=== PATIENT | female | born 1970 | race Caucasian/White ===

== ENCOUNTER 2016-05-04 13:14 | Emergency (ER) | payer MEDICARE, MEDICAID ==
[~2016-05-04 13:14] MED LIST: ACET50TAOT PO; ALBU17IN INH; ALBU17IN2 INH; BACI500O8 TOP; BUPR100T3 PO; BUPR10TASR PO; BUPR1TAB52 PO; CLON0.5T PO; CLON1TAB PO; CLON2TAB PO; COLA100C PO; CYMB60CA3 PO; DULO-34 PO; DULO1CAP3 PO; DULOXETINE HCL PO; FAMO20TA PO; FLON1SPR; GABA-279 PO; GABA300C3 PO; GABA600T PO; HYDR-2809 PO; HYDR-3713 PO; HYDR-3716 PO; HYDR-3719 PO; IRON65TA PO; KLON1TAB PO; KLON2TAB PO; LOPR1TAB6 PO; LORT1TAB PO; METH75TA PO; METO50TA2 PO; MINI1CAP PO; NEUR100C PO; NORT25CA2 PO; NYST100024 TOP; OMEP40CA2 PO; OXYC1TAB23 PO; PEPT262S PO; PHEN10TA PO; PRIL40CA PO; PROA1AER INH; QUET1TAB8 PO; QUET1TAB9 PO; RANI150I2 PO; RANI150T PO; RANI15TA PO; RANI1TAB6 PO; SALI0.653; SAPHRIS PO; SENO8.6T10 PO; SPIR1CAP INH; SUCR1SS PO; TIOT18INH INH; TIZA2CAP3 PO; TIZA2TA PO; TRAZ150T14 PO; TRAZ300T2 PO; TYLE325T5 PO; VALI10TA PO; VALI5TAB PO; VITA-130 PO; VITA100066 PO; WELL100T PO; ZOFR20TA PO; [UNRECOGNIZED DRUG - OTHER]
--- NOTE | 2016-05-04 14:29 | REP ---
Head CT without contrast: History: Trauma. Comparison study: November 02, 2015. CT findings: Bone window settings demonstrate an intact bony calvarium. There is no evidence of skull fracture or incidental bony calvarial lesion. There is a small calcification in the scalp in the right side of the vertex unchanged from the comparison study. The visualized paranasal sinuses appear clear. No intraorbital abnormality is seen. On soft tissue window setting images; the lateral, third, and fourth ventricles are normal in size and position. Lomeli-white differentiation pattern is normal above and below the tentorium. There are is no evidence of intracranial hemorrhage. No mass, edema, infarction, or midline shift is seen. No extra-axial fluid collection is appreciated. Impression: Negative noncontrast head CT. Signed by Saad Cintron MD 05/04/2016 02:21 P
[2016-05-04] MEDS ORDERED: HYDROmorphone HCL 1 MG/ML SYRINGE (J1170) As Ordered ONE (14:30)
[2016-05-04] MEDS ORDERED: LIDOCAINE 2% W/EPIN INJ 20ML **PRES FREE As Ordered ONE (14:30)
[2016-05-04] MEDS ORDERED: ADACEL/BOOSTRIX VACCINE (DIPHTH/PERTUSS/ACELL/TETANUS)0.5ML SYR (90715) As Ordered ONE (14:31)
--- NOTE | 2016-05-04 15:13 | EDDOCDS ---
[facility] Name: Elisa Trejo Age: 46 yrs Sex: Female : 1970 Arrival Date: 05/04/2016 Time: 13:14 Bed I2 / M2 Private MD: SANTA GIRARD Disposition: 05/04/16 15:00 Discharged to Home/Self Care. Impression: Slipping, tripping and stumbling without falling due to stepping from one level to another, Laceration without foreign body of scalp. - Condition is Stable. - Discharge Instructions: Head Injury, Adult, Sutured Wound Care. - Medication Reconciliation form. - Follow up: SANTA GIRARD; When: 1 week; Reason: Wound/Symptom Recheck, Staple/Suture removal, Recheck today's complaints, Worsening of conditions, Continuance of care. - Problem is new. - Symptoms have improved. - Notes: 4 sutures were placed in your head today. Please keep area clean and dry. Return in 1 week for suture removal. Return sooner for any signs of infection. thanks. Historical: - Home Meds: 1. amlodipine 10 mg Oral tab 1 tab once daily 2. duloxetine 60 mg Oral cpDR 2 caps once daily for Major Depressive Disorder 3. hydroxyzine HCl 50 mg Oral tab 2 tabs 4 times per day 4. Lopressor 50 mg Oral tab 1 tab 2 times per day 5. omeprazole 40 mg Oral cpDR 1 cap 2 times per day 6. ranitidine HCl 150 mg Oral tab 1 cap 2 times per day 7. Spiriva with HandiHaler 18 mcg Inhl CpDv 1 cap once daily 8. trazodone 150 mg Oral tab 2 tabs nightly 9. Wellbutrin 100 mg Oral tab 1 tab 2 times per day - PMHx: Anxiety; Asthma; Chronic Low Back Pain; COPD; Depression; DVT; GERD; Hypertension; OCD; PTSD; Pulmonary Embolism; - PSHx: left leg surgery times 4; Hernia repair; Uterine Ablation; - Social history: Smoking status: Patient uses tobacco products, light tobacco smoker. No barriers to communication noted, The patient speaks fluent Kyrgyz, Speaks appropriately for age. - Family history: Not pertinent. - : The pt / caregiver states he / she is not on anticoagulants. Home medication list is obtained from the patient. - Exposure Risk Screening:: None identified. - Tetanus status: up to date. SLUBBER HAND: 05/04 13:26 LMP N/A - Uterine ablation jo3 Vital Signs: 13:17 BP 133 / 78; Pulse 100; Resp 18 S; Temp 97.3; Pulse Ox 95% on R/A; Weight 90.72 kg / dd6 200 lbs (R); Height 5 ft. 6 in. (167.64 cm) (R); 15:09 BP 130 / 70; Pulse 88; Resp 18; Temp 97.0(O); Pulse Ox 96% on R/A; Pain 0/10; jmb 13:17 Body Mass Index 32.28 (90.72 kg, 167.64 cm) dd6 [place] Coma Score: 13:18 Eye Response: spontaneous(4). Verbal Response: oriented(5). Motor Response: obeys jo3 commands(6). Total: 15. Procedures: 15:04 Laceration repair:. cc10 Laceration: 15:04 Wound Repair of 3cm ( 1.2in ) full thickness laceration to right side of forehead. cc10 Linear shaped.. Distal neuro/vascular/tendon intact. Anesthesia: Local anesthetic administered with 4 mls of 2% lidocaine. Wound prep: Simple cleansing with betadine by provider, Wound irrigation with saline by provider. Skin closed with 4 x 4-0 Nylon using Simple interrupted sutures. Dressed with Bacitracin. Patient tolerated well. MDM: 13:38 CT Head Without Contrast Ordered. EDMS 14:26 Dilaudid - HYDROmorphone 1 mg IM once ordered. cc10 14:27 Lidocaine-Epinephrine 2 %-1:100,000 10 ml Infiltration once; to bedside ordered. cc10 Administered Medications: 14:34 Drug: Dilaudid - HYDROmorphone 1 mg [hydromorphone 1 mg/mL injection syringe (1 mL)] pml Route: IM; Site: left deltoid; 14:34 CANCELLED (Other Intervention Used): Tetanus- Diptheria-Acellular Pertussis 0.5 ml IM cc10 once; Routine booster 10-64yrs, >64 with child contact [facility] 14:35 Drug: Lidocaine-Epinephrine 10 ml [lidocaine 20 mg/mL (2 %)-epinephrine 1:100,000 pml injection solution (10 mL)] {Note: by VANESSA Carroll.} Route: Infiltration; Signatures: Dispatcher [employer] Yoselyn ElamRN Ignacia GatesRN Vj Lopez RN RN jmb Coniski, Colin, BHAVIN DELCID cc10 The chart was reviewed and I authenticate all verbal orders and agree with the evaluation and treatment provided.Corrections: (The following items were deleted from the chart) 14:34 14:27 Tetanus- Diptheria-Acellular Pertussis 0.5 ml IM once; Routine booster cc10 10-64yrs, >64 with child contact [employer] ordered. cc10 14:34 14:34 Tetanus- Diptheria-Acellular Pertussis 0.5 ml IM once; Routine booster cc10 10-64yrs, >64 with child contact [employer] ordered. cc10 MTDD
--- NOTE | 2016-05-04 15:13 | EDDOCDS ---
Nurse's Notes [facility] Name: Elisa Trejo Age: 46 yrs Sex: Female : 1970 Arrival Date: 05/04/2016 Time: 13:14 Bed I2 / M2 Private MD: SANTA GIRARD Diagnosis: Slipping, tripping and stumbling without falling due to stepping from one level to another;Laceration without foreign body of scalp Presentation: 05/04 13:18 Presenting complaint: Patient states: Had cast placed to LLE today at ortho. At home, jo3 slipped on linoleum and fell, striking front right side of head. unknown. Mechanism of Injury: resulted from a fall. Adult Sepsis Screening: Patient has new or worsening altered mentation (1 point). Patient's respiratory rate is less than 22. Systolic blood pressure is greater than 100. Patient has a qSOFA score of 0- Negative Sepsis Screen. Suicide/Homicide risk assessment- the patient denies having any suicidal and/or homicidal ideations and does not present with any other emotional, behavioral or mental health complaints. 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 Transition of care: patient was not received from another setting of care. 13:18 Acuity: SHONDA Level 3 jo3 13:18 Method Of Arrival: Ambulance jo3 Triage Assessment: 13:24 General: Appears in no apparent distress. General: Had some nausea prior to arrival. jo3 C/O feeling tired and severe DENIS . HIV screening NA for this visit Offered previously. Neurological: Level of Consciousness is awake, alert. Respiratory: Airway is patent Respiratory effort is even, unlabored. Derm: Skin is pink, warm & dry. 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 amlodipine 10 mg Oral tab 1 tab once daily 2. duloxetine 60 mg Oral cpDR 2 caps once daily for Major Depressive Disorder 3. hydroxyzine HCl 50 mg Oral tab 2 tabs 4 times per day 4. Lopressor 50 mg Oral tab 1 tab 2 times per day 5. omeprazole 40 mg Oral cpDR 1 cap 2 times per day 6. ranitidine HCl 150 mg Oral tab 1 cap 2 times per day 7. Spiriva with HandiHaler 18 mcg Inhl CpDv 1 cap once daily 8. trazodone 150 mg Oral tab 2 tabs nightly 9. Wellbutrin 100 mg Oral tab 1 tab 2 times per day - PMHx: Anxiety; Asthma; Chronic Low Back Pain; COPD; Depression; DVT; GERD; Hypertension; OCD; PTSD; Pulmonary Embolism; - PSHx: left leg surgery times 4; Hernia repair; Uterine Ablation; - Social history: Smoking status: Patient uses tobacco products, light tobacco smoker. No barriers to communication noted, The patient speaks fluent Serbian, Speaks appropriately for age. - Family history: Not pertinent. - : The pt / caregiver states he / she is not on anticoagulants. Home medication list is obtained from the patient. - Exposure Risk Screening:: None identified. - Tetanus status: up to date. Screenin:35 Screening information is obtained from the patient. Fall risk: No risks identified. pml Assistance ADL's: requires no assistance with activities of daily living. Abuse/DV Screen: The patient / caregiver reports he/she is: not in a situation that causes fear, pain or injury. Nutritional screening: No deficits noted. Advance Directives: Currently, there is no health care proxy. home support is adequate. Assessment: 14:35 General: Appears in no apparent distress, comfortable, Behavior is appropriate for age, pml cooperative. Pain: Location: face Pain currently is 10 out of 10 on a pain scale. Neurological: Level of Consciousness is awake, alert, Oriented to person, place, time, Reports no additional symptoms. Cardiovascular: Capillary refill < 3 seconds. Respiratory: Airway is patent Respiratory effort is even, unlabored. GI: Abdomen is non- distended obese. Derm: Skin is pink, warm & dry. Injury Description: Laceration sustained to forehead is superficial, 2.6 to 7.5 cm long, was sustained 1-2 hours ago. is bleeding a small amount. 15:09 General: Patient instructed on discharge instructions. Patient asked if there were any b questions regarding discharge, patient stated no. Patient signed discharge instructions. Patient discharged in stable condition. . Vital Signs: 13:17 BP 133 / 78; Pulse 100; Resp 18 S; Temp 97.3; Pulse Ox 95% on R/A; Weight 90.72 kg (R); dd6 Height 5 ft. 6 in. (167.64 cm) (R); 15:09 BP 130 / 70; Pulse 88; Resp 18; Temp 97.0(O); Pulse Ox 96% on R/A; Pain 0/10; jmb 13:17 Body Mass Index 32.28 (90.72 kg, 167.64 cm) dd6 Vitals: 13:17 Log In Time: May 04, 2016 at 13:15. dd6 [place] Coma Score: 13:18 Eye Response: spontaneous(4). Verbal Response: oriented(5). Motor Response: obeys jo3 commands(6). Total: 15. ED Course: 13:15 Patient visited by Zion Ornelas PCA. dd6 13:15 Patient moved to Waiting dd6 13:16 SANTA GIRARD is Private Physician. dd6 13:17 Patient visited by Zion Ornelas PCA. dd6 13:17 Patient moved to Pre RCE dd6 13:23 Triage Initiated jo3 13:26 Patient visited by Yoselyn Arguello RN. jo3 13:37 Patient moved to I2 / M2 jo3 14:23 Jeffrey Gutiérrez PA-C is PHCP. cc10 14:23 Ema Lemos MD is Attending Physician. cc10 14:23 Patient visited by Jeffrey Gutiérrez PA-C. cc10 14:23 Patient visited by Jeffrey Gutiérrez PA-C. cc10 14:35 The patient / caregiver is instructed regarding the plan of care and ED course. Patient pml has correct armband on for positive identification. Placed in gown. Bed in low position. Call light in reach. Side rails up X2. 14:35 No IV's were initiated during this patient's visit. pml 14:36 Patient visited by Ignacia Estrada RN. pml 14:36 CT Head Without Contrast Returned. EDMS 15:00 SANTA GIRARD is Referral Physician. cc10 15:09 No procedures done that require assistance. rocael Administered Medications: 14:34 Drug: Dilaudid - HYDROmorphone 1 mg [hydromorphone 1 mg/mL injection syringe (1 mL)] pml Route: IM; Site: left deltoid; 14:34 CANCELLED (Other Intervention Used): Tetanus- Diptheria-Acellular Pertussis 0.5 ml IM cc10 once; Routine booster 10-64yrs, >64 with child contact [facility] 14:35 Drug: Lidocaine-Epinephrine 10 ml [lidocaine 20 mg/mL (2 %)-epinephrine 1:100,000 pml injection solution (10 mL)] {Note: by VANESSA Carroll.} Route: Infiltration; Order Results: Radiology Order: CT Head Without Contrast Test: CT Head Without Contrast REASON FOR EXAMINATION: Trauma; Head CT without contrast:; ; History: Trauma.; ; Comparison study: November 02, 2015.; ; CT findings: Bone window settings demonstrate an intact bony calvarium. There; is no evidence of skull fracture or incidental bony calvarial lesion. There is a; small calcification in the scalp in the right side of the vertex unchanged from; the comparison study. The visualized paranasal sinuses appear clear. No; intraorbital abnormality is seen. On soft tissue window setting images; the; lateral, third, and fourth ventricles are normal in size and position.; Lomeli-white differentiation pattern is normal above and below the tentorium.; There are is no evidence of intracranial hemorrhage. No mass, edema, infarction,; or midline shift is seen. No extra-axial fluid collection is appreciated.; ; Impression:; ; Negative noncontrast head CT.; ; ; Signed by; Saad Cintron MD 05/04/2016 02:21 P; Outcome: 15:00 Discharge ordered by Provider. cc10 15:09 Discharge Assessment: Patient awake, alert and oriented x 3. No cognitive and/or jmb functional deficits noted. Patient verbalized understanding of disposition instructions. Patient awake and alert. obeys commands, Oriented to person, place and time. Patient verbalized understanding of disposition instructions. Patient has no functional deficits. patient administered narcotics - no. The following High Risk Discharge criteria are identified: None. Discharged to home ambulatory, with social media job titles. Condition: stable Condition: improved. Discharge instructions given to patient, Instructed on discharge instructions, follow up and referral plans. Demonstrated understanding of instructions, Pt was receptive of discharge instructions/ teaching. No special radiology studies were completed. Property sent home with patient. 15:12 Patient left the ED. rocael Signatures: Dispatcher [employer] EDMS Yoselyn Arguello RN RN jo3 Zion Ornelas, YRIS EXHIBITIONS CURATOR dd6 Sean,Ignacia,RN RN pml Natarajan,Vj,RN RN jmb Coniski, Jeffrey, PA-C PA-C cc10 MTDD
--- NOTE | 2016-05-06 16:13 | EDDOCDS ---
Nurse's Notes [facility] Name: Elisa Trejo Age: 46 yrs Sex: Female : 1970 Arrival Date: 05/04/2016 Time: 13:14 Bed I2 / M2 Private MD: SANTA GIRARD Diagnosis: Slipping, tripping and stumbling without falling due to stepping from one level to another;Laceration without foreign body of scalp Presentation: 05/04 13:18 Presenting complaint: Patient states: Had cast placed to LLE today at ortho. At home, jo3 slipped on linoleum and fell, striking front right side of head. unknown. Mechanism of Injury: resulted from a fall. Adult Sepsis Screening: Patient has new or worsening altered mentation (1 point). Patient's respiratory rate is less than 22. Systolic blood pressure is greater than 100. Patient has a qSOFA score of 0- Negative Sepsis Screen. Suicide/Homicide risk assessment- the patient denies having any suicidal and/or homicidal ideations and does not present with any other emotional, behavioral or mental health complaints. 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 Transition of care: patient was not received from another setting of care. 13:18 Acuity: SHONDA Level 3 jo3 13:18 Method Of Arrival: Ambulance jo3 Triage Assessment: 13:24 General: Appears in no apparent distress. General: Had some nausea prior to arrival. jo3 C/O feeling tired and severe DENIS . HIV screening NA for this visit Offered previously. Neurological: Level of Consciousness is awake, alert. Respiratory: Airway is patent Respiratory effort is even, unlabored. Derm: Skin is pink, warm & dry. 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 amlodipine 10 mg Oral tab 1 tab once daily 2. duloxetine 60 mg Oral cpDR 2 caps once daily for Major Depressive Disorder 3. hydroxyzine HCl 50 mg Oral tab 2 tabs 4 times per day 4. Lopressor 50 mg Oral tab 1 tab 2 times per day 5. omeprazole 40 mg Oral cpDR 1 cap 2 times per day 6. ranitidine HCl 150 mg Oral tab 1 cap 2 times per day 7. Spiriva with HandiHaler 18 mcg Inhl CpDv 1 cap once daily 8. trazodone 150 mg Oral tab 2 tabs nightly 9. Wellbutrin 100 mg Oral tab 1 tab 2 times per day - PMHx: Anxiety; Asthma; Chronic Low Back Pain; COPD; Depression; DVT; GERD; Hypertension; OCD; PTSD; Pulmonary Embolism; - PSHx: left leg surgery times 4; Hernia repair; Uterine Ablation; - Social history: Smoking status: Patient uses tobacco products, light tobacco smoker. No barriers to communication noted, The patient speaks fluent Setswana, Speaks appropriately for age. - Family history: Not pertinent. - : The pt / caregiver states he / she is not on anticoagulants. Home medication list is obtained from the patient. - Exposure Risk Screening:: None identified. - Tetanus status: up to date. Screenin:35 Screening information is obtained from the patient. Fall risk: No risks identified. pml Assistance ADL's: requires no assistance with activities of daily living. Abuse/DV Screen: The patient / caregiver reports he/she is: not in a situation that causes fear, pain or injury. Nutritional screening: No deficits noted. Advance Directives: Currently, there is no health care proxy. home support is adequate. Assessment: 14:35 General: Appears in no apparent distress, comfortable, Behavior is appropriate for age, pml cooperative. Pain: Location: face Pain currently is 10 out of 10 on a pain scale. Neurological: Level of Consciousness is awake, alert, Oriented to person, place, time, Reports no additional symptoms. Cardiovascular: Capillary refill < 3 seconds. Respiratory: Airway is patent Respiratory effort is even, unlabored. GI: Abdomen is non- distended obese. Derm: Skin is pink, warm & dry. Injury Description: Laceration sustained to forehead is superficial, 2.6 to 7.5 cm long, was sustained 1-2 hours ago. is bleeding a small amount. 15:09 General: Patient instructed on discharge instructions. Patient asked if there were any b questions regarding discharge, patient stated no. Patient signed discharge instructions. Patient discharged in stable condition. . Vital Signs: 13:17 BP 133 / 78; Pulse 100; Resp 18 S; Temp 97.3; Pulse Ox 95% on R/A; Weight 90.72 kg (R); dd6 Height 5 ft. 6 in. (167.64 cm) (R); 15:09 BP 130 / 70; Pulse 88; Resp 18; Temp 97.0(O); Pulse Ox 96% on R/A; Pain 0/10; jmb 13:17 Body Mass Index 32.28 (90.72 kg, 167.64 cm) dd6 Vitals: 13:17 Log In Time: May 04, 2016 at 13:15. dd6 [place] Coma Score: 13:18 Eye Response: spontaneous(4). Verbal Response: oriented(5). Motor Response: obeys jo3 commands(6). Total: 15. ED Course: 13:15 Patient visited by Zion Ornelas PCA. dd6 13:15 Patient moved to Waiting dd6 13:16 SANTA GIRARD is Private Physician. dd6 13:17 Patient visited by Zion Ornelas PCA. dd6 13:17 Patient moved to Pre RCE dd6 13:23 Triage Initiated jo3 13:26 Patient visited by Yoselyn Arguello RN. jo3 13:37 Patient moved to I2 / M2 jo3 14:23 Jeffrey Gutiérrez PA-C is PHCP. cc10 14:23 Ema Lemos MD is Attending Physician. cc10 14:23 Patient visited by Jeffrey Gutiérrez PA-C. cc10 14:23 Patient visited by Jeffrey Gutiérrez PA-C. cc10 14:35 The patient / caregiver is instructed regarding the plan of care and ED course. Patient pml has correct armband on for positive identification. Placed in gown. Bed in low position. Call light in reach. Side rails up X2. 14:35 No IV's were initiated during this patient's visit. pml 14:36 Patient visited by Ignacia Estrada RN. pml 14:36 CT Head Without Contrast Returned. EDMS 15:00 SANTA GIRARD is Referral Physician. cc10 15:09 No procedures done that require assistance. rocael 05/05 08:06 T-Sheet-- Draft Copy was scanned into [employer] and attached to record. [facility] Administered Medications: 05/04 14:34 Drug: Dilaudid - HYDROmorphone 1 mg [hydromorphone 1 mg/mL injection syringe (1 mL)] pml Route: IM; Site: left deltoid; 14:34 CANCELLED (Other Intervention Used): Tetanus- Diptheria-Acellular Pertussis 0.5 ml IM cc10 once; Routine booster 10-64yrs, >64 with child contact [facility] 14:35 Drug: Lidocaine-Epinephrine 10 ml [lidocaine 20 mg/mL (2 %)-epinephrine 1:100,000 pml injection solution (10 mL)] {Note: by VANESSA Carroll.} Route: Infiltration; Order Results: Radiology Order: CT Head Without Contrast Test: CT Head Without Contrast REASON FOR EXAMINATION: Trauma; Head CT without contrast:; ; History: Trauma.; ; Comparison study: November 02, 2015.; ; CT findings: Bone window settings demonstrate an intact bony calvarium. There; is no evidence of skull fracture or incidental bony calvarial lesion. There is a; small calcification in the scalp in the right side of the vertex unchanged from; the comparison study. The visualized paranasal sinuses appear clear. No; intraorbital abnormality is seen. On soft tissue window setting images; the; lateral, third, and fourth ventricles are normal in size and position.; Lomeli-white differentiation pattern is normal above and below the tentorium.; There are is no evidence of intracranial hemorrhage. No mass, edema, infarction,; or midline shift is seen. No extra-axial fluid collection is appreciated.; ; Impression:; ; Negative noncontrast head CT.; ; ; Signed by; Saad Cintron MD 05/04/2016 02:21 P; Outcome: 15:00 Discharge ordered by Provider. cc10 15:09 Discharge Assessment: Patient awake, alert and oriented x 3. No cognitive and/or jmb functional deficits noted. Patient verbalized understanding of disposition instructions. Patient awake and alert. obeys commands, Oriented to person, place and time. Patient verbalized understanding of disposition instructions. Patient has no functional deficits. patient administered narcotics - no. The following High Risk Discharge criteria are identified: None. Discharged to home ambulatory, with transition social worker. Condition: stable Condition: improved. Discharge instructions given to patient, Instructed on discharge instructions, follow up and referral plans. Demonstrated understanding of instructions, Pt was receptive of discharge instructions/ teaching. No special radiology studies were completed. Property sent home with patient. 15:12 Patient left the ED. b Signatures: Dispatcher [facility] Yoselyn Elam RN RN jo3 Zion Ornelas SOLAR DESIGNER/INSTALLER SOLAR DESIGNER/INSTALLER dd6 Ignacia Estrada,RN RN pml Vj NatarajanRN RN galb Jeffrey Gutiérrez, BHAVIN DELCID cc10 Ema Calloway Chart Complete MTDD
--- NOTE | 2016-05-06 16:13 | EDDOCDS ---
Physician Documentation [facility] Name: Elisa Trejo Age: 46 yrs Sex: Female : 1970 Arrival Date: 05/04/2016 Time: 13:14 Bed I2 / M2 Private MD: SANTA GIRARD Disposition: 05/04/16 15:00 Discharged to Home/Self Care. Impression: Slipping, tripping and stumbling without falling due to stepping from one level to another, Laceration without foreign body of scalp. - Condition is Stable. - Discharge Instructions: Head Injury, Adult, Sutured Wound Care. - Medication Reconciliation form. - Follow up: SANTA GIRARD; When: 1 week; Reason: Wound/Symptom Recheck, Staple/Suture removal, Recheck today's complaints, Worsening of conditions, Continuance of care. - Problem is new. - Symptoms have improved. - Notes: 4 sutures were placed in your head today. Please keep area clean and dry. Return in 1 week for suture removal. Return sooner for any signs of infection. thanks. Historical: - Home Meds: 1. amlodipine 10 mg Oral tab 1 tab once daily 2. duloxetine 60 mg Oral cpDR 2 caps once daily for Major Depressive Disorder 3. hydroxyzine HCl 50 mg Oral tab 2 tabs 4 times per day 4. Lopressor 50 mg Oral tab 1 tab 2 times per day 5. omeprazole 40 mg Oral cpDR 1 cap 2 times per day 6. ranitidine HCl 150 mg Oral tab 1 cap 2 times per day 7. Spiriva with HandiHaler 18 mcg Inhl CpDv 1 cap once daily 8. trazodone 150 mg Oral tab 2 tabs nightly 9. Wellbutrin 100 mg Oral tab 1 tab 2 times per day - PMHx: Anxiety; Asthma; Chronic Low Back Pain; COPD; Depression; DVT; GERD; Hypertension; OCD; PTSD; Pulmonary Embolism; - PSHx: left leg surgery times 4; Hernia repair; Uterine Ablation; - Social history: Smoking status: Patient uses tobacco products, light tobacco smoker. No barriers to communication noted, The patient speaks fluent Grenadian, Speaks appropriately for age. - Family history: Not pertinent. - : The pt / caregiver states he / she is not on anticoagulants. Home medication list is obtained from the patient. - Exposure Risk Screening:: None identified. - Tetanus status: up to date. MANAGER TRAFFIC: 05/04 13:26 LMP N/A - Uterine ablation jo3 Vital Signs: 13:17 BP 133 / 78; Pulse 100; Resp 18 S; Temp 97.3; Pulse Ox 95% on R/A; Weight 90.72 kg / dd6 200 lbs (R); Height 5 ft. 6 in. (167.64 cm) (R); 15:09 BP 130 / 70; Pulse 88; Resp 18; Temp 97.0(O); Pulse Ox 96% on R/A; Pain 0/10; jmb 13:17 Body Mass Index 32.28 (90.72 kg, 167.64 cm) dd6 [place] Coma Score: 13:18 Eye Response: spontaneous(4). Verbal Response: oriented(5). Motor Response: obeys jo3 commands(6). Total: 15. Procedures: 15:04 Laceration repair:. cc10 Laceration: 15:04 Wound Repair of 3cm ( 1.2in ) full thickness laceration to right side of forehead. cc10 Linear shaped.. Distal neuro/vascular/tendon intact. Anesthesia: Local anesthetic administered with 4 mls of 2% lidocaine. Wound prep: Simple cleansing with betadine by provider, Wound irrigation with saline by provider. Skin closed with 4 x 4-0 Nylon using Simple interrupted sutures. Dressed with Bacitracin. Patient tolerated well. MDM: 13:38 CT Head Without Contrast Ordered. EDMS 14:26 Dilaudid - HYDROmorphone 1 mg IM once ordered. cc10 14:27 Lidocaine-Epinephrine 2 %-1:100,000 10 ml Infiltration once; to bedside ordered. cc10 05/05 08:06 T-Sheet-- Draft Copy was scanned into [employer] and attached to record. [facility] Administered Medications: 05/04 14:34 Drug: Dilaudid - HYDROmorphone 1 mg [hydromorphone 1 mg/mL injection syringe (1 mL)] pml Route: IM; Site: left deltoid; 14:34 CANCELLED (Other Intervention Used): Tetanus- Diptheria-Acellular Pertussis 0.5 ml IM cc10 once; Routine booster 10-64yrs, >64 with child contact [facility] 14:35 Drug: Lidocaine-Epinephrine 10 ml [lidocaine 20 mg/mL (2 %)-epinephrine 1:100,000 pml injection solution (10 mL)] {Note: by VANESSA Carroll.} Route: Infiltration; Signatures: Dispatcher [employer] Yoselyn ElamRN RN Ignacia JovelRN RN Vj Mcgowan RN RN jmb Coniski, Colin, PA-C PA-C [facility] Ema Calloway se The chart was reviewed and I authenticate all verbal orders and agree with the evaluation and treatment provided.Corrections: (The following items were deleted from the chart) 14:34 14:27 Tetanus- Diptheria-Acellular Pertussis 0.5 ml IM once; Routine booster cc10 10-64yrs, >64 with child contact [employer] ordered. cc10 14:34 14:34 Tetanus- Diptheria-Acellular Pertussis 0.5 ml IM once; Routine booster cc10 10-64yrs, >64 with child contact [employer] ordered. [facility] Attachments: 05/05 08:06 T-Sheet-- Draft Copy [facility] Chart Complete [facility]
--- NOTE | 2016-05-06 16:13 | EDDOCDS ---
Physician Documentation [facility] Name: Elisa Trejo Age: 46 yrs Sex: Female : 1970 Arrival Date: 05/04/2016 Time: 13:14 Bed I2 / M2 Private MD: SANTA GIRARD Disposition: 05/04/16 15:00 Discharged to Home/Self Care. Impression: Slipping, tripping and stumbling without falling due to stepping from one level to another, Laceration without foreign body of scalp. - Condition is Stable. - Discharge Instructions: Head Injury, Adult, Sutured Wound Care. - Medication Reconciliation form. - Follow up: SANTA GIRARD; When: 1 week; Reason: Wound/Symptom Recheck, Staple/Suture removal, Recheck today's complaints, Worsening of conditions, Continuance of care. - Problem is new. - Symptoms have improved. - Notes: 4 sutures were placed in your head today. Please keep area clean and dry. Return in 1 week for suture removal. Return sooner for any signs of infection. thanks. Historical: - Home Meds: 1. amlodipine 10 mg Oral tab 1 tab once daily 2. duloxetine 60 mg Oral cpDR 2 caps once daily for Major Depressive Disorder 3. hydroxyzine HCl 50 mg Oral tab 2 tabs 4 times per day 4. Lopressor 50 mg Oral tab 1 tab 2 times per day 5. omeprazole 40 mg Oral cpDR 1 cap 2 times per day 6. ranitidine HCl 150 mg Oral tab 1 cap 2 times per day 7. Spiriva with HandiHaler 18 mcg Inhl CpDv 1 cap once daily 8. trazodone 150 mg Oral tab 2 tabs nightly 9. Wellbutrin 100 mg Oral tab 1 tab 2 times per day - PMHx: Anxiety; Asthma; Chronic Low Back Pain; COPD; Depression; DVT; GERD; Hypertension; OCD; PTSD; Pulmonary Embolism; - PSHx: left leg surgery times 4; Hernia repair; Uterine Ablation; - Social history: Smoking status: Patient uses tobacco products, light tobacco smoker. No barriers to communication noted, The patient speaks fluent Turkish, Speaks appropriately for age. - Family history: Not pertinent. - : The pt / caregiver states he / she is not on anticoagulants. Home medication list is obtained from the patient. - Exposure Risk Screening:: None identified. - Tetanus status: up to date. INVOICING SPECIALIST: 05/04 13:26 LMP N/A - Uterine ablation jo3 Vital Signs: 13:17 BP 133 / 78; Pulse 100; Resp 18 S; Temp 97.3; Pulse Ox 95% on R/A; Weight 90.72 kg / dd6 200 lbs (R); Height 5 ft. 6 in. (167.64 cm) (R); 15:09 BP 130 / 70; Pulse 88; Resp 18; Temp 97.0(O); Pulse Ox 96% on R/A; Pain 0/10; jmb 13:17 Body Mass Index 32.28 (90.72 kg, 167.64 cm) dd6 [place] Coma Score: 13:18 Eye Response: spontaneous(4). Verbal Response: oriented(5). Motor Response: obeys jo3 commands(6). Total: 15. Procedures: 15:04 Laceration repair:. cc10 Laceration: 15:04 Wound Repair of 3cm ( 1.2in ) full thickness laceration to right side of forehead. cc10 Linear shaped.. Distal neuro/vascular/tendon intact. Anesthesia: Local anesthetic administered with 4 mls of 2% lidocaine. Wound prep: Simple cleansing with betadine by provider, Wound irrigation with saline by provider. Skin closed with 4 x 4-0 Nylon using Simple interrupted sutures. Dressed with Bacitracin. Patient tolerated well. MDM: 13:38 CT Head Without Contrast Ordered. EDMS 14:26 Dilaudid - HYDROmorphone 1 mg IM once ordered. cc10 14:27 Lidocaine-Epinephrine 2 %-1:100,000 10 ml Infiltration once; to bedside ordered. cc10 05/05 08:06 T-Sheet-- Draft Copy was scanned into [employer] and attached to record. [facility] Administered Medications: 05/04 14:34 Drug: Dilaudid - HYDROmorphone 1 mg [hydromorphone 1 mg/mL injection syringe (1 mL)] pml Route: IM; Site: left deltoid; 14:34 CANCELLED (Other Intervention Used): Tetanus- Diptheria-Acellular Pertussis 0.5 ml IM cc10 once; Routine booster 10-64yrs, >64 with child contact [facility] 14:35 Drug: Lidocaine-Epinephrine 10 ml [lidocaine 20 mg/mL (2 %)-epinephrine 1:100,000 pml injection solution (10 mL)] {Note: by VANESSA Carroll.} Route: Infiltration; Signatures: Dispatcher [employer] Yoselyn ElamRN RN Ignacia JovelRN RN Vj Mcgowan RN RN jmb Coniski, Colin, PA-C PA-C [facility] Ema Calloway se The chart was reviewed and I authenticate all verbal orders and agree with the evaluation and treatment provided.Corrections: (The following items were deleted from the chart) 14:34 14:27 Tetanus- Diptheria-Acellular Pertussis 0.5 ml IM once; Routine booster cc10 10-64yrs, >64 with child contact [employer] ordered. cc10 14:34 14:34 Tetanus- Diptheria-Acellular Pertussis 0.5 ml IM once; Routine booster cc10 10-64yrs, >64 with child contact [employer] ordered. [facility] Attachments: 05/05 08:06 T-Sheet-- Draft Copy [facility] Chart Complete [facility]
== END 2016-05-04 15:12 | disposition home or self-care (01) ==
LOC: M ED 13:14
DX: S01.01XA Laceration without foreign body of scalp, initial encounter (principal); W01.10XA Fall on same level from slipping, tripping and stumbling with subsequent striking against unspecified object, initial encounter; Y92.019 Unspecified place in single-family (private) house as the place of occurrence of the external cause; Y93.9 Activity, unspecified; Y99.9 Unspecified external cause status; F41.9 Anxiety disorder, unspecified; J45.909 Unspecified asthma, uncomplicated; G89.29 Other chronic pain; M54.5 Low back pain; J44.9 Chronic obstructive pulmonary disease, unspecified; F32.9 Major depressive disorder, single episode, unspecified; I82.409 Acute embolism and thrombosis of unspecified deep veins of unspecified lower extremity; K21.9 Gastro-esophageal reflux disease without esophagitis; I10 Essential (primary) hypertension; F42.9 Obsessive-compulsive disorder, unspecified; F43.10 Post-traumatic stress disorder, unspecified; I26.99 Other pulmonary embolism without acute cor pulmonale; Z72.0 Tobacco use; Z79.899 Other long term (current) drug therapy
CPT/HCPCS: 12013; 70450; 90715; 96372; 99283; J1170

== ENCOUNTER 2016-05-08 09:36 | Inpatient (IN) | payer MEDICARE, MEDICAID ==
[~2016-05-08] VITALS: Ht 167.6 cm; Wt 117.2 kg
[2016-05-08] MEDS ORDERED: ACETAMINOPHEN 325 MG TAB As Ordered ONE (10:43)
[2016-05-08 11:38] LABS: CALCIUM OXALATE CRYSTALS SMALL
[2016-05-08 11:46] LABS: BASO % 0.4 % (0.0-1.0); EOS # 0.2 K/mm3 (0.0-0.50); EOS % 1.7 % (0.0-3.0); LARGE UNSTAINED CELL # 0.1 K/mm3 (0.0-0.4); LARGE UNSTAINED CELL % 1.3 % (0.0-4.0); LYMPH # 1.5 K/mm3 (1.5-4.5); LYMPH % 15.6 % (24.0-44.0); MEAN CORPUSCULAR HEMOGLOBIN 27.5 pg (27.0-33.0); MEAN CORPUSCULAR HGB CONC 32.8 g/dl (32.0-36.5); MEAN CORPUSCULAR VOLUME 83.8 fl (80.0-96.0); MONO # 0.4 K/mm3 (0.0-0.8); MONO % 4.1 % (0.0-5.0); NEUTROPHILS # 7.3 K/mm3 (1.8-7.7); NEUTROPHILS % 76.9 % (36.0-66.0); PLATELET COUNT, AUTOMATED 238 k/mm3 (150-450); RED CELL DISTRIBUTION WIDTH 14.9 % (11.5-14.5); WHITE BLOOD COUNT 9.5 K/mm3 (4.0-10.0)
[2016-05-08 11:51] LABS: ANION GAP 9 MEQ/L (8-16); BLOOD UREA NITROGEN 11 MG/DL (7-18); CALCIUM LEVEL 8.6 MG/DL (8.5-10.1); CARBON DIOXIDE LEVEL 26 MEQ/L (21-32); CHLORIDE LEVEL 105 MEQ/L (98-107); CREATININE FOR GFR 0.61 MG/DL (0.55-1.02); GLOMERULAR FILTRATION RATE > 60.0 (>58); GLUCOSE, FASTING 132 MG/DL (70-105); POTASSIUM SERUM 3.5 MEQ/L (3.5-5.1); SODIUM LEVEL 140 MEQ/L (136-145)
[2016-05-08] MEDS ORDERED: ISOVUE-370 76% 100ML VIAL (Q9967) As Ordered ONE (12:03)
[2016-05-08] MEDS ORDERED: cefTRIAXone SOD 1 GM VIAL (J0696) As Ordered ONE (12:09)
[2016-05-08 12:22] LABS: ALBUMIN 3.7 GM/DL (3.2-5.2); ALBUMIN/GLOBULIN RATIO 1.09 (1.00-1.93); ALKALINE PHOSPHATASE 96 U/L (45-117); ALT/SGPT 23 U/L (12-78); AST/SGOT 22 U/L (15-37); BILIRUBIN,DIRECT 0.1 MG/DL (0.0-0.2); BILIRUBIN,TOTAL 0.4 MG/DL (0.2-1.0); T UPTAKE 30 % (30-39); THYROXINE (T4) 8.8 UG/DL (4.5-12.0); TOTAL PROTEIN 7.1 GM/DL (6.4-8.2)
[2016-05-08] MEDS ORDERED: AMLO10TA2 PO (12:54)
[2016-05-08] MEDS ORDERED: KLON0.5T PO (12:54)
[2016-05-08] MEDS ORDERED: RANI150T PO (12:54)
[2016-05-08] MEDS ORDERED: ACET50TAOT PO (12:54)
[2016-05-08] MEDS ORDERED: DULO1CAP3 PO (12:54)
[2016-05-08] MEDS ORDERED: OMEP40CA2 PO (12:54)
--- NOTE | 2016-05-08 13:07 | REP ---
CT BRAIN WITHOUT CONTRAST: 05/08/2016. Comparison: 05/04/2016. There are [address] brain's between 06/20/2013 and 11/02/2015. Clinical history: Dizziness, recent head injury. Findings: Pedicles are midline, symmetric and without dilatation or displacement. Basal ganglia were symmetric and unremarkable. The whaley-white junction differentiation is maintained. Cortical stripe is preserved. No intracranial hemorrhage, atrophy, mass or edema. No midline shift. Brainstem and cerebellum are grossly unremarkable. Bone windows show the mastoids and visualized sinuses intact. The calvarium and skull base are without a visible fracture or focal lesion. Orbits, facial bones and nasal bones all intact. Impression: 1. Negative noncontrast CT brain. No intracranial hemorrhage, fracture of the skull base, calvarium or visualized facial bone abnormalities on this study. Stable examination. Signed by Nain Garrido MD 05/08/2016 05:58 P
--- NOTE | 2016-05-08 13:19 | REP ---
CT MAXILLOFACIAL WITHOUT CONTRAST: 05/08/2016. Clinical history: Trauma. Left side. Findings: There are no comparison studies of the facial bones. Axial soft tissue and bone window settings and coronal and sagittal reconstructions provided in bone window settings. The patient is edentulous. Nasal spine of the maxilla intact. Nasal bones were intact. The septum is without any significant deviation. Sphenoid sinuses were clear. Maxillary sinuses show no air-fluid levels or significant mucosal thickening. 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 The ostia were patent. The hiatus semilunaris intact. There is no contra bullosa of the turbinates. Orbital floor, medial leigh and lateral struts of the orbit intact. The frontal sinuses are well aerated and clear. Ethmoids are intact. Mastoids intact as well. I see no evidence of fracture of the skull base. Visualized parotid glands unremarkable and that portion of submandibular gland seen on each side also symmetric. Impression: 1. No orbital or facial bone fractures. The sinuses were clear and the globes, extraocular muscles and optic nerves also unremarkable. Mandible intact although edentulous. Signed by Nain Garrido MD 05/08/2016 05:58 P
--- NOTE | 2016-05-08 13:21 | REP ---
CT study of the abdomen and pelvis with IV but without oral contrast: History: Trauma, left upper quadrant pain and ecchymosis. Comparison CT study November 03, 2015. CT contrast: 100 ml of Isovue [address] findings: Digital biztalk software developer radiograph demonstrates an unremarkable bowel gas pattern. There are old ununited posttraumatic changes in the right rib cage. These are unchanged. The lung bases are otherwise clear. There are old healed rib fractures in the anterior inferior chest on the left as well. No acute rib fracture is appreciated. The liver shows diffuse moderate fatty infiltration. No focal mass lesion is seen. Gallbladder and pancreas are unremarkable. The spleen is homogeneous in texture, normal in size and intact. No adrenal lesion is seen. Kidneys enhance symmetrically and are morphologically intact. There is a inferior vena cava filter in good position. A normal appendix is seen retrocecal. Small and large intestinal bowel loops are normal in the abdomen and pelvis. There is left colonic diverticulosis without CT evidence of diverticulitis. The uterus and ovaries are unremarkable by CT. No free air or free fluid seen. There is an area of fibrosis in the subcutaneous fat of the right lower quadrant anterior abdominal wall. No extraabdominal hematoma or mass lesion is seen. Impression: 1. 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 2. Colonic diverticulosis without diverticulitis. 3. Inferior vena cava filter in place. 4. Fatty infiltration of the liver. 5. No acute traumatic abnormality. Signed by Saad Cintron MD 05/08/2016 04:22 P
[2016-05-08] MEDS ORDERED: METOCLOPRAMIDE INJ 10MG/2ML VIAL (J2765) As Ordered ONE (13:35)
[2016-05-08] MEDS ORDERED: KETOROLAC 30 MG/ML VIAL (J1885) As Ordered ONE (13:35)
[2016-05-08 14:02] LABS: AMPHETAMINES LEVEL URINE POSITIVE (NEGATIVE); BENZODIAZEPINES URINE NEGATIVE (NEGATIVE); COCAINE METABOLITE URINE NEGATIVE (NEGATIVE); CONTROL LINE INT CTR LINE PRESENT; METHADONE URINE NEGATIVE (NEGATIVE); OPIATES URINE POSITIVE (NEGATIVE); TRICYCLIC ANTIDEPRESS URINE NEGATIVE (NEGATIVE)
[2016-05-08] MEDS ORDERED: MORPHINE 4 MG/ML 1ML SYRINGE As Ordered ONE (14:26)
[2016-05-08] MEDS ORDERED: NS 1,000 ML IV ONE (15:29)
[2016-05-08] MEDS ORDERED: METOCLOPRAMIDE INJ 10MG/2ML VIAL (J2765) IV PRN (15:30)
[2016-05-08] MEDS ORDERED: ALBUTEROL 90 MCG/ACT 8GM HFA INHALER INH PRN (15:30)
[2016-05-08] MEDS ORDERED: ACETAMINOPHEN 500 MG TAB PO PRN (15:30)
--- NOTE | 2016-05-08 17:39 | EDDOCDS ---
Nurse's Notes [facility] Name: Elisa Trejo Age: 46 yrs Sex: Female : 1970 Arrival Date: 05/08/2016 Time: 09:36 Bed Admit Hold Private MD: NO PRIMARY PHYSICIAN, . Diagnosis: Chronic migraine without aura, intractable;Dizziness and giddiness-unstable gait;Urinary tract infection, site not specified Presentation: 05/08 09:41 Presenting complaint: Patient states: saw Dr Osullivan psychiatrist - he sent her in for hs1 high blood pressure. He told her and TLS staff member that he couldn't treat her because of her blood pressure, and dizziness from head injury. Patient states head injury occurred last Saturday due to falling while walking on cast because she did not have a boot on while she tried to walk. Stitches done here last Saturday. Adult Sepsis Screening: The patient does not have new or worsening altered mentation. Patient's respiratory rate is less than 22. Systolic blood pressure is greater than 100. Patient has a qSOFA score of 0- Negative Sepsis Screen. Suicide/Homicide risk assessment- the patient denies having any suicidal and/or homicidal ideations and does not present with any other emotional, behavioral or mental health complaints. 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 Transition of care: patient was received from Dr osullivan psychiatry . 09:41 Acuity: SHONDA Level 3 hs1 09:41 Method Of Arrival: Walkin/Carried/Asstd hs1 Triage Assessment: 09:48 General: Appears in no apparent distress, Behavior is cooperative. Pain: Location: hs1 everywhere Pain currently is 8 out of 10 on a pain scale. HIV screening NA for this visit Offered previously. Neurological: Level of Consciousness is awake, alert, obeys commands. Derm: Skin is pink, warm & dry. normal. 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 bupropion HCl 100 mg Oral TbER 2. Spiriva with HandiHaler 18 mcg Inhl CpDv 1 cap once daily 3. amlodipine 10 mg Oral tab 1 tab once daily 4. trazodone 150 mg Oral tab 2 tabs nightly 5. Klonopin 0.5 mg Oral tab 1 tab 3 times per day 6. duloxetine 60 mg Oral cpDR 1 cap once daily 7. omeprazole 40 mg Oral cpDR 1 cap 2 times per day 8. metoprolol tartrate 50 mg Oral tab 1 tab 2 times per day 9. ranitidine HCl 150 mg Oral tbef twice a day 10. Tylenol 500 mg Oral every 4 hours (Last dose: 05/07/2016) - PMHx: Anxiety; Asthma; Chronic Low Back Pain; COPD; Depression; DVT; GERD; Hypertension; OCD; PTSD; Pulmonary Embolism; - PSHx: left leg surgery times 4; Hernia repair; Uterine Ablation; Ana Filter Placement; - Social history: Smoking status: Patient uses tobacco products, light tobacco smoker. No barriers to communication noted, The patient speaks fluent Chilean, Speaks appropriately for age. - Family history: Not pertinent. - : The pt / caregiver states he / she is not on anticoagulants. Home medication list is obtained from the caregiver. - Exposure Risk Screening:: None identified. Screenin:37 Infection Control. [facility] 10:50 Screening information is obtained from the patient. Fall risk: At risk due to injury, kpj dizziness. The following interventions are performed due to a positive Fall Risk Screen: Fall Risk is added to Special Handling on the patient Summary Screen. A Fall Risk Bracelet was applied to the patient. Side Rails are placed in the up position. A Call Lawson is given with instruction to call for help when getting out of bed. Fall Alert bracelet is placed on the patient. Assistance ADL's: requires no assistance with activities of daily living. Abuse/DV Screen: The patient / caregiver reports he/she is: not in a situation that causes fear, pain or injury. Nutritional screening: No deficits noted. Advance Directives: Currently, there is no health care proxy. There is no active DNR order. There is no living will. There is no Power of Contract Assistant. Advance directive information has not previously been placed in an [facility] medical record. Further advance directive information is declined. home support is adequate. 12:04 Fall Risk. kpj Assessment: 10:50 General: Appears uncomfortable, well nourished, well groomed, Behavior is anxious, kpj Reports nausea and feeling dizzy. Pain: Location: right upper quadrant and left upper quadrant and has a headache Pain currently is 6 out of 10 on a pain scale. Neurological: Level of Consciousness is awake, alert, Oriented to person, place, time, Environmental Protection Forester are equal bilaterally Moves all extremities. Gait is steady, Speech is normal, Facial symmetry appears normal, Facial symmetry: tongue is midline, Pupils are PERRLA, linear suture line rt forehead with 4 sutures noted and ecchymosis around suture line and orbit right eye that is old. Reports dizziness, headache nausea. EENT: Eyes ecchymosis rt eye. Respiratory: Airway is patent Respiratory effort is even, unlabored, Respiratory pattern is regular, symmetrical, Breath sounds are clear bilaterally. GI: Abdomen is obese, other grapefruit size red yellow ecchymosis left upper abdomen noted, provider Helene MENDEZ notified. Bowel sounds present X 4 quads. Abd is soft X 4 quads Abd is tender to palpation in right upper quadrant and left upper quadrant. : Reports vaginal bleeding that is. Derm: Skin is pink, warm & dry. Musculoskeletal: fiberglass cast left lower leg. 11:44 General: pt states did not call for help got self up to get an emesis bag and fell in j her room, denies injury ,states nausea and dizziness. Helene MENDEZ notified and will go in to re assess pt. Pt assisted back to stretcher, both siderails up bed in low position reoriented to where the call lawson is located and not to get up without assistance.. 12:31 Reassessment: Patient states symptoms have not improved. c/o headache ice pack applied kpj to top of head. still c/o dizziness and nausea .IV rt wrist patent and intact. callbell in reach siderails up x 2. Neurological: Level of Consciousness is awake, alert, Reports dizziness, headache. Derm: Skin is pink, warm & dry. 13:15 General: Appears uncomfortable, Behavior is anxious, crying. Pain: Location: top of j head and forehead Pain currently is 10 out of 10 on a pain scale. Quality of pain is described as sharp, stabbing. Neurological: Level of Consciousness is awake, alert, Reports dizziness, headache. Respiratory: Airway is patent Respiratory effort is even, unlabored. Derm: Skin is pink, warm & dry. 14:00 Reassessment: TLS staff at bedside conversing with patient.. [facility] 14:10 General: pt crying holding her head states can't stand the headache anymore and when it kpj gets this bad she wants to put her head through the wall .Helene MENDEZ aware , medication ordered.. 15:00 General: Pt states headache is 6/10 now--much improved. Resting on stretcher awaiting [facility] bed assignment. 16:38 General: Appears in no apparent distress, comfortable, Behavior is appropriate for age, kpj pleasant. Pain: Location: forehead and top of head Pain currently is 2 out of 10 on a pain scale. Quality of pain is described as aching. Neurological: Level of Consciousness is awake, alert, Oriented to person, place, time, Pupils are PERRLA, Reports dizziness, headache. Respiratory: Airway is patent Respiratory effort is even, unlabored. GI: Denies nausea, vomiting, pain. Derm: Skin is pink, warm & dry. 17:31 General: Appears comfortable, Behavior is appropriate for age, pleasant. Pain: kpj Location: forehead and top of head and left upper quadrant and right upper quadrant Pain currently is 6 out of 10 on a pain scale. Neurological: Level of Consciousness is awake, alert, Oriented to person, place, time, Speech is normal, Pupils are PERRLA, Reports dizziness, headache. Respiratory: Airway is patent Respiratory effort is even, unlabored, Respiratory pattern is regular, symmetrical, Breath sounds are clear bilaterally. GI: Abdomen is obese, Bowel sounds present X 4 quads. Abd is soft X 4 quads Abd is tender to palpation in right upper quadrant and left upper quadrant grapefruit size ecchymotic area left upper abdomen appears old. Derm: Skin is pink, warm & dry. scabbed abrasion right elbow. Musculoskeletal: Circulation, motion, and sensation intact Capillary refill < 3 seconds in left toes fiberglass cast with cast boot intact left lower leg. Social Work Consult: 14:13 Social Work Note: Met with Pt at [facility] per request VANESSA Meraz. Pt was A&O, teary, rb in pain, denied SI/Hi, and worried about returning home. PT will be admitted for medical and seen by D/c interstate planner on floor. Vital Signs: 09:37 BP 153 / 97; Pulse 92; Resp 16; Temp 96.7(O); Pulse Ox 96% ; Weight 95.25 kg; Height 5 elp ft. 6 in. (167.64 cm); 10:55 BP 144 / 84 RA Supine (auto/lg); Pulse 83; Resp 18; Pulse Ox 98% on R/A; kpj 10:55 BP 131 / 84 RA Sitting (auto/lg); Pulse 86; Resp 18; Pulse Ox 98% on R/A; kpj 10:55 BP 120 / 82 Standing; Pulse 95; Resp 18; Pulse Ox 98% ; kpj 11:41 BP 153 / 91; Pulse 87; Resp 20; Temp 97.9; Pulse Ox 98% ; Pain 10/10; jam1 14:07 BP 152 / 103; Pulse 99; Resp 20; Temp 98.0; Pulse Ox 98% ; Pain 10/10; jam1 14:51 BP 133 / 74; Pulse 81; Resp 20; Temp 98.3; Pulse Ox 98% ; Pain 8/10; jam1 15:00 Pain 6/10; mcp 16:51 BP 112 / 64; Pulse 88; Resp 18; Temp 97.9; Pulse Ox 98% ; Pain 6/10; jam1 17:28 BP 114 / 69; Pulse 86; Resp 18; Temp 96.7; Pulse Ox 94% ; Pain 6/10; jam1 09:37 Body Mass Index 33.89 (95.25 kg, 167.64 cm) elp 10:55 dizzy and nauseted with position change kpj 10:55 dizzy and nauseated [facility] Vitals: 09:37 Log In Time: May 08, 2016 at 09:35. el ED Course: 09:36 Patient visited by Telma Lau PCA. elp 09:36 NO PRIMARY PHYSICIAN, . is Private Physician. elp 09:36 Patient moved to Waiting elp 09:38 Patient visited by Telma Lau PCA. elp 09:38 Patient moved to Pre RCE elp 09:44 Triage Initiated hs1 09:57 Patient moved to Triage 1 srm 10:21 [facility] ar2 10:21 James Hooks MD is Attending Physician. ar2 10:21 Patient visited by Adin Meraz PA-C. ar2 10:28 Patient name changed from Elisa\S\Janette\S\[place]ountain\S\ to Elisa\S\ \S\Lafountain. EDMS 10:31 PA-[facility] Payment Agreement was scanned into [employer] and attached to record. lg 10:36 Patient moved to I1 / M1 srm 10:50 Resting quietly. Awaiting lab results. Waiting to go to radiology. kpj 10:50 The patient / caregiver is instructed regarding the plan of care and ED course. Patient j has correct armband on for positive identification. Placed in gown. Bed in low position. Call light in reach. Side rails up X 1. Diet: Patient is NPO. 11:00 Inserted saline lock: 20 gauge in right wrist. kpj 11:14 UA Sent. kpj 11:14 MED Profile Sent. kpj 11:14 CBC with Diff Sent. kpj 12:04 Urine Toxicology Sent. kpj 12:15 Patient visited by Tanika Foster PCA. jam1 12:31 Resting quietly. Waiting for radiology results. kpj 13:15 Appears tearful. kpj 13:15 The patient / caregiver is instructed regarding the plan of care and ED course. Bed in [facility] low position. Call light in reach. Side rails up X2. 13:15 IV is patent, is intact, is free of redness or swelling. kpj 13:29 CT Head Without Contrast Returned. EDMS 13:29 CT Maxilofacial W/out Contrast Returned. EDMS 13:29 CT ABD & PELVIS: IV Contrast Only Returned. EDMS 14:15 Social work Temitopecarlos a Pablo PSA in to speak with patient. kpj 14:29 Assisted to bedside commode. lr2 14:30 Patient visited by Piper Vo. lr2 14:41 Kali Fishman is Hospitalizing Provider. ar2 14:55 Private physician to see patient. Visited by Dr Fishman in to examine pt. kpj 15:39 Patient visited by Janette Navarro RN. mcp 16:30 T-Sheet-- Draft Copy was scanned into [employer] and attached to record. klr 16:38 Resting quietly. Awaiting bed assignment. kpj 16:38 The patient / caregiver is instructed regarding the plan of care and ED course. Bed in [facility] low position. Call light in reach. Side rails up X2. Door closed. Noise minimized. Visitors limited. Lights dimmed. Warm blanket given. 16:38 IV is patent, is intact, is free of redness or swelling. kpj 16:44 Patient moved to Admit Hold kpj 17:14 CT ABD & PELVIS: IV Contrast Only Returned. EDMS 17:31 Resting quietly. kpj 17:31 The patient / caregiver is instructed regarding the plan of care and ED course. Diet: [facility] gingerale tolerated well. 17:31 IV is patent, is intact, is free of redness or swelling. No procedures done that j require assistance. Administered Medications: 10:47 Drug: Acetaminophen 975 mg [acetaminophen 325 mg tablet (3 tabs)] Route: PO; mcp 11:00 Drug: NS 0.9% 1000 ml [sodium chloride 0.9 % intravenous solution] Route: IV; Rate: kpj bolus; Site: right wrist; 13:00 Follow up: IV Status: Completed infusion; Infusion discontinued [facility] 12:18 Drug: cefTRIAXone 1 grams [ceftriaxone 1 gram solution for injection] Route: IVPB; kpj Infused Over: 30 mins; Site: right wrist; 13:41 Drug: ketorolac 30 mg [ketorolac 30 mg/mL (1 mL) injection solution (1 mL)] Route: IVP; mcp Site: right wrist; 14:09 Follow up: Response: Pain is unchanged, physician notified [facility] 13:41 Drug: Metoclopramide 10 mg [metoclopramide 5 mg/mL injection solution] Route: IV; Rate: mcp 40 mg/hr; Infused Over: 15 mins; Site: right wrist; 14:09 Follow up: Response: Nausea is unchanged [facility] 14:30 Drug: morphine 4 mg [morphine 4 mg/mL intravenous cartridge (1 mL)] Route: IVP; Site: [facility] right wrist; 15:00 Follow up: Pain 6/10 Adult; Response: Pain is decreased [facility] Point of Care Testing: Blood Glucose: 10:50 Blood Glucose: 129 mg/dL; [facility] Ranges: Intake: 13:00 IV: 1000.00ml (NS); Total: 1000.00ml. kpj Output: 14:29 Urine: 350.00ml (Voided); Total: 350.00ml. lr2 Order Results: Lab Order: CBC with Diff; SPEC'M 05/08/16 11:09 Test: WHITE BLOOD COUNT; Value: 9.5; Range: 4.0-10.0; Units: K/mm3; Status: F Test: RED BLOOD COUNT; Value: 5.06; Range: 4.00-5.40; Units: M/mm3; Status: F Test: HEMOGLOBIN; Value: 13.9; Range: 12.0-16.0; Units: g/dl; Status: F Test: HEMATOCRIT; Value: 42.4; Range: 36.0-47.0; Units: %; Status: F Test: MEAN CORPUSCULAR VOLUME; Value: 83.8; Range: 80.0-96.0; Units: fl; Status: F Test: MEAN CORPUSCULAR HEMOGLOBIN; Value: 27.5; Range: 27.0-33.0; Units: pg; Status: F Test: MEAN CORPUSCULAR HGB CONC; Value: 32.8; Range: 32.0-36.5; Units: g/dl; Status: F Test: RED CELL DISTRIBUTION WIDTH; Value: 14.9; Range: 11.5-14.5; Abnormal: Above high normal; Units: %; Status: F Test: PLATELET COUNT, AUTOMATED; Value: 238; Range: 150-450; Units: k/mm3; Status: F Test: NEUTROPHILS %; Value: 76.9; Range: 36.0-66.0; Abnormal: Above high normal; Units: %; Status: F Test: LYMPH %; Value: 15.6; Range: 24.0-44.0; Abnormal: Below low normal; Units: %; Status: F Test: MONO %; Value: 4.1; Range: 0.0-5.0; Units: %; Status: F Test: EOS %; Value: 1.7; Range: 0.0-3.0; Units: %; Status: F Test: BASO %; Value: 0.4; Range: 0.0-1.0; Units: %; Status: F Test: LARGE UNSTAINED CELL %; Value: 1.3; Range: 0.0-4.0; Units: %; Status: F Test: NEUTROPHILS #; Value: 7.3; Range: 1.8-7.7; Units: K/mm3; Status: F Test: LYMPH #; Value: 1.5; Range: 1.5-4.5; Units: K/mm3; Status: F Test: MONO #; Value: 0.4; Range: 0.0-0.8; Units: K/mm3; Status: F Test: EOS #; Value: 0.2; Range: 0.0-0.50; Units: K/mm3; Status: F Test: BASO #; Value: 0.0; Range: 0.0-0.2; Units: K/mm3; Status: F Test: LARGE UNSTAINED CELL #; Value: 0.1; Range: 0.0-0.4; Units: K/mm3; Status: F Lab Order: MED Profile; SPEC'M 05/08/16 11:09 Test: GLUCOSE, FASTING; Value: 132; Range: 70-105; Abnormal: Above high normal; Units: MG/DL; Status: F Test: BLOOD UREA NITROGEN; Value: 11; Range: 7-18; Units: MG/DL; Status: F Test: CREATININE FOR GFR; Value: 0.61; Range: 0.55-1.02; Units: MG/DL; Status: F Test: GLOMERULAR FILTRATION RATE; Value: > 60.0; Range: >58; Status: F Test: SODIUM LEVEL; Value: 140; Range: 136-145; Units: MEQ/L; Status: F Test: POTASSIUM SERUM; Value: 3.5; Range: 3.5-5.1; Units: MEQ/L; Status: F Test: CHLORIDE LEVEL; Value: 105; Range: 98-107; Units: MEQ/L; Status: F Test: CARBON DIOXIDE LEVEL; Value: 26; Range: 21-32; Units: MEQ/L; Status: F Test: ANION GAP; Value: 9; Range: 8-16; Units: MEQ/L; Status: F Test: CALCIUM LEVEL; Value: 8.6; Range: 8.5-10.1; Units: MG/DL; Status: F Test Note: ; Units are mL/min/1.73 m2 Chronic Kidney Disease Staging per NKF: Stage I & II GFR >=60 Normal to Mildly Decreased Stage III GFR 30-59 Moderately Decreased Stage IV GFR 15-29 Severely Decreased Stage V GFR <15 Very Little GFR Left ESRD GFR <[address] Lab Order: UA; SPEC'M 05/08/16 11:09 Test: APPEARANCE, URINE; Value: CLEAR; Range: CLEAR; Status: F Test: COLOR, URINE; Value: YELLOW; Range: YELLOW; Status: F Test: PH,URINE; Value: 5.0; Range: 5.0-9.0; Units: UNITS; Status: F Test: SPECIFIC GRAVITY URINE AUTO; Value: 1.017; Range: 1.002-1.035; Status: F Test: PROTEIN, URINE AUTO; Value: 1+; Range: NEGATIVE; Abnormal: Above high normal; Units: mg/dL; Status: F Test: GLUCOSE, URINE (UA) AUTO; Value: NEGATIVE; Range: NEGATIVE; Units: mg/dL; Status: F Test: KETONE, URINE AUTO; Value: NEGATIVE; Range: NEGATIVE; Units: mg/dL; Status: F Test: UROBILINOGEN, URINE AUTO; Value: 0.2; Range: 0.0-2.0; Units: mg/dL; Status: F Test: BILIRUBIN, URINE AUTO; Value: NEGATIVE; Range: NEGATIVE; Status: F Test: NITRITE, URINE AUTO; Value: POSITIVE; Range: NEGATIVE; Status: F Test: LEUKOCYTE ESTERASE, URINE AUTO; Value: NEGATIVE; Range: NEGATIVE; Status: F Test: BLOOD, URINE BLOOD; Value: 3+; Range: NEGATIVE; Abnormal: Above high normal; Status: F Test: WBC, URINE AUTO; Value: 2; Range: 0-3; Units: /HPF; Status: F Test: RBC, URINE AUTO; Value: TNTC; Range: 0-3; Abnormal: Above high normal; Units: /HPF; Status: F Test: BACTERIA, URINE AUTO; Value: NEGATIVE; Range: NEGATIVE; Status: F Test: SQUAMOUS EPITHELIAL CELL UR AU; Value: 5; Range: 0-6; Units: /HPF; Status: F Test: MUCUS, URINE; Value: MODERATE; Range: NEGATIVE; Status: F Test: HYALINE CAST, URINE AUTO; Value: 2; Range: 0-1; Units: /LPF; Status: F Test: CALCIUM OXALATE CRYSTALS; Value: SMALL; Range: NONE; Status: F Lab Order: Fingerstick Blood Sugar; SPEC'M 05/08/16 10:50 Test: BEDSIDE GLUCOSE; Value: 129; Range: 70-105; Abnormal: Above high normal; Units: MG/DL; Status: F Test Note: ; Serum Blood Draw Doctor Notified Lab Order: Urine Toxicology; SPEC'M 05/08/16 11:09 Test: AMPHETAMINES LEVEL URINE; Value: POSITIVE; Range: NEGATIVE; Abnormal: Above high normal; Status: F Test: BARBITURATES URINE; Value: NEGATIVE; Range: NEGATIVE; Status: F Test: BENZODIAZEPINES URINE; Value: NEGATIVE; Range: NEGATIVE; Status: F Test: CANNABINOIDS URINE; Value: POSITIVE; Range: NEGATIVE; Abnormal: Above high normal; Status: F Test: COCAINE METABOLITE URINE; Value: NEGATIVE; Range: NEGATIVE; Status: F Test: METHADONE URINE; Value: NEGATIVE; Range: NEGATIVE; Status: F Test: OPIATES URINE; Value: POSITIVE; Range: NEGATIVE; Abnormal: Above high normal; Status: F Test: TRICYCLIC ANTIDEPRESS URINE; Value: NEGATIVE; Range: NEGATIVE; Status: F Test Note: ; FALSE POSITIVE RESULTS CAN BE CAUSED BY THE USE OF PANTOPRAZOLE (PROTONIX). Lab Order: LIVER PROFILE; SPEC'M 05/08/16 11:09 Test: AST/SGOT; Value: 22; Range: 15-37; Units: U/L; Status: F Test: ALT/SGPT; Value: 23; Range: 12-78; Units: U/L; Status: F Test: ALKALINE PHOSPHATASE; Value: 96; Range: 45-117; Units: U/L; Status: F Test: BILIRUBIN,TOTAL; Value: 0.4; Range: 0.2-1.0; Units: MG/DL; Status: F Test: BILIRUBIN,DIRECT; Value: 0.1; Range: 0.0-0.2; Units: MG/DL; Status: F Test: TOTAL PROTEIN; Value: 7.1; Range: 6.4-8.2; Units: GM/DL; Status: F Test: ALBUMIN; Value: 3.7; Range: 3.2-5.2; Units: GM/DL; Status: F Test: ALBUMIN/GLOBULIN RATIO; Value: 1.09; Range: 1.00-1.93; Status: F Lab Order: THYROID PROFILE; SPEC'M 05/08/16 11:09 Test: T UPTAKE; Value: 30; Range: 30-39; Units: %; Status: F Test: THYROXINE (T4); Value: 8.8; Range: 4.5-12.0; Units: UG/DL; Status: F Test: FREE THYROXINE INDEX; Value: 2.6; Range: 1.3-4.8; Units: %; Status: F Test: THYROID STIMULATING HORMONE; Value: 0.515; Range: 0.358-3.740; Units: uIU/ML; Status: F Lab Order: TROPONIN; SPEC'M 05/08/16 11:09 Test: TROPONIN I; Value: < 0.02; Range: < 0.10; Units: NG/ML; Status: F Test Note: ; Troponin I Reference Interval for [employer] LOCI: 99th Percentile= 0.00-0.045 ng/ml Risk Stratification: <= 0.10 ng/ml Decreased Risk for Adverse Clinical Events. 0.10-1.50 ng/ml Increased Risk for Adverse Clinical Events. Evaluation of additional criterion and/or repeat testing in 2-6 hours is suggested to rule out myocardial damage. >= 1.50 ng/ml Indicative of Myocardial Injury. Radiology Order: CT Head Without Contrast Test: CT Head Without Contrast REASON FOR EXAMINATION: dizziness, recent head injury; CT BRAIN WITHOUT CONTRAST: 05/08/2016.; ; Comparison: 05/04/2016. There are [address] brain's between 06/20/2013 and; 11/02/2015.; ; Clinical history: Dizziness, recent head injury.; ; Findings: Pedicles are midline, symmetric and without dilatation or; displacement. Basal ganglia were symmetric and unremarkable. The whaley-white; junction differentiation is maintained. Cortical stripe is preserved. No; intracranial hemorrhage, atrophy, mass or edema. No midline shift. Brainstem; and cerebellum are grossly unremarkable. Bone windows show the mastoids and; visualized sinuses intact. The calvarium and skull base are without a visible; fracture or focal lesion. Orbits, facial bones and nasal bones all intact.; ; Impression:; 1. Negative noncontrast CT brain. No intracranial hemorrhage, fracture of the; skull base, calvarium or visualized facial bone abnormalities on this study.; Stable examination.; ; ; ; ; ; ; Unreviewed; Radiology Order: CT ABD & PELVIS: IV Contrast Only Test: CT ABD & PELVIS: IV Contrast Only REASON FOR EXAMINATION: trauma, luq pain, ecchymosis; CT study of the abdomen and pelvis with IV but without oral contrast:; ; History: Trauma, left upper quadrant pain and ecchymosis.; ; Comparison CT study November 03, 2015.; ; CT contrast: 100 ml of Isovue 370 is administered intravenously.; ; CT findings: Digital barrel cap setter radiograph demonstrates an unremarkable bowel gas; pattern. There are old ununited posttraumatic changes in the right rib cage.; These are unchanged. The lung bases are otherwise clear. There are old healed; rib fractures in the anterior inferior chest on the left as well. No acute rib; fracture is appreciated. The liver shows diffuse moderate fatty infiltration.; No focal mass lesion is seen. Gallbladder and pancreas are unremarkable. The; spleen is homogeneous in texture, normal in size and intact. No adrenal lesion; is seen. Kidneys enhance symmetrically and are morphologically intact. There is; a inferior vena cava filter in good position. A normal appendix is seen; retrocecal. Small and large intestinal bowel loops are normal in the abdomen and; pelvis. There is left colonic diverticulosis without CT evidence of; diverticulitis. The uterus and ovaries are unremarkable by CT. No free air or; free fluid seen. There is an area of fibrosis in the subcutaneous fat of the; right lower quadrant anterior abdominal wall. No extraabdominal hematoma or mass; lesion is seen.; ; Impression:; ; 1. 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 Colonic diverticulosis without diverticulitis.; ; 3. Inferior vena cava filter in place.; ; 4. Fatty infiltration of the liver.; ; 5. No acute traumatic abnormality.; ; ; Signed by; Saad Cintron MD 05/08/2016 04:22 P; Radiology Order: CT Maxilofacial W/out Contrast Test: CT Maxilofacial W/out Contrast REASON FOR EXAMINATION: trauma, left side; CT MAXILLOFACIAL WITHOUT CONTRAST: 05/08/2016.; ; Clinical history: Trauma. Left side.; ; Findings: There are no comparison studies of the facial bones. Axial soft; tissue and bone window settings and coronal and sagittal reconstructions provided; in bone window settings. The patient is edentulous. Nasal spine of the maxilla; intact. Nasal bones were intact. The septum is without any significant; deviation. Sphenoid sinuses were clear. Maxillary sinuses show no air-fluid; levels or significant mucosal thickening. 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 The ostia were patent. The hiatus; semilunaris intact. There is no contra bullosa of the turbinates. Orbital; floor, medial leigh and lateral struts of the orbit intact. The frontal sinuses; are well aerated and clear. Ethmoids are intact. Mastoids intact as well. I; see no evidence of fracture of the skull base. Visualized parotid glands; unremarkable and that portion of submandibular gland seen on each side also; symmetric.; ; Impression:; ; 1. No orbital or facial bone fractures. The sinuses were clear and the globes,; extraocular muscles and optic nerves also unremarkable. Mandible intact although; edentulous.; ; ; ; ; Unreviewed; Outcome: 14:42 Decision to Hospitalize by Provider. ar2 17:03 Admission hand-off: Report Faxed Fax receipt verified by Audrey Iyer. [facility] 17:04 CT Study completed. [facility] 17:31 Discharge Assessment: Patient awake, alert and oriented x 3. No cognitive and/or [facility] functional deficits noted. Patient verbalized understanding of disposition instructions. patient administered narcotics - yes. Patient was admitted to the hospital or transferred to another facility. The following High Risk Discharge criteria are identified: None. Admitted to PCU accompanied by nurse, accompanied by tech, via stretcher, on monitor, with chart. Condition: stable. Property :Personal belongings accompany Pt. 17:38 Patient left the ED. [facility] Signatures: Dispatcher [employer] EDMS Kenya Love RN RN Saskia Galdamez RN RN srm Peters, Mary, RN RN mcp Murphy, Jane, SCRAP DROP OPERATOR SCRAP DROP OPERATOR jam1 Temitope Pablo, PSA PSA rb Barry Pearl, Reg Reg lg Adin Meraz, VANESSA-Anaya PA-C ar2 Courtney Marie RN RN hs1 Telma Lau, SCRAP DROP OPERATOR SCRAP DROP OPERATOR adelinap Almaz Sharp Laura lr2 Corrections: (The following items were deleted from the chart) 09:38 09:37 BP 153 / 97; Pulse 92bpm; Resp 16bpm; Pulse Ox 96%; 95.25 kg; Height 5 ft. 6 in.; elp BMI: 33.8; elp 14:35 14:20 Reassessment: TLS staff at bedside conversing with patient.. [facility]
--- NOTE | 2016-05-08 17:39 | EDDOCDS ---
Physician Documentation [facility] Name: Elisa Trejo Age: 46 yrs Sex: Female : 1970 Arrival Date: 05/08/2016 Time: 09:36 Bed Admit Hold Private MD: NO PRIMARY PHYSICIAN, . Disposition: 05/08/16 14:42 Hospitalization ordered by Kali Fishman for Inpatient Admission. Preliminary diagnosis are Chronic migraine without aura, intractable, Dizziness and giddiness - unstable gait, Urinary tract infection, site not specified. - Bed requested for PCU. - Status is Inpatient Admission. [facility] - Condition is Stable. - Problem is new. - Symptoms are unchanged. Historical: - Allergies: No known drug Allergies; - Home Meds: 1. bupropion HCl 100 mg Oral TbER 2. Spiriva with HandiHaler 18 mcg Inhl CpDv 1 cap once daily 3. amlodipine 10 mg Oral tab 1 tab once daily 4. trazodone 150 mg Oral tab 2 tabs nightly 5. Klonopin 0.5 mg Oral tab 1 tab 3 times per day 6. duloxetine 60 mg Oral cpDR 1 cap once daily 7. omeprazole 40 mg Oral cpDR 1 cap 2 times per day 8. metoprolol tartrate 50 mg Oral tab 1 tab 2 times per day 9. ranitidine HCl 150 mg Oral tbef twice a day 10. Tylenol 500 mg Oral every 4 hours (Last dose: 05/07/2016) - PMHx: Anxiety; Asthma; Chronic Low Back Pain; COPD; Depression; DVT; GERD; Hypertension; OCD; PTSD; Pulmonary Embolism; - PSHx: left leg surgery times 4; Hernia repair; Uterine Ablation; Crawford Filter Placement; - Social history: Smoking status: Patient uses tobacco products, light tobacco smoker. No barriers to communication noted, The patient speaks fluent Serbian, Speaks appropriately for age. - Family history: Not pertinent. - : The pt / caregiver states he / she is not on anticoagulants. Home medication list is obtained from the caregiver. - Exposure Risk Screening:: None identified. CURB BUILDER: 05/08 17:36 LMP N/A - Uterine ablation [facility] Vital Signs: 09:37 BP 153 / 97; Pulse 92; Resp 16; Temp 96.7(O); Pulse Ox 96% ; Weight 95.25 kg / 209.99 elp lbs; Height 5 ft. 6 in. (167.64 cm); 10:55 BP 144 / 84 RA Supine (auto/lg); Pulse 83; Resp 18; Pulse Ox 98% on R/A; kpj 10:55 BP 131 / 84 RA Sitting (auto/lg); Pulse 86; Resp 18; Pulse Ox 98% on R/A; kpj 10:55 BP 120 / 82 Standing; Pulse 95; Resp 18; Pulse Ox 98% ; kpj 11:41 BP 153 / 91; Pulse 87; Resp 20; Temp 97.9; Pulse Ox 98% ; Pain 10/10; jam1 14:07 BP 152 / 103; Pulse 99; Resp 20; Temp 98.0; Pulse Ox 98% ; Pain 10/10; jam1 14:51 BP 133 / 74; Pulse 81; Resp 20; Temp 98.3; Pulse Ox 98% ; Pain 8/10; jam1 15:00 Pain 6/10; mcp 16:51 BP 112 / 64; Pulse 88; Resp 18; Temp 97.9; Pulse Ox 98% ; Pain 6/10; jam1 17:28 BP 114 / 69; Pulse 86; Resp 18; Temp 96.7; Pulse Ox 94% ; Pain 6/10; jam1 09:37 Body Mass Index 33.89 (95.25 kg, 167.64 cm) elp 10:55 dizzy and nauseted with position change kpj 10:55 dizzy and nauseated kpj MDM: 10:23 Financial registration complete. lg 10:31 [facility] Payment Agreement was scanned into Exacter and attached to record. lg 10:34 IV Saline Lock ordered. ar2 10:34 Acetaminophen Tablet 975 mg PO once ordered. ar2 10:34 NS 0.9% 1000 ml IV at bolus once ordered. ar2 10:34 Accucheck ordered. ar2 10:34 Orthostatic VS ordered. ar2 10:34 Undress patient appropriately for examination ordered. ar2 10:35 CBC with Diff Ordered. EDMS 10:35 MED Profile Ordered. EDMS 10:35 UA Ordered. EDMS 10:35 CT Head Without Contrast Ordered. EDMS 10:35 ECG WITH READING ER PHYS+CARDIAG ordered. EDMS 10:59 Fingerstick Blood Sugar Ordered. EDMS 11:04 CT ABD & PELVIS: IV Contrast Only Ordered. EDMS 11:49 Misc. Nursing Order ordered. ar2 11:49 CBC with Diff Reviewed. ar2 11:49 UA Reviewed. ar2 11:49 Fingerstick Blood Sugar Reviewed. ar2 11:56 cefTRIAXone 1 grams IVPB once over 30 mins; dilute in 50mL of NS or D5W ordered. ar2 11:57 Urine Toxicology Ordered. EDMS 11:57 CT Maxilofacial W/out Contrast Ordered. EDMS 11:57 BED REQUEST+ADM ordered. EDMS 12:02 LIVER PROFILE Ordered. EDMS 12:02 THYROID PROFILE Ordered. EDMS 12:02 TROPONIN Ordered. EDMS 13:28 MED Profile Reviewed. ar2 13:28 LIVER PROFILE Reviewed. ar2 13:28 THYROID PROFILE Reviewed. ar2 13:28 TROPONIN Reviewed. ar2 13:31 ketorolac 30 mg IVP once ordered. ar2 13:31 Metoclopramide 10 mg IV at 40 mg/hr once over 15 mins ordered. ar2 13:53 Consult: Operating System Programmer ordered. ar2 13:53 Consult PFS/PSA/Emblem Fuser Tender: Psychiatric Concerns ordered. ar2 14:04 morphine 4 mg IVP once ordered. ar2 14:10 Urine Toxicology Reviewed. ar2 14:10 CT Head Without Contrast Reviewed. ar2 14:10 CT ABD & PELVIS: IV Contrast Only Reviewed. ar2 14:10 CT Maxilofacial W/out Contrast Reviewed. ar2 14:16 Consult PFS/PSA/Emblem Fuser Tender: Psychiatric Concerns complete. rb 14:16 Consult: Operating System Programmer complete. rb 15:34 Admission / Observation Status ordered. EDMS 15:34 CLEAR LIQUIDS DIET ordered. EDMS 15:35 URINE CULTURE Ordered. EDMS 16:30 T-Sheet-- Draft Copy was scanned into Exacter and attached to record[facility] Testing: Blood Glucose: 10:50 Blood Glucose: 129 mg/dL; kpj Ranges: Administered Medications: 10:47 Drug: Acetaminophen 975 mg [acetaminophen 325 mg tablet (3 tabs)] Route: PO; mcp 11:00 Drug: NS 0.9% 1000 ml [sodium chloride 0.9 % intravenous solution] Route: IV; Rate: kpj bolus; Site: right wrist; 13:00 Follow up: IV Status: Completed infusion; Infusion discontinued kpj 12:18 Drug: cefTRIAXone 1 grams [ceftriaxone 1 gram solution for injection] Route: IVPB; kpj Infused Over: 30 mins; Site: right wrist; 13:41 Drug: ketorolac 30 mg [ketorolac 30 mg/mL (1 mL) injection solution (1 mL)] Route: IVP; [facility] Site: right wrist; 14:09 Follow up: Response: Pain is unchanged, physician notified [facility] 13:41 Drug: Metoclopramide 10 mg [metoclopramide 5 mg/mL injection solution] Route: IV; Rate: mcp 40 mg/hr; Infused Over: 15 mins; Site: right wrist; 14:09 Follow up: Response: Nausea is unchanged [facility] 14:30 Drug: morphine 4 mg [morphine 4 mg/mL intravenous cartridge (1 mL)] Route: IVP; Site: [facility] right wrist; 15:00 Follow up: Pain 6/10 Adult; Response: Pain is decreased [facility] Signatures: Dispatcher MedHost EDMS Sonia Farrell RN RN [facility] Kenya Love RN RN kp Temitope Pablo, PSA PSA rb Barry Pearl, Dominik Reg lg Adin Meraz PA-C PA-Anaya ar2 Courtney Marie RN RN hs1 Almaz Sharp Mary RN [facility] The chart was reviewed and I authenticate all verbal orders and agree with the evaluation and treatment provided.Corrections: (The following items were deleted from the chart) 12:01 11:57 TROPONIN+LAB ordered. EDMS EDMS 12:01 11:57 LIVER PROFILE+LAB ordered. EDMS EDMS 12:01 11:57 THYROID PROFILE+LAB ordered. EDMS EDMS Attachments: 10:31 [facility] Payment Agreement lg 16:30 T-Sheet-- Draft Copy klr [email or web address]
[2016-05-08 18:00] VITALS: BP 122/73
[2016-05-08] MEDS ORDERED: FIORICET TAB PO PRN (18:15)
[2016-05-08 19:45] VITALS: BP 116/62
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
[2016-05-08] MEDS: ZONISAMIDE 50 MG CAP (ZONEGRAN) PO SCH (20:07)
[2016-05-08] MEDS: DULoxetine 30 MG CAP (CYMBALTA) PO SCH (20:08)
[2016-05-08] MEDS: METOPROLOL TART 50 MG TAB PO SCH (20:08)
[2016-05-08] MEDS: OMEPRAZOLE 20 MG CAP PO SCH (20:08)
[2016-05-08] MEDS: clonazePAM 0.5 MG TAB PO SCH (20:08)
[2016-05-08] MEDS: buPROPion (WELLBUTRIN SR) 100 MG SR TAB PO SCH (20:09)
[2016-05-08] MEDS: HEPARIN SOD (PORCINE) 5000 UNITS/ML VIAL SC SCH (20:09)
[2016-05-08] MEDS ORDERED: traZODone 100 MG TAB PO SCH (21:00)
[2016-05-09 00:33] VITALS: BP 112/60
[2016-05-09 00:34] VITALS: BP_SYST 109; BP_SYST 121; BP_DIAS 68; BP_DIAS 72
[2016-05-09 05:21] VITALS: BP 123/70
[2016-05-09 05:53] LABS: BASO % 0.3 % (0.0-1.0); EOS # 0.1 K/mm3 (0.0-0.50); EOS % 2.2 % (0.0-3.0); LARGE UNSTAINED CELL # 0.1 K/mm3 (0.0-0.4); LYMPH # 1.4 K/mm3 (1.5-4.5); LYMPH % 25.4 % (24.0-44.0); MEAN CORPUSCULAR HEMOGLOBIN 27.5 pg (27.0-33.0); MEAN CORPUSCULAR HGB CONC 32.6 g/dl (32.0-36.5); MEAN CORPUSCULAR VOLUME 84.3 fl (80.0-96.0); MONO # 0.4 K/mm3 (0.0-0.8); MONO % 6.7 % (0.0-5.0); NEUTROPHILS # 3.6 K/mm3 (1.8-7.7); NEUTROPHILS % 63.4 % (36.0-66.0); PLATELET COUNT, AUTOMATED 224 k/mm3 (150-450); RED CELL DISTRIBUTION WIDTH 14.8 % (11.5-14.5); WHITE BLOOD COUNT 5.7 K/mm3 (4.0-10.0)
[2016-05-09 06:08] LABS: ALBUMIN 3.1 GM/DL (3.2-5.2); ALBUMIN/GLOBULIN RATIO 0.84 (1.00-1.93); ALKALINE PHOSPHATASE 81 U/L (45-117); ALT/SGPT 27 U/L (12-78); ANION GAP 6 MEQ/L (8-16); AST/SGOT 20 U/L (15-37); BILIRUBIN,TOTAL 0.4 MG/DL (0.2-1.0); CARBON DIOXIDE LEVEL 27 MEQ/L (21-32); CHLORIDE LEVEL 109 MEQ/L (98-107); CREATININE FOR GFR 0.53 MG/DL (0.55-1.02); GLOMERULAR FILTRATION RATE > 60.0 (>58); GLUCOSE, FASTING 122 MG/DL (70-105); MAGNESIUM LEVEL 1.9 MG/DL (1.8-2.4); POTASSIUM SERUM 3.3 MEQ/L (3.5-5.1); SODIUM LEVEL 142 MEQ/L (136-145); TOTAL PROTEIN 6.8 GM/DL (6.4-8.2)
[2016-05-09] MEDS: HEPARIN SOD (PORCINE) 5000 UNITS/ML VIAL SC SCH ×2 (06:13→14:19)
[2016-05-09 06:19] LABS: BLOOD UREA NITROGEN 5 MG/DL (7-18)
[2016-05-09 08:00] VITALS: BP 124/84
--- NOTE | 2016-05-09 08:02 | ECGEPIP ---
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 Order Number: [id number] Reading MD: Ema Lemos Measurements Intervals [place] Rate: 80 P: 31 VT: 180 QRS: 42 QRSD: 106 T: 31 QT: 399 QTc: 461 Interpretive Statements SINUS RHYTHM NSTTW ABNORMALITY SIMILAR 03/29/16 Electronically Signed On 05-09-2016 8:01:47 EST by Ema Lemos
[2016-05-09] MEDS: DULoxetine 30 MG CAP (CYMBALTA) PO SCH (08:51)
[2016-05-09] MEDS: OMEPRAZOLE 20 MG CAP PO SCH (08:51)
[2016-05-09] MEDS: ZONISAMIDE 50 MG CAP (ZONEGRAN) PO SCH (08:51)
[2016-05-09] MEDS: buPROPion (WELLBUTRIN SR) 100 MG SR TAB PO SCH (08:51)
[2016-05-09] MEDS: clonazePAM 0.5 MG TAB PO SCH (08:51)
[2016-05-09 08:52] VITALS: BP 124/84
[2016-05-09] MEDS: METOPROLOL TART 50 MG TAB PO SCH (08:52)
[2016-05-09] MEDS ORDERED: TIOTROPIUM INHALER/CAPSULE (SPIRIVA) INH SCH (09:00)
[2016-05-09] MEDS ORDERED: amLODIPine 10 MG TAB PO SCH (09:00)
[2016-05-09 12:00] VITALS: BP 145/89
[2016-05-09] MEDS ORDERED: KEFL500C7 PO (12:30)
[2016-05-09] MEDS ORDERED: ZONI50CA PO (12:37)
[2016-05-09] MEDS ORDERED: POTASSIUM CHLORIDE 10 MEQ SR TABLET PO ONE (13:00)
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
[2016-05-10] MEDS ORDERED: INFLUENZA QUADRIVALENT PF VACCINE 0.5ML SYRINGE/VIAL (90686) IM ONE (09:00)
--- NOTE | 2016-05-10 18:39 | EDDOCDS ---
Nurse's Notes [facility] Name: Elisa Trejo Age: 46 yrs Sex: Female : 1970 Arrival Date: 05/08/2016 Time: 09:36 Bed Admit Hold Private MD: NO PRIMARY PHYSICIAN, . Diagnosis: Chronic migraine without aura, intractable;Dizziness and giddiness-unstable gait;Urinary tract infection, site not specified Presentation: 05/08 09:41 Presenting complaint: Patient states: saw Dr Osullivan psychiatrist - he sent her in for hs1 high blood pressure. He told her and TLS staff member that he couldn't treat her because of her blood pressure, and dizziness from head injury. Patient states head injury occurred last Saturday due to falling while walking on cast because she did not have a boot on while she tried to walk. Stitches done here last Saturday. Adult Sepsis Screening: The patient does not have new or worsening altered mentation. Patient's respiratory rate is less than 22. Systolic blood pressure is greater than 100. Patient has a qSOFA score of 0- Negative Sepsis Screen. Suicide/Homicide risk assessment- the patient denies having any suicidal and/or homicidal ideations and does not present with any other emotional, behavioral or mental health complaints. Status: Patient is not a donor services manager or dependent. Transition of care: patient was received from Dr osullivan psychiatry . 09:41 Acuity: SHONDA Level 3 hs1 09:41 Method Of Arrival: Walkin/Carried/Asstd hs1 Triage Assessment: 09:48 General: Appears in no apparent distress, Behavior is cooperative. Pain: Location: hs1 everywhere Pain currently is 8 out of 10 on a pain scale. HIV screening NA for this visit Offered previously. Neurological: Level of Consciousness is awake, alert, obeys commands. Derm: Skin is pink, warm & dry. normal. CLASSICS TEACHER: 17:36 LMP N/A - Uterine ablation [facility] Historical: - Allergies: No known drug Allergies; - Home Meds: 1. bupropion HCl 100 mg Oral TbER 2. Spiriva with HandiHaler 18 mcg Inhl CpDv 1 cap once daily 3. amlodipine 10 mg Oral tab 1 tab once daily 4. trazodone 150 mg Oral tab 2 tabs nightly 5. Klonopin 0.5 mg Oral tab 1 tab 3 times per day 6. duloxetine 60 mg Oral cpDR 1 cap once daily 7. omeprazole 40 mg Oral cpDR 1 cap 2 times per day 8. metoprolol tartrate 50 mg Oral tab 1 tab 2 times per day 9. ranitidine HCl 150 mg Oral tbef twice a day 10. Tylenol 500 mg Oral every 4 hours (Last dose: 05/07/2016) - PMHx: Anxiety; Asthma; Chronic Low Back Pain; COPD; Depression; DVT; GERD; Hypertension; OCD; PTSD; Pulmonary Embolism; - PSHx: left leg surgery times 4; Hernia repair; Uterine Ablation; Ana Filter Placement; - Social history: Smoking status: Patient uses tobacco products, light tobacco smoker. No barriers to communication noted, The patient speaks fluent Mexican, Speaks appropriately for age. - Family history: Not pertinent. - : The pt / caregiver states he / she is not on anticoagulants. Home medication list is obtained from the caregiver. - Exposure Risk Screening:: None identified. Screenin:37 Infection Control. [facility] 10:50 Screening information is obtained from the patient. Fall risk: At risk due to injury, kpj dizziness. The following interventions are performed due to a positive Fall Risk Screen: Fall Risk is added to Special Handling on the patient Summary Screen. A Fall Risk Bracelet was applied to the patient. Side Rails are placed in the up position. A Call Lawson is given with instruction to call for help when getting out of bed. Fall Alert bracelet is placed on the patient. Assistance ADL's: requires no assistance with activities of daily living. Abuse/DV Screen: The patient / caregiver reports he/she is: not in a situation that causes fear, pain or injury. Nutritional screening: No deficits noted. Advance Directives: Currently, there is no health care proxy. There is no active DNR order. There is no living will. There is no Power of Payroll Accounting Manager. Advance directive information has not previously been placed in an [facility] medical record. Further advance directive information is declined. home support is adequate. 12:04 Fall Risk. kpj Assessment: 10:50 General: Appears uncomfortable, well nourished, well groomed, Behavior is anxious, kpj Reports nausea and feeling dizzy. Pain: Location: right upper quadrant and left upper quadrant and has a headache Pain currently is 6 out of 10 on a pain scale. Neurological: Level of Consciousness is awake, alert, Oriented to person, place, time, Computer Networker are equal bilaterally Moves all extremities. Gait is steady, Speech is normal, Facial symmetry appears normal, Facial symmetry: tongue is midline, Pupils are PERRLA, linear suture line rt forehead with 4 sutures noted and ecchymosis around suture line and orbit right eye that is old. Reports dizziness, headache nausea. EENT: Eyes ecchymosis rt eye. Respiratory: Airway is patent Respiratory effort is even, unlabored, Respiratory pattern is regular, symmetrical, Breath sounds are clear bilaterally. GI: Abdomen is obese, other grapefruit size red yellow ecchymosis left upper abdomen noted, provider Helene MENDEZ notified. Bowel sounds present X 4 quads. Abd is soft X 4 quads Abd is tender to palpation in right upper quadrant and left upper quadrant. : Reports vaginal bleeding that is. Derm: Skin is pink, warm & dry. Musculoskeletal: fiberglass cast left lower leg. 11:44 General: pt states did not call for help got self up to get an emesis bag and fell in j her room, denies injury ,states nausea and dizziness. Helene MENDEZ notified and will go in to re assess pt. Pt assisted back to stretcher, both siderails up bed in low position reoriented to where the call lawson is located and not to get up without assistance.. 12:31 Reassessment: Patient states symptoms have not improved. c/o headache ice pack applied kpj to top of head. still c/o dizziness and nausea .IV rt wrist patent and intact. callbell in reach siderails up x 2. Neurological: Level of Consciousness is awake, alert, Reports dizziness, headache. Derm: Skin is pink, warm & dry. 13:15 General: Appears uncomfortable, Behavior is anxious, crying. Pain: Location: top of j head and forehead Pain currently is 10 out of 10 on a pain scale. Quality of pain is described as sharp, stabbing. Neurological: Level of Consciousness is awake, alert, Reports dizziness, headache. Respiratory: Airway is patent Respiratory effort is even, unlabored. Derm: Skin is pink, warm & dry. 14:00 Reassessment: TLS staff at bedside conversing with patient.. [facility] 14:10 General: pt crying holding her head states can't stand the headache anymore and when it kpj gets this bad she wants to put her head through the wall .Helene MENDEZ aware , medication ordered.. 15:00 General: Pt states headache is 6/10 now--much improved. Resting on stretcher awaiting [facility] bed assignment. 16:38 General: Appears in no apparent distress, comfortable, Behavior is appropriate for age, kpj pleasant. Pain: Location: forehead and top of head Pain currently is 2 out of 10 on a pain scale. Quality of pain is described as aching. Neurological: Level of Consciousness is awake, alert, Oriented to person, place, time, Pupils are PERRLA, Reports dizziness, headache. Respiratory: Airway is patent Respiratory effort is even, unlabored. GI: Denies nausea, vomiting, pain. Derm: Skin is pink, warm & dry. 17:31 General: Appears comfortable, Behavior is appropriate for age, pleasant. Pain: kpj Location: forehead and top of head and left upper quadrant and right upper quadrant Pain currently is 6 out of 10 on a pain scale. Neurological: Level of Consciousness is awake, alert, Oriented to person, place, time, Speech is normal, Pupils are PERRLA, Reports dizziness, headache. Respiratory: Airway is patent Respiratory effort is even, unlabored, Respiratory pattern is regular, symmetrical, Breath sounds are clear bilaterally. GI: Abdomen is obese, Bowel sounds present X 4 quads. Abd is soft X 4 quads Abd is tender to palpation in right upper quadrant and left upper quadrant grapefruit size ecchymotic area left upper abdomen appears old. Derm: Skin is pink, warm & dry. scabbed abrasion right elbow. Musculoskeletal: Circulation, motion, and sensation intact Capillary refill < 3 seconds in left toes fiberglass cast with cast boot intact left lower leg. Social Work Consult: 14:13 Social Work Note: Met with Pt at [facility] per request VANESSA Meraz. Pt was A&O, teary, rb in pain, denied SI/Hi, and worried about returning home. PT will be admitted for medical and seen by D/c conference planner on floor. Vital Signs: 09:37 BP 153 / 97; Pulse 92; Resp 16; Temp 96.7(O); Pulse Ox 96% ; Weight 95.25 kg; Height 5 elp ft. 6 in. (167.64 cm); 10:55 BP 144 / 84 RA Supine (auto/lg); Pulse 83; Resp 18; Pulse Ox 98% on R/A; kpj 10:55 BP 131 / 84 RA Sitting (auto/lg); Pulse 86; Resp 18; Pulse Ox 98% on R/A; kpj 10:55 BP 120 / 82 Standing; Pulse 95; Resp 18; Pulse Ox 98% ; kpj 11:41 BP 153 / 91; Pulse 87; Resp 20; Temp 97.9; Pulse Ox 98% ; Pain 10/10; jam1 14:07 BP 152 / 103; Pulse 99; Resp 20; Temp 98.0; Pulse Ox 98% ; Pain 10/10; jam1 14:51 BP 133 / 74; Pulse 81; Resp 20; Temp 98.3; Pulse Ox 98% ; Pain 8/10; jam1 15:00 Pain 6/10; mcp 16:51 BP 112 / 64; Pulse 88; Resp 18; Temp 97.9; Pulse Ox 98% ; Pain 6/10; jam1 17:28 BP 114 / 69; Pulse 86; Resp 18; Temp 96.7; Pulse Ox 94% ; Pain 6/10; jam1 09:37 Body Mass Index 33.89 (95.25 kg, 167.64 cm) elp 10:55 dizzy and nauseted with position change kpj 10:55 dizzy and nauseated [facility] Vitals: 09:37 Log In Time: May 08, 2016 at 09:35. el ED Course: 09:36 Patient visited by Telma Lau PCA. elp 09:36 NO PRIMARY PHYSICIAN, . is Private Physician. elp 09:36 Patient moved to Waiting elp 09:38 Patient visited by Telma Lau PCA. elp 09:38 Patient moved to Pre RCE elp 09:44 Triage Initiated hs1 09:57 Patient moved to Triage 1 srm 10:21 [facility] ar2 10:21 James Hooks MD is Attending Physician. ar2 10:21 Patient visited by Adin Meraz PA-C. ar2 10:28 Patient name changed from Elisa\S\Janette\S\[place]\S\ to Elisa\S\ \S\[place]. EDMS 10:31 [facility] [place] Agreement was scanned into Trov and attached to record. lg 10:36 Patient moved to I1 / M1 srm 10:50 Resting quietly. Awaiting lab results. Waiting to go to radiology. kpj 10:50 The patient / caregiver is instructed regarding the plan of care and ED course. Patient j has correct armband on for positive identification. Placed in gown. Bed in low position. Call light in reach. Side rails up X 1. Diet: Patient is NPO. 11:00 Inserted saline lock: 20 gauge in right wrist. kpj 11:14 UA Sent. kpj 11:14 MED Profile Sent. kpj 11:14 CBC with Diff Sent. kpj 12:04 Urine Toxicology Sent. kpj 12:15 Patient visited by Tanika Foster PCA. jam1 12:31 Resting quietly. Waiting for radiology results. kpj 13:15 Appears tearful. kpj 13:15 The patient / caregiver is instructed regarding the plan of care and ED course. Bed in [facility] low position. Call light in reach. Side rails up X2. 13:15 IV is patent, is intact, is free of redness or swelling. kpj 13:29 CT Head Without Contrast Returned. EDMS 13:29 CT Maxilofacial W/out Contrast Returned. EDMS 13:29 CT ABD & PELVIS: IV Contrast Only Returned. EDMS 14:15 Social work Temitopecarlos a Pablo PSA in to speak with patient. kpj 14:29 Assisted to bedside commode. lr2 14:30 Patient visited by Piper Vo. lr2 14:41 Kali Fishman is Hospitalizing Provider. ar2 14:55 Private physician to see patient. Visited by Dr Fishman in to examine pt. kpj 15:39 Patient visited by Janette Navarro RN. mcp 16:30 T-Sheet-- Draft Copy was scanned into Trov and attached to record. klr 16:38 Resting quietly. Awaiting bed assignment. kpj 16:38 The patient / caregiver is instructed regarding the plan of care and ED course. Bed in [facility] low position. Call light in reach. Side rails up X2. Door closed. Noise minimized. Visitors limited. Lights dimmed. Warm blanket given. 16:38 IV is patent, is intact, is free of redness or swelling. kpj 16:44 Patient moved to Admit Hold kpj 17:14 CT ABD & PELVIS: IV Contrast Only Returned. EDMS 17:31 Resting quietly. kpj 17:31 The patient / caregiver is instructed regarding the plan of care and ED course. Diet: [facility] gingerale tolerated well. 17:31 IV is patent, is intact, is free of redness or swelling. No procedures done that [facility] require assistance. 05/09 11:43 ECG/EKG was scanned into Trov and attached to record. gb Administered Medications: 05/08 10:47 Drug: Acetaminophen 975 mg [acetaminophen 325 mg tablet (3 tabs)] Route: PO; mcp 11:00 Drug: NS 0.9% 1000 ml [sodium chloride 0.9 % intravenous solution] Route: IV; Rate: kpj bolus; Site: right wrist; 13:00 Follow up: IV Status: Completed infusion; Infusion discontinued [facility] 12:18 Drug: cefTRIAXone 1 grams [ceftriaxone 1 gram solution for injection] Route: IVPB; kpj Infused Over: 30 mins; Site: right wrist; 13:41 Drug: ketorolac 30 mg [ketorolac 30 mg/mL (1 mL) injection solution (1 mL)] Route: IVP; mcp Site: right wrist; 14:09 Follow up: Response: Pain is unchanged, physician notified [facility] 13:41 Drug: Metoclopramide 10 mg [metoclopramide 5 mg/mL injection solution] Route: IV; Rate: mcp 40 mg/hr; Infused Over: 15 mins; Site: right wrist; 14:09 Follow up: Response: Nausea is unchanged [facility] 14:30 Drug: morphine 4 mg [morphine 4 mg/mL intravenous cartridge (1 mL)] Route: IVP; Site: [facility] right wrist; 15:00 Follow up: Pain 6/10 Adult; Response: Pain is decreased mcp Point of Care Testing: Blood Glucose: 10:50 Blood Glucose: 129 mg/dL; [facility] Ranges: Intake: 13:00 IV: 1000.00ml (NS); Total: 1000.00ml. j Output: 14:29 Urine: 350.00ml (Voided); Total: 350.00ml. lr2 Order Results: Lab Order: CBC with Diff; SPEC'M 05/08/16 11:09 Test: WHITE BLOOD COUNT; Value: 9.5; Range: 4.0-10.0; Units: K/mm3; Status: F Test: RED BLOOD COUNT; Value: 5.06; Range: 4.00-5.40; Units: M/mm3; Status: F Test: HEMOGLOBIN; Value: 13.9; Range: 12.0-16.0; Units: g/dl; Status: F Test: HEMATOCRIT; Value: 42.4; Range: 36.0-47.0; Units: %; Status: F Test: MEAN CORPUSCULAR VOLUME; Value: 83.8; Range: 80.0-96.0; Units: fl; Status: F Test: MEAN CORPUSCULAR HEMOGLOBIN; Value: 27.5; Range: 27.0-33.0; Units: pg; Status: F Test: MEAN CORPUSCULAR HGB CONC; Value: 32.8; Range: 32.0-36.5; Units: g/dl; Status: F Test: RED CELL DISTRIBUTION WIDTH; Value: 14.9; Range: 11.5-14.5; Abnormal: Above high normal; Units: %; Status: F Test: PLATELET COUNT, AUTOMATED; Value: 238; Range: 150-450; Units: k/mm3; Status: F Test: NEUTROPHILS %; Value: 76.9; Range: 36.0-66.0; Abnormal: Above high normal; Units: %; Status: F Test: LYMPH %; Value: 15.6; Range: 24.0-44.0; Abnormal: Below low normal; Units: %; Status: F Test: MONO %; Value: 4.1; Range: 0.0-5.0; Units: %; Status: F Test: EOS %; Value: 1.7; Range: 0.0-3.0; Units: %; Status: F Test: BASO %; Value: 0.4; Range: 0.0-1.0; Units: %; Status: F Test: LARGE UNSTAINED CELL %; Value: 1.3; Range: 0.0-4.0; Units: %; Status: F Test: NEUTROPHILS #; Value: 7.3; Range: 1.8-7.7; Units: K/mm3; Status: F Test: LYMPH #; Value: 1.5; Range: 1.5-4.5; Units: K/mm3; Status: F Test: MONO #; Value: 0.4; Range: 0.0-0.8; Units: K/mm3; Status: F Test: EOS #; Value: 0.2; Range: 0.0-0.50; Units: K/mm3; Status: F Test: BASO #; Value: 0.0; Range: 0.0-0.2; Units: K/mm3; Status: F Test: LARGE UNSTAINED CELL #; Value: 0.1; Range: 0.0-0.4; Units: K/mm3; Status: F Lab Order: MED Profile; SPEC'M 05/08/16 11:09 Test: GLUCOSE, FASTING; Value: 132; Range: 70-105; Abnormal: Above high normal; Units: MG/DL; Status: F Test: BLOOD UREA NITROGEN; Value: 11; Range: 7-18; Units: MG/DL; Status: F Test: CREATININE FOR GFR; Value: 0.61; Range: 0.55-1.02; Units: MG/DL; Status: F Test: GLOMERULAR FILTRATION RATE; Value: > 60.0; Range: >58; Status: F Test: SODIUM LEVEL; Value: 140; Range: 136-145; Units: MEQ/L; Status: F Test: POTASSIUM SERUM; Value: 3.5; Range: 3.5-5.1; Units: MEQ/L; Status: F Test: CHLORIDE LEVEL; Value: 105; Range: 98-107; Units: MEQ/L; Status: F Test: CARBON DIOXIDE LEVEL; Value: 26; Range: 21-32; Units: MEQ/L; Status: F Test: ANION GAP; Value: 9; Range: 8-16; Units: MEQ/L; Status: F Test: CALCIUM LEVEL; Value: 8.6; Range: 8.5-10.1; Units: MG/DL; Status: F Test Note: ; Units are mL/min/1.73 m2 Chronic Kidney Disease Staging per NKF: Stage I & II GFR >=60 Normal to Mildly Decreased Stage III GFR 30-59 Moderately Decreased Stage IV GFR 15-29 Severely Decreased Stage V GFR <15 Very Little GFR Left ESRD GFR <15 on PROJECT ASST Lab Order: UA; SPEC'M 05/08/16 11:09 Test: APPEARANCE, URINE; Value: CLEAR; Range: CLEAR; Status: F Test: COLOR, URINE; Value: YELLOW; Range: YELLOW; Status: F Test: PH,URINE; Value: 5.0; Range: 5.0-9.0; Units: UNITS; Status: F Test: SPECIFIC GRAVITY URINE AUTO; Value: 1.017; Range: 1.002-1.035; Status: F Test: PROTEIN, URINE AUTO; Value: 1+; Range: NEGATIVE; Abnormal: Above high normal; Units: mg/dL; Status: F Test: GLUCOSE, URINE (UA) AUTO; Value: NEGATIVE; Range: NEGATIVE; Units: mg/dL; Status: F Test: KETONE, URINE AUTO; Value: NEGATIVE; Range: NEGATIVE; Units: mg/dL; Status: F Test: UROBILINOGEN, URINE AUTO; Value: 0.2; Range: 0.0-2.0; Units: mg/dL; Status: F Test: BILIRUBIN, URINE AUTO; Value: NEGATIVE; Range: NEGATIVE; Status: F Test: NITRITE, URINE AUTO; Value: POSITIVE; Range: NEGATIVE; Status: F Test: LEUKOCYTE ESTERASE, URINE AUTO; Value: NEGATIVE; Range: NEGATIVE; Status: F Test: BLOOD, URINE BLOOD; Value: 3+; Range: NEGATIVE; Abnormal: Above high normal; Status: F Test: WBC, URINE AUTO; Value: 2; Range: 0-3; Units: /HPF; Status: F Test: RBC, URINE AUTO; Value: TNTC; Range: 0-3; Abnormal: Above high normal; Units: /HPF; Status: F Test: BACTERIA, URINE AUTO; Value: NEGATIVE; Range: NEGATIVE; Status: F Test: SQUAMOUS EPITHELIAL CELL UR AU; Value: 5; Range: 0-6; Units: /HPF; Status: F Test: MUCUS, URINE; Value: MODERATE; Range: NEGATIVE; Status: F Test: HYALINE CAST, URINE AUTO; Value: 2; Range: 0-1; Units: /LPF; Status: F Test: CALCIUM OXALATE CRYSTALS; Value: SMALL; Range: NONE; Status: F Lab Order: Fingerstick Blood Sugar; SPEC'M 05/08/16 10:50 Test: BEDSIDE GLUCOSE; Value: 129; Range: 70-105; Abnormal: Above high normal; Units: MG/DL; Status: F Test Note: ; Serum Blood Draw Doctor Notified Lab Order: Urine Toxicology; SPEC'M 05/08/16 11:09 Test: AMPHETAMINES LEVEL URINE; Value: POSITIVE; Range: NEGATIVE; Abnormal: Above high normal; Status: F Test: BARBITURATES URINE; Value: NEGATIVE; Range: NEGATIVE; Status: F Test: BENZODIAZEPINES URINE; Value: NEGATIVE; Range: NEGATIVE; Status: F Test: CANNABINOIDS URINE; Value: POSITIVE; Range: NEGATIVE; Abnormal: Above high normal; Status: F Test: COCAINE METABOLITE URINE; Value: NEGATIVE; Range: NEGATIVE; Status: F Test: METHADONE URINE; Value: NEGATIVE; Range: NEGATIVE; Status: F Test: OPIATES URINE; Value: POSITIVE; Range: NEGATIVE; Abnormal: Above high normal; Status: F Test: TRICYCLIC ANTIDEPRESS URINE; Value: NEGATIVE; Range: NEGATIVE; Status: F Test Note: ; FALSE POSITIVE RESULTS CAN BE CAUSED BY THE USE OF PANTOPRAZOLE (PROTONIX). Lab Order: LIVER PROFILE; SPEC'M 05/08/16 11:09 Test: AST/SGOT; Value: 22; Range: 15-37; Units: U/L; Status: F Test: ALT/SGPT; Value: 23; Range: 12-78; Units: U/L; Status: F Test: ALKALINE PHOSPHATASE; Value: 96; Range: 45-117; Units: U/L; Status: F Test: BILIRUBIN,TOTAL; Value: 0.4; Range: 0.2-1.0; Units: MG/DL; Status: F Test: BILIRUBIN,DIRECT; Value: 0.1; Range: 0.0-0.2; Units: MG/DL; Status: F Test: TOTAL PROTEIN; Value: 7.1; Range: 6.4-8.2; Units: GM/DL; Status: F Test: ALBUMIN; Value: 3.7; Range: 3.2-5.2; Units: GM/DL; Status: F Test: ALBUMIN/GLOBULIN RATIO; Value: 1.09; Range: 1.00-1.93; Status: F Lab Order: THYROID PROFILE; SPEC'M 05/08/16 11:09 Test: T UPTAKE; Value: 30; Range: 30-39; Units: %; Status: F Test: THYROXINE (T4); Value: 8.8; Range: 4.5-12.0; Units: UG/DL; Status: F Test: FREE THYROXINE INDEX; Value: 2.6; Range: 1.3-4.8; Units: %; Status: F Test: THYROID STIMULATING HORMONE; Value: 0.515; Range: 0.358-3.740; Units: uIU/ML; Status: F Lab Order: TROPONIN; SPEC'M 05/08/16 11:09 Test: TROPONIN I; Value: < 0.02; Range: < 0.10; Units: NG/ML; Status: F Test Note: ; Troponin I Reference Interval for [employer] LOCI: 99th Percentile= 0.00-0.045 ng/ml Risk Stratification: <= 0.10 ng/ml Decreased Risk for Adverse Clinical Events. 0.10-1.50 ng/ml Increased Risk for Adverse Clinical Events. Evaluation of additional criterion and/or repeat testing in 2-6 hours is suggested to rule out myocardial damage. >= 1.50 ng/ml Indicative of Myocardial Injury. Radiology Order: CT Head Without Contrast Test: CT Head Without Contrast REASON FOR EXAMINATION: dizziness, recent head injury; CT BRAIN WITHOUT CONTRAST: 05/08/2016.; ; Comparison: 05/04/2016. There are [address] brain's between 06/20/2013 and; 11/02/2015.; ; Clinical history: Dizziness, recent head injury.; ; Findings: Pedicles are midline, symmetric and without dilatation or; displacement. Basal ganglia were symmetric and unremarkable. The whaley-white; junction differentiation is maintained. Cortical stripe is preserved. No; intracranial hemorrhage, atrophy, mass or edema. No midline shift. Brainstem; and cerebellum are grossly unremarkable. Bone windows show the mastoids and; visualized sinuses intact. The calvarium and skull base are without a visible; fracture or focal lesion. Orbits, facial bones and nasal bones all intact.; ; Impression:; 1. Negative noncontrast CT brain. No intracranial hemorrhage, fracture of the; skull base, calvarium or visualized facial bone abnormalities on this study.; Stable examination.; ; ; ; ; ; ; Unreviewed; Radiology Order: CT ABD & PELVIS: IV Contrast Only Test: CT ABD & PELVIS: IV Contrast Only REASON FOR EXAMINATION: trauma, luq pain, ecchymosis; CT study of the abdomen and pelvis with IV but without oral contrast:; ; History: Trauma, left upper quadrant pain and ecchymosis.; ; Comparison CT study November 03, 2015.; ; CT contrast: 100 ml of Isovue 370 is administered intravenously.; ; CT findings: Digital end touching machine operator radiograph demonstrates an unremarkable bowel gas; pattern. There are old ununited posttraumatic changes in the right rib cage.; These are unchanged. The lung bases are otherwise clear. There are old healed; rib fractures in the anterior inferior chest on the left as well. No acute rib; fracture is appreciated. The liver shows diffuse moderate fatty infiltration.; No focal mass lesion is seen. Gallbladder and pancreas are unremarkable. The; spleen is homogeneous in texture, normal in size and intact. No adrenal lesion; is seen. Kidneys enhance symmetrically and are morphologically intact. There is; a inferior vena cava filter in good position. A normal appendix is seen; retrocecal. Small and large intestinal bowel loops are normal in the abdomen and; pelvis. There is left colonic diverticulosis without CT evidence of; diverticulitis. The uterus and ovaries are unremarkable by CT. No free air or; free fluid seen. There is an area of fibrosis in the subcutaneous fat of the; right lower quadrant anterior abdominal wall. No extraabdominal hematoma or mass; lesion is seen.; ; Impression:; ; 1. 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 Colonic diverticulosis without diverticulitis.; ; 3. Inferior vena cava filter in place.; ; 4. Fatty infiltration of the liver.; ; 5. No acute traumatic abnormality.; ; ; Signed by; Saad Cintron MD 05/08/2016 04:22 P; Radiology Order: CT Maxilofacial W/out Contrast Test: CT Maxilofacial W/out Contrast REASON FOR EXAMINATION: trauma, left side; CT MAXILLOFACIAL WITHOUT CONTRAST: 05/08/2016.; ; Clinical history: Trauma. Left side.; ; Findings: There are no comparison studies of the facial bones. Axial soft; tissue and bone window settings and coronal and sagittal reconstructions provided; in bone window settings. The patient is edentulous. Nasal spine of the maxilla; intact. Nasal bones were intact. The septum is without any significant; deviation. Sphenoid sinuses were clear. Maxillary sinuses show no air-fluid; levels or significant mucosal thickening. 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 The ostia were patent. The hiatus; semilunaris intact. There is no contra bullosa of the turbinates. Orbital; floor, medial leigh and lateral struts of the orbit intact. The frontal sinuses; are well aerated and clear. Ethmoids are intact. Mastoids intact as well. I; see no evidence of fracture of the skull base. Visualized parotid glands; unremarkable and that portion of submandibular gland seen on each side also; symmetric.; ; Impression:; ; 1. No orbital or facial bone fractures. The sinuses were clear and the globes,; extraocular muscles and optic nerves also unremarkable. Mandible intact although; edentulous.; ; ; ; ; Unreviewed; Outcome: 14:42 Decision to Hospitalize by Provider. ar2 17:03 Admission hand-off: Report Faxed Fax receipt verified by Audrey Iyer. [facility] 17:04 CT Study completed. [facility] 17:31 Discharge Assessment: Patient awake, alert and oriented x 3. No cognitive and/or [facility] functional deficits noted. Patient verbalized understanding of disposition instructions. patient administered narcotics - yes. Patient was admitted to the hospital or transferred to another facility. The following High Risk Discharge criteria are identified: None. Admitted to PCU accompanied by nurse, accompanied by tech, via stretcher, on monitor, with chart. Condition: stable. Property :Personal belongings accompany Pt. 17:38 Patient left the ED. [facility] Signatures: Dispatcher [employer] EDMS Kenya Love RN RN Saskia Galdamez RN RN srm Peters, Mary, RN RN mcp Murphy, Jane, TITLE CHECKER TITLE CHECKER jam1 Pablo Temitope, PSA PSA rb Romy Paulino, Reg Reg gb Barry Pearl, Reg Reg lg Adin Meraz PA-C PA-C ar2 Courtney Marie RN RN hs1 Telma Lau, TITLE CHECKER TITLE CHECKER elp Almaz Sharp Laura lr2 Corrections: (The following items were deleted from the chart) 09:38 09:37 BP 153 / 97; Pulse 92bpm; Resp 16bpm; Pulse Ox 96%; 95.25 kg; Height 5 ft. 6 in.; elp BMI: 33.8; elp 14:35 14:20 Reassessment: TLS staff at bedside conversing with patient.. chasity loomisj Chart Complete MTDD
--- NOTE | 2016-05-10 18:39 | EDDOCDS ---
Physician Documentation [facility] Name: Elisa Terjo Age: 46 yrs Sex: Female : 1970 Arrival Date: 05/08/2016 Time: 09:36 Bed Admit Hold Private MD: NO PRIMARY PHYSICIAN, . Disposition: 05/08/16 14:42 Hospitalization ordered by Kali Fishman for Inpatient Admission. Preliminary diagnosis are Chronic migraine without aura, intractable, Dizziness and giddiness - unstable gait, Urinary tract infection, site not specified. - Bed requested for PCU. - Status is Inpatient Admission. [facility] - Condition is Stable. - Problem is new. - Symptoms are unchanged. Historical: - Allergies: No known drug Allergies; - Home Meds: 1. bupropion HCl 100 mg Oral TbER 2. Spiriva with HandiHaler 18 mcg Inhl CpDv 1 cap once daily 3. amlodipine 10 mg Oral tab 1 tab once daily 4. trazodone 150 mg Oral tab 2 tabs nightly 5. Klonopin 0.5 mg Oral tab 1 tab 3 times per day 6. duloxetine 60 mg Oral cpDR 1 cap once daily 7. omeprazole 40 mg Oral cpDR 1 cap 2 times per day 8. metoprolol tartrate 50 mg Oral tab 1 tab 2 times per day 9. ranitidine HCl 150 mg Oral tbef twice a day 10. Tylenol 500 mg Oral every 4 hours (Last dose: 05/07/2016) - PMHx: Anxiety; Asthma; Chronic Low Back Pain; COPD; Depression; DVT; GERD; Hypertension; OCD; PTSD; Pulmonary Embolism; - PSHx: left leg surgery times 4; Hernia repair; Uterine Ablation; [place] Filter Placement; - Social history: Smoking status: Patient uses tobacco products, light tobacco smoker. No barriers to communication noted, The patient speaks fluent Syriac, Speaks appropriately for age. - Family history: Not pertinent. - : The pt / caregiver states he / she is not on anticoagulants. Home medication list is obtained from the caregiver. - Exposure Risk Screening:: None identified. 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 6 in. (167.64 cm); 10:55 BP 144 / 84 RA Supine (auto/lg); Pulse 83; Resp 18; Pulse Ox 98% on R/A; kpj 10:55 BP 131 / 84 RA Sitting (auto/lg); Pulse 86; Resp 18; Pulse Ox 98% on R/A; kpj 10:55 BP 120 / 82 Standing; Pulse 95; Resp 18; Pulse Ox 98% ; kpj 11:41 BP 153 / 91; Pulse 87; Resp 20; Temp 97.9; Pulse Ox 98% ; Pain 10/10; jam1 14:07 BP 152 / 103; Pulse 99; Resp 20; Temp 98.0; Pulse Ox 98% ; Pain 10/10; jam1 14:51 BP 133 / 74; Pulse 81; Resp 20; Temp 98.3; Pulse Ox 98% ; Pain 8/10; jam1 15:00 Pain 6/10; mcp 16:51 BP 112 / 64; Pulse 88; Resp 18; Temp 97.9; Pulse Ox 98% ; Pain 6/10; jam1 17:28 BP 114 / 69; Pulse 86; Resp 18; Temp 96.7; Pulse Ox 94% ; Pain 6/10; jam1 09:37 Body Mass Index 33.89 (95.25 kg, 167.64 cm) elp 10:55 dizzy and nauseted with position change kpj 10:55 dizzy and nauseated kpj MDM: 10:23 Financial registration complete. lg 10:31 [facility] Payment Agreement was scanned into [employer] and attached to record. lg 10:34 IV Saline Lock ordered. ar2 10:34 Acetaminophen Tablet 975 mg PO once ordered. ar2 10:34 NS 0.9% 1000 ml IV at bolus once ordered. ar2 10:34 Accucheck ordered. ar2 10:34 Orthostatic VS ordered. ar2 10:34 Undress patient appropriately for examination ordered. ar2 10:35 CBC with Diff Ordered. EDMS 10:35 MED Profile Ordered. EDMS 10:35 UA Ordered. EDMS 10:35 CT Head Without Contrast Ordered. EDMS 10:35 ECG WITH READING ER PHYS+CARDIAG ordered. EDMS 10:59 Fingerstick Blood Sugar Ordered. EDMS 11:04 CT ABD & PELVIS: IV Contrast Only Ordered. EDMS 11:49 Misc. Nursing Order ordered. ar2 11:49 CBC with Diff Reviewed. ar2 11:49 UA Reviewed. ar2 11:49 Fingerstick Blood Sugar Reviewed. ar2 11:56 cefTRIAXone 1 grams IVPB once over 30 mins; dilute in 50mL of NS or D5W ordered. ar2 11:57 Urine Toxicology Ordered. EDMS 11:57 CT Maxilofacial W/out Contrast Ordered. EDMS 11:57 BED REQUEST+ADM ordered. EDMS 12:02 LIVER PROFILE Ordered. EDMS 12:02 THYROID PROFILE Ordered. EDMS 12:02 TROPONIN Ordered. EDMS 13:28 MED Profile Reviewed. ar2 13:28 LIVER PROFILE Reviewed. ar2 13:28 THYROID PROFILE Reviewed. ar2 13:28 TROPONIN Reviewed. ar2 13:31 ketorolac 30 mg IVP once ordered. ar2 13:31 Metoclopramide 10 mg IV at 40 mg/hr once over 15 mins ordered. ar2 13:53 Consult: Wood Boatbuilder Apprentice ordered. ar2 13:53 Consult PFS/PSA/Medical Center Representative: Psychiatric Concerns ordered. ar2 14:04 morphine 4 mg IVP once ordered. ar2 14:10 Urine Toxicology Reviewed. ar2 14:10 CT Head Without Contrast Reviewed. ar2 14:10 CT ABD & PELVIS: IV Contrast Only Reviewed. ar2 14:10 CT Maxilofacial W/out Contrast Reviewed. ar2 14:16 Consult PFS/PSA/Medical Center Representative: Psychiatric Concerns complete. rb 14:16 Consult: Wood Boatbuilder Apprentice complete. rb 15:34 Admission / Observation Status ordered. EDMS 15:34 CLEAR LIQUIDS DIET ordered. EDMS 15:35 URINE CULTURE Ordered. EDMS 16:30 T-Sheet-- Draft Copy was scanned into [employer] and attached to record. klr 05/09 11:43 ECG/EKG was scanned into [employer] and attached to record. Point of Care Testing: Blood Glucose: 05/08 10:50 Blood Glucose: 129 mg/dL; kpj Ranges: Administered Medications: 10:47 Drug: Acetaminophen 975 mg [acetaminophen 325 mg tablet (3 tabs)] Route: PO; [facility] 11:00 Drug: NS 0.9% 1000 ml [sodium chloride 0.9 % intravenous solution] Route: IV; Rate: kpj bolus; Site: right wrist; 13:00 Follow up: IV Status: Completed infusion; Infusion discontinued [facility] 12:18 Drug: cefTRIAXone 1 grams [ceftriaxone 1 gram solution for injection] Route: IVPB; [facility] Infused Over: 30 mins; Site: right wrist; 13:41 Drug: ketorolac 30 mg [ketorolac 30 mg/mL (1 mL) injection solution (1 mL)] Route: IVP; [facility] Site: right wrist; 14:09 Follow up: Response: Pain is unchanged, physician notified [facility] 13:41 Drug: Metoclopramide 10 mg [metoclopramide 5 mg/mL injection solution] Route: IV; Rate: mcp 40 mg/hr; Infused Over: 15 mins; Site: right wrist; 14:09 Follow up: Response: Nausea is unchanged [facility] 14:30 Drug: morphine 4 mg [morphine 4 mg/mL intravenous cartridge (1 mL)] Route: IVP; Site: [facility] right wrist; 15:00 Follow up: Pain 6/10 Adult; Response: Pain is decreased [facility] Signatures: Dispatcher [employer] EDSonia Mcclain RN RN [facility] Kenya Love RN RN [facility] Temitope Pablo, PSA PSA rb Romy Paulino, Reg Reg gb Barry Pearl, Reg Reg lg Adin Meraz PA-C PA-C arCourtney Mauro RN RN hs1 Almaz Sharp Mary RN [facility] The chart was reviewed and I authenticate all verbal orders and agree with the evaluation and treatment provided.Corrections: (The following items were deleted from the chart) 12: 11:57 TROPONIN+LAB ordered. EDMS EDMS 12: 11:57 LIVER PROFILE+LAB ordered. EDMS EDMS 12:01 11:57 THYROID PROFILE+LAB ordered. EDMS EDMS Attachments: 10:31 [facility] Payment Agreement lg 16:30 T-Sheet-- Draft Copy [facility] 05/09 11:43 ECG/EKG gb Chart Complete MTDD
--- NOTE | 2016-05-10 18:39 | EDDOCDS ---
Physician Documentation [facility] Name: Elisa Trejo Age: 46 yrs Sex: Female : 1970 Arrival Date: 05/08/2016 Time: 09:36 Bed Admit Hold Private MD: NO PRIMARY PHYSICIAN, . Disposition: 05/08/16 14:42 Hospitalization ordered by Kali Fishman for Inpatient Admission. Preliminary diagnosis are Chronic migraine without aura, intractable, Dizziness and giddiness - unstable gait, Urinary tract infection, site not specified. - Bed requested for PCU. - Status is Inpatient Admission. [facility] - Condition is Stable. - Problem is new. - Symptoms are unchanged. Historical: - Allergies: No known drug Allergies; - Home Meds: 1. bupropion HCl 100 mg Oral TbER 2. Spiriva with HandiHaler 18 mcg Inhl CpDv 1 cap once daily 3. amlodipine 10 mg Oral tab 1 tab once daily 4. trazodone 150 mg Oral tab 2 tabs nightly 5. Klonopin 0.5 mg Oral tab 1 tab 3 times per day 6. duloxetine 60 mg Oral cpDR 1 cap once daily 7. omeprazole 40 mg Oral cpDR 1 cap 2 times per day 8. metoprolol tartrate 50 mg Oral tab 1 tab 2 times per day 9. ranitidine HCl 150 mg Oral tbef twice a day 10. Tylenol 500 mg Oral every 4 hours (Last dose: 05/07/2016) - PMHx: Anxiety; Asthma; Chronic Low Back Pain; COPD; Depression; DVT; GERD; Hypertension; OCD; PTSD; Pulmonary Embolism; - PSHx: left leg surgery times 4; Hernia repair; Uterine Ablation; [place] Filter Placement; - Social history: Smoking status: Patient uses tobacco products, light tobacco smoker. No barriers to communication noted, The patient speaks fluent Georgian, Speaks appropriately for age. - Family history: Not pertinent. - : The pt / caregiver states he / she is not on anticoagulants. Home medication list is obtained from the caregiver. - Exposure Risk Screening:: None identified. 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 6 in. (167.64 cm); 10:55 BP 144 / 84 RA Supine (auto/lg); Pulse 83; Resp 18; Pulse Ox 98% on R/A; kpj 10:55 BP 131 / 84 RA Sitting (auto/lg); Pulse 86; Resp 18; Pulse Ox 98% on R/A; kpj 10:55 BP 120 / 82 Standing; Pulse 95; Resp 18; Pulse Ox 98% ; kpj 11:41 BP 153 / 91; Pulse 87; Resp 20; Temp 97.9; Pulse Ox 98% ; Pain 10/10; jam1 14:07 BP 152 / 103; Pulse 99; Resp 20; Temp 98.0; Pulse Ox 98% ; Pain 10/10; jam1 14:51 BP 133 / 74; Pulse 81; Resp 20; Temp 98.3; Pulse Ox 98% ; Pain 8/10; jam1 15:00 Pain 6/10; mcp 16:51 BP 112 / 64; Pulse 88; Resp 18; Temp 97.9; Pulse Ox 98% ; Pain 6/10; jam1 17:28 BP 114 / 69; Pulse 86; Resp 18; Temp 96.7; Pulse Ox 94% ; Pain 6/10; jam1 09:37 Body Mass Index 33.89 (95.25 kg, 167.64 cm) elp 10:55 dizzy and nauseted with position change kpj 10:55 dizzy and nauseated kpj MDM: 10:23 Financial registration complete. lg 10:31 [facility] Payment Agreement was scanned into [employer] and attached to record. lg 10:34 IV Saline Lock ordered. ar2 10:34 Acetaminophen Tablet 975 mg PO once ordered. ar2 10:34 NS 0.9% 1000 ml IV at bolus once ordered. ar2 10:34 Accucheck ordered. ar2 10:34 Orthostatic VS ordered. ar2 10:34 Undress patient appropriately for examination ordered. ar2 10:35 CBC with Diff Ordered. EDMS 10:35 MED Profile Ordered. EDMS 10:35 UA Ordered. EDMS 10:35 CT Head Without Contrast Ordered. EDMS 10:35 ECG WITH READING ER PHYS+CARDIAG ordered. EDMS 10:59 Fingerstick Blood Sugar Ordered. EDMS 11:04 CT ABD & PELVIS: IV Contrast Only Ordered. EDMS 11:49 Misc. Nursing Order ordered. ar2 11:49 CBC with Diff Reviewed. ar2 11:49 UA Reviewed. ar2 11:49 Fingerstick Blood Sugar Reviewed. ar2 11:56 cefTRIAXone 1 grams IVPB once over 30 mins; dilute in 50mL of NS or D5W ordered. ar2 11:57 Urine Toxicology Ordered. EDMS 11:57 CT Maxilofacial W/out Contrast Ordered. EDMS 11:57 BED REQUEST+ADM ordered. EDMS 12:02 LIVER PROFILE Ordered. EDMS 12:02 THYROID PROFILE Ordered. EDMS 12:02 TROPONIN Ordered. EDMS 13:28 MED Profile Reviewed. ar2 13:28 LIVER PROFILE Reviewed. ar2 13:28 THYROID PROFILE Reviewed. ar2 13:28 TROPONIN Reviewed. ar2 13:31 ketorolac 30 mg IVP once ordered. ar2 13:31 Metoclopramide 10 mg IV at 40 mg/hr once over 15 mins ordered. ar2 13:53 Consult: Salvage Engineer ordered. ar2 13:53 Consult PFS/PSA/Contract Negotiation Manager: Psychiatric Concerns ordered. ar2 14:04 morphine 4 mg IVP once ordered. ar2 14:10 Urine Toxicology Reviewed. ar2 14:10 CT Head Without Contrast Reviewed. ar2 14:10 CT ABD & PELVIS: IV Contrast Only Reviewed. ar2 14:10 CT Maxilofacial W/out Contrast Reviewed. ar2 14:16 Consult PFS/PSA/Contract Negotiation Manager: Psychiatric Concerns complete. rb 14:16 Consult: Salvage Engineer complete. rb 15:34 Admission / Observation Status ordered. EDMS 15:34 CLEAR LIQUIDS DIET ordered. EDMS 15:35 URINE CULTURE Ordered. EDMS 16:30 T-Sheet-- Draft Copy was scanned into [employer] and attached to record. klr 05/09 11:43 ECG/EKG was scanned into [employer] and attached to record. Point of Care Testing: Blood Glucose: 05/08 10:50 Blood Glucose: 129 mg/dL; kpj Ranges: Administered Medications: 10:47 Drug: Acetaminophen 975 mg [acetaminophen 325 mg tablet (3 tabs)] Route: PO; [facility] 11:00 Drug: NS 0.9% 1000 ml [sodium chloride 0.9 % intravenous solution] Route: IV; Rate: kpj bolus; Site: right wrist; 13:00 Follow up: IV Status: Completed infusion; Infusion discontinued [facility] 12:18 Drug: cefTRIAXone 1 grams [ceftriaxone 1 gram solution for injection] Route: IVPB; [facility] Infused Over: 30 mins; Site: right wrist; 13:41 Drug: ketorolac 30 mg [ketorolac 30 mg/mL (1 mL) injection solution (1 mL)] Route: IVP; [facility] Site: right wrist; 14:09 Follow up: Response: Pain is unchanged, physician notified [facility] 13:41 Drug: Metoclopramide 10 mg [metoclopramide 5 mg/mL injection solution] Route: IV; Rate: mcp 40 mg/hr; Infused Over: 15 mins; Site: right wrist; 14:09 Follow up: Response: Nausea is unchanged [facility] 14:30 Drug: morphine 4 mg [morphine 4 mg/mL intravenous cartridge (1 mL)] Route: IVP; Site: [facility] right wrist; 15:00 Follow up: Pain 6/10 Adult; Response: Pain is decreased [facility] Signatures: Dispatcher [employer] EDSonia Mcclain RN RN [facility] Kenya Love RN RN [facility] Temitope Pablo, PSA PSA rb Romy Paulino, Reg Reg gb Barry Pearl, Reg Reg lg Adin Meraz PA-C PA-C arCourtney Mauro RN RN hs1 Almaz Sharp Mary RN [facility] The chart was reviewed and I authenticate all verbal orders and agree with the evaluation and treatment provided.Corrections: (The following items were deleted from the chart) 12: 11:57 TROPONIN+LAB ordered. EDMS EDMS 12: 11:57 LIVER PROFILE+LAB ordered. EDMS EDMS 12:01 11:57 THYROID PROFILE+LAB ordered. EDMS EDMS Attachments: 10:31 [facility] Payment Agreement lg 16:30 T-Sheet-- Draft Copy [facility] 05/09 11:43 ECG/EKG gb Chart Complete MTDD
== END 2016-05-09 14:30 | disposition home or self-care (01) | DRG 312 ==
LOC: M ED 09:36 → M ED INP 15:29 → M PCU 17:42
PROVIDERS: ADMIT Internal Medicine; ATTEND Family Medicine
DX: I95.1 Orthostatic hypotension (principal); N39.0 Urinary tract infection, site not specified; F41.9 Anxiety disorder, unspecified; F32.9 Major depressive disorder, single episode, unspecified; G43.719 Chronic migraine without aura, intractable, without status migrainosus; F43.10 Post-traumatic stress disorder, unspecified; F17.210 Nicotine dependence, cigarettes, uncomplicated; I10 Essential (primary) hypertension; E87.6 Hypokalemia; G44.221 Chronic tension-type headache, intractable; J45.909 Unspecified asthma, uncomplicated; Z79.899 Other long term (current) drug therapy; Z91.410 Personal history of adult physical and sexual abuse

== ENCOUNTER 2016-05-31 13:20 | Emergency (ER) | payer MEDICARE, MEDICAID ==
[~2016-05-31 13:20] MED LIST changes: +AMLO10TA2 PO; +KEFL500C7 PO; +KLON0.5T PO; +ZONI50CA PO
[2016-05-31] MEDS ORDERED: PERCOCET 5MG/325MG TAB As Ordered ONE (14:08)
--- NOTE | 2016-05-31 14:48 | REP ---
LEFT FOOT SERIES COMPLETE: 05/31/2016 CLINICAL HISTORY: Trauma, lateral pain. Evaluate for new injury. COMPARISON: Left foot 01/19/2016, left ankle and foot 12/18/2015, left ankle 11/23/2015. FINDINGS: The four views of the foot demonstrate plate and screw fixation of the distal tibia and a large caliber screw from the fibula through the tibia into the talus for ankle arthrodesis, old. There is an ununited fracture of the distal fibular shaft at the level of the head of the fusion lag screw. Tarsal bones and their articulations and the metatarsals grossly intact. Phalanges intact. The IP joints are narrowed. I see no definite acute fracture or avulsion. There is diffuse soft tissue swelling over the foot and ankle. IMPRESSION: 1. Prominent soft tissue swelling of the foot and ankle with old ankle arthrodesis and hardware intact, old fracture of the distal fibula just above the lag screw. No acute fracture visible. Bones demineralized. Signed by Nain Garrido MD 05/31/2016 05:29 P
--- NOTE | 2016-05-31 15:29 | EDDOCDS ---
Physician Documentation [facility] Name: Elisa Trejo Age: 46 yrs Sex: Female : 1970 Arrival Date: 05/31/2016 Time: 13:20 Bed TR8 Private MD: Margie Ivey PA-C Disposition: 05/31/16 14:55 Discharged to Home/Self Care. Impression: Other sprain of left foot. - Condition is Stable. - Discharge Instructions: Foot Sprain. - Medication Reconciliation, Local Pharmacy Hours form. - Follow up: Rodrigo Bishop; When: As previously arranged; Reason: Recheck today's complaints, Continuance of care. - Problem is new. - Symptoms are unchanged. - Notes: continue wearing boot as instructed by orthopedics. ice foot for 10-15 min every 1-2 hrs for swelling. Historical: - Allergies: No known drug Allergies; - Home Meds: 1. amlodipine 10 mg Oral tab 1 tab once daily (Last dose: 05/31/2016 08:00) 2. bupropion HCl 100 mg Oral TbER 1 tab once daily (Last dose: 05/31/2016 08:00) 3. duloxetine 60 mg Oral cpDR 1 cap once daily (Last dose: 05/31/2016 08:00) 4. Klonopin 0.5 mg Oral tab 1 tab 3 times per day (Last dose: 05/31/2016 08:00) 5. metoprolol tartrate 50 mg Oral tab 1 tab 2 times per day (Last dose: 05/31/2016 08:00) 6. omeprazole 40 mg Oral cpDR 1 cap 2 times per day (Last dose: 05/31/2016 08:00) 7. ranitidine HCl 150 mg Oral tbef 150 mg twice a day (Last dose: 05/31/2016 08:00) 8. Spiriva with HandiHaler 18 mcg Inhl CpDv 1 cap once daily (Last dose: 05/31/2016 08:00) 9. zonisamide 50 mg oral cap 1 cap 2 times per day (Last dose: 05/31/2016 08:00) 10. trazodone 150 mg Oral tab 2 tabs nightly (Last dose: 05/30/2016) 11. Tylenol 500 mg Oral every 4 hours as needed - PMHx: Anxiety; Asthma; Chronic Low Back Pain; COPD; Depression; DVT; GERD; Hypertension; OCD; PTSD; Pulmonary Embolism; Head injury; broken left foot; - PSHx: left leg surgery times 4; Hernia repair; Uterine Ablation; [place] Filter Placement; - Social history: Smoking status: Patient uses tobacco products, light tobacco smoker. No barriers to communication noted, The patient speaks fluent Khmer. - Family history: Not pertinent. - : The pt / caregiver states he / she is not on anticoagulants. Home medication list is obtained from the patient. - Exposure Risk Screening:: None identified. 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 6 in. (167.64 cm) (R); Pain 10/10; 15:05 BP 116 / 66 RA Sitting (auto/lg); Pulse 92; Resp 16; Temp 97.9(O); Pulse Ox 96% on R/A; rs6 Pain 8/10; 13:22 Body Mass Index 40.35 (113.40 kg, 167.64 cm) lr2 MDM: 14:04 Foot, Complete Ordered. EDMS 14:06 oxyCODONE-acetaminophen 5 mg-325 mg 1 tabs PO once ordered. ar2 14:42 Financial registration complete. mm15 14:57 [facility] Payment Agreement was scanned into [employer] and attached to record. mm15 Administered Medications: 14:09 Drug: oxyCODONE-acetaminophen 1 tabs [oxycodone-acetaminophen 5 mg-325 mg tablet (1 srm tabs)] Route: PO; Signatures: Dispatcher [employer] EDMS Kenya Love RN RN kpj Robertshaw, Aaron, PA-C PA-C ar2 Tanika Huddleston RN RN [facility] mm15 Saskia Epperson RN [facility] The chart was reviewed and I authenticate all verbal orders and agree with the evaluation and treatment provided.Attachments: 14:57 [facility] Payment Agreement mm15 MTDD
--- NOTE | 2016-05-31 15:29 | EDDOCDS ---
Nurse's Notes [facility] Name: Elisa Trejo Age: 46 yrs Sex: Female : 1970 Arrival Date: 05/31/2016 Time: 13:20 Bed TR8 Private MD: Margie Ivey PA-C Diagnosis: Other sprain of left foot Presentation: 05/31 13:25 Presenting complaint: Patient states: cast removal 2 weeks ago left foot, placed in a [facility] walking boot, today left foot twisted while walking increased pain and swelling left foot. Adult Sepsis Screening: The patient does not have new or worsening altered mentation. Patient's respiratory rate is less than 22. Systolic blood pressure is greater than 100. Patient has a qSOFA score of 0- Negative Sepsis Screen. Suicide/Homicide risk assessment- the patient denies having any suicidal and/or homicidal ideations and does not present with any other emotional, behavioral or mental health complaints. Status: Patient is not a business services tech or dependent. Transition of care: patient was not received from another setting of care. 13:25 Acuity: SHONDA Level 4 [facility] 13:25 Method Of Arrival: Walkin/Carried/Asstd [facility] Triage Assessment: 13:33 General: Appears uncomfortable, well nourished, well groomed, Behavior is appropriate [facility] for age, pleasant. Pain: Location: left foot Pain currently is 9 out of 10 on a pain scale. Pt Declines HIV testing. Neurological: Level of Consciousness is awake, alert. Respiratory: Airway is patent Respiratory effort is even, unlabored. Derm: Skin is pink, warm & dry. Musculoskeletal: Swelling present in dorsum of left foot. 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 amlodipine 10 mg Oral tab 1 tab once daily (Last dose: 05/31/2016 08:00) 2. bupropion HCl 100 mg Oral TbER 1 tab once daily (Last dose: 05/31/2016 08:00) 3. duloxetine 60 mg Oral cpDR 1 cap once daily (Last dose: 05/31/2016 08:00) 4. Klonopin 0.5 mg Oral tab 1 tab 3 times per day (Last dose: 05/31/2016 08:00) 5. metoprolol tartrate 50 mg Oral tab 1 tab 2 times per day (Last dose: 05/31/2016 08:00) 6. omeprazole 40 mg Oral cpDR 1 cap 2 times per day (Last dose: 05/31/2016 08:00) 7. ranitidine HCl 150 mg Oral tbef 150 mg twice a day (Last dose: 05/31/2016 08:00) 8. Spiriva with HandiHaler 18 mcg Inhl CpDv 1 cap once daily (Last dose: 05/31/2016 08:00) 9. zonisamide 50 mg oral cap 1 cap 2 times per day (Last dose: 05/31/2016 08:00) 10. trazodone 150 mg Oral tab 2 tabs nightly (Last dose: 05/30/2016) 11. Tylenol 500 mg Oral every 4 hours as needed - PMHx: Anxiety; Asthma; Chronic Low Back Pain; COPD; Depression; DVT; GERD; Hypertension; OCD; PTSD; Pulmonary Embolism; Head injury; broken left foot; - PSHx: left leg surgery times 4; Hernia repair; Uterine Ablation; [place] Filter Placement; - Social history: Smoking status: Patient uses tobacco products, light tobacco smoker. No barriers to communication noted, The patient speaks fluent Bulgarian. - Family history: Not pertinent. - : The pt / caregiver states he / she is not on anticoagulants. Home medication list is obtained from the patient. - Exposure Risk Screening:: None identified. Screenin:15 Screening information is obtained from the patient. Fall risk: No risks identified. [facility] Assistance ADL's: requires no assistance with activities of daily living. Abuse/DV Screen: The patient / caregiver reports he/she is: not in a situation that causes fear, pain or injury. Nutritional screening: No deficits noted. Advance Directives: There is no active DNR order. home support is adequate. Assessment: 15:15 General: Appears in no apparent distress, comfortable, Behavior is appropriate for age, [facility] cooperative, pleasant, reviewed discharge instructions, relayed concerns to provider, patient denies further needs. Medicaid cab transportation contacted per request, assisted to waiting area via wheelchair where patient states "I'll just be going outside to have a cigarette, no assist required. Musculoskeletal: Circulation, motion, and sensation intact. Vital Signs: 13:22 BP 155 / 81; Pulse 106; Resp 18; Temp 98.5(O); Pulse Ox 97% on R/A; Weight 113.4 kg lr2 (R); Height 5 ft. 6 in. (167.64 cm) (R); Pain 10/10; 15:05 BP 116 / 66 RA Sitting (auto/lg); Pulse 92; Resp 16; Temp 97.9(O); Pulse Ox 96% on R/A; rs6 Pain 8/10; 13:22 Body Mass Index 40.35 (113.40 kg, 167.64 cm) lr2 Vitals: 13:22 Log In Time: May 31, 2016 at 13:20. lr2 ED Course: 13:22 Patient visited by Piper Vo. lr2 13:22 Patient moved to Waiting lr2 13:23 Margie Ivey is Private Physician. lr2 13:23 Patient moved to Pre RCE lr2 13:28 Triage Initiated kpj 13:47 Patient moved to Triage 1 rs6 13:53 Adin Meraz PA-C is PHCP. ar2 13:53 Robert Bentley MD is Attending Physician. ar2 13:53 Patient visited by Adin Meraz PA-C. ar2 14:10 Patient moved to TR2 srm 14:10 Patient moved to Radiology srm 14:17 Patient moved to TR2 cll1 14:50 Patient moved to PR1 / 25 srm 14:55 Rodrigo Bishop is Referral Physician. ar2 14:57 [facility] Payment Agreement was scanned into [employer] and attached to record. mm15 14:57 Foot, Complete Returned. EDMS 15:02 Patient name changed from Elisa\\S\\\\S\\Lafountain\\S\\ to Elisa\\S\\ \\S\\Lafountain. EDMS 15:05 Patient visited by Inna Walker PCA. rs6 15:15 The patient / caregiver is instructed regarding the plan of care and ED course. cjh 15:15 No IV's were initiated during this patient's visit. No procedures done that require [facility] assistance. 15:18 Patient moved to TR8 cj Administered Medications: 14:09 Drug: oxyCODONE-acetaminophen 1 tabs [oxycodone-acetaminophen 5 mg-325 mg tablet (1 srm tabs)] Route: PO; Order Results: Radiology Order: Foot, Complete Test: Foot, Complete REASON FOR EXAMINATION: trauma, lateral pain, new injury; LEFT FOOT SERIES COMPLETE: 05/31/2016; ; CLINICAL HISTORY: Trauma, lateral pain. Evaluate for new injury.; ; COMPARISON: Left foot 01/19/2016, left ankle and foot 12/18/2015, left ankle; 11/23/2015.; ; FINDINGS: The four views of the foot demonstrate plate and screw fixation of the; distal tibia and a large caliber screw from the fibula through the tibia into the; talus for ankle arthrodesis, old. There is an ununited fracture of the distal; fibular shaft at the level of the head of the fusion lag screw. Tarsal bones and; their articulations and the metatarsals grossly intact. Phalanges intact. The; IP joints are narrowed. I see no definite acute fracture or avulsion. There is; diffuse soft tissue swelling over the foot and ankle.; ; IMPRESSION:; Prominent soft tissue swelling of the foot and ankle with old ankle arthrodesis; and hardware intact, old fracture of the distal fibula just above the lag screw.; No acute fracture visible. Bones demineralized.; ; ; ; ; ; ; Unreviewed; Outcome: 14:55 Discharge ordered by Provider. ar2 15:15 Discharge Assessment: Patient awake, alert and oriented x 3. No cognitive and/or [facility] functional deficits noted. Patient verbalized understanding of disposition instructions. patient administered narcotics - yes. Pt provided with safe discharge. The following High Risk Discharge criteria are identified: None. Discharged to home via wheelchair. Condition: good Condition: stable. Discharge instructions given to patient, Instructed on discharge instructions, follow up and referral plans. medication usage, Demonstrated understanding of instructions, Pt was receptive of discharge instructions/ teaching. No special radiology studies were completed. Property :Personal belongings accompany Pt. 15:29 Patient left the ED. [facility] Signatures: Dispatcher [employer] EDMS Kenya Love RN RN kpj Michelson, Staci, RN RN srm Robertshaw, Aaron, PA-C PA-C ar2 Tanika Huddleston RN RN [facility] Reed Hotron mm15 Delmis Farias cll1 Inna Walker, COUNSELOR CAMP COUNSELOR CAMP rs6 Ross, Piper lr2 MTDD
--- NOTE | 2016-06-02 16:30 | EDDOCDS ---
Physician Documentation [facility] Name: Elisa Trejo Age: 46 yrs Sex: Female : 1970 Arrival Date: 05/31/2016 Time: 13:20 Bed TR8 Private MD: Margie Ivey PA-C Disposition: 05/31/16 14:55 Discharged to Home/Self Care. Impression: Other sprain of left foot. - Condition is Stable. - Discharge Instructions: Foot Sprain. - Medication Reconciliation, Local Pharmacy Hours form. - Follow up: Rodrigo Bishop; When: As previously arranged; Reason: Recheck today's complaints, Continuance of care. - Problem is new. - Symptoms are unchanged. - Notes: continue wearing boot as instructed by orthopedics. ice foot for 10-15 min every 1-2 hrs for swelling. Historical: - Allergies: No known drug Allergies; - Home Meds: 1. amlodipine 10 mg Oral tab 1 tab once daily (Last dose: 05/31/2016 08:00) 2. bupropion HCl 100 mg Oral TbER 1 tab once daily (Last dose: 05/31/2016 08:00) 3. duloxetine 60 mg Oral cpDR 1 cap once daily (Last dose: 05/31/2016 08:00) 4. Klonopin 0.5 mg Oral tab 1 tab 3 times per day (Last dose: 05/31/2016 08:00) 5. metoprolol tartrate 50 mg Oral tab 1 tab 2 times per day (Last dose: 05/31/2016 08:00) 6. omeprazole 40 mg Oral cpDR 1 cap 2 times per day (Last dose: 05/31/2016 08:00) 7. ranitidine HCl 150 mg Oral tbef 150 mg twice a day (Last dose: 05/31/2016 08:00) 8. Spiriva with HandiHaler 18 mcg Inhl CpDv 1 cap once daily (Last dose: 05/31/2016 08:00) 9. zonisamide 50 mg oral cap 1 cap 2 times per day (Last dose: 05/31/2016 08:00) 10. trazodone 150 mg Oral tab 2 tabs nightly (Last dose: 05/30/2016) 11. Tylenol 500 mg Oral every 4 hours as needed - PMHx: Anxiety; Asthma; Chronic Low Back Pain; COPD; Depression; DVT; GERD; Hypertension; OCD; PTSD; Pulmonary Embolism; Head injury; broken left foot; - PSHx: left leg surgery times 4; Hernia repair; Uterine Ablation; North Filter Placement; - Social history: Smoking status: Patient uses tobacco products, light tobacco smoker. No barriers to communication noted, The patient speaks fluent Frisian. - Family history: Not pertinent. - : The pt / caregiver states he / she is not on anticoagulants. Home medication list is obtained from the patient. - Exposure Risk Screening:: None identified. 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 6 in. (167.64 cm) (R); Pain 10/10; 15:05 BP 116 / 66 RA Sitting (auto/lg); Pulse 92; Resp 16; Temp 97.9(O); Pulse Ox 96% on R/A; rs6 Pain 8/10; 13:22 Body Mass Index 40.35 (113.40 kg, 167.64 cm) lr2 MDM: 14:04 Foot, Complete Ordered. EDMS 14:06 oxyCODONE-acetaminophen 5 mg-325 mg 1 tabs PO once ordered. ar2 14:42 Financial registration complete. mm15 14:57 [facility] Payment Agreement was scanned into [employer] and attached to record. mm15 21:36 T-Sheet-- Draft Copy was scanned into [employer] and attached to record. klr Administered Medications: 14:09 Drug: oxyCODONE-acetaminophen 1 tabs [oxycodone-acetaminophen 5 mg-325 mg tablet (1 srm tabs)] Route: PO; Signatures: Dispatcher [employer] EDMS Kenya Love RN RN Adin Carrera PA-C PAAmyC ar2 Tanika Huddleston RN RN [facility] Reed Horton mm15 Almaz Sharp klr Saskia Epperson RN [facility] The chart was reviewed and I authenticate all verbal orders and agree with the evaluation and treatment provided.Attachments: 14:57 [facility] [place] Agreement mm15 21:36 T-Sheet-- Draft Copy klr Chart Complete MTDD
--- NOTE | 2016-06-02 16:30 | EDDOCDS ---
Nurse's Notes [facility] Name: Elisa Trejo Age: 46 yrs Sex: Female : 1970 Arrival Date: 05/31/2016 Time: 13:20 Bed TR8 Private MD: Margie Ivey PA-C Diagnosis: Other sprain of left foot Presentation: 05/31 13:25 Presenting complaint: Patient states: cast removal 2 weeks ago left foot, placed in a [facility] walking boot, today left foot twisted while walking increased pain and swelling left foot. Adult Sepsis Screening: The patient does not have new or worsening altered mentation. Patient's respiratory rate is less than 22. Systolic blood pressure is greater than 100. Patient has a qSOFA score of 0- Negative Sepsis Screen. Suicide/Homicide risk assessment- the patient denies having any suicidal and/or homicidal ideations and does not present with any other emotional, behavioral or mental health complaints. Status: Patient is not a service dispatcher or dependent. Transition of care: patient was not received from another setting of care. 13:25 Acuity: SHONDA Level 4 [facility] 13:25 Method Of Arrival: Walkin/Carried/Asstd [facility] Triage Assessment: 13:33 General: Appears uncomfortable, well nourished, well groomed, Behavior is appropriate [facility] for age, pleasant. Pain: Location: left foot Pain currently is 9 out of 10 on a pain scale. Pt Declines HIV testing. Neurological: Level of Consciousness is awake, alert. Respiratory: Airway is patent Respiratory effort is even, unlabored. Derm: Skin is pink, warm & dry. Musculoskeletal: Swelling present in dorsum of left foot. DRILLER PORTABLE: 13:33 LMP N/A - Uterine ablation [facility] Historical: - Allergies: No known drug Allergies; - Home Meds: 1. amlodipine 10 mg Oral tab 1 tab once daily (Last dose: 05/31/2016 08:00) 2. bupropion HCl 100 mg Oral TbER 1 tab once daily (Last dose: 05/31/2016 08:00) 3. duloxetine 60 mg Oral cpDR 1 cap once daily (Last dose: 05/31/2016 08:00) 4. Klonopin 0.5 mg Oral tab 1 tab 3 times per day (Last dose: 05/31/2016 08:00) 5. metoprolol tartrate 50 mg Oral tab 1 tab 2 times per day (Last dose: 05/31/2016 08:00) 6. omeprazole 40 mg Oral cpDR 1 cap 2 times per day (Last dose: 05/31/2016 08:00) 7. ranitidine HCl 150 mg Oral tbef 150 mg twice a day (Last dose: 05/31/2016 08:00) 8. Spiriva with HandiHaler 18 mcg Inhl CpDv 1 cap once daily (Last dose: 05/31/2016 08:00) 9. zonisamide 50 mg oral cap 1 cap 2 times per day (Last dose: 05/31/2016 08:00) 10. trazodone 150 mg Oral tab 2 tabs nightly (Last dose: 05/30/2016) 11. Tylenol 500 mg Oral every 4 hours as needed - PMHx: Anxiety; Asthma; Chronic Low Back Pain; COPD; Depression; DVT; GERD; Hypertension; OCD; PTSD; Pulmonary Embolism; Head injury; broken left foot; - PSHx: left leg surgery times 4; Hernia repair; Uterine Ablation; Harvey Filter Placement; - Social history: Smoking status: Patient uses tobacco products, light tobacco smoker. No barriers to communication noted, The patient speaks fluent Hebrew. - Family history: Not pertinent. - : The pt / caregiver states he / she is not on anticoagulants. Home medication list is obtained from the patient. - Exposure Risk Screening:: None identified. Screenin:15 Screening information is obtained from the patient. Fall risk: No risks identified. [facility] Assistance ADL's: requires no assistance with activities of daily living. Abuse/DV Screen: The patient / caregiver reports he/she is: not in a situation that causes fear, pain or injury. Nutritional screening: No deficits noted. Advance Directives: There is no active DNR order. home support is adequate. Assessment: 15:15 General: Appears in no apparent distress, comfortable, Behavior is appropriate for age, [facility] cooperative, pleasant, reviewed discharge instructions, relayed concerns to provider, patient denies further needs. Medicaid cab transportation contacted per request, assisted to waiting area via wheelchair where patient states "I'll just be going outside to have a cigarette, no assist required. Musculoskeletal: Circulation, motion, and sensation intact. Vital Signs: 13:22 BP 155 / 81; Pulse 106; Resp 18; Temp 98.5(O); Pulse Ox 97% on R/A; Weight 113.4 kg lr2 (R); Height 5 ft. 6 in. (167.64 cm) (R); Pain 10/10; 15:05 BP 116 / 66 RA Sitting (auto/lg); Pulse 92; Resp 16; Temp 97.9(O); Pulse Ox 96% on R/A; rs6 Pain 8/10; 13:22 Body Mass Index 40.35 (113.40 kg, 167.64 cm) lr2 Vitals: 13:22 Log In Time: May 31, 2016 at 13:20. lr2 ED Course: 13:22 Patient visited by Piper Vo. lr2 13:22 Patient moved to Waiting lr2 13:23 Margie Ivey is Private Physician. lr2 13:23 Patient moved to Pre RCE lr2 13:28 Triage Initiated kpj 13:47 Patient moved to Triage 1 rs6 13:53 Adin Meraz PA-C is PHCP. ar2 13:53 Robert Bentley MD is Attending Physician. ar2 13:53 Patient visited by Adin Meraz PA-C. ar2 14:10 Patient moved to TR2 srm 14:10 Patient moved to Radiology srm 14:17 Patient moved to TR2 cll1 14:50 Patient moved to PR1 / 25 srm 14:55 Rodrigo Bishop is Referral Physician. ar2 14:57 [facility] Payment Agreement was scanned into [email or web address] and attached to record. mm15 14:57 Foot, Complete Returned. EDMS 15:02 Patient name changed from Elisa\\S\\\\S\\Lafountain\\S\\ to Elisa\\S\\ \\S\\Lafountain. EDMS 15:05 Patient visited by Inna Walker PCA. rs6 15:15 The patient / caregiver is instructed regarding the plan of care and ED course. cjh 15:15 No IV's were initiated during this patient's visit. No procedures done that require [facility] assistance. 15:18 Patient moved to TR8 cj 21:36 T-Sheet-- Draft Copy was scanned into [email or web address] and attached to record. klr Administered Medications: 14:09 Drug: oxyCODONE-acetaminophen 1 tabs [oxycodone-acetaminophen 5 mg-325 mg tablet (1 srm tabs)] Route: PO; Order Results: Radiology Order: Foot, Complete Test: Foot, Complete REASON FOR EXAMINATION: trauma, lateral pain, new injury; LEFT FOOT SERIES COMPLETE: 05/31/2016; ; CLINICAL HISTORY: Trauma, lateral pain. Evaluate for new injury.; ; COMPARISON: Left foot 01/19/2016, left ankle and foot 12/18/2015, left ankle; 11/23/2015.; ; FINDINGS: The four views of the foot demonstrate plate and screw fixation of the; distal tibia and a large caliber screw from the fibula through the tibia into the; talus for ankle arthrodesis, old. There is an ununited fracture of the distal; fibular shaft at the level of the head of the fusion lag screw. Tarsal bones and; their articulations and the metatarsals grossly intact. Phalanges intact. The; IP joints are narrowed. I see no definite acute fracture or avulsion. There is; diffuse soft tissue swelling over the foot and ankle.; ; IMPRESSION:; ; 1. Prominent soft tissue swelling of the foot and ankle with old ankle; arthrodesis and hardware intact, old fracture of the distal fibula just above the; lag screw. No acute fracture visible. Bones demineralized.; ; ; ; ; Signed by; Nain Garrido MD 05/31/2016 05:29 P; Outcome: 14:55 Discharge ordered by Provider. ar2 15:15 Discharge Assessment: Patient awake, alert and oriented x 3. No cognitive and/or [facility] functional deficits noted. Patient verbalized understanding of disposition instructions. patient administered narcotics - yes. Pt provided with safe discharge. The following High Risk Discharge criteria are identified: None. Discharged to home via wheelchair. Condition: good Condition: stable. Discharge instructions given to patient, Instructed on discharge instructions, follow up and referral plans. medication usage, Demonstrated understanding of instructions, Pt was receptive of discharge instructions/ teaching. No special radiology studies were completed. Property :Personal belongings accompany Pt. 15:29 Patient left the ED. [facility] Signatures: Dispatcher [employer] EDKenya Lopez RN RN kpj Michelson, Staci, RN RN srm Robertshaw, Aaron, PA-C PA-C ar2 Tanika Huddleston RN RN [facility] Reed Horton mm15 Delmis Farias cll1 Walker, Inna, ENCYCLOPEDIA RESEARCH WORKER ENCYCLOPEDIA RESEARCH WORKER rs6 Aron, Almaz Vo, Piper lr2 Chart Complete MTDD
--- NOTE | 2016-06-02 16:30 | EDDOCDS ---
Physician Documentation [facility] Name: Elisa Trejo Age: 46 yrs Sex: Female : 1970 Arrival Date: 05/31/2016 Time: 13:20 Bed TR8 Private MD: Margie Ivey PA-C Disposition: 05/31/16 14:55 Discharged to Home/Self Care. Impression: Other sprain of left foot. - Condition is Stable. - Discharge Instructions: Foot Sprain. - Medication Reconciliation, Local Pharmacy Hours form. - Follow up: Rodrigo Bishop; When: As previously arranged; Reason: Recheck today's complaints, Continuance of care. - Problem is new. - Symptoms are unchanged. - Notes: continue wearing boot as instructed by orthopedics. ice foot for 10-15 min every 1-2 hrs for swelling. Historical: - Allergies: No known drug Allergies; - Home Meds: 1. amlodipine 10 mg Oral tab 1 tab once daily (Last dose: 05/31/2016 08:00) 2. bupropion HCl 100 mg Oral TbER 1 tab once daily (Last dose: 05/31/2016 08:00) 3. duloxetine 60 mg Oral cpDR 1 cap once daily (Last dose: 05/31/2016 08:00) 4. Klonopin 0.5 mg Oral tab 1 tab 3 times per day (Last dose: 05/31/2016 08:00) 5. metoprolol tartrate 50 mg Oral tab 1 tab 2 times per day (Last dose: 05/31/2016 08:00) 6. omeprazole 40 mg Oral cpDR 1 cap 2 times per day (Last dose: 05/31/2016 08:00) 7. ranitidine HCl 150 mg Oral tbef 150 mg twice a day (Last dose: 05/31/2016 08:00) 8. Spiriva with HandiHaler 18 mcg Inhl CpDv 1 cap once daily (Last dose: 05/31/2016 08:00) 9. zonisamide 50 mg oral cap 1 cap 2 times per day (Last dose: 05/31/2016 08:00) 10. trazodone 150 mg Oral tab 2 tabs nightly (Last dose: 05/30/2016) 11. Tylenol 500 mg Oral every 4 hours as needed - PMHx: Anxiety; Asthma; Chronic Low Back Pain; COPD; Depression; DVT; GERD; Hypertension; OCD; PTSD; Pulmonary Embolism; Head injury; broken left foot; - PSHx: left leg surgery times 4; Hernia repair; Uterine Ablation; Mica Filter Placement; - Social history: Smoking status: Patient uses tobacco products, light tobacco smoker. No barriers to communication noted, The patient speaks fluent Mongolian. - Family history: Not pertinent. - : The pt / caregiver states he / she is not on anticoagulants. Home medication list is obtained from the patient. - Exposure Risk Screening:: None identified. INFORMATION TECHNOLOGY ANALYST: 05/31 13:33 LMP N/A - Uterine ablation [facility] Vital Signs: 13:22 BP 155 / 81; Pulse 106; Resp 18; Temp 98.5(O); Pulse Ox 97% on R/A; Weight 113.4 kg / lr2 250 lbs (R); Height 5 ft. 6 in. (167.64 cm) (R); Pain 10/10; 15:05 BP 116 / 66 RA Sitting (auto/lg); Pulse 92; Resp 16; Temp 97.9(O); Pulse Ox 96% on R/A; rs6 Pain 8/10; 13:22 Body Mass Index 40.35 (113.40 kg, 167.64 cm) lr2 MDM: 14:04 Foot, Complete Ordered. EDMS 14:06 oxyCODONE-acetaminophen 5 mg-325 mg 1 tabs PO once ordered. ar2 14:42 Financial registration complete. mm15 14:57 [facility] Payment Agreement was scanned into [employer] and attached to record. mm15 21:36 T-Sheet-- Draft Copy was scanned into [employer] and attached to record. klr Administered Medications: 14:09 Drug: oxyCODONE-acetaminophen 1 tabs [oxycodone-acetaminophen 5 mg-325 mg tablet (1 srm tabs)] Route: PO; Signatures: Dispatcher [employer] EDMS Kenya Love RN RN Adin Carrera PA-C PAAmyC ar2 Tanika Huddleston RN RN [facility] Reed Horton mm15 Almaz Sharp klr Saskia Epperson RN [facility] The chart was reviewed and I authenticate all verbal orders and agree with the evaluation and treatment provided.Attachments: 14:57 [facility] Payment Agreement mm15 21:36 T-Sheet-- Draft Copy klr Chart Complete MTDD
== END 2016-05-31 15:29 | disposition home or self-care (01) ==
LOC: M ED 13:20
DX: S93.602A Unspecified sprain of left foot, initial encounter (principal); X58.XXXA Exposure to other specified factors, initial encounter; Y92.89 Other specified places as the place of occurrence of the external cause; Y93.01 Activity, walking, marching and hiking; Y99.8 Other external cause status; F41.9 Anxiety disorder, unspecified; J45.909 Unspecified asthma, uncomplicated; M54.5 Low back pain; J44.9 Chronic obstructive pulmonary disease, unspecified; F32.9 Major depressive disorder, single episode, unspecified; K21.9 Gastro-esophageal reflux disease without esophagitis; I10 Essential (primary) hypertension; F42.9 Obsessive-compulsive disorder, unspecified; F43.10 Post-traumatic stress disorder, unspecified; F17.200 Nicotine dependence, unspecified, uncomplicated; Z86.718 Personal history of other venous thrombosis and embolism; Z79.899 Other long term (current) drug therapy

== ENCOUNTER → 2016-06-07 | Outpatient (REF) | payer MEDICARE, MEDICAID ==
[~2016-06-07] MED LIST changes: +DEXI60CA PO; +MOTR200T44 PO
== END ==
LOC: M LAB REF 10:12
PROVIDERS: ATTEND Physician Assistant Medical
DX: R19.7 Diarrhea, unspecified (principal)

== ENCOUNTER → 2016-06-07 | Outpatient (CLI) | payer MEDICARE, MEDICAID ==
[~2016-06-07] MED LIST changes: +E-Z PAQUE 60% w/v SUSP 355ML BOTTLE As Ordered ONE; +E-Z-GAS II EFFERVESCENT PACKET (SODIUM BICARB./CITRIC ACID/SIMETHICONE) As Ordered ONE; +E-Z-HD 98% w/w 340GM SUSP BTL As Ordered ONE
--- NOTE | 2016-06-07 15:52 | REP ---
UPPER GI, AIR CONTRAST: The procedure was performed under the direct supervision of Dr. Cintron. The images were reviewed with Dr. Cintron. The invoicing specialist film shows no organomegaly or pathological masses. The intestinal gas pattern is nonspecific. There is an IVC filter in place. Liquid barium and gas-producing granules were given in the erect position as well as liquid barium in the prone oblique position in order to perform a double contrast upper GI examination. The oral and pharyngeal stages of deglutition are unremarkable. Esophageal transport is prompt and efficient and there is no esophagitis, stricture, mucosal ring or hiatal hernia. Gastroesophageal reflux is not demonstrated on this examination. The stomach leigh are normally outlined. The rugal folds are smooth and regular. There is no gastritis, neoplasm or ulcer disease. The duodenal leigh are normally outlined. The mucosal folds are smooth and regular. There is no duodenitis, pancreatitis, peptic ulcer disease or neoplasm. The visualized portion of the proximal small bowel appears normal in course and caliber. IMPRESSION: Essentially unremarkable double contrast upper GI examination. 1 minute and 23 seconds of fluoroscopy time was utilized for this procedure. Reviewed by CASSIA Lynn 06/07/2016 04:12 PEdited and Signed by Saad Cintron MD 06/07/2016 05:02 P
== END ==
LOC: M RAD 09:26
PROVIDERS: ATTEND Physician Assistant Medical
DX: R10.84 Generalized abdominal pain (principal); R12 Heartburn; R13.10 Dysphagia, unspecified; R19.7 Diarrhea, unspecified

== ENCOUNTER 2016-06-08 10:22 | Emergency (ER) | payer MEDICARE, MEDICAID ==
[~2016-06-08] VITALS: Ht 167.6 cm; Wt 93.0 kg
[~2016-06-08 10:22] MED LIST changes: -DEXI60CA PO; -MOTR200T44 PO
[2016-06-08 10:24] VITALS: BP 136/82
[2016-06-08] MEDS ORDERED: MOTR200T44 PO (10:49)
[2016-06-08] MEDS ORDERED: DEXI60CA PO (10:50)
== END 2016-06-08 10:56 | disposition left against medical advice (07) ==
LOC: M ED 10:55
DX: R68.89 Other general symptoms and signs (principal); Z53.21 Procedure and treatment not carried out due to patient leaving prior to being seen by health care provider; M79.662 Pain in left lower leg

== ENCOUNTER → 2016-06-08 | Outpatient (CLI) | payer MEDICARE, MEDICAID ==
[~2016-06-08] MED LIST changes: -E-Z PAQUE 60% w/v SUSP 355ML BOTTLE As Ordered ONE; -E-Z-GAS II EFFERVESCENT PACKET (SODIUM BICARB./CITRIC ACID/SIMETHICONE) As Ordered ONE; -E-Z-HD 98% w/w 340GM SUSP BTL As Ordered ONE
--- NOTE | 2016-06-08 14:10 | REP ---
Left lower extremity Duplex Doppler venous ultrasound: Real time compression and duplex Doppler interrogation of the left lower extremity deep venous system is performed. The left common femoral, superficial femoral and popliteal veins are fully compressible with transducer pressure and demonstrate normal spontaneous and phasic flow, without evidence of deep venous thrombosis. Impression: No evidence of deep venous thrombosis of the left lower extremity femoral popliteal venous system. Signed by Brayan Lomeli MD 06/08/2016 02:02 P
== END ==
LOC: M RAD 13:25
PROVIDERS: ATTEND Physician Assistant Surgical
DX: M79.662 Pain in left lower leg (principal)

== ENCOUNTER → 2016-06-13 | Outpatient (CLI) | payer MEDICARE, MEDICAID ==
[~2016-06-13] MED LIST changes: +DEXI60CA PO; +MOTR200T44 PO
== END ==
LOC: M RAD 08:07
PROVIDERS: ATTEND Obstetrics & Gynecology
DX: Z12.31 Encounter for screening mammogram for malignant neoplasm of breast (principal); Z53.9 Procedure and treatment not carried out, unspecified reason

== ENCOUNTER → 2016-06-21 | Outpatient (CLI) | payer MEDICARE, MEDICAID ==
[~2016-06-21] VITALS: Ht 167.6 cm; Wt 93.0 kg
[~2016-06-21] MED LIST changes: +PROPOFOL 500 MG/50 ML VIAL As Ordered ONE
[2016-06-21] MEDS: NS 1,000 ML IV SCH ×2 (10:23→10:59)
--- NOTE | 2016-06-21 11:21 | ROOR ---
Patient Name: Elisa Trejo Procedure Date: 06/21/2016 11:07 AM Date of : 1970 Age: 46 Room: [facility] Gender: Female Note Status: Finalized Procedure: Upper GI endoscopy Indications: Gastroparesis (2015 GES), Globus sensation Providers: Manolo LEVINE MD Referring MD: Adarsh Ivey MD Requesting Provider: Medicines: Monitored Anesthesia Care Complications: No immediate complications. Procedure: Pre-Anesthesia Assessment: - The heart rate, respiratory rate, oxygen saturations, blood pressure, adequacy of pulmonary ventilation, and response to care were monitored throughout the procedure. The Endoscope was introduced through the mouth, and advanced to the second part of duodenum. The upper GI endoscopy was accomplished without difficulty. The patient tolerated the procedure well. Findings: The esophagus was normal. The stomach was normal. The examined duodenum was normal. No endoscopic abnormality was evident in the esophagus to explain the patient's complaint of dysphagia. It was decided, however, to proceed with dilation of the entire esophagus. The scope was withdrawn. Dilation was attempted, but the lesion was not amenable to treatment with a Beach dilator because no resistance at 54 Fr. The dilation site was examined and showed no change. Impression: - Normal esophagus. - Normal stomach. - Normal examined duodenum. - No endoscopic esophageal abnormality to explain patient's dysphagia. Empiric dilation with 54 F beach dialtor. - No specimens collected. Recommendation: - Continue present medications. - Gastroparesis diet: - Eat smaller, more frequent meals throughout the day. - Low fat diet. - Liquid/soft foods are tolerated better than solid foods. - Low fiber/well cooked vegetables are tolerated better than high fiber/fibrous foods/raw vegetables. - Avoid medications that inhibit gastric/intestinal motility such as narcotic medications. Manolo Levine MD Manolo LEVINE MD 06/21/2016 11:20:55 AM This report has been signed electronically. Number of Addenda: 0 Note Initiated On: 06/21/2016 11:07 AM Estimated Blood Loss: Estimated blood loss: none.
--- NOTE | 2016-06-21 11:31 | ROOR ---
Patient Name: Elisa Trejo Procedure Date: 06/21/2016 11:08 AM Date of : 1970 Age: 46 Room: [facility] Gender: Female Note Status: Finalized Procedure: Colonoscopy Indications: High risk colon cancer surveillance: Personal history of colonic polyps, Last colonoscopy: July 2014 Providers: Manolo LEVINE MD Referring MD: Adarsh Ivey MD Requesting Provider: Medicines: Monitored Anesthesia Care Complications: No immediate complications. Procedure: Pre-Anesthesia Assessment: - The heart rate, respiratory rate, oxygen saturations, blood pressure, adequacy of pulmonary ventilation, and response to care were monitored throughout the procedure. The Colonoscope was introduced through the anus and advanced to the cecum, identified by appendiceal orifice and ileocecal valve. The colonoscopy was performed without difficulty. The patient tolerated the procedure well. The quality of the bowel preparation was poor. Findings: The perianal and digital rectal examinations were normal. (Colon Prep was POOR, Inadequate Visualisation) The exam was otherwise without abnormality. Impression: - Preparation of the colon was poor. - (Colon Prep was POOR, Inadequate Visualisation) - The examination was without obstructing lesions to cecum. - No specimens collected. Recommendation: - Repeat colonoscopy at the next available appointment because the bowel preparation was poor. - My office will call you within the next few days to reschedule a colonoscopy with alternate colon preparation. Manolo Levine MD Manolo LEVINE MD 06/21/2016 11:31:09 AM This report has been signed electronically. Number of Addenda: 0 Note Initiated On: 06/21/2016 11:08 AM Estimated Blood Loss: Estimated blood loss: none.
[2016-06-21 11:55] VITALS: BP 122/62
== END | disposition home or self-care (01) ==
LOC: M OPP 09:04
PROVIDERS: ATTEND Internal Medicine Gastroenterology
DX: Z09 Encounter for follow-up examination after completed treatment for conditions other than malignant neoplasm (principal); Z86.010 Personal history of colon polyps; K31.84 Gastroparesis; R13.10 Dysphagia, unspecified; F45.8 Other somatoform disorders; K21.9 Gastro-esophageal reflux disease without esophagitis; F33.9 Major depressive disorder, recurrent, unspecified; F41.9 Anxiety disorder, unspecified; F43.10 Post-traumatic stress disorder, unspecified; F42.9 Obsessive-compulsive disorder, unspecified; J44.9 Chronic obstructive pulmonary disease, unspecified; I10 Essential (primary) hypertension; I99.9 Unspecified disorder of circulatory system; D64.9 Anemia, unspecified; G62.9 Polyneuropathy, unspecified; F17.200 Nicotine dependence, unspecified, uncomplicated; F12.90 Cannabis use, unspecified, uncomplicated; Z79.899 Other long term (current) drug therapy; Z88.8 Allergy status to other drugs, medicaments and biological substances; Z87.820 Personal history of traumatic brain injury; Z86.711 Personal history of pulmonary embolism

== ENCOUNTER 2016-07-05 09:00 | Emergency (ER) | payer MEDICARE, MEDICAID ==
[~2016-07-05] VITALS: Ht 167.6 cm; Wt 93.0 kg
[~2016-07-05 09:00] MED LIST changes: -PROPOFOL 500 MG/50 ML VIAL As Ordered ONE
[2016-07-05] MEDS ORDERED: diphenhydrAMINE INJ 50MG/ML VIAL (J1200) IV STA (09:41)
[2016-07-05] MEDS ORDERED: METOCLOPRAMIDE INJ 10MG/2ML VIAL (J2765) IV ONE (09:45)
[2016-07-05 10:07] LABS: MEAN CORPUSCULAR HEMOGLOBIN 30.7 pg (27.0-33.0); MEAN CORPUSCULAR HGB CONC 35.3 g/dl (32.0-36.5); MEAN CORPUSCULAR VOLUME 86.8 fl (80.0-96.0); RED CELL DISTRIBUTION WIDTH 15.6 % (11.5-14.5); WHITE BLOOD COUNT 9.3 K/mm3 (4.0-10.0)
--- NOTE | 2016-07-05 10:18 | REP ---
CT Head without contrast HISTORY: Headache COMPARISON: 05/08/2016 There is no intraparenchymal hemorrhage, acute infarct, mass or midline shift. The ventricular system is normal in appearance. There is no extra cerebral collection. There is no fracture. 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 The visualized sinuses are clear. IMPRESSION: There is no intracranial lesion. Signed by Son Lundy MD 07/05/2016 10:10 A
[2016-07-05 10:29] LABS: METHADONE URINE NEGATIVE (NEGATIVE)
[2016-07-05 10:33] LABS: ALBUMIN 3.5 GM/DL (3.2-5.2); ALBUMIN/GLOBULIN RATIO 0.81 (1.00-1.93); ALKALINE PHOSPHATASE 96 U/L (45-117); ALT/SGPT 26 U/L (12-78); ANION GAP 14 MEQ/L (8-16); AST/SGOT 28 U/L (15-37); BILIRUBIN,DIRECT < 0.1 MG/DL (0.0-0.2); BILIRUBIN,TOTAL 0.3 MG/DL (0.2-1.0); BLOOD UREA NITROGEN 12 MG/DL (7-18); CALCIUM LEVEL 8.1 MG/DL (8.5-10.1); CARBON DIOXIDE LEVEL 20 MEQ/L (21-32); CHLORIDE LEVEL 107 MEQ/L (98-107); GLOMERULAR FILTRATION RATE > 60.0 (>58); GLUCOSE, FASTING 150 MG/DL (70-105); POTASSIUM SERUM 4.2 MEQ/L (3.5-5.1); SODIUM LEVEL 141 MEQ/L (136-145); TOTAL PROTEIN 7.8 GM/DL (6.4-8.2)
[2016-07-05] MEDS ORDERED: PERCOCET 5MG/325MG TAB PO ONE (13:45)
[2016-07-05 14:36] VITALS: BP 126/80
== END 2016-07-05 14:50 | disposition home or self-care (01) ==
LOC: EDBD 09:00 → M ED 11:04
DX: R51 Headache (principal)
CPT/HCPCS: 36415; 70450; 80048; 80076; 80306; 82140; 84443; 85027; 96374; 96375; 99283; G0480; J1200; J2765

== ENCOUNTER 2016-07-19 11:55 | Outpatient (CLI) | payer MEDICARE, MEDICAID ==
[~2016-07-19] VITALS: Ht 167.6 cm; Wt 114.3 kg
[~2016-07-19 11:55] MED LIST changes: -COLA100C PO; +COLA100C3 PO; +GABA-282 PO; -GABA300C3 PO; +ZONI25CA2 PO
[2016-07-19] MEDS ORDERED: PROPOFOL 200 MG/20 ML VIAL As Ordered ONE (14:39)
[2016-07-19] MEDS ORDERED: NS 1,000 ML IV SCH (14:45)
--- NOTE | 2016-07-19 15:33 | ROOR ---
Patient Name: Elisa Trejo Procedure Date: 07/19/2016 3:09 PM Date of : 1970 Age: 46 Room: [facility] Gender: Female Note Status: Finalized Procedure: Colonoscopy Indications: Generalized abdominal pain, Suspected irritable bowel syndrome, Constipation, Clinically significant diarrhea of unexplained origin Providers: Manolo DEVINE MD Referring MD: VANESSA Fritz Requesting Provider: Medicines: Monitored Anesthesia Care Complications: No immediate complications. Procedure: Pre-Anesthesia Assessment: - The heart rate, respiratory rate, oxygen saturations, blood pressure, adequacy of pulmonary ventilation, and response to care were monitored throughout the procedure. The Colonoscope was introduced through the anus and advanced to 7 cm into the ileum. The colonoscopy was performed without difficulty. The patient tolerated the procedure well. The quality of the bowel preparation was fair. Findings: The perianal and digital rectal examinations were normal. (Exam: Complete, Prep: Fair/adequate) A few small-mouthed diverticula were found in the entire colon. The entire examined colon appeared normal on direct and retroflexion views. The terminal ileum appeared normal. Biopsies for histology were taken with a cold forceps for evaluation of microscopic colitis. Impression: - Preparation of the colon was fair. - Diverticulosis in the entire examined colon. - The entire examined colon is normal on direct and retroflexion views. - The examined portion of the ileum was normal. - Biopsies were taken with a cold forceps for evaluation of microscopic colitis. Recommendation: - Telephone endoscopist for pathology results in 2 weeks. - Use fiber, for example Citrucel, Fibercon, Konsyl or Metamucil. Manolo Devine MD Manolo DEVINE MD 07/19/2016 3:33:30 PM This report has been signed electronically. Number of Addenda: 0 Note Initiated On: 07/19/2016 3:09 PM Estimated Blood Loss: Estimated blood loss: none.
[2016-07-19 15:50] VITALS: BP 136/99
== END 2016-07-19 15:55 | disposition home or self-care (01) ==
LOC: M OPP 11:55
PROVIDERS: ATTEND Internal Medicine Gastroenterology
DX: K57.30 Diverticulosis of large intestine without perforation or abscess without bleeding (principal); I10 Essential (primary) hypertension; K21.9 Gastro-esophageal reflux disease without esophagitis; F41.9 Anxiety disorder, unspecified; J44.9 Chronic obstructive pulmonary disease, unspecified; E66.9 Obesity, unspecified; G62.9 Polyneuropathy, unspecified; M06.9 Rheumatoid arthritis, unspecified; F43.10 Post-traumatic stress disorder, unspecified; F33.9 Major depressive disorder, recurrent, unspecified; F17.210 Nicotine dependence, cigarettes, uncomplicated; Z96.9 Presence of functional implant, unspecified; Z79.899 Other long term (current) drug therapy; Z88.8 Allergy status to other drugs, medicaments and biological substances

== ENCOUNTER 2016-07-19 16:09 | Emergency (ER) | payer MEDICARE, MEDICAID ==
[~2016-07-19] VITALS: Ht 167.6 cm; Wt 108.9 kg
[2016-07-19 16:11] VITALS: BP 138/92
--- NOTE | 2016-07-19 17:52 | ED PDOC ---
Post-Departure Follow-Up WALKED IN TO SEE PT AT THIS TIME. PT LAYING ON HER RIGHT SIDE, FACING THE DOOR IN ROOM 28. WHEN WALKING INTO THE ROOM, PT STATES SHE CAN HEAR EVERYTHING THAT IS BEING WHISPERED OUTSIDE THE DOOR BETWEEN THIS GREASE BUFFER, "SILVERIO PA AND THE NURSE. STATES THAT IS VERY RUDE AND DOES NOT WANT TO BE SEEN BY THIS GREASE BUFFER OR "SILVERIO GLASGOW BECAUSE HE MISDIAGNOSED ME AND I HAD TO GO TO [place] TO GET BLOOD DRAINED OUT OF MY HEAD WHEN HE TOLD ME THERE WAS NOTHING WRONG." PT VERY IRATE IN EXAM ROOM. HAS BEEN SEEN MULTIPLE TIMES IN THE ED AND ADMITTED FOR MENTAL HEALTH IN THE PAST AND STATES, "AND I DON'T HAVE ANY OF THOSE PROBLEMS YOU GUYS ARE TALKING ABOUT OUT THERE. I NEED TO SEE A DOCTOR BECAUSE YOU ARE ALL RUDE AND I'M GOING TO CALL THE AUTHORITIES." THIS GREASE BUFFER WALKED OUT OF THE ROOM AT THAT TIME. EXPLAINED SITUATION TO DR. SHEEHAN, WHO HAS ADMITTED THIS PT IN THE PAST. PT STILL IRATE AND ASKING FOR PAIN MEDICATIONS BUT NOT ALLOWING AN EXAM BY [facility]. SHAQ CALL PA-C Jul 19, 2016 17:52
== END 2016-07-19 19:12 | disposition left against medical advice (07) ==
LOC: M ED 19:01
DX: M54.5 Low back pain (principal); Z53.29 Procedure and treatment not carried out because of patient's decision for other reasons

== ENCOUNTER → 2016-08-09 | Outpatient (REF) | payer MEDICARE, MEDICAID | LOC: M SFHCADAM 14:48 | PROVIDERS: ATTEND Physician Assistant | DX: R60.9 Edema, unspecified (principal); M51.36 Other intervertebral disc degeneration, lumbar region; E55.9 Vitamin D deficiency, unspecified; I10 Essential (primary) hypertension | CPT/HCPCS: 82306; 82607; 82746; G0463 ==

== ENCOUNTER → 2016-09-05 | Outpatient (REF) | payer MEDICARE, MEDICAID | LOC: M SFHCADAM 15:08 | PROVIDERS: ATTEND Physician Assistant | DX: N39.498 Other specified urinary incontinence (principal) | CPT/HCPCS: 81001; 87088; 87186; G0463 ==

== ENCOUNTER → 2016-10-24 | Outpatient (CLI) | payer MEDICARE, MEDICAID ==
[~2016-10-24] MED LIST changes: +ADVI200T PO; -COLA100C3 PO; +COLA100C5 PO; -DEXI60CA PO; +DEXI60CA2 PO; +HYDR-3713; +HYDR50TA70 PO; +IBUP-1022; +KEFL500C17 PO; -KEFL500C7 PO; -METO50TA2 PO; +METO50TA7 PO; +NORC1TAB4 PO; -NYST100024 TOP; +NYST1POW9 TOP; +PRIL20TA2 PO; -PROA1AER INH; +PROAAER10 INH; +SALI0.6523; -SALI0.653; +SUCR1TAB56 PO; -TRAZ150T14 PO; +TRAZ1TAB14 PO; -VITA-130 PO; +VITA500T PO
[2016-10-24 18:52] LABS: BASO % 0.5 % (0.0-1.0); EOS # 0.2 K/mm3 (0.0-0.50); EOS % 1.7 % (0.0-3.0); LARGE UNSTAINED CELL # 0.1 K/mm3 (0.0-0.4); LARGE UNSTAINED CELL % 1.3 % (0.0-4.0); LYMPH % 21.3 % (24.0-44.0); MEAN CORPUSCULAR HEMOGLOBIN 28.6 pg (27.0-33.0); MEAN CORPUSCULAR HGB CONC 33.1 g/dl (32.0-36.5); MEAN CORPUSCULAR VOLUME 86.5 fl (80.0-96.0); MONO # 0.5 K/mm3 (0.0-0.8); MONO % 5.8 % (0.0-5.0); NEUTROPHILS # 6.2 K/mm3 (1.8-7.7); NEUTROPHILS % 69.3 % (36.0-66.0); PLATELET COUNT, AUTOMATED 245 k/mm3 (150-450); RED CELL DISTRIBUTION WIDTH 12.4 % (11.5-14.5)
[2016-10-24 18:58] LABS: ALBUMIN 3.6 GM/DL (3.2-5.2); ALKALINE PHOSPHATASE 80 U/L (45-117); ALT/SGPT 22 U/L (12-78); AMYLASE 51 U/L (25-115); ANION GAP 7 MEQ/L (8-16); AST/SGOT 20 U/L (15-37); BILIRUBIN,TOTAL 0.5 MG/DL (0.2-1.0); BLOOD UREA NITROGEN 12 MG/DL (7-18); CALCIUM LEVEL 8.7 MG/DL (8.5-10.1); CARBON DIOXIDE LEVEL 28 MEQ/L (21-32); CHLORIDE LEVEL 105 MEQ/L (98-107); CREATININE FOR GFR 0.74 MG/DL (0.55-1.02); GLOMERULAR FILTRATION RATE > 60.0 (>58); GLUCOSE, FASTING 95 MG/DL (70-105); POTASSIUM SERUM 4.2 MEQ/L (3.5-5.1); SODIUM LEVEL 140 MEQ/L (136-145); TOTAL PROTEIN 7.6 GM/DL (6.4-8.2)
== END ==
LOC: M LAB 15:47
PROVIDERS: ATTEND Physician Assistant Medical
DX: R10.84 Generalized abdominal pain (principal)

== ENCOUNTER → 2016-10-29 | Outpatient (CLI) | payer MEDICARE, MEDICAID ==
[~2016-10-29] MED LIST changes: +E-Z-GAS II EFFERVESCENT PACKET (SODIUM BICARB./CITRIC ACID/SIMETHICONE) As Ordered ONE; +E-Z-HD 98% w/w 340GM SUSP BTL As Ordered ONE; +E-Z-PAQUE 96% w/w SUSP 176GM BTL As Ordered ONE
--- NOTE | 2016-10-29 16:59 | REP ---
UPPER GI AIR CONTRAST AND SMALL BOWEL FOLLOW-THROUGH: The procedure was performed under the direct supervision of Dr. Lomeli. The images were reviewed with Dr. Lomeli. The barrel charrer film shows no organomegaly or pathological masses. The intestinal gas pattern is nonspecific. There is an IVC filter in place. Liquid barium and gas producing granules were given in the erect position as well as liquid barium in the prone oblique position in order to perform a double contrast upper GI examination. The oral and pharyngeal stages of deglutition are unremarkable. Esophageal transport is prompt and efficient and there is no esophagitis, stricture, mucosal ring, or hiatal hernia. There is gastroesophageal reflux demonstrated to above the level of the laura. The stomach leigh are normally outlined. The rugal folds are smooth and regular. There is no gastritis, neoplasm or ulcer disease. The duodenal leigh are normally outlined. The mucosal folds are smooth and regular. There is no duodenitis, pancreatitis, peptic ulcer disease, or neoplasm. The visualized portion of the proximal small bowel appears normal in course and caliber. The barium column was followed through the small bowel to the level of the terminal ileum. Small bowel transit time was approximately 30 minutes. During fluoroscopy gentle palpation shows all loops are freely movable and pliable. There are no fixed or angulated loops. The small bowel mucosal pattern is normal in course and caliber. The small bowel mucosal pattern is normal in course and caliber. There is no transition to suggest a partial small bowel obstruction. Spot filming of terminal ileum shows it to be unremarkable. IMPRESSION: There is gastroesophageal reflux demonstrated to above the level of the laura. Otherwise unremarkable double contrast upper GI and small bowel follow-through examination. 2 minutes and 58 seconds of fluoroscopy time was utilized for this procedure. Reviewed by CASSIA Lynn 10/30/2016 03:53 PEdited and Signed by Brayan Lomeli MD 11/01/2016 05:38 P
== END ==
LOC: M RAD 10:13
PROVIDERS: ATTEND Physician Assistant Medical
DX: R10.84 Generalized abdominal pain (principal); R12 Heartburn; R13.10 Dysphagia, unspecified

== ENCOUNTER → 2016-11-05 | Outpatient (CLI) | payer MEDICARE, MEDICAID ==
[~2016-11-05] MED LIST changes: -E-Z-GAS II EFFERVESCENT PACKET (SODIUM BICARB./CITRIC ACID/SIMETHICONE) As Ordered ONE; -E-Z-HD 98% w/w 340GM SUSP BTL As Ordered ONE; -E-Z-PAQUE 96% w/w SUSP 176GM BTL As Ordered ONE
--- NOTE | 2016-11-05 09:14 | REP ---
Abdominal right upper quadrant ultrasound: Comparison is a CT of the abdomen pelvis dated 05/08/2016. There is a negative Foster's sign to transducer pressure. There is no cholelithiasis, gallbladder wall thickening or pericholecystic fluid. There is no intrahepatic or extrahepatic biliary duct dilatation, the common duct measures at 5.5 mm in diameter. The hepatic parenchyma is echogenic compatible with hepato steatosis. No hepatic masses are identified. The visualized portion of the pancreatic head is unremarkable. The body and tail of pancreas are obscured by bowel gas. There is no right renal hydronephrosis, calculus, mass or cyst. The right kidney is normal size measuring 12.9 cm craniocaudad length. There is no ascites in the right upper quadrant. Impression: Hepato steatosis. Otherwise, negative abdominal right upper quadrant ultrasound. Signed by Brayan Rincon MD 11/05/2016 09:05 A
--- NOTE | 2016-11-05 10:45 | REP ---
Radionuclide biliary scan and gallbladder ejection fraction: Radionuclide biliary scan: Imaging is performed of 5-minute intervals after intravenous infusion of mebrofenin radiolabeled with 6.6 mCi of technetium 99m. There is biliary to bowel transit at 10 minutes. There is gallbladder radial labeling at 15 minutes. There is normal hepatic washout. Impression: There is no evidence of cystic duct or common biliary duct obstruction. Gallbladder ejection fraction: Additional imaging is performed at 2-minute intervals for 60 minutes after having the patient ingest 8 ounces of Ensure Enlive. At 60 minutes the gallbladder ejection fraction is 32%. Normal is 35% or greater. Signed by Brayan Rincon MD 11/05/2016 10:36 A
== END ==
LOC: M RAD 07:09
PROVIDERS: ATTEND Physician Assistant Medical
DX: R10.84 Generalized abdominal pain (principal); R11.0 Nausea
CPT/HCPCS: 76705; 78227; A9537; J2805

== ENCOUNTER 2016-11-08 09:58 | Day surgery (SDC) | payer MEDICARE, MEDICAID ==
[~2016-11-08] VITALS: Ht 167.6 cm; Wt 112.0 kg
[2016-11-08] VITALS (7 sets, daily range): BP systolic 100–125; BP diastolic 58–72
[~2016-11-08 09:58] MED LIST changes: -ADVI200T PO; -HYDR-3713; -HYDR50TA70 PO; -IBUP-1022; -NORC1TAB4 PO; -PRIL20TA2 PO; -SUCR1TAB56 PO
[2016-11-08] MEDS ORDERED: LR 1,000 ML IV SCH ×3 (10:15→17:30)
[2016-11-08 10:41] LABS: MEAN CORPUSCULAR HEMOGLOBIN 28.1 pg (27.0-33.0); MEAN CORPUSCULAR HGB CONC 33.6 g/dl (32.0-36.5); MEAN CORPUSCULAR VOLUME 83.8 fl (80.0-96.0); RED CELL DISTRIBUTION WIDTH 12.1 % (11.5-14.5)
[2016-11-08] MEDS ORDERED: PRIL20TA2 PO (10:50)
[2016-11-08] MEDS ORDERED: HYDR50TA70 PO (10:52)
[2016-11-08] MEDS ORDERED: HYDROmorphone HCL 2 MG/ML 1ML VIAL (J1170) As Ordered ONE (13:02)
[2016-11-08] MEDS ORDERED: VECURONIUM BROMIDE 10 MG VIAL As Ordered ONE (13:09)
[2016-11-08] MEDS ORDERED: LIDOCAINE 2% INJ 100 MG/5 ML SDV (FOR ANES.) As Ordered ONE (13:27)
[2016-11-08] MEDS ORDERED: hydrALAZINE INJ 20 MG/ML VIAL As Ordered ONE (13:27)
[2016-11-08] MEDS ORDERED: PROPOFOL 200 MG/20 ML VIAL As Ordered ONE (13:27)
[2016-11-08] MEDS ORDERED: dexameTHASONE 4 MG/ML 1ML VIAL (J1100) As Ordered ONE (13:28)
[2016-11-08] MEDS ORDERED: fentaNYL 250 MCG/5 ML INJECTION (J3010) As Ordered ONE (13:28)
[2016-11-08] MEDS ORDERED: ONDANSETRON 4MG/2ML VIAL (J2405) As Ordered ONE ×2 (13:28→16:59)
[2016-11-08] MEDS ORDERED: MIDAZOLAM INJ 2 MG/2 ML VIAL (J2250) As Ordered ONE (13:28)
[2016-11-08] MEDS ORDERED: GLYCOPYRROLATE INJ 0.2 MG/ML 2 ML VIAL As Ordered ONE (14:27)
[2016-11-08] MEDS ORDERED: NEOSTIGMINE 1MG/ML 5 ML SYRINGE (J2710) As Ordered ONE (14:27)
[2016-11-08] MEDS ORDERED: fentaNYL 100 MCG/2 ML INJECTION (J3010) As Ordered ONE ×2 (15:08→16:59)
[2016-11-08] MEDS ORDERED: MORPHINE 1MG/ML IN 0.9% NACL 100ML IV BAG As Ordered ONE (16:19)
[2016-11-08] MEDS: fentaNYL 100 MCG/2 ML INJECTION (J3010) IV PRN ×4 (17:00→17:15)
[2016-11-08] MEDS ORDERED: PERCOCET 5MG/325MG TAB As Ordered ONE (17:12)
[2016-11-08] MEDS ORDERED: PERCOCET 5MG/325MG TAB PO PRN (17:30)
[2016-11-08] MEDS ORDERED: ONDANSETRON 4MG/2ML VIAL (J2405) IV PRN (17:30)
[2016-11-08] MEDS ORDERED: IBUPROFEN 600 MG TAB PO PRN (17:30)
[2016-11-08] MEDS: LR 1,000 ML IV SCH ×2 (17:30→22:03)
[2016-11-08] MEDS ORDERED: METOCLOPRAMIDE INJ 10MG/2ML VIAL (J2765) IV PRN (17:30)
[2016-11-08] MEDS ORDERED: diphenhydrAMINE INJ 50MG/ML VIAL (J1200) IV PRN (17:45)
[2016-11-08] MEDS ORDERED: MORPHINE 1MG/ML IN 0.9% NACL 100ML IV BAG IV PRN (17:45)
[2016-11-08] MEDS ORDERED: ALBUTEROL 90 MCG/ACT 8GM HFA INHALER INH PRN (17:45)
[2016-11-08] MEDS ORDERED: NALBUPHINE HCL 10 MG/ML AMP (J2300) IV PRN (17:45)
[2016-11-08] MEDS ORDERED: NALOXONE INJ 0.4 MG/1 ML VIAL (J2310) IV PRN (17:45)
[2016-11-08] MEDS ORDERED: EPIDURAL/PCA KEYS XX PRN (17:45)
--- NOTE | 2016-11-08 18:27 | ECGEPIP ---
Stationary ECG Study [facility] Test Date: 2016-11-08 Pat Name: PRUDENCIO NOVOA Department: Room: - Gender: F Director Of Neurology: [facility] : 1970 Requested By: Lennie Allen Order Number: [id number] Reading MD: Gregg Mahoney Measurements Intervals [place] Rate: 76 P: 12 SC: 175 QRS: 8 QRSD: 94 T: 22 QT: 410 QTc: 462 Interpretive Statements SINUS RHYTHM Normal Electronically Signed On 11-08-2016 18:26:48 EDT by Gregg Mahoney
[2016-11-08] MEDS ORDERED: traZODone 100 MG TAB PO SCH (21:00)
[2016-11-08] MEDS: metroNIDAZOLE (FLAGYL) 500 MG TAB PO SCH (22:01)
[2016-11-08] MEDS: DULoxetine 30 MG CAP (CYMBALTA) PO SCH (22:01)
[2016-11-08] MEDS: FAMOTIDINE 20 MG TAB PO SCH (22:01)
[2016-11-08] MEDS: buPROPion 100 MG TAB PO SCH (22:01)
[2016-11-08] MEDS: METOPROLOL TART 50 MG TAB PO SCH (22:02)
[2016-11-08] MEDS: hydrOXYzine 50 MG TAB PO PRN (22:02)
[2016-11-08] MEDS: OMEPRAZOLE 20 MG CAP PO SCH (22:02)
[2016-11-09] VITALS: BP 94/64
[2016-11-09] MEDS: NORCO, ANEXSIA 5/325MG TABLET (HYDROcodone/ACETAMINOPHEN) PO PRN ×2 (02:14→06:23)
[2016-11-09 04:00] VITALS: BP 98/53
[2016-11-09] MEDS ORDERED: NORCO, ANEXSIA 5/325MG TABLET (HYDROcodone/ACETAMINOPHEN) PO PRN (06:00)
[2016-11-09] MEDS ORDERED: SUCRALFATE 1 GM TAB PO SCH (07:30)
[2016-11-09 08:00] VITALS: BP 117/71
[2016-11-09] MEDS ORDERED: TIOTROPIUM INHALER/CAPSULE (SPIRIVA) INH SCH (08:00)
[2016-11-09 08:02] VITALS: BP 117/71
[2016-11-09] MEDS: FAMOTIDINE 20 MG TAB PO SCH (08:02)
[2016-11-09] MEDS: metroNIDAZOLE (FLAGYL) 500 MG TAB PO SCH (08:02)
[2016-11-09] MEDS: OMEPRAZOLE 20 MG CAP PO SCH (08:02)
[2016-11-09] MEDS: DULoxetine 30 MG CAP (CYMBALTA) PO SCH (08:02)
[2016-11-09] MEDS: METOPROLOL TART 50 MG TAB PO SCH (08:02)
[2016-11-09] MEDS: buPROPion 100 MG TAB PO SCH (08:02)
[2016-11-09] MEDS: hydrOXYzine 50 MG TAB PO PRN (08:06)
[2016-11-09 08:30] LABS: MEAN CORPUSCULAR HEMOGLOBIN 28.3 pg (27.0-33.0); MEAN CORPUSCULAR HGB CONC 33.3 g/dl (32.0-36.5); MEAN CORPUSCULAR VOLUME 84.7 fl (80.0-96.0); RED CELL DISTRIBUTION WIDTH 12.3 % (11.5-14.5); WHITE BLOOD COUNT 9.1 K/mm3 (4.0-10.0)
[2016-11-09] MEDS ORDERED: NORC1TAB4 PO (10:08)
[2016-11-09] MEDS ORDERED: ADVI200T PO (10:08)
--- NOTE | 2016-11-10 09:37 | RO ---
DATE OF PROCEDURE: 11/08/2016 PREOPERATIVE DIAGNOSIS AND INDICATION FOR SURGERY: Bleeding, pain. She also had some prolapse. POSTOPERATIVE DIAGNOSES: Bleeding, pain. She also had some prolapse. PROCEDURES: Laparoscopic assisted vaginal hysterectomy with bilateral salpingo-oophorectomy, uterosacral suspension and posterior repair. The anterior repair was corrected with the uterosacral suspension. She also had cystourethroscopy. SURGEON: Dr. Lennie Guevara AVIATION ORDNANCE OFFICER: Dr. Beach ANESTHESIA: General endotracheal anesthesia. BRIEF DESCRIPTION OF PROCEDURE AND FINDINGS: Elisa was brought to the operating room, where sufficient general endotracheal anesthesia was induced, and she was prepped and draped and positioned in the usual sterile fashion, and a uterine manipulator was placed. There was some diff with that placement because she had a previous ablation which has failed. We then moved on to the abdomen where a transverse semilunar incision was below the umbilicus, sharp and blunt dissection was continued through the subcutaneous tissues to the level of the rectus fascia. Patients body mass index (BMI) did affect this work. The fascia was elevated with Apolonia clamps transversely and site was secured with #0 Vicryl retention sutures and then a Misty cannula was placed into the peritoneal cavity under direct visualization and in an open laparoscopic technique. It was then secured and placed with a #0 Vicryl retention sutures. CO2 insufflation was then begun. After adequate CO2 insufflation the peritoneal cavity was visualized. There were normal shiny peritoneal surfaces throughout. There is no ascites and no exudate and no excrescences. The uterus was visualized and there was partial perforation initially to the right side of the fundus. This later fully perforated but again on the uterus that we were taking out would have no import on the case. We were able to manipulate the uterus and with Trendelenburg used the 45 end seal though the operating port of the scope to cauterize and transect the infundibulopelvic ligaments and then work medially to transect the round ligament and the superior aspect of the broad ligaments and this was done first on the left and then on the right side and after the ovaries and tubes had been free and the round ligaments freed, attention was turned to the vagina. The instruments were removed and she was removed from about half of the Trendelenburg and the anterior and posterior aspect of the cervix was grasped with a single tooth tenacula. She has a Hanley in with the ability to backfill already and this was still in and then of course the uterine manipulator was removed. A circumferential incision was made around the base of the cervix. The cardinal ligaments were isolated, clamped with the Keane clamps which were used throughout this portion of the case and transected. We then ligated them with #0 Vicryl suture which was also used throughout this portion of the case. We continued the dissection clamp, transecting, and ligating the uterosacrals which were marked for lateral uterosacral suspension. We then incised the posterior reflection of the peritoneum and continued the dissection anteriorly to cross over into the peritoneum and then the uterine vasculature was carefully clamped, transected, and ligated in a sequential fashion along the lateral aspect of the uterus until the uterus, the attach ovary tubes could be delivered. On the left side we did separate this just so that we could have better visualization for the pedicle there and the uterus, tubes, and ovaries were all removed. The pedicles were visualized, sponge on a stick was used to visualize these and then following confirmation of good hemostasis, attention was turned to the uterosacral suspension where the uterosacrals which have already been identified and marked were placed on tension and an Rahel clamp that was super long was placed high on the uterosacrals and then the left side two #2-0 Prolene and #1-0 Prolene were placed on the left side, just one #2-0 Prolene and one 0 Vicryl were placed on the right side with a little more trouble getting access there and the support seemed quite good. We then dissected the rectovaginal septum out posteriorly so that the Prolene could be secured through the rectovaginal septum and the Vicryl was through the rectovaginal septum as well as coming out into the vagina. We used a Graham needle to bring both ends into vagina so we could get really low with that Vicryl. We then brought down the first through in each of these labeling then with curved straight Sheron hemostats in the typical fashion to keep them from getting tangled and with them under tension, performed the cystourethroscopy. The patient had already taken Pyridium. There was no evidence of injury to the bladder. There was ducts of urine bilaterally. There was no evidence of injury during the hysterectomy or during the ureterosacral suspension to either the bladder or the ureters or any kind of kinking obstruction. We then completed the rest of the throws and the uterosacral suspension and with the rectovaginal septum and the pubocervical fascia incorporated, we had good support anteriorly. So the cystocele was corrected with that was the superior aspect of the rectocele but she had at the introital level some laxity as well. We went ahead and took angle stitches of #0 Vicryl on the vaginal cuff after supporting it and closed that and again confirmed that at the apex of the vagina we had good support and we had corrected the anterior repair but we went posteriorly with an inverted triangle of tissue taken from the perineum and then dissected under the posterior vaginal wall to the vaginal septum which was then plicated at the midline and the redundant tissue removed and some of that fell. Went ahead with #2-0 and #0 Vicryl as it is typical on this portion of the repair closing first the deep layer and the deep layer at the peritoneum as well and making sure the rectovaginal septum and the peroneal body are well secured together and then closed the vagina epithelium with #2-0 Vicryl. Good approximation and hemostasis was achieved and a vaginal pack was then placed. The Hanley was replaced too because it had been removed for the cystourethroscopy. We then changed gloves etc and went above and closed the umbilical wound, deep layer with #0 Vicryl and then #3-0 Vicryl at the skin. A dry sterile dressing was then applied. ESTIMATED BLOOD LOSS FOR THE PROCEDURE: About 100 mL. FLUID REPLACEMENT: Crystalloid. COMPLICATIONS: None. CONDITION AND DISPOSITION: Elisa tolerated the procedure well and was recovering in the recovery room in good condition.
[2016-11-11] MEDS ORDERED: VITAMIN D 50,000 UNITS CAPSULE (ERGOCALCIFEROL 1.25MG) PO SCH (09:00)
== END 2016-11-09 10:30 | disposition home or self-care (01) ==
LOC: M SDC 09:58 → M PED 16:43 → M SDC 11-09 10:30
PROVIDERS: ATTEND Obstetrics & Gynecology
DX: N93.9 Abnormal uterine and vaginal bleeding, unspecified (principal); R10.2 Pelvic and perineal pain; N81.4 Uterovaginal prolapse, unspecified; I10 Essential (primary) hypertension; G43.909 Migraine, unspecified, not intractable, without status migrainosus; B19.20 Unspecified viral hepatitis C without hepatic coma; N39.3 Stress incontinence (female) (male); J44.9 Chronic obstructive pulmonary disease, unspecified; F41.9 Anxiety disorder, unspecified; F32.9 Major depressive disorder, single episode, unspecified; K92.89 Other specified diseases of the digestive system; K21.9 Gastro-esophageal reflux disease without esophagitis; R29.898 Other symptoms and signs involving the musculoskeletal system; D64.9 Anemia, unspecified; M06.9 Rheumatoid arthritis, unspecified; G62.9 Polyneuropathy, unspecified; F43.10 Post-traumatic stress disorder, unspecified; Z88.8 Allergy status to other drugs, medicaments and biological substances; Z79.899 Other long term (current) drug therapy; Z72.0 Tobacco use; Z86.718 Personal history of other venous thrombosis and embolism; Z98.51 Tubal ligation status; Z87.820 Personal history of traumatic brain injury; Z95.828 Presence of other vascular implants and grafts; Z86.79 Personal history of other diseases of the circulatory system; Z87.81 Personal history of (healed) traumatic fracture; Z86.14 Personal history of Methicillin resistant Staphylococcus aureus infection
CPT/HCPCS: 36415; 57260; 58552; 85014; 85018; 85027; 86850; 86900; 86901; 88300; 88307; 93005; 94664; J0690; J1100; J1170; J2250; J2405; J2710; J3010

== ENCOUNTER 2016-11-13 16:19 | Emergency (ER) | payer MEDICARE, MEDICAID ==
[~2016-11-13] VITALS: Ht 167.6 cm; Wt 111.5 kg
[~2016-11-13 16:19] MED LIST changes: +ADVI200T PO; +HYDR50TA70 PO; +NORC1TAB4 PO; +PRIL20TA2 PO
[2016-11-13] MEDS ORDERED: SPIR1CAP INH (16:30)
[2016-11-13] MEDS ORDERED: OMEP40CA2 PO (16:30)
[2016-11-13] MEDS ORDERED: IBUP-1022 (16:30)
[2016-11-13] MEDS ORDERED: METO50TA7 PO (16:30)
[2016-11-13] MEDS ORDERED: HYDR-3713 (16:30)
[2016-11-13] MEDS ORDERED: NS 1,000 ML IV ONE (18:15)
[2016-11-13] MEDS ORDERED: MORPHINE 4 MG/ML 1ML SYRINGE IV ONE ×2 (18:15→20:15)
[2016-11-13 19:18] LABS: BASO # 0.1 K/mm3 (0.0-0.2); BASO % 0.6 % (0.0-1.0); EOS # 0.3 K/mm3 (0.0-0.50); EOS % 3.4 % (0.0-3.0); LARGE UNSTAINED CELL # 0.1 K/mm3 (0.0-0.4); LARGE UNSTAINED CELL % 1.1 % (0.0-4.0); LYMPH % 19.6 % (24.0-44.0); MEAN CORPUSCULAR HEMOGLOBIN 27.9 pg (27.0-33.0); MEAN CORPUSCULAR HGB CONC 33.7 g/dl (32.0-36.5); MEAN CORPUSCULAR VOLUME 82.7 fl (80.0-96.0); MONO # 0.6 K/mm3 (0.0-0.8); MONO % 5.6 % (0.0-5.0); NEUTROPHILS # 6.9 K/mm3 (1.8-7.7); NEUTROPHILS % 69.7 % (36.0-66.0); PLATELET COUNT, AUTOMATED 271 k/mm3 (150-450); RED CELL DISTRIBUTION WIDTH 12.9 % (11.5-14.5); WHITE BLOOD COUNT 9.9 K/mm3 (4.0-10.0)
[2016-11-13 19:42] LABS: ALBUMIN 3.7 GM/DL (3.2-5.2); ALBUMIN/GLOBULIN RATIO 0.84 (1.00-1.93); ALKALINE PHOSPHATASE 87 U/L (45-117); ALT/SGPT 20 U/L (12-78); AMYLASE 37 U/L (25-115); ANION GAP 9 MEQ/L (8-16); AST/SGOT 15 U/L (15-37); BILIRUBIN,DIRECT < 0.1 MG/DL (0.0-0.2); BILIRUBIN,TOTAL 0.4 MG/DL (0.2-1.0); BLOOD UREA NITROGEN 9 MG/DL (7-18); CALCIUM LEVEL 8.8 MG/DL (8.5-10.1); CARBON DIOXIDE LEVEL 25 MEQ/L (21-32); CHLORIDE LEVEL 105 MEQ/L (98-107); CREATININE FOR GFR 0.93 MG/DL (0.55-1.02); GLOMERULAR FILTRATION RATE > 60.0 (>58); GLUCOSE, FASTING 104 MG/DL (70-105); POTASSIUM SERUM 3.7 MEQ/L (3.5-5.1); SODIUM LEVEL 139 MEQ/L (136-145); TOTAL PROTEIN 8.1 GM/DL (6.4-8.2)
[2016-11-13] MEDS ORDERED: ISOVUE-370 76% 100ML VIAL (Q9967) As Ordered ONE (20:04)
--- NOTE | 2016-11-13 21:20 | REPUSA ---
HISTORY: POST PAIN S/P HYSTERECTOMY. TECHNIQUE: Multisequence, multiplanar MRI imaging of the abdomen and pelvis with coronal and sagittal reformatted imaging, with intravenous contrast enhancement. CTDIVOL= [ ] mGy DLP= 1398.4 mGy-cm. FINDINGS: Lung bases are clear. Bone windows demonstrate no bony fracture or destructive bony lesio n. The liver, biliary tree, gallbladder, spleen, pancreas, adrenal glands, kidneys, ureters, and urinary bladder are normal. Both kidneys function without evidence of mass lesion or obstruction. Abdomina l aorta and IVC are normal. IVC filter is in place. No retroperitoneal lymphadenopathy is seen. Postsurgical changes are noted over the right lower anterior abdominal wall at the umbilical region. There is no significant abnormal hemorrhage or abscess seen. There is only minimal fluid at the nara gical bed with no pathologic mass, abscess, or significant hematoma seen. Vascular structures are no rmal. There is diverticulosis in the sigmoid and descending colon. There is no evidence of bowel wall mass lesion, obstruction, perforation, inflammatory reaction, or evidence of diverticulitis. IMPRESSION: 1. Minimal residual fluid at the anterior abdominal wall surgical site and surgical bed with no significant hematoma formation or abscess seen in the abdominal wall, or pelvis in patients status post hysterectomy. 2. Diverticulosis in the left colon without evidence of diverticulitis or other bowel abnormality se en. 3. The remainder of the CT examination of the abdomen and pelvis is normal.
[2016-11-13 21:25] VITALS: BP 116/68
[2016-11-13] MEDS ORDERED: NORCO 5/325MG TABLET (BULK FOR ED) PO ONE (21:45)
== END 2016-11-13 22:11 | disposition home or self-care (01) ==
LOC: M ED 16:19
DX: G89.18 Other acute postprocedural pain (principal); Z72.0 Tobacco use
CPT/HCPCS: 36415; 74177; 80048; 80076; 81001; 82150; 83605; 83690; 85025; 87070; 87077; 87086; 87186; 87205; 87210; 96374; 96375; 99283; Q9967

== ENCOUNTER 2017-01-02 11:06 | Inpatient (IN) | payer MEDICARE, MEDICAID ==
[~2017-01-02] VITALS: Ht 167.6 cm; Wt 112.0 kg
[~2017-01-02 11:06] MED LIST changes: +HYDR-3713; +IBUP-1022
[2017-01-02 11:51] LABS: MEAN CORPUSCULAR HEMOGLOBIN 26.8 pg (27.0-33.0); MEAN CORPUSCULAR HGB CONC 32.9 g/dl (32.0-36.5); MEAN CORPUSCULAR VOLUME 81.6 fl (80.0-96.0); RED CELL DISTRIBUTION WIDTH 14.1 % (11.5-14.5); WHITE BLOOD COUNT 9.5 10^3/uL (4.0-10.0)
[2017-01-02 12:19] LABS: ALBUMIN 3.8 GM/DL (3.2-5.2); ALBUMIN/GLOBULIN RATIO 0.88 (1.00-1.93); ALKALINE PHOSPHATASE 110 U/L (45-117); ALT/SGPT 32 U/L (12-78); ANION GAP 7 MEQ/L (8-16); AST/SGOT 28 U/L (15-37); BILIRUBIN,DIRECT < 0.1 MG/DL (0.0-0.2); BILIRUBIN,TOTAL 0.3 MG/DL (0.2-1.0); BLOOD UREA NITROGEN 15 MG/DL (7-18); CALCIUM LEVEL 8.9 MG/DL (8.5-10.1); CARBON DIOXIDE LEVEL 25 MEQ/L (21-32); CHLORIDE LEVEL 104 MEQ/L (98-107); CREATININE FOR GFR 0.81 MG/DL (0.55-1.02); GLOMERULAR FILTRATION RATE > 60.0 (>58); GLUCOSE, FASTING 201 MG/DL (70-105); POTASSIUM SERUM 4.1 MEQ/L (3.5-5.1); SODIUM LEVEL 136 MEQ/L (136-145); TOTAL PROTEIN 8.1 GM/DL (6.4-8.2)
[2017-01-02 12:26] LABS: METHADONE URINE NEGATIVE (NEGATIVE)
[2017-01-02] MEDS ORDERED: SUCR1TAB56 PO (15:24)
[2017-01-02] MEDS ORDERED: TRAZ1TAB14 PO (15:24)
[2017-01-02 17:30] VITALS: BP 135/95
[2017-01-02] MEDS ORDERED: MOM 30ML SUSPENSION UDC PO PRN (19:45)
[2017-01-02] MEDS ORDERED: MAALOX 30 ML SUSP *UDC PO PRN (19:45)
[2017-01-02] MEDS: FAMOTIDINE 20 MG TAB PO SCH (21:27)
[2017-01-02] MEDS: SUCRALFATE 1 GM TAB PO SCH (21:27)
[2017-01-02] MEDS: OMEPRAZOLE 20 MG CAP PO SCH (21:27)
[2017-01-02] MEDS: METOPROLOL TART 50 MG TAB PO SCH (21:27)
[2017-01-02] MEDS: buPROPion (WELLBUTRIN SR) 100 MG SR TAB PO SCH (21:27)
[2017-01-02] MEDS: traZODone 100 MG TAB PO SCH (21:27)
[2017-01-02] MEDS: hydrOXYzine 50 MG TAB PO PRN (21:30)
[2017-01-03 06:22] VITALS: BP 128/83
[2017-01-03] MEDS: SUCRALFATE 1 GM TAB PO SCH ×4 (07:05→21:16)
[2017-01-03] MEDS: FAMOTIDINE 20 MG TAB PO SCH ×2 (09:06→21:14)
[2017-01-03] MEDS: OMEPRAZOLE 20 MG CAP PO SCH ×2 (09:06→21:13)
[2017-01-03] MEDS: buPROPion (WELLBUTRIN SR) 100 MG SR TAB PO SCH ×2 (09:06→21:14)
[2017-01-03] MEDS: DULoxetine 30 MG CAP (CYMBALTA) PO SCH (09:06)
[2017-01-03] MEDS: METOPROLOL TART 50 MG TAB PO SCH ×2 (09:06→21:15)
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
[2017-01-03] MEDS: IBUPROFEN 400 MG TAB PO PRN (16:35)
[2017-01-03 18:00] VITALS: BP 139/91
[2017-01-03] MEDS: TIOTROPIUM INHALER/CAPSULE (SPIRIVA) INH SCH (19:49)
[2017-01-03] MEDS: traZODone 100 MG TAB PO SCH (21:11)
[2017-01-03] MEDS: hydrOXYzine 50 MG TAB PO PRN (21:11)
[2017-01-04 06:00] VITALS: BP 120/83
[2017-01-04] MEDS: SUCRALFATE 1 GM TAB PO SCH ×4 (06:32→20:20)
[2017-01-04] MEDS: NYSTATIN 100,000 UNITS/GM TOPICAL PWD 15 GM TOP SCH ×2 (09:13→20:18)
[2017-01-04] MEDS: MUPIROCIN 2% OINT 22 GM TUBE TOP SCH ×2 (09:13→20:19)
[2017-01-04] MEDS: DULoxetine 30 MG CAP (CYMBALTA) PO SCH (09:13)
[2017-01-04] MEDS: OMEPRAZOLE 20 MG CAP PO SCH ×2 (09:14→20:19)
[2017-01-04] MEDS: FAMOTIDINE 20 MG TAB PO SCH ×2 (09:14→20:22)
[2017-01-04] MEDS: METOPROLOL TART 50 MG TAB PO SCH ×2 (09:14→20:22)
[2017-01-04] MEDS: buPROPion (WELLBUTRIN SR) 100 MG SR TAB PO SCH ×2 (09:14→20:19)
[2017-01-04] MEDS: CEPHALEXIN 500 MG CAP PO SCH ×3 (09:15→20:19)
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
[2017-01-04] MEDS: TIOTROPIUM INHALER/CAPSULE (SPIRIVA) INH SCH (13:54)
[2017-01-04 18:00] VITALS: BP 124/78
[2017-01-04] MEDS: hydrOXYzine 50 MG TAB PO PRN (20:19)
[2017-01-04] MEDS: traZODone 100 MG TAB PO SCH (20:20)
[2017-01-05] MEDS: CEPHALEXIN 500 MG CAP PO SCH ×3 (06:09→22:25)
[2017-01-05 06:39] VITALS: BP 130/88
[2017-01-05] MEDS: SUCRALFATE 1 GM TAB PO SCH ×4 (07:02→21:28)
[2017-01-05] MEDS: TIOTROPIUM INHALER/CAPSULE (SPIRIVA) INH SCH (08:37)
[2017-01-05] MEDS: OMEPRAZOLE 20 MG CAP PO SCH ×2 (08:38→21:31)
[2017-01-05] MEDS: FAMOTIDINE 20 MG TAB PO SCH ×2 (08:38→21:28)
[2017-01-05] MEDS: NYSTATIN 100,000 UNITS/GM TOPICAL PWD 15 GM TOP SCH ×2 (08:38→21:34)
[2017-01-05] MEDS: DULoxetine 30 MG CAP (CYMBALTA) PO SCH (08:38)
[2017-01-05] MEDS: METOPROLOL TART 50 MG TAB PO SCH ×2 (08:38→21:30)
[2017-01-05] MEDS: buPROPion (WELLBUTRIN SR) 100 MG SR TAB PO SCH ×2 (08:38→21:31)
[2017-01-05] MEDS: MUPIROCIN 2% OINT 22 GM TUBE TOP SCH ×2 (08:39→21:33)
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
[2017-01-05 18:00] VITALS: BP 105/73
[2017-01-05] MEDS: traZODone 100 MG TAB PO SCH (21:30)
[2017-01-06] MEDS: CEPHALEXIN 500 MG CAP PO SCH ×3 (06:11→21:37)
[2017-01-06 06:22] VITALS: BP 122/83
[2017-01-06] MEDS: SUCRALFATE 1 GM TAB PO SCH ×4 (06:54→20:55)
[2017-01-06] MEDS: NYSTATIN 100,000 UNITS/GM TOPICAL PWD 15 GM TOP SCH ×2 (08:43→20:53)
[2017-01-06] MEDS: TIOTROPIUM INHALER/CAPSULE (SPIRIVA) INH SCH (08:43)
[2017-01-06] MEDS: buPROPion (WELLBUTRIN SR) 100 MG SR TAB PO SCH ×2 (08:43→20:56)
[2017-01-06] MEDS: OMEPRAZOLE 20 MG CAP PO SCH ×2 (08:43→20:56)
[2017-01-06] MEDS: DULoxetine 30 MG CAP (CYMBALTA) PO SCH (08:43)
[2017-01-06] MEDS: FAMOTIDINE 20 MG TAB PO SCH ×2 (08:43→20:56)
[2017-01-06] MEDS: MUPIROCIN 2% OINT 22 GM TUBE TOP SCH ×2 (08:44→20:54)
[2017-01-06] MEDS: METOPROLOL TART 50 MG TAB PO SCH ×2 (08:44→20:55)
[2017-01-06] MEDS: IBUPROFEN 400 MG TAB PO PRN (10:12)
[2017-01-06 18:00] VITALS: BP 127/73
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
[2017-01-06] MEDS: traZODone 100 MG TAB PO SCH (20:55)
[2017-01-07] MEDS: CEPHALEXIN 500 MG CAP PO SCH ×3 (05:39→20:54)
[2017-01-07 06:22] VITALS: BP 141/77
[2017-01-07] MEDS: SUCRALFATE 1 GM TAB PO SCH ×4 (06:42→20:53)
[2017-01-07] MEDS: OMEPRAZOLE 20 MG CAP PO SCH ×2 (08:56→20:54)
[2017-01-07] MEDS: TIOTROPIUM INHALER/CAPSULE (SPIRIVA) INH SCH (08:56)
[2017-01-07] MEDS: DULoxetine 30 MG CAP (CYMBALTA) PO SCH (08:56)
[2017-01-07] MEDS: METOPROLOL TART 50 MG TAB PO SCH ×2 (08:56→20:54)
[2017-01-07] MEDS: buPROPion (WELLBUTRIN SR) 100 MG SR TAB PO SCH ×2 (08:56→20:54)
[2017-01-07] MEDS: FAMOTIDINE 20 MG TAB PO SCH ×2 (08:56→20:54)
[2017-01-07] MEDS: MUPIROCIN 2% OINT 22 GM TUBE TOP SCH ×2 (08:57→20:56)
[2017-01-07] MEDS: NYSTATIN 100,000 UNITS/GM TOPICAL PWD 15 GM TOP SCH ×2 (08:57→20:56)
[2017-01-07] MEDS: hydrOXYzine 50 MG TAB PO PRN ×2 (09:00→20:54)
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
[2017-01-07 18:15] VITALS: BP 100/59
[2017-01-07] MEDS: traZODone 100 MG TAB PO SCH (20:54)
[2017-01-08] MEDS: CEPHALEXIN 500 MG CAP PO SCH ×3 (06:26→20:31)
[2017-01-08 06:37] VITALS: BP 132/83
[2017-01-08] MEDS: SUCRALFATE 1 GM TAB PO SCH ×4 (06:51→20:32)
[2017-01-08] MEDS: MUPIROCIN 2% OINT 22 GM TUBE TOP SCH ×2 (08:15→20:33)
[2017-01-08] MEDS: TIOTROPIUM INHALER/CAPSULE (SPIRIVA) INH SCH (08:15)
[2017-01-08] MEDS: NYSTATIN 100,000 UNITS/GM TOPICAL PWD 15 GM TOP SCH ×2 (08:15→20:34)
[2017-01-08] MEDS: FAMOTIDINE 20 MG TAB PO SCH ×2 (08:16→20:31)
[2017-01-08] MEDS: OMEPRAZOLE 20 MG CAP PO SCH ×2 (08:16→20:32)
[2017-01-08] MEDS: DULoxetine 30 MG CAP (CYMBALTA) PO SCH (08:17)
[2017-01-08] MEDS: buPROPion (WELLBUTRIN SR) 100 MG SR TAB PO SCH ×2 (08:17→20:32)
[2017-01-08] MEDS: METOPROLOL TART 50 MG TAB PO SCH ×2 (08:19→20:32)
[2017-01-08] MEDS ORDERED: SPIR1CAP INH ×2 (09:13→09:17)
[2017-01-08] MEDS ORDERED: BUPR100T3 PO ×2 (09:13→09:17)
[2017-01-08] MEDS ORDERED: SUCR1TAB56 PO ×2 (09:13→09:17)
[2017-01-08] MEDS ORDERED: DULO1CAP3 PO ×2 (09:13→09:17)
[2017-01-08] MEDS ORDERED: OMEP40CA2 PO ×2 (09:13→09:17)
[2017-01-08] MEDS ORDERED: HYDR50TA70 PO ×2 (09:13→09:17)
[2017-01-08] MEDS ORDERED: TRAZ1TAB14 PO ×2 (09:13→09:17)
[2017-01-08] MEDS ORDERED: METO50TA7 PO ×2 (09:13→09:17)
[2017-01-08] MEDS ORDERED: ADVI200T PO ×2 (09:13→09:17)
[2017-01-08] MEDS ORDERED: PROAAER10 INH ×2 (09:13→09:17)
[2017-01-08] MEDS ORDERED: RANI150T PO ×2 (09:13→09:17)
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
[2017-01-08] MEDS ORDERED: diphenhydrAMINE INJ 50MG/ML VIAL (J1200) IM STA (12:02)
[2017-01-08] MEDS ORDERED: LORazepam 2 MG/ML VIAL (J2060) IM STA (12:02)
[2017-01-08] MEDS ORDERED: HALOPERIDOL 5 MG/ML VIAL (J1630) IM STA ×2 (12:02→12:06)
[2017-01-08 12:15] VITALS: BP 193/104
[2017-01-08 12:30] VITALS: BP 174/105
[2017-01-08 12:45] VITALS: BP 162/88
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
[2017-01-08 18:00] VITALS: BP 105/78
[2017-01-08] MEDS: IBUPROFEN 400 MG TAB PO PRN (19:36)
[2017-01-08] MEDS ORDERED: ANALGESIC BALM CRM 120 GM TOP PRN (20:00)
[2017-01-08] MEDS: hydrOXYzine 50 MG TAB PO PRN (20:32)
[2017-01-08] MEDS: traZODone 100 MG TAB PO SCH (20:32)
--- NOTE | 2017-01-08 20:46 | REP ---
Right hand four views: There is a boxer's fracture of the fifth digit metacarpal. There is no dislocation. Mineralization joint spaces are otherwise unremarkable. The ulnar styloid process is congenitally nonfused. Signed by Brayan Rincon MD 01/08/2017 08:37 P
[2017-01-08] MEDS ORDERED: IBUPROFEN 800 MG TAB PO PRN (23:30)
[2017-01-09] MEDS: CEPHALEXIN 500 MG CAP PO SCH (06:31)
[2017-01-09] MEDS: SUCRALFATE 1 GM TAB PO SCH ×2 (06:31→12:00)
[2017-01-09 06:44] VITALS: BP 122/62
[2017-01-09] MEDS: MUPIROCIN 2% OINT 22 GM TUBE TOP SCH (08:55)
[2017-01-09] MEDS: DULoxetine 30 MG CAP (CYMBALTA) PO SCH (08:55)
[2017-01-09] MEDS: NYSTATIN 100,000 UNITS/GM TOPICAL PWD 15 GM TOP SCH (08:55)
[2017-01-09] MEDS: FAMOTIDINE 20 MG TAB PO SCH (08:55)
[2017-01-09] MEDS: OMEPRAZOLE 20 MG CAP PO SCH (08:55)
[2017-01-09] MEDS: TIOTROPIUM INHALER/CAPSULE (SPIRIVA) INH SCH (08:55)
[2017-01-09] MEDS: buPROPion (WELLBUTRIN SR) 100 MG SR TAB PO SCH (08:55)
[2017-01-09 08:56] VITALS: BP 122/62
[2017-01-09] MEDS: METOPROLOL TART 50 MG TAB PO SCH (08:56)
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
== END 2017-01-09 12:15 | disposition home or self-care (01) | DRG 897 ==
LOC: M ED 11:06 → M ED INP 15:00 → M PSY 17:19
PROVIDERS: ADMIT Psychiatry & Neurology Psychiatry; ATTEND Psychiatry & Neurology Psychiatry
DX: F19.94 Other psychoactive substance use, unspecified with psychoactive substance-induced mood disorder (principal); F10.10 Alcohol abuse, uncomplicated; F12.90 Cannabis use, unspecified, uncomplicated; Z79.899 Other long term (current) drug therapy; Z88.8 Allergy status to other drugs, medicaments and biological substances; K21.9 Gastro-esophageal reflux disease without esophagitis; J44.9 Chronic obstructive pulmonary disease, unspecified; I10 Essential (primary) hypertension; G43.909 Migraine, unspecified, not intractable, without status migrainosus; Z86.711 Personal history of pulmonary embolism; M54.5 Low back pain; M54.2 Cervicalgia; F17.200 Nicotine dependence, unspecified, uncomplicated; B35.6 Tinea cruris; K76.0 Fatty (change of) liver, not elsewhere classified; S62.306A Unspecified fracture of fifth metacarpal bone, right hand, initial encounter for closed fracture; X83.8XXA Intentional self-harm by other specified means, initial encounter; Y92.239 Unspecified place in hospital as the place of occurrence of the external cause

== ENCOUNTER 2017-06-17 02:11 | Emergency (ER) | payer MEDICARE, MEDICAID ==
[2017-06-17 03:11] LABS: BASO # 0.1 10^3/uL (0.0-0.2); BASO % 0.7 % (0.0-1.0); EOS # 0.2 10^3/uL (0.0-0.50); EOS % 2.3 % (0.0-3.0); HEMATOCRIT 42.1 % (36.0-47.0); HEMOGLOBIN 13.3 g/dl (12.0-16.0); IMMATURE GRANULOCYTE % 0.6 % (0-3.0); LYMPH # 2.4 10^3/uL (1.5-4.5); MEAN CORPUSCULAR HEMOGLOBIN 25.2 pg (27.0-33.0); MEAN CORPUSCULAR HGB CONC 31.6 g/dl (32.0-36.5); MEAN CORPUSCULAR VOLUME 79.9 fl (80.0-96.0); MONO # 0.8 10^3/uL (0.0-0.8); MONO % 8.7 % (0.0-5.0); NEUTROPHILS # 5.6 10^3/uL (1.8-7.7); NEUTROPHILS % 61.7 % (36.0-66.0); PLATELET COUNT, AUTOMATED 230 10^3/uL (150-450); RED BLOOD COUNT 5.27 10^6/uL (4.00-5.40); RED CELL DISTRIBUTION WIDTH 14.9 % (11.5-14.5); WHITE BLOOD COUNT 9.1 10^3/uL (4.0-10.0)
[2017-06-17] MEDS: ASPIRIN 81 MG CHEW TABLET PO (03:19)
[2017-06-17 03:20] LABS: ANION GAP 8 MEQ/L (8-16); BLOOD UREA NITROGEN 15 MG/DL (7-18); CALCIUM LEVEL 8.9 MG/DL (8.5-10.1); CARBON DIOXIDE LEVEL 26 MEQ/L (21-32); CHLORIDE LEVEL 102 MEQ/L (98-107); CPK CREATINE PHOSPHOKINASE 58 U/L (26-192); CREATININE FOR GFR 1.01 MG/DL (0.55-1.30); GLOMERULAR FILTRATION RATE > 60.0 (>58); GLUCOSE, FASTING 255 MG/DL (70-100); INR 0.89; MB/CK RELATIVE INDEX 1.72 (< OR =4); POTASSIUM SERUM 4.1 MEQ/L (3.5-5.1); PROTHROMBIN TIME 12.1 SECONDS (12.4-14.5); SODIUM LEVEL 136 MEQ/L (136-145); TROPONIN I < 0.02 NG/ML (< 0.10)
[2017-06-17 03:21] LABS: PARTIAL THROMBOPLASTIN TIME 28.3 SECONDS (26.8-37.9)
[2017-06-17] MEDS: NITROGLYCERIN 0.4 MG SUBL TABLET SL ×2 (03:22→03:34)
[2017-06-17] MEDS ORDERED: ISOVUE-370 76% 100ML VIAL (Q9967) As Ordered (03:35)
[2017-06-17] MEDS: ONDANSETRON 4MG/2ML VIAL (J2405) IV (03:51)
[2017-06-17] MEDS: MORPHINE 4 MG/ML 1ML VIAL (J2270) IV ×2 (03:52→05:02)
[2017-06-17] MEDS ORDERED: KETOROLAC 30 MG/ML VIAL (J1885) As Ordered (04:54)
[2017-06-17] MEDS: KETOROLAC 30 MG/ML VIAL (J1885) IV (05:00)
[2017-06-17] MEDS: LORazepam 2 MG/ML VIAL (J2060) IV (05:40)
[2017-06-17 06:02] LABS: ESTIMATED AVERAGE GLUCOSE 194 MG/DL (60-110); HEMOGLOBIN A1c 8.4 %
[2017-06-17] MEDS: ACETAMINOPHEN 325 MG TAB PO (07:45)
[2017-06-17 09:00] LABS: CPK CREATINE PHOSPHOKINASE 54 U/L (26-192); TROPONIN I < 0.02 NG/ML (< 0.10)
[2017-06-17] MEDS: FIORICET TAB PO (09:00)
[2017-06-17 09:01] LABS: MB/CK RELATIVE INDEX 1.85 (< OR =4)
== END 2017-06-17 09:35 | disposition home or self-care (01) ==
LOC: M ED 02:11
DX: R07.9 Chest pain, unspecified (principal); E11.9 Type 2 diabetes mellitus without complications; I10 Essential (primary) hypertension; F99 Mental disorder, not otherwise specified; F17.210 Nicotine dependence, cigarettes, uncomplicated; Z79.899 Other long term (current) drug therapy; Z82.49 Family history of ischemic heart disease and other diseases of the circulatory system; Z88.8 Allergy status to other drugs, medicaments and biological substances
CPT/HCPCS: J2270

== ENCOUNTER 2017-07-29 19:20 | Emergency (ER) | payer MEDICARE, MEDICAID ==
[2017-07-29] MEDS: PERCOCET 5MG/325MG TAB PO (20:38)
[2017-07-29] MEDS: ONDANSETRON 4 MG ORAL DISINTEGRATING TAB (Q0162 PER 1MG) PO (20:39)
[2017-07-29] MEDS: LIDOCAINE 2% MDV 20 ML VIAL SC (22:58)
[2017-07-29] MEDS: OXYCODONE/APAP 5MG/325MG(BULK FOR ED) 1 TABLET PO (23:20)
== END 2017-07-29 23:26 | disposition home or self-care (01) ==
LOC: M ED 19:20
DX: S01.111A Laceration without foreign body of right eyelid and periocular area, initial encounter (principal); S16.1XXA Strain of muscle, fascia and tendon at neck level, initial encounter; W19.XXXA Unspecified fall, initial encounter; Y92.009 Unspecified place in unspecified non-institutional (private) residence as the place of occurrence of the external cause; J44.9 Chronic obstructive pulmonary disease, unspecified; E11.9 Type 2 diabetes mellitus without complications; F31.9 Bipolar disorder, unspecified; K21.9 Gastro-esophageal reflux disease without esophagitis; F17.210 Nicotine dependence, cigarettes, uncomplicated; Z98.890 Other specified postprocedural states; Z88.8 Allergy status to other drugs, medicaments and biological substances; Z79.899 Other long term (current) drug therapy; Z79.84 Long term (current) use of oral hypoglycemic drugs
CPT/HCPCS: Q0162

== ENCOUNTER → 2017-08-20 | Outpatient (REF) | payer MEDICARE, MEDICAID | LOC: M LAB REF 12:17 | DX: R19.7 Diarrhea, unspecified (principal) ==

== ENCOUNTER → 2017-08-20 | Outpatient (CLI) | payer MEDICARE, MEDICAID ==
[2017-08-20 12:19] LABS: ALBUMIN 3.8 GM/DL (3.2-5.2); ALBUMIN/GLOBULIN RATIO 0.97 (1.00-1.93); ALKALINE PHOSPHATASE 99 U/L (45-117); ALT/SGPT 28 U/L (12-78); ANION GAP 7 MEQ/L (8-16); AST/SGOT 20 U/L (7-37); BILIRUBIN,TOTAL 0.3 MG/DL (0.2-1.0); BLOOD UREA NITROGEN 11 MG/DL (7-18); CALCIUM LEVEL 8.9 MG/DL (8.5-10.1); CARBON DIOXIDE LEVEL 28 MEQ/L (21-32); CHLORIDE LEVEL 104 MEQ/L (98-107); CHOLESTEROL LEVEL 284 MG/DL (<200); CHOLESTEROL RISK RATIO 9.161 (<5); CREATININE FOR GFR 0.71 MG/DL (0.55-1.30); GLOMERULAR FILTRATION RATE > 60.0 (>58); GLUCOSE, FASTING 135 MG/DL (70-100); HDL CHOLESTEROL 31 MG/DL (>40); NON-HDL-C 253 MG/DL; POTASSIUM SERUM 4.5 MEQ/L (3.5-5.1); SODIUM LEVEL 139 MEQ/L (136-145); TOTAL PROTEIN 7.7 GM/DL (6.4-8.2); TRIGLYCERIDES LEVEL 565 MG/DL (<150)
[2017-08-20 12:31] LABS: CREATININE, URINE 46.7 MG/DL; MALB URINE SIEMENS < 5.0 MG/L; MAU/CREAT RATIO 10.7 MCG/MG (0.0-30.0)
[2017-08-20 13:00] LABS: ESTIMATED AVERAGE GLUCOSE 163 MG/DL (60-110); HEMOGLOBIN A1c 7.3 %
== END ==
LOC: M LAB 11:01
DX: E11.65 Type 2 diabetes mellitus with hyperglycemia (principal); R19.7 Diarrhea, unspecified
CPT/HCPCS: 80053

== ENCOUNTER → 2017-08-22 | Outpatient (CLI) | payer MEDICARE, MEDICAID ==
[~2017-08-22] MED LIST changes: -ACET50TAOT PO; -ADVI200T PO; -ALBU17IN INH; -ALBU17IN2 INH; -AMLO10TA2 PO; -BACI500O8 TOP; -BUPR100T3 PO; -BUPR10TASR PO; -BUPR1TAB52 PO; -CLON0.5T PO; -CLON1TAB PO; -CLON2TAB PO; -COLA100C5 PO; -CYMB60CA3 PO; -DEXI60CA2 PO; -DULO-34 PO; -DULO1CAP3 PO; -DULOXETINE HCL PO; -FAMO20TA PO; -FLON1SPR; -GABA-279 PO; -GABA-282 PO; -GABA600T PO; -HYDR-2809 PO; -HYDR-3713; -HYDR-3713 PO; -HYDR-3716 PO; -HYDR-3719 PO; -HYDR50TA70 PO; -IBUP-1022; -IRON65TA PO; +ISOVUE-370 76% 100ML VIAL (Q9967) As Ordered; -KEFL500C17 PO; -KLON0.5T PO; -KLON1TAB PO; -KLON2TAB PO; -LOPR1TAB6 PO; -LORT1TAB PO; -METH75TA PO; -METO50TA7 PO; -MINI1CAP PO; -MOTR200T44 PO; -NEUR100C PO; -NORC1TAB4 PO; -NORT25CA2 PO; -NYST1POW9 TOP; -OMEP40CA2 PO; -OXYC1TAB23 PO; -PEPT262S PO; -PHEN10TA PO; -PRIL20TA2 PO; -PRIL40CA PO; -PROAAER10 INH; -QUET1TAB8 PO; -QUET1TAB9 PO; -RANI150I2 PO; -RANI150T PO; -RANI15TA PO; -RANI1TAB6 PO; -SALI0.6523; -SAPHRIS PO; -SENO8.6T10 PO; -SPIR1CAP INH; -SUCR1SS PO; -TIOT18INH INH; -TIZA2CAP3 PO; -TIZA2TA PO; -TRAZ1TAB14 PO; -TRAZ300T2 PO; -TYLE325T5 PO; -VALI10TA PO; -VALI5TAB PO; -VITA100066 PO; -VITA500T PO; -WELL100T PO; -ZOFR20TA PO; -ZONI25CA2 PO; -ZONI50CA PO; -[UNRECOGNIZED DRUG - OTHER]
== END ==
LOC: M RAD 12:45
DX: I70.0 Atherosclerosis of aorta (principal); K76.0 Fatty (change of) liver, not elsewhere classified; R10.11 Right upper quadrant pain; R19.7 Diarrhea, unspecified; R11.0 Nausea
CPT/HCPCS: Q9967

== ENCOUNTER → 2017-08-27 | Outpatient (REF) | payer MEDICARE, MEDICAID ==
[2017-08-27 12:51] LABS: BASO # 0.1 10^3/uL (0.0-0.2); BASO % 0.5 % (0.0-1.0); EOS # 0.2 10^3/uL (0.0-0.50); EOS % 1.8 % (0.0-3.0); HEMATOCRIT 45.9 % (36.0-47.0); HEMOGLOBIN 14.5 g/dl (12.0-15.5); IMMATURE GRANULOCYTE % 0.5 % (0-3.0); LYMPH # 2.3 10^3/uL (1.5-4.5); LYMPH % 24.5 % (24.0-44.0); MEAN CORPUSCULAR HEMOGLOBIN 25.9 pg (27.0-33.0); MEAN CORPUSCULAR HGB CONC 31.6 g/dl (32.0-36.5); MEAN CORPUSCULAR VOLUME 82.1 fl (80.0-96.0); MONO # 0.8 10^3/uL (0.0-0.8); MONO % 7.9 % (0.0-5.0); NEUTROPHILS # 6.1 10^3/uL (1.8-7.7); NEUTROPHILS % 64.8 % (36.0-66.0); PLATELET COUNT, AUTOMATED 255 10^3/uL (150-450); RED BLOOD COUNT 5.59 10^6/uL (4.00-5.40); RED CELL DISTRIBUTION WIDTH 15.9 % (11.5-14.5); WHITE BLOOD COUNT 9.4 10^3/uL (4.0-10.0)
[2017-08-27 13:31] LABS: ALBUMIN/GLOBULIN RATIO 0.93 (1.00-1.93); ALKALINE PHOSPHATASE 100 U/L (45-117); ALT/SGPT 35 U/L (12-78); AMYLASE 45 U/L (25-115); ANION GAP 7 MEQ/L (8-16); AST/SGOT 31 U/L (7-37); BILIRUBIN,TOTAL 0.4 MG/DL (0.2-1.0); BLOOD UREA NITROGEN 10 MG/DL (7-18); CALCIUM LEVEL 9.3 MG/DL (8.5-10.1); CARBON DIOXIDE LEVEL 27 MEQ/L (21-32); CHLORIDE LEVEL 105 MEQ/L (98-107); CREATININE FOR GFR 0.82 MG/DL (0.55-1.30); GLOMERULAR FILTRATION RATE > 60.0 (>58); GLUCOSE, FASTING 86 MG/DL (70-100); LIPASE 387 U/L (73-393); POTASSIUM SERUM 4.6 MEQ/L (3.5-5.1); SODIUM LEVEL 139 MEQ/L (136-145); TOTAL PROTEIN 8.3 GM/DL (6.4-8.2)
== END ==
LOC: M SFHCADAM 11:28
DX: K92.1 Melena (principal); R10.11 Right upper quadrant pain
CPT/HCPCS: 82150

== ENCOUNTER 2017-09-17 12:13 | Emergency (ER) | payer MEDICARE, MEDICAID ==
[2017-09-17] MEDS: PERCOCET 5MG/325MG TAB PO ×2 (15:56→17:34)
== END 2017-09-17 17:36 | disposition home or self-care (01) ==
LOC: M ED 12:13
DX: S02.2XXA Fracture of nasal bones, initial encounter for closed fracture (principal); S00.12XA Contusion of left eyelid and periocular area, initial encounter; S06.0X9A Concussion with loss of consciousness of unspecified duration, initial encounter; X58.XXXA Exposure to other specified factors, initial encounter; Y92.099 Unspecified place in other non-institutional residence as the place of occurrence of the external cause; Y93.9 Activity, unspecified; Y99.9 Unspecified external cause status; Z87.820 Personal history of traumatic brain injury; E11.9 Type 2 diabetes mellitus without complications; I10 Essential (primary) hypertension; F31.9 Bipolar disorder, unspecified; F41.9 Anxiety disorder, unspecified; F32.9 Major depressive disorder, single episode, unspecified; G43.909 Migraine, unspecified, not intractable, without status migrainosus; J44.9 Chronic obstructive pulmonary disease, unspecified; K21.9 Gastro-esophageal reflux disease without esophagitis; Z86.711 Personal history of pulmonary embolism; Z95.828 Presence of other vascular implants and grafts; Z79.899 Other long term (current) drug therapy; Z88.8 Allergy status to other drugs, medicaments and biological substances
CPT/HCPCS: 72125

== ENCOUNTER 2017-09-27 12:11 | Emergency (ER) | payer MEDICARE, MEDICAID ==
[2017-09-27] MEDS: diphenhydrAMINE INJ 50MG/ML VIAL (J1200) IV (13:21)
[2017-09-27] MEDS: NS 1,000 ML IV (13:21)
[2017-09-27] MEDS: METOCLOPRAMIDE INJ 10MG/2ML VIAL (J2765) IV (13:22)
[2017-09-27] MEDS: KETOROLAC 30 MG/ML VIAL (J1885) IV (13:22)
[2017-09-27] MEDS: LORazepam 2 MG/ML VIAL (J2060) IV (13:53)
[2017-09-27] MEDS: ACETAMINOPHEN 325 MG TAB PO (14:29)
== END 2017-09-27 16:04 | disposition home or self-care (01) ==
LOC: M ED 12:11
DX: G43.909 Migraine, unspecified, not intractable, without status migrainosus (principal); F07.81 Postconcussional syndrome; Z79.899 Other long term (current) drug therapy; Z88.8 Allergy status to other drugs, medicaments and biological substances
CPT/HCPCS: J1200

== ENCOUNTER 2017-11-15 07:15 | Day surgery (SDC) | payer MEDICARE, MEDICAID ==
[~2017-11-15 07:15] MED LIST changes: -ISOVUE-370 76% 100ML VIAL (Q9967) As Ordered; +LIDOCAINE 2% INJ 100 MG/5 ML SDV (FOR ANES.) As Ordered; +PROPOFOL 200 MG/20 ML VIAL As Ordered
[2017-11-15] MEDS: NS 1,000 ML IV (07:45)
[2017-11-15] MEDS ORDERED: fentaNYL 100 MCG/2 ML INJECTION (J3010) As Ordered (08:17)
== END 2017-11-15 09:18 | disposition home or self-care (01) ==
LOC: M OPP 07:15
DX: K64.9 Unspecified hemorrhoids (principal); K57.30 Diverticulosis of large intestine without perforation or abscess without bleeding; K92.1 Melena; R10.84 Generalized abdominal pain; K31.89 Other diseases of stomach and duodenum; K31.84 Gastroparesis; I10 Essential (primary) hypertension; E78.00 Pure hypercholesterolemia, unspecified; E11.9 Type 2 diabetes mellitus without complications; F32.9 Major depressive disorder, single episode, unspecified; F41.9 Anxiety disorder, unspecified; G43.909 Migraine, unspecified, not intractable, without status migrainosus; M06.9 Rheumatoid arthritis, unspecified; F43.10 Post-traumatic stress disorder, unspecified; Z79.84 Long term (current) use of oral hypoglycemic drugs; Z79.899 Other long term (current) drug therapy; Z88.8 Allergy status to other drugs, medicaments and biological substances; Z90.710 Acquired absence of both cervix and uterus; Z95.828 Presence of other vascular implants and grafts; Z96.7 Presence of other bone and tendon implants; Z90.2 Acquired absence of lung [part of]; Z98.890 Other specified postprocedural states; Z80.1 Family history of malignant neoplasm of trachea, bronchus and lung; Z80.41 Family history of malignant neoplasm of ovary; Z80.0 Family history of malignant neoplasm of digestive organs
CPT/HCPCS: 45378

== ENCOUNTER 2017-12-15 13:26 | Emergency (ER) | payer MEDICARE, MEDICAID ==
[2017-12-15] MEDS: ONDANSETRON 4MG/2ML VIAL (J2405) IV (14:28)
[2017-12-15] MEDS: MORPHINE 4 MG/ML 1ML VIAL/SYRINGE (J2270) IV ×3 (14:28→20:45)
[2017-12-15 14:34] LABS: VENOUS BASE EXCESS 4.2 (-2.0-2.0); VENOUS HCO3 24.9 MEQ/L (23.0-27.0); VENOUS O2 SATURATION 71.1 % (60.0-80.0); VENOUS PARTIAL PRESSURE O2 29.5 mmHg (30.0-50.0); VENOUS PH 7.567 UNITS (7.330-7.430); VENOUS STANDARD HCO3 27.4 MEQ/L; VENOUS TOTAL CO2 25.8 MEQ/L (24.0-28.0)
[2017-12-15 14:41] LABS: BASO # 0.1 10^3/uL (0.0-0.2); BASO % 0.7 % (0.0-1.0); EOS # 0.2 10^3/uL (0.0-0.50); EOS % 1.6 % (0.0-3.0); HEMATOCRIT 48.6 % (36.0-47.0); HEMOGLOBIN 16.2 g/dl (12.0-15.5); IMMATURE GRANULOCYTE % 0.2 % (0-3.0); LYMPH # 3.4 10^3/uL (1.5-4.5); LYMPH % 37.1 % (24.0-44.0); MEAN CORPUSCULAR HEMOGLOBIN 28.3 pg (27.0-33.0); MEAN CORPUSCULAR HGB CONC 33.3 g/dl (32.0-36.5); MEAN CORPUSCULAR VOLUME 84.8 fl (80.0-96.0); MONO # 0.8 10^3/uL (0.0-0.8); MONO % 8.2 % (0.0-5.0); NEUTROPHILS # 4.8 10^3/uL (1.8-7.7); NEUTROPHILS % 52.2 % (36.0-66.0); PLATELET COUNT, AUTOMATED 336 10^3/uL (150-450); RED BLOOD COUNT 5.73 10^6/uL (4.00-5.40); RED CELL DISTRIBUTION WIDTH 15.4 % (11.5-14.5); WHITE BLOOD COUNT 9.2 10^3/uL (4.0-10.0)
[2017-12-15 15:07] LABS: ALT/SGPT 28 U/L (12-78); ANION GAP 13 MEQ/L (8-16); AST/SGOT 32 U/L (7-37); BLOOD UREA NITROGEN 14 MG/DL (7-18); CALCIUM LEVEL 9.7 MG/DL (8.5-10.1); CARBON DIOXIDE LEVEL 24 MEQ/L (21-32); CHLORIDE LEVEL 104 MEQ/L (98-107); CPK CREATINE PHOSPHOKINASE 63 U/L (26-192); CREATININE FOR GFR 1.01 MG/DL (0.55-1.30); GLOMERULAR FILTRATION RATE > 60.0 (>58); GLUCOSE, FASTING 103 MG/DL (70-100); INR 0.91; POTASSIUM SERUM 4.5 MEQ/L (3.5-5.1); PROTHROMBIN TIME 12.3 SECONDS (12.1-14.4); SODIUM LEVEL 141 MEQ/L (136-145)
[2017-12-15 15:08] LABS: ALBUMIN 4.3 GM/DL (3.2-5.2); ALKALINE PHOSPHATASE 98 U/L (45-117); BILIRUBIN,DIRECT < 0.1 MG/DL (0.0-0.2); BILIRUBIN,TOTAL 0.5 MG/DL (0.2-1.0); TOTAL PROTEIN 8.2 GM/DL (6.4-8.2); TROPONIN I < 0.02 NG/ML (< 0.10)
[2017-12-15 15:13] LABS: CK-MB VALUE MASS < 1.0 NG/ML (<3.6); MB/CK RELATIVE INDEX 1.58 (< OR =4); NT-PRO BNP 17 PG/ML (<125)
[2017-12-15] MEDS: ALBUTEROL SULFATE 2.5 MG/0.5 ML INH NEB SOLN NEB (15:25)
[2017-12-15] MEDS ORDERED: ISOVUE-370 76% 100ML VIAL (Q9967) As Ordered (16:00)
[2017-12-15 16:46] LABS: LIPASE 264 U/L (73-393)
[2017-12-15] MEDS: LORazepam 2 MG/ML VIAL (J2060) IV (17:18)
[2017-12-15] MEDS: GI COCKTAIL 50ML BTL(HYOSCYAMINE/MAALOX/LIDOCAINE VISCOUS)(1:3:1) PO (17:18)
[2017-12-15] MEDS: PERCOCET 5MG/325MG TAB PO (17:42)
[2017-12-15 18:00] LABS: CK-MB VALUE MASS < 1.0 NG/ML (<3.6); CPK CREATINE PHOSPHOKINASE 50 U/L (26-192); TROPONIN I < 0.02 NG/ML (< 0.10)
[2017-12-15 20:37] LABS: CK-MB VALUE MASS < 1.0 NG/ML (<3.6); CPK CREATINE PHOSPHOKINASE 56 U/L (26-192); MB/CK RELATIVE INDEX 1.78 (< OR =4); TROPONIN I < 0.02 NG/ML (< 0.10)
[2017-12-15] MEDS: IPRATROPIUM 0.5MG/ALBUTEROL 2.5MG INH SOL UD 3ML (DUONEB)(J7620) NEB (20:57)
[2017-12-15] MEDS ORDERED: OXYCODONE/APAP 5MG/325MG(BULK FOR ED) 1 TABLET PO (22:00)
== END 2017-12-15 22:52 | disposition home or self-care (01) ==
LOC: M ED 13:26
DX: R07.9 Chest pain, unspecified (principal); R06.02 Shortness of breath; I10 Essential (primary) hypertension; E78.5 Hyperlipidemia, unspecified; J44.9 Chronic obstructive pulmonary disease, unspecified; Z86.39 Personal history of other endocrine, nutritional and metabolic disease; F32.9 Major depressive disorder, single episode, unspecified; F41.9 Anxiety disorder, unspecified; Z87.820 Personal history of traumatic brain injury; Z98.2 Presence of cerebrospinal fluid drainage device; Z98.84 Bariatric surgery status; F17.200 Nicotine dependence, unspecified, uncomplicated; Z88.8 Allergy status to other drugs, medicaments and biological substances; Z79.899 Other long term (current) drug therapy
CPT/HCPCS: J2270

== ENCOUNTER → 2018-03-21 | Outpatient (CLI) | payer MEDICARE, MEDICAID ==
[~2018-03-21] MED LIST changes: +ACET500T15 PO; +ADVI200T PO; +ALBU17IN INH; +ALBU17IN2 INH; +AMLO10TA4 PO; +BACI500O8 TOP; +BUPR100T3 PO; +BUPR10TASR PO; +BUPR1TAB52 PO; +CLON0.5T8 PO; +CLON1TAB8 PO; +CLON2TAB7 PO; +COLA100C5 PO; +CYMB60CA3 PO; +DEXI60CA2 PO; +DULO-34 PO; +DULO1CAP3 PO; +DULOXETINE HCL PO; +ENOX40IN3 SQ; +FAMO20TA PO; +FLON1SPR; +GABA-1171 PO; +GABA-843 PO; +GABA600T PO; +HYDR-2809 PO; +HYDR-3363; +HYDR-3713; +HYDR-3713 PO; +HYDR-3716 PO; +HYDR-3719 PO; +HYDR50TA70 PO; +IBUP-1022; +IRON65TA PO; +KEFL500C17 PO; +KLON0.5T PO; +KLON1TAB PO; +KLON2TAB PO; -LIDOCAINE 2% INJ 100 MG/5 ML SDV (FOR ANES.) As Ordered; +LOPR1TAB6 PO; +LORT1TAB PO; +METF850T4 PO; +METH75TA PO; +METO50TA7 PO; +MINI1CAP PO; +MOTR200T44 PO; +NEUR100C PO; +NORC1TAB4 PO; +NORCOTAB PO; +NORT25CA2 PO; +NYST1POW9 TOP; +OMEP40CA2 PO; +OXYC1TAB23 PO; +PEPT262S PO; +PERC5TAB12 PO; +PHEN10TA PO; +POLY1POW4 PO; +PRIL20TA2 PO; +PRIL40CA PO; +PROAAER10 INH; -PROPOFOL 200 MG/20 ML VIAL As Ordered; +QUET1TAB8 PO; +QUET1TAB9 PO; +RANI150I2 PO; +RANI150T PO; +RANI15TA PO; +RANI1SYP PO; +RANI1TAB6 PO; +SALI0.6528; +SAPHRIS PO; +SENO8.6T10 PO; +SPIR1CAP INH; +SUCR1SS PO; +SUCR1TAB56 PO; +TIOT18INH INH; +TIZA2CAP PO; +TIZA2TA PO; +TRAZ1TAB14 PO; +TRAZ300T2 PO; +TYLE325T5 PO; +VALI10TA PO; +VALI5TAB PO; +VITA100066 PO; +VITA50005 PO; +VITA500T PO; +WELL100T PO; +ZOFR4TAB14 PO; +ZOFR4TAB16 PO; +ZONI25CA2 PO; +ZONI50CA PO; +[UNRECOGNIZED DRUG - OTHER]
--- NOTE | 2018-03-21 13:28 | REP ---
MR CERVICAL SPINE WITHOUT CONTRAST: HISTORY: Chronic migraine. COMPARISON: 03/08/2014. A disc bulge is present at the C3-4 level. There is minimal effacement of the thecal sac without spinal cord compression. Uncinate process hypertrophy is present in the left. This produces minimal narrowing of the left C3 neural foramen. The right C3 neural foramen is patent. A disc bulge is present at the C4-5 level. There is minimal effacement of the thecal sac without spinal cord compression. The C4 neural foramina are patent. A disc bulge is present at the C5-6 level. There is minimal effacement of the thecal sac without spinal cord compression. The C5 neural foramina are patent. A disc bulge and small right paracentral disc protrusion with associated osteophyte formation are present at the C6-7 level. There is mild effacement of the thecal sac without spinal cord compression. Bilateral uncinate process hypertrophy is present. This produces minimal and mild narrowing of the right and left C6 neural foramina respectively. There is no other disc bulge or herniation. The remaining neural foramina are patent. The spinal cord is normal in signal intensity. The C6-7 intervertebral disc is decreased in height consistent with disc degeneration. Normal signal intensity is present in the cervical vertebral bodies. IMPRESSION: There is cervical spondylosis at the C3-4 through C6-7 levels without spinal cord compression. The foraminal narrowing on the left at the C3-4 level is a new finding. Electronically Signed by Son Lundy MD 03/21/2018 01:37 P
--- NOTE | 2018-03-21 13:32 | REP ---
MR BRAIN WITHOUT AND WITH CONTRAST: HISTORY: Migraine headache. COMPARISON: CT 09/27/2017. There are no areas of abnormal signal intensity in the brain. There is no intraparenchymal hemorrhage, infarct, mass or midline shift. There is no abnormal enhancement. The ventricular system is normal in appearance. There is no extracerebral collection. The sinuses are clear. Several small areas of decreased signal intensity on T1 and T2-weighted images are present in the subgaleal soft tissue overlying the right parietal bone at the vertex. These represent calcifications. IMPRESSION: There is no intracranial lesion. Electronically Signed by Son Lundy MD 03/21/2018 01:36 P
== END ==
LOC: M PLARAD 09:21
PROVIDERS: ATTEND Psychiatry & Neurology Epilepsy
DX: G43.709 Chronic migraine without aura, not intractable, without status migrainosus (principal)

== ENCOUNTER 2018-07-26 10:16 | Emergency (ER) | payer MEDICARE, MEDICAID ==
[~2018-07-26] VITALS: Ht 167.6 cm; Wt 77.3 kg
[~2018-07-26 10:16] MED LIST changes: -AMLO10TA4 PO; +AMLO10TA5 PO; -GABA600T PO; +GABA600T4 PO; +HYDR-3715 PO; +NASA10TA2 PO; -NORC1TAB4 PO; +NORC1TAB7 PO; -NORCOTAB PO; -PHEN10TA PO; -POLY1POW4 PO; +POLY33503 PO; -ZONI50CA PO; +ZONI50CA11 PO
[2018-07-26] MEDS ORDERED: ACETAMINOPHEN TAB 650MG DOSE (2X325MG) PO ONE (11:00)
[2018-07-26] MEDS ORDERED: ONDANSETRON 4 MG ORAL DISINTEGRATING TAB (Q0162 PER 1MG) PO ONE (11:00)
[2018-07-26 12:14] VITALS: BP 126/75
--- NOTE | 2018-07-27 09:12 | REP ---
CT of the brain without IV contrast: Comparison is 09/27/2017. There is no subdural or epidural hematoma or other acute intracranial hemorrhage. There is no edema, mass effect or midline shift. Ventricles are normal size and midline. Cortical stripe is unremarkable. The visualized paranasal sinuses and mastoid air cells are clear. Impression: Negative CT study of the brain. There is no interval change. Electronically Signed by Brayan Rincon MD 07/26/2018 11:16 A
--- NOTE | 2018-07-27 09:13 | REP ---
Left ankle four views: Comparison is 12/18/2015. There is surgical fusion of the tibiotalar joint with surgical plate and surgical screw fixation. This is unchanged. There is a fracture of the distal shaft of the fibula. This is unchanged . The the fibulotalar joint is fused. These is unchanged. There is demineralization. There is no acute fracture. There are no lytic, blastic or destructive skeletal changes. Electronically Signed by Brayan Rincon MD 07/26/2018 11:51 A
--- NOTE | 2018-07-27 09:14 | REP ---
Left foot four views: Comparison is 01/19/2016. There is surgical fusion of the tibiotalar joint. This is unchanged. Mineralization and joint spaces otherwise are unremarkable. There is no fracture or dislocation. There is chronic periosteal reactive active change of the fourth digit metatarsal. This is unchanged and may be sequela of previous stress fracture. Impression: There is no interval change. No acute fracture or dislocation. Electronically Signed by Brayan Rincon MD 07/26/2018 11:54 A
== END 2018-07-26 12:31 | disposition home or self-care (01) ==
LOC: M ED 10:16
DX: S82.832G Other fracture of upper and lower end of left fibula, subsequent encounter for closed fracture with delayed healing (principal); Z98.1 Arthrodesis status; R42 Dizziness and giddiness; J44.9 Chronic obstructive pulmonary disease, unspecified; K21.9 Gastro-esophageal reflux disease without esophagitis; F17.210 Nicotine dependence, cigarettes, uncomplicated; F12.90 Cannabis use, unspecified, uncomplicated; Z79.51 Long term (current) use of inhaled steroids; Z79.899 Other long term (current) drug therapy; Z87.81 Personal history of (healed) traumatic fracture; Z88.9 Allergy status to unspecified drugs, medicaments and biological substances
CPT/HCPCS: 70450; 73610; 73630; 99284; Q0162

== ENCOUNTER 2018-09-23 15:54 | Emergency (ER) | payer MEDICARE, MEDICAID ==
[~2018-09-23] VITALS: Ht 167.6 cm; Wt 75.0 kg
[2018-09-23] MEDS ORDERED: METO1TAB87 PO (18:25)
[2018-09-23] MEDS ORDERED: SUCR1TAB56 (18:25)
[2018-09-23] MEDS ORDERED: QUET1TAB9 PO (18:25)
[2018-09-23] MEDS ORDERED: ACETAMINOPHEN 325 MG TAB PO ONE (18:45)
--- NOTE | 2018-09-23 19:36 | REPVR ---
EXAM: US Duplex Left Lower Extremity Veins, Limited EXAM DATE/TIME: 09/23/2018 6:57 PM CLINICAL HISTORY: 48 years old, female; Pain; Leg, lower; Left; Additional info: Calf pain, HX surgeries TECHNIQUE: Imaging protocol: Real-time Duplex ultrasound of the Left Lower Extremity with 2-D whaley scale, color Doppler flow and spectral waveform analysis. Limited exam focused on the left lower extremity veins. COMPARISON: US Duplex, Ext,LOWER veins,unilat 06/08/2016 1:34 PM FINDINGS: Left deep veins: Unremarkable. The common femoral, femoral, proximal profunda femoral and popliteal veins are patent without thrombus. Normal Doppler waveforms. Normal compressibility and/or augmentation response. Left superficial veins: Unremarkable. Saphenofemoral junction is patent without thrombus. Soft tissues: Unremarkable. IMPRESSION: No acute findings. No evidence of deep vein thrombosis. Electronically signed by: Solomon Baez On 09/23/2018 19:36:02 PM
[2018-09-23 19:56] LABS: BASO % 0.3 % (0.0-1.0); EOS # 0.2 10^3/uL (0.0-0.50); EOS % 2.4 % (0.0-3.0); LYMPH # 3.1 10^3/uL (1.5-4.5); LYMPH % 30.7 % (24.0-44.0); MEAN CORPUSCULAR HEMOGLOBIN 32.2 pg (27.0-33.0); MEAN CORPUSCULAR VOLUME 94.6 fl (80.0-96.0); MONO # 0.8 10^3/uL (0.0-0.8); MONO % 7.7 % (0.0-5.0); NEUTROPHILS # 5.8 10^3/uL (1.8-7.7); NEUTROPHILS % 58.7 % (36.0-66.0); PLATELET COUNT, AUTOMATED 230 10^3/uL (150-450); RED BLOOD COUNT 4.97 10^6/uL (4.00-5.40); WHITE BLOOD COUNT 9.9 10^3/uL (4.0-10.0)
[2018-09-23] MEDS ORDERED: ISOVUE-370 76% 100ML VIAL (Q9967) As Ordered ONE (20:57)
--- NOTE | 2018-09-23 22:11 | REPVR ---
EXAM: CTA Left Lower Extremity With Contrast EXAM DATE/TIME: 09/23/2018 9:03 PM CLINICAL HISTORY: 48 years old, female; Swelling, leg or foot; Prior surgery; Surgery date: Post-operative (0-2 days); Additional info: Cool foot, cyanosis, decr. Pulses, mult. Surgeries, hardwear TECHNIQUE: Imaging protocol: Axial CTA images of the Left lower extremity with intravenous contrast using CT angiography protocol. Coronal and sagittal reformatted images were created and reviewed. 3D rendering: MIP reconstructed images were created and reviewed. Radiation optimization: All CT scans at this facility use at least one of these dose optimization techniques: automated exposure control; mA and/or kV adjustment per patient size (includes targeted exams where dose is matched to clinical indication); or iterative reconstruction. Contrast material: ISOVUE 370; Contrast volume: 100 ml; Contrast route: IV; COMPARISON: No relevant prior studies available. FINDINGS: Left femoral/popliteal arteries: No occlusion or significant stenosis. Left infrapopliteal arteries: Distal peroneal, anterior tibial and posterior tibial arteries not opacified by contrast media was related to nonfilling and technical factors relating to timing of the bolus. Bones/joints: No acute fracture. No dislocation. Soft tissues: Unremarkable. IMPRESSION: No significant atherosclerosis or occlusion. Nonfilling of the distal calf arteries considered to be technical as described above. Electronically signed by: Solomon Baez On 09/23/2018 22:11:16 PM
[2018-09-23 22:49] VITALS: BP 118/79
--- NOTE | 2018-09-24 10:39 | ED PDOC ---
Post-Departure Follow-Up jeremiah white faxed formal report of cta lower extrem for fu Mateo Oneill MD Sep 24, 2018 10:39
== END 2018-09-23 22:54 | disposition home or self-care (01) ==
LOC: M ED 15:54
DX: M79.605 Pain in left leg (principal); E78.5 Hyperlipidemia, unspecified; J44.9 Chronic obstructive pulmonary disease, unspecified; F17.210 Nicotine dependence, cigarettes, uncomplicated; Z79.51 Long term (current) use of inhaled steroids; Z79.899 Other long term (current) drug therapy; Z88.8 Allergy status to other drugs, medicaments and biological substances; Z91.81 History of falling
CPT/HCPCS: 73706; 80047; 85025; 85379; 93971; 99284; Q9967

== ENCOUNTER → 2018-10-17 | Outpatient (CLI) | payer MEDICARE, MEDICAID ==
[~2018-10-17] MED LIST changes: +CLON0.5T2 PO; -CLON0.5T8 PO; -DULO1CAP3 PO; +DULO1CAP6 PO; +METH750T2 PO; -METH75TA PO; +METO1TAB87 PO; -OMEP40CA2 PO; +OMEP40CA97 PO; -QUET1TAB9 PO; +QUET200T2 PO; +RANI-397 PO; -RANI1TAB6 PO; +SUCR1TAB56; +ZONI25CA13 PO; -ZONI25CA2 PO
--- NOTE | 2018-10-17 12:47 | REP ---
MRI LEFT LOWER LEG: TECHNIQUE: Multiple sequences obtained in the axial, coronal and sagittal planes without the use of intravenous contrast material. There is evidence of an old healed fracture of the distal tibia with metallic internal fixation at that location. Old fracture of the distal fibula is again seen. There is no acute marrow edema involving any portion of the tibia or fibula. On STIR images, there is mild diffuse edema in the muscles of the anterolateral muscle compartment including the tibialis anterior, extensor hallucis longus and extensor digitorum longus muscles as well as the peroneus longus muscle. This edema extends throughout the lower leg. Similar subtle mild diffuse edema is seen involving the inferior soleus muscle, in the mid to distal lower leg. No fluid collection or cyst is seen. IMPRESSION: Diffuse muscle edema involving the muscles of the anterolateral compartment as discussed above, as well as the soleus muscle in the mid to inferior aspect of the lower leg. Differential diagnosis would include denervation or myositis. There are old fractures of the distal tibia and fibula with no acute marrow edema. Electronically Signed by Brayan Lomeli MD 10/20/2018 01:02 P
== END ==
LOC: M PLARAD 08:39
PROVIDERS: ATTEND Orthopaedic Surgery
DX: R60.0 Localized edema (principal); M25.572 Pain in left ankle and joints of left foot; M19.072 Primary osteoarthritis, left ankle and foot; G57.32 Lesion of lateral popliteal nerve, left lower limb; Z87.81 Personal history of (healed) traumatic fracture

== ENCOUNTER → 2019-03-10 | Outpatient (REF) | payer MEDICARE, MEDICAID ==
[~2019-03-10] MED LIST changes: -ZONI25CA13 PO; +ZONI25CA2 PO
[2019-03-10 12:42] LABS: HEMATOCRIT 49.1 % (36.0-47.0); HEMOGLOBIN 15.8 g/dl (12.0-15.5); MEAN CORPUSCULAR HEMOGLOBIN 31.5 pg (27.0-33.0); MEAN CORPUSCULAR HGB CONC 32.2 g/dl (32.0-36.5); MEAN CORPUSCULAR VOLUME 97.8 fl (80.0-96.0); PLATELET COUNT, AUTOMATED 206 10^3/uL (150-450); RED BLOOD COUNT 5.02 10^6/uL (4.00-5.40); WHITE BLOOD COUNT 8.9 10^3/uL (4.0-10.0)
[2019-03-10 13:19] LABS: ALBUMIN 3.8 GM/DL (3.2-5.2); ALT/SGPT 24 U/L (12-78); BILIRUBIN,TOTAL 0.3 MG/DL (0.2-1.0); BLOOD UREA NITROGEN 9 MG/DL (7-18); CALCIUM LEVEL 9.5 MG/DL (8.5-10.1); CARBON DIOXIDE LEVEL 30 MEQ/L (21-32); CHLORIDE LEVEL 105 MEQ/L (98-107); CHOLESTEROL LEVEL 215 MG/DL (<200); CHOLESTEROL RISK RATIO 5.512 (<5); CREATININE FOR GFR 0.68 MG/DL (0.55-1.30); FREE T4 0.62 NG/DL (0.76-1.46); GLOMERULAR FILTRATION RATE > 60.0 (>58); GLUCOSE, FASTING 77 MG/DL (70-100); HDL CHOLESTEROL 39 MG/DL (>40); LDL CHOLESTEROL 113 MG/DL (<100); NON-HDL-C 176 MG/DL; POTASSIUM SERUM 4.8 MEQ/L (3.5-5.1); SODIUM LEVEL 141 MEQ/L (136-145); TOTAL PROTEIN 7.5 GM/DL (6.4-8.2); TRIGLYCERIDES LEVEL 315 MG/DL (<150)
[2019-03-10 13:39] LABS: MALB URINE SIEMENS 7.1 MG/L; MAU/CREAT RATIO 8.4 MCG/MG (0.0-30.0)
[2019-03-10 13:40] LABS: HEMOGLOBIN A1c 5.4 %
== END ==
LOC: M SFHCADAM 09:22
PROVIDERS: ATTEND Physician Assistant
DX: F32.1 Major depressive disorder, single episode, moderate (principal); F17.210 Nicotine dependence, cigarettes, uncomplicated; E11.9 Type 2 diabetes mellitus without complications; E78.1 Pure hyperglyceridemia; J44.9 Chronic obstructive pulmonary disease, unspecified; Z23 Encounter for immunization
CPT/HCPCS: 80053; 80061; 82043; 83036; 84439; 84443; 85027; 90682; 99406; G0008; G0463

== ENCOUNTER 2019-05-13 01:05 | Inpatient (IN) | payer MEDICARE, MEDICAID ==
[~2019-05-13] VITALS: Ht 167.6 cm; Wt 72.8 kg
[~2019-05-13 01:05] MED LIST changes: +QUET100T2 PO; -QUET1TAB8 PO; -SUCR1TAB56; +ZONI25CA13 PO; -ZONI25CA2 PO
[2019-05-13 03:25] LABS: BASO # 0.1 10^3/uL (0.0-0.2); BASO % 0.4 % (0.0-1.0); EOS # 0.3 10^3/uL (0.0-0.5); EOS % 2.4 % (0.0-3.0); HEMATOCRIT 43.5 % (36.0-47.0); HEMOGLOBIN 14.4 g/dl (12.0-15.5); LYMPH # 2.7 10^3/uL (1.5-5.0); LYMPH % 21.3 % (24.0-44.0); MEAN CORPUSCULAR HEMOGLOBIN 31.5 pg (27.0-33.0); MEAN CORPUSCULAR HGB CONC 33.1 g/dl (32.0-36.5); MEAN CORPUSCULAR VOLUME 95.2 fl (80.0-96.0); MONO # 0.8 10^3/uL (0.0-0.8); NEUTROPHILS # 8.9 10^3/uL (1.5-8.5); NEUTROPHILS % 69.4 % (36.0-66.0); PLATELET COUNT, AUTOMATED 227 10^3/uL (150-450); RED BLOOD COUNT 4.57 10^6/uL (4.00-5.40); WHITE BLOOD COUNT 12.9 10^3/uL (4.0-10.0)
[2019-05-13] MEDS ORDERED: GASTROGRAFIN SOLUTION 30ML (Q9963) As Ordered ONE (03:55)
[2019-05-13 04:04] LABS: ALBUMIN 3.9 GM/DL (3.2-5.2); ALT/SGPT 21 U/L (12-78); BILIRUBIN,DIRECT < 0.1 MG/DL (0.0-0.2); BILIRUBIN,TOTAL 0.3 MG/DL (0.2-1.0); LIPASE 324 U/L (73-393); TOTAL PROTEIN 7.3 GM/DL (6.4-8.2)
[2019-05-13] MEDS: GASTROGRAFIN SOLUTION 30ML PO SCH ×2 (04:04→04:34)
[2019-05-13] MEDS ORDERED: ISOVUE-370 76% 100ML VIAL (Q9967) As Ordered ONE (05:33)
[2019-05-13] MEDS ORDERED: ONDANSETRON 4MG/2ML VIAL (J2405) IV ONE (06:00)
[2019-05-13] MEDS: MORPHINE 4 MG/ML 1ML VIAL/SYRINGE (J2270) IV PRN ×2 (06:23→10:05)
--- NOTE | 2019-05-13 06:35 | REPVR ---
PROCEDURE INFORMATION: Exam: CT Abdomen And Pelvis With Contrast Exam date and time: 05/13/2019 3:41 AM Age: 49 years old Clinical indication: Abdominal pain; Localized; Right; Additional info: Right sided abd pain, HX of gastric bypass TECHNIQUE: Imaging protocol: Computed tomography of the abdomen and pelvis with intravenous contrast. Radiation optimization: All CT scans at this facility use at least one of these dose optimization techniques: automated exposure control; mA and/or kV adjustment per patient size (includes targeted exams where dose is matched to clinical indication); or iterative reconstruction. Contrast material: ISO; Contrast volume: 100 ml; Contrast route: AC; Other contrast: Route: Oral, Material: GGRAPHIN, Volume: 600; COMPARISON: CT ABD/PEL W/IV ORAL CONTRAS 07/16/2017 8:44 PM FINDINGS: Liver: The liver at mid clavicular line measures 15.4 cm. Gallbladder and bile ducts: Normal. No calcified stones. No ductal dilation. Pancreas: Normal. No ductal dilation. Spleen: Normal. No splenomegaly. Adrenals: Normal. No mass. Kidneys and ureters: Normal. No hydronephrosis. Stomach and bowel: There has been gastric bypass with collapse of the bypassed stomach. There is a left upper quadrant Tavo-en-Y. There is colonic diverticulosis without evidence of diverticulitis. Appendix: A normal appendix is seen. Intraperitoneal space: See Stomach And Bowel Finding. Vasculature: There is an IVC filter in position. Lymph nodes: Unremarkable. No enlarged lymph nodes. Bladder: Unremarkable as visualized. Reproductive: Status post hysterectomy. Bones/joints: Degenerative changes of the lumbar spine. Soft tissues: Unremarkable. IMPRESSION: 1. Interval gastric bypass since 07/16/2017. There has otherwise been little change. 2. IVC filter in position. 3. Colonic diverticulosis without diverticulitis. 4. Status post hysterectomy. Electronically signed by: Tigre Chou On 05/13/2019 06:35:28 AM
[2019-05-13] MEDS ORDERED: VITMTA PO (07:33)
[2019-05-13] MEDS ORDERED: DULO60CA35 PO (07:33)
[2019-05-13] MEDS ORDERED: OMEP-221 PO (07:33)
[2019-05-13] MEDS ORDERED: BUPR50TA PO (07:33)
[2019-05-13] MEDS ORDERED: CYAN100049 PO (07:33)
[2019-05-13] MEDS ORDERED: PROAAER10 INH (07:33)
[2019-05-13] MEDS ORDERED: SPIR1CAP INH (07:33)
[2019-05-13] MEDS ORDERED: VITA100054 PO (07:33)
[2019-05-13] MEDS ORDERED: ALBUTEROL SULFATE 2.5 MG/0.5 ML INH NEB SOLN NEB PRN (08:45)
[2019-05-13] MEDS ORDERED: ACETAMINOPHEN TAB 650MG DOSE (2X325MG) PO PRN (08:45)
[2019-05-13] MEDS: buPROPion 100 MG TAB PO SCH ×2 (09:00→20:26)
[2019-05-13] MEDS: SUCRALFATE 1 GM TAB PO SCH ×2 (10:06→17:13)
[2019-05-13] MEDS: DULoxetine 30 MG CAP (CYMBALTA) PO SCH ×2 (10:06→20:27)
[2019-05-13] MEDS: VITAMIN D 1,000 INTERNATIONAL UNITS TABLET PO SCH (10:06)
[2019-05-13] MEDS: MULTIVITAMINS/MINERALS THERAP 1 TAB PO SCH (10:06)
[2019-05-13] MEDS: CYANOCOBALAMIN 500 MCG TAB PO SCH (10:06)
[2019-05-13] MEDS: OMEPRAZOLE 20 MG CAP PO SCH ×2 (10:07→20:25)
[2019-05-13] MEDS: METOPROLOL TART 25 MG TABLET PO SCH ×2 (10:07→20:27)
[2019-05-13] MEDS: TIOTROPIUM INHALER/CAPSULE (SPIRIVA) INH SCH (12:20)
[2019-05-13 12:30] VITALS: BP 118/77
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
[2019-05-13 14:00] VITALS: BP 120/78
[2019-05-13] MEDS ORDERED: oxyCODONE 5MG TAB PO ONE (14:30)
[2019-05-13] MEDS: QUEtiapine FUMARATE 200 MG TAB PO SCH (20:26)
[2019-05-13] MEDS: oxyCODONE 5MG TAB PO PRN (20:27)
[2019-05-13 22:00] VITALS: BP 129/83
[2019-05-14 05:58] LABS: HEMATOCRIT 43.2 % (36.0-47.0); HEMOGLOBIN 13.8 g/dl (12.0-15.5); MEAN CORPUSCULAR HGB CONC 31.9 g/dl (32.0-36.5); MEAN CORPUSCULAR VOLUME 97.1 fl (80.0-96.0); PLATELET COUNT, AUTOMATED 206 10^3/uL (150-450); RED BLOOD COUNT 4.45 10^6/uL (4.00-5.40); WHITE BLOOD COUNT 7.7 10^3/uL (4.0-10.0)
[2019-05-14 06:00] VITALS: BP 120/81
[2019-05-14 06:31] LABS: ALBUMIN 3.5 GM/DL (3.2-5.2); ALT/SGPT 19 U/L (12-78); BILIRUBIN,TOTAL 0.6 MG/DL (0.2-1.0); BLOOD UREA NITROGEN 7 MG/DL (7-18); CALCIUM LEVEL 9.2 MG/DL (8.5-10.1); CARBON DIOXIDE LEVEL 33 MEQ/L (21-32); CHLORIDE LEVEL 109 MEQ/L (98-107); CREATININE FOR GFR 0.63 MG/DL (0.55-1.30); GLOMERULAR FILTRATION RATE > 60.0 (>51); GLUCOSE, FASTING 87 MG/DL (70-100); POTASSIUM SERUM 4.2 MEQ/L (3.5-5.1); SODIUM LEVEL 143 MEQ/L (136-145); TOTAL PROTEIN 7.1 GM/DL (6.4-8.2)
[2019-05-14] MEDS: TIOTROPIUM INHALER/CAPSULE (SPIRIVA) INH SCH (07:10)
[2019-05-14] MEDS: MULTIVITAMINS/MINERALS THERAP 1 TAB PO SCH (08:37)
[2019-05-14] MEDS: oxyCODONE 5MG TAB PO PRN ×4 (08:38→23:56)
[2019-05-14] MEDS: VITAMIN D 1,000 INTERNATIONAL UNITS TABLET PO SCH (08:38)
[2019-05-14] MEDS: buPROPion 100 MG TAB PO SCH ×2 (08:39→20:07)
[2019-05-14] MEDS: OMEPRAZOLE 20 MG CAP PO SCH ×2 (08:39→20:07)
[2019-05-14] MEDS: DULoxetine 30 MG CAP (CYMBALTA) PO SCH ×2 (08:39→20:06)
[2019-05-14] MEDS: METOPROLOL TART 25 MG TABLET PO SCH ×2 (08:39→20:06)
[2019-05-14] MEDS: CYANOCOBALAMIN 500 MCG TAB PO SCH (08:39)
[2019-05-14] MEDS: SUCRALFATE 1 GM TAB PO SCH ×2 (08:39→17:26)
--- NOTE | 2019-05-14 09:12 | IPNPDOC ---
Subjective Date Seen The patient was seen on 05/14/19. Subjective Chief Complaint/HPI BRBPR Events since last encounter c/o RUQ pain this am. Has hx if hernia repair in the region per patient report. denies any further rectal bleeding Constitutional: Denies: Chills, Fever, Night Sweats Pulmonary: Denies: Dyspnea, Cough Cardiovascular: Denies: Chest Pain, Palpitations, Orthopnea, Paroxysmal Noc. Dyspnea, Lt Headedness Gastrointestinal: Reports: Abdominal Pain; Denies: Nausea, Vomiting, Diarrhea, Constipation Objective Physical Examination General Exam: Positive: Alert, No Acute Distress, Other (obese) Eye Exam: Positive: PERRLA, Conjunctiva & lids normal, EOMI; Negative: Sclera icteric ENT Exam: Positive: Atraumatic, Mucous membr. moist/pink, Pharynx Normal Neck Exam: Positive: Supple; Negative: JVD, thyromegaly Chest Exam: Positive: Clear to auscultation, Normal air movement Heart Exam: Positive: Rate Normal, Regular Rhythm, Normal S1, Normal S2; Negative: Murmurs, Rubs Abdomen Exam: Positive: Normal bowel sounds, Soft; Negative: Tenderness (reports pain while I am speaking with her but her exam was benign with no pain on deep palpation, no rebound or involuntary guarding), Hepatospenomegaly Extremity Exam: Positive: Normal pulses; Negative: Clubbing, Cyanosis, Edema Skin Exam: Positive: Nl turgor and temperature, Other skin issue (has desitin in abdominal skin folds and mild erythema around belly button); Negative: Breakdown, Lesion Neuro Exam: Positive: Normal Gait, Normal Speech, Cranial Nerves 3-12 NL, Reflexes 2+ Psych Exam: Positive: Mental status NL, Mood NL, Anxiety, Oriented x 3 Assessment /Plan Problems (1) Abdominal pain Status: Acute Problem Text: eval US for RUQ pain, if negative, consider DC home with GI and general surgery f/u. (2) HTN (hypertension) Status: Chronic Response to Treatment: Stable Problem Text: continue metoprolol (3) GERD (gastroesophageal reflux disease) Status: Chronic Problem Text: Pantoprazole 40 mg po bid (4) Diabetes Status: Chronic Problem Text: monitor glucose. Las [id number] 5.3. controlled with diet (5) Bipolar disorder Status: Chronic Problem Text: continue seroquel and duloxetine Plan/VTE VTE Prophylaxis Ordered?: Yes VS, I&O, 24H, Fishbone Vital Signs/I&O Vital Signs Date Time Temp Pulse Resp B/P (MAP) Pulse Ox O2 Delivery O2 Flow Rate FiO2 05/14/19 08:39 83 126/74 05/14/19 08:38 18 Room Air 05/14/19 06:00 97.6 97 I&O- Last 24 Hours up to 6 AM 05/14/19 06:00 Intake Total 960 ml Output Total 700 ml Balance 260 ml Laboratory Data 24H LABS Laboratory Tests 2 05/14/19 05:35: Nucleated Red Blood Cells % (auto) 0.0, Anion Gap 1L, Glomerular Filtration Rate > 60.0, Calcium Level 9.2, Total Bilirubin 0.6#, Aspartate Amino Transf (AST/SGOT) 19, Alanine Aminotransferase (ALT/SGPT) 19, Alkaline Phosphatase 99, Total Protein 7.1, Albumin 3.5, Albumin/Globulin Ratio 0.97L CBC/BMP Laboratory Tests 05/14/19 05:35 Microbiology Microbiology 05/14/19 Stool Occult Blood (MARCIO), Received Pending 05/14/19 Gastrointestinal Tract Panel (PCR), Received Pending 05/13/19 Urine Culture - Final, Complete Ashlyn Malhotra COOKER SULFITE May 14, 2019 09:12
[2019-05-14 14:00] VITALS: BP 122/74
[2019-05-14] MEDS: NS 1,000 ML IV SCH (17:26)
--- NOTE | 2019-05-14 20:36 | REP ---
Clinical: Right upper quadrant pain. Technique: Real time whaley scale ultrasound examination using curved array transducer. Findings: Liver and pancreas are normal in contour, size, echogenicity without focal hepatic or pancreatic lesion identified. The gallbladder is normal and without gallstones, wall thickening, or pericholecystic fluid. No sonographic Foster's sign elicited. No biliary ductal dilatation is appreciated and the common bile duct measures 4.3 mm diameter. Right kidney is normal in reniform shape without hydronephrosis and measures 12.3 x 5.0 x 4.4 cm. No ascites. Impression: Normal right upper quadrant/limited abdominal ultrasound. Electronically Signed by Raghavendra Chavarria MD 05/14/2019 08:28 P
[2019-05-14 22:00] VITALS: BP 131/88
[2019-05-14] MEDS: QUEtiapine FUMARATE 200 MG TAB PO SCH ×2 (22:31→22:32)
[2019-05-15] MEDS: NS 1,000 ML IV SCH (03:15)
[2019-05-15 06:00] VITALS: BP 138/90
[2019-05-15 06:15] LABS: HEMATOCRIT 42.9 % (36.0-47.0); HEMOGLOBIN 13.9 g/dl (12.0-15.5); MEAN CORPUSCULAR HEMOGLOBIN 31.3 pg (27.0-33.0); MEAN CORPUSCULAR HGB CONC 32.4 g/dl (32.0-36.5); MEAN CORPUSCULAR VOLUME 96.6 fl (80.0-96.0); PLATELET COUNT, AUTOMATED 188 10^3/uL (150-450); RED BLOOD COUNT 4.44 10^6/uL (4.00-5.40); WHITE BLOOD COUNT 7.2 10^3/uL (4.0-10.0)
[2019-05-15 06:43] LABS: ALBUMIN 3.6 GM/DL (3.2-5.2); ALT/SGPT 22 U/L (12-78); BILIRUBIN,TOTAL 0.6 MG/DL (0.2-1.0); BLOOD UREA NITROGEN 11 MG/DL (7-18); CALCIUM LEVEL 9.2 MG/DL (8.5-10.1); CARBON DIOXIDE LEVEL 33 MEQ/L (21-32); CHLORIDE LEVEL 106 MEQ/L (98-107); CREATININE FOR GFR 0.68 MG/DL (0.55-1.30); GLOMERULAR FILTRATION RATE > 60.0 (>51); GLUCOSE, FASTING 78 MG/DL (70-100); POTASSIUM SERUM 3.7 MEQ/L (3.5-5.1); SODIUM LEVEL 141 MEQ/L (136-145); TOTAL PROTEIN 7.2 GM/DL (6.4-8.2)
[2019-05-15] MEDS: TIOTROPIUM INHALER/CAPSULE (SPIRIVA) INH SCH (07:41)
[2019-05-15] MEDS: SUCRALFATE 1 GM TAB PO SCH (07:56)
[2019-05-15] MEDS: oxyCODONE 5MG TAB PO PRN (07:56)
[2019-05-15] MEDS: VITAMIN D 1,000 INTERNATIONAL UNITS TABLET PO SCH (08:00)
[2019-05-15] MEDS: MULTIVITAMINS/MINERALS THERAP 1 TAB PO SCH (08:01)
[2019-05-15] MEDS: CYANOCOBALAMIN 500 MCG TAB PO SCH (08:01)
[2019-05-15] MEDS: DULoxetine 30 MG CAP (CYMBALTA) PO SCH (08:01)
[2019-05-15] MEDS: buPROPion 100 MG TAB PO SCH (08:01)
[2019-05-15 08:02] VITALS: BP 138/90
[2019-05-15] MEDS: METOPROLOL TART 25 MG TABLET PO SCH (08:02)
[2019-05-15] MEDS: OMEPRAZOLE 20 MG CAP PO SCH (08:02)
--- NOTE | 2019-05-15 11:09 | DSES ---
DATE OF ADMISSION: 05/13/2019 DATE OF DISCHARGE: 05/15/2019 PRIMARY CARE PHYSICIAN: Dr. Adarsh Ivey ATTENDING TODAY: Candy Butler DO HISTORY: This is a 49-year-old female patient who presented to [facility] emergency room complaining of abdominal pain who noted that she had right lower quadrant pain and bright red blood per rectum times one day with longstanding history of hemorrhoids. The patient was admitted to the hospital for lower GI bleeding and monitoring. Her hemoglobin was stable on admission and remained stable throughout. She was continued on her home proton pump inhibitor (PPI). She has had no further bright red blood stools and her abdominal pain is improved. She was getting oxycodone during her hospitalization which will be discontinued as she is not on this as an outpatient. 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 DISCHARGE DIAGNOSES: Abdominal pain with reported lower gastrointestinal (GI) bleeding with stable hemoglobin. Hypertension. Gastroesophageal reflux disease (GERD). Bipolar disorder. DISCHARGE MEDICATIONS: Include: - albuterol sulfate two puffs inhaled four times daily as needed for shortness of breath (SOB) - bupropion 100 mg twice a day - vitamin D 2000 units daily - vitamin B12 2000 mcg daily - duloxetine 60 mg twice a day - metoprolol 25 mg twice a day - multivitamin two tablets daily - omeprazole 40 mg twice a day - Seroquel 400 mg by mouth at bedtime - Carafate 1 gram by mouth twice a day - Spiriva one inhalation daily DISCHARGE PLAN: Followup with Dr. Ivey in 5-7 days. Activity should be as tolerated. Diet should be regular. edited: 05/19/2019 0747 tkf MTDD
== END 2019-05-15 11:00 | disposition home or self-care (01) | DRG 379 ==
LOC: M ED 01:05 → M ED INP 08:33 → ENRESERV 12:21 → M MSPAV 12:41
PROVIDERS: ADMIT Internal Medicine; ATTEND Family Medicine
DX: K92.2 Gastrointestinal hemorrhage, unspecified (principal); K64.9 Unspecified hemorrhoids; F31.9 Bipolar disorder, unspecified; F41.9 Anxiety disorder, unspecified; Z91.5 Personal history of self-harm; D72.829 Elevated white blood cell count, unspecified; Z79.899 Other long term (current) drug therapy; Z88.8 Allergy status to other drugs, medicaments and biological substances; Z87.828 Personal history of other (healed) physical injury and trauma; G43.909 Migraine, unspecified, not intractable, without status migrainosus; Z86.711 Personal history of pulmonary embolism; K76.0 Fatty (change of) liver, not elsewhere classified; Z98.84 Bariatric surgery status; Z90.79 Acquired absence of other genital organ(s); Z87.891 Personal history of nicotine dependence; J44.9 Chronic obstructive pulmonary disease, unspecified; I10 Essential (primary) hypertension; K21.9 Gastro-esophageal reflux disease without esophagitis; E11.9 Type 2 diabetes mellitus without complications

== ENCOUNTER 2019-05-23 23:28 | Inpatient (IN) | payer MEDICARE, MEDICAID ==
[~2019-05-23] VITALS: Ht 167.6 cm; Wt 72.7 kg
[~2019-05-23 23:28] MED LIST changes: +BUPR50TA PO; +CYAN100049 PO; +DULO60CA35 PO; +OMEP-221 PO; +VITA100054 PO; +VITMTA PO
[2019-05-24 00:37] LABS: BASO % 0.3 % (0.0-1.0); EOS # 0.3 10^3/uL (0.0-0.5); EOS % 2.9 % (0.0-3.0); HEMATOCRIT 41.9 % (36.0-47.0); HEMOGLOBIN 13.9 g/dl (12.0-15.5); LYMPH # 2.7 10^3/uL (1.5-5.0); MEAN CORPUSCULAR HEMOGLOBIN 31.7 pg (27.0-33.0); MEAN CORPUSCULAR HGB CONC 33.2 g/dl (32.0-36.5); MEAN CORPUSCULAR VOLUME 95.7 fl (80.0-96.0); MONO # 0.8 10^3/uL (0.0-0.8); MONO % 7.7 % (0.0-5.0); NEUTROPHILS # 6.3 10^3/uL (1.5-8.5); NEUTROPHILS % 61.7 % (36.0-66.0); PLATELET COUNT, AUTOMATED 212 10^3/uL (150-450); RED BLOOD COUNT 4.38 10^6/uL (4.00-5.40); WHITE BLOOD COUNT 10.2 10^3/uL (4.0-10.0)
[2019-05-24] MEDS: GASTROGRAFIN SOLUTION 30ML PO SCH ×2 (01:06→02:07)
[2019-05-24] MEDS: MORPHINE 4 MG/ML 1ML VIAL/SYRINGE (J2270) IV PRN ×2 (01:21→06:10)
[2019-05-24 01:28] LABS: INR 0.95; PROTHROMBIN TIME 12.4 SECONDS (11.8-14.0)
[2019-05-24] MEDS ORDERED: ONDANSETRON 4MG/2ML VIAL (J2405) IV ONE (01:30)
[2019-05-24 01:44] LABS: ALBUMIN 3.5 GM/DL (3.2-5.2); ALT/SGPT 21 U/L (12-78); BILIRUBIN,DIRECT < 0.1 MG/DL (0.0-0.2); BILIRUBIN,TOTAL 0.2 MG/DL (0.2-1.0); BLOOD UREA NITROGEN 9 MG/DL (7-18); CALCIUM LEVEL 8.3 MG/DL (8.5-10.1); CARBON DIOXIDE LEVEL 27 MEQ/L (21-32); CHLORIDE LEVEL 108 MEQ/L (98-107); CREATININE FOR GFR 0.67 MG/DL (0.55-1.30); GLOMERULAR FILTRATION RATE > 60.0 (>51); GLUCOSE, FASTING 83 MG/DL (70-100); LIPASE 218 U/L (73-393); POTASSIUM SERUM 3.7 MEQ/L (3.5-5.1); SODIUM LEVEL 143 MEQ/L (136-145); TOTAL PROTEIN 6.5 GM/DL (6.4-8.2)
[2019-05-24] MEDS ORDERED: ISOVUE-370 76% 100ML VIAL (Q9967) As Ordered ONE (02:49)
--- NOTE | 2019-05-24 03:53 | REPVR ---
PROCEDURE INFORMATION: Exam: CT Abdomen And Pelvis With Contrast Exam date and time: 05/24/2019 3:02 AM Age: 49 years old Clinical indication: Abdominal pain; Epigastric; Additional info: Epigastric pain, HX of gastric bypass, hematachezia TECHNIQUE: Imaging protocol: Computed tomography of the abdomen and pelvis with intravenous contrast. Radiation optimization: All CT scans at this facility use at least one of these dose optimization techniques: automated exposure control; mA and/or kV adjustment per patient size (includes targeted exams where dose is matched to clinical indication); or iterative reconstruction. Contrast material: ISOVUE 370; Contrast volume: 100 ml; Contrast route: IV; COMPARISON: CT ABD/PEL W/IV ORAL CONTRAS 05/13/2019 5:52 AM FINDINGS: Liver: Normal. No mass. Gallbladder and bile ducts: Normal. No calcified stones. No ductal dilation. Pancreas: Normal. No ductal dilation. Spleen: Normal. No splenomegaly. Adrenals: Normal. No mass. Kidneys and ureters: Normal. No hydronephrosis. Stomach and bowel: Changes from prior bariatric surgery are noted. There is mild colonic diverticulosis without evidence of diverticulitis. Moderate amount of fecal material in the sigmoid colon and rectum. No bowel obstruction. The small bowel is unremarkable. Appendix: No evidence of appendicitis. Intraperitoneal space: Unremarkable. No free air. No significant fluid collection. Vasculature: IVC filter in expected location. Lymph nodes: Unremarkable. No enlarged lymph nodes. Bladder: Unremarkable as visualized. Reproductive: Unremarkable as visualized. Bones/joints: There are degenerative changes in the spine and pelvis. Soft tissues: Unremarkable. IMPRESSION: 1. Changes of previous bariatric surgery. No bowel obstruction or inflammatory process. 2. Colonic diverticulosis without evidence of diverticulitis. 3. No acute findings. Electronically signed by: Jason Márquez On 05/24/2019 03:52:37 AM
[2019-05-24] MEDS ORDERED: METHOCARBAMOL 1,000 MG/10 ML VIAL (J2800) IV ONE (04:15)
[2019-05-24] MEDS ORDERED: VITAD1000T PO (06:43)
[2019-05-24] MEDS ORDERED: ACET1TAB55 PO (06:43)
[2019-05-24] MEDS ORDERED: ACETAMINOPHEN TAB 650MG DOSE (2X325MG) PO PRN (08:30)
[2019-05-24] MEDS: CYANOCOBALAMIN 500 MCG TAB PO SCH (09:23)
[2019-05-24] MEDS: VITAMIN D 1,000 INTERNATIONAL UNITS TABLET PO SCH (09:23)
[2019-05-24] MEDS: MULTIVITAMINS/MINERALS THERAP 1 TAB PO SCH (09:23)
[2019-05-24] MEDS: METOPROLOL TART 25 MG TABLET PO SCH ×2 (09:23→21:06)
[2019-05-24] MEDS: SUCRALFATE 1 GM TAB PO SCH ×2 (09:24→21:05)
[2019-05-24] MEDS: oxyCODONE 5MG TAB PO PRN ×4 (09:39→22:36)
[2019-05-24 10:45] VITALS: BP 113/78
[2019-05-24] MEDS: buPROPion 100 MG TAB PO SCH ×2 (11:02→21:05)
[2019-05-24] MEDS: TIOTROPIUM INHALER/CAPSULE (SPIRIVA) INH SCH (12:05)
[2019-05-24 14:00] VITALS: BP 136/81
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
[2019-05-24] MEDS: QUEtiapine FUMARATE 200 MG TAB PO SCH ×2 (21:06→22:35)
[2019-05-24 22:00] VITALS: BP 132/80
[2019-05-24] MEDS: OMEPRAZOLE 20 MG CAP PO SCH (22:02)
[2019-05-24] MEDS: DULoxetine 30 MG CAP (CYMBALTA) PO SCH (22:02)
[2019-05-25] MEDS: oxyCODONE 5MG TAB PO PRN ×5 (05:34→22:11)
[2019-05-25 06:00] VITALS: BP 122/80
[2019-05-25 06:15] LABS: HEMATOCRIT 44.3 % (36.0-47.0); MEAN CORPUSCULAR HEMOGLOBIN 32.7 pg (27.0-33.0); MEAN CORPUSCULAR HGB CONC 33.9 g/dl (32.0-36.5); MEAN CORPUSCULAR VOLUME 96.5 fl (80.0-96.0); PLATELET COUNT, AUTOMATED 258 10^3/uL (150-450); RED BLOOD COUNT 4.59 10^6/uL (4.00-5.40); WHITE BLOOD COUNT 11.1 10^3/uL (4.0-10.0)
[2019-05-25 07:00] LABS: BLOOD UREA NITROGEN 8 MG/DL (7-18); CALCIUM LEVEL 9.6 MG/DL (8.5-10.1); CARBON DIOXIDE LEVEL 32 MEQ/L (21-32); CHLORIDE LEVEL 105 MEQ/L (98-107); CREATININE FOR GFR 0.74 MG/DL (0.55-1.30); GLOMERULAR FILTRATION RATE > 60.0 (>51); GLUCOSE, FASTING 100 MG/DL (70-100); POTASSIUM SERUM 3.8 MEQ/L (3.5-5.1); SODIUM LEVEL 140 MEQ/L (136-145)
[2019-05-25] MEDS: TIOTROPIUM INHALER/CAPSULE (SPIRIVA) INH SCH (08:03)
[2019-05-25] MEDS: MULTIVITAMINS/MINERALS THERAP 1 TAB PO SCH (08:20)
[2019-05-25] MEDS: VITAMIN D 1,000 INTERNATIONAL UNITS TABLET PO SCH (08:20)
[2019-05-25] MEDS: OMEPRAZOLE 20 MG CAP PO SCH ×2 (08:20→20:54)
[2019-05-25] MEDS: METOPROLOL TART 25 MG TABLET PO SCH ×2 (08:21→20:53)
[2019-05-25] MEDS: DULoxetine 30 MG CAP (CYMBALTA) PO SCH ×2 (08:21→20:52)
[2019-05-25] MEDS: buPROPion 100 MG TAB PO SCH ×2 (08:21→20:52)
[2019-05-25] MEDS: CYANOCOBALAMIN 500 MCG TAB PO SCH (08:21)
[2019-05-25] MEDS: SUCRALFATE 1 GM TAB PO SCH ×2 (08:22→20:53)
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
[2019-05-25 14:00] VITALS: BP 99/76
[2019-05-25] MEDS ORDERED: MAGNESIUM CITRATE 300 ML BTL PO ONE (20:30)
[2019-05-25] MEDS ORDERED: POLYETHYLENE GLYCOL (MIRALAX) 238GM BOTTLE PO ONE (21:00)
[2019-05-25] MEDS ORDERED: DICYCLOMINE 10 MG CAP PO ONE (21:45)
[2019-05-25 22:00] VITALS: BP 115/81
[2019-05-25] MEDS: QUEtiapine FUMARATE 200 MG TAB PO SCH (22:33)
--- NOTE | 2019-05-25 22:53 | IPN ---
DATE: 05/25/2019 10:30 p.m. I saw Elisa earlier today in consultation for her chronic abdominal pain and new onset rectal bleeding. She is in the process of a repeat evaluation of her symptoms as an outpatient; however, presented to the hospital with some rectal bleeding and worsening of her symptoms. She was admitted and evaluation is planned as inpatient. Her initial CT scan was relatively unremarkable except for moderate fecal material in her colon. Her blood work was unremarkable as were her vital signs. Our plan was to proceed with endoscopic evaluation via upper endoscopy and colonoscopy for which the patient received the first part of her colon prep around 9:00 p.m. She was doing fairly well until approximately 20 minutes after drinking magnesium citrate 300 mL at which point she started having significant abdominal cramping and abdominal pain. There is no nausea or vomiting. She has not had a bowel movement at this point. The patient was in significant amount of distress and abdominal discomfort, and I was called by nursing to further evaluate. At bedside, the patient tells me that since the initial onset of her abdominal cramping, it has somewhat improved but has definitely not resolved. She continues to have abdominal cramping and discomfort. Her temperature is 98.5, pulse is 91, respiratory rate 18, blood pressure 115/81, pulse ox 95% on room air. General: She is anxious and somewhat agitated. Head, eyes, ears, nose and throat: Without abnormality. Neck is supple without lymphadenopathy, thyromegaly. Chest is clear bilaterally. Heart is regular rate and rhythm, S1, S2. No murmurs or gallops. Abdomen is soft, positive bowel sounds. Tender in the periumbilical area without rebound tenderness. I do not appreciate any masses. There is some fullness to her right abdomen but no firmness. IMPRESSION: 1. History of rectal bleeding. 2. Recurrent abdominal pain. 3. Exacerbation of abdominal pain with first portion of colonoscopy preparation. 4. History of constipation. RECOMMENDATIONS: 1. Continue to observe for hopefully continued improvement in her symptoms. She has been provided with dicyclomine as an antispasmodic, and she received her pain medication as scheduled. We will see over the next one hour or two if her symptoms improve or worsen at which point we would further evaluate via stat CT. In addition, I think she will not be able to tolerate any further prepping today regardless and I will re evaluate when she will be able to complete her prep. MTDD
[2019-05-25 23:16] LABS: HEMATOCRIT 44.2 % (36.0-47.0); HEMOGLOBIN 14.8 g/dl (12.0-15.5); MEAN CORPUSCULAR HEMOGLOBIN 32.2 pg (27.0-33.0); MEAN CORPUSCULAR HGB CONC 33.5 g/dl (32.0-36.5); MEAN CORPUSCULAR VOLUME 96.1 fl (80.0-96.0); PLATELET COUNT, AUTOMATED 271 10^3/uL (150-450); WHITE BLOOD COUNT 14.4 10^3/uL (4.0-10.0)
[2019-05-25 23:48] LABS: ALBUMIN 4.2 GM/DL (3.2-5.2); ALT/SGPT 26 U/L (12-78); BILIRUBIN,TOTAL 0.4 MG/DL (0.2-1.0); BLOOD UREA NITROGEN 11 MG/DL (7-18); CALCIUM LEVEL 9.2 MG/DL (8.5-10.1); CARBON DIOXIDE LEVEL 26 MEQ/L (21-32); CHLORIDE LEVEL 105 MEQ/L (98-107); CREATININE FOR GFR 0.75 MG/DL (0.55-1.30); GLOMERULAR FILTRATION RATE > 60.0 (>51); GLUCOSE, FASTING 122 MG/DL (70-100); LIPASE 485 U/L (73-393); POTASSIUM SERUM 4.2 MEQ/L (3.5-5.1); SODIUM LEVEL 137 MEQ/L (136-145); TOTAL PROTEIN 7.6 GM/DL (6.4-8.2)
[2019-05-26 02:45] VITALS: BP 94/70
[2019-05-26] MEDS: oxyCODONE 5MG TAB PO PRN ×6 (02:57→23:33)
[2019-05-26 05:56] LABS: HEMATOCRIT 40.7 % (36.0-47.0); HEMOGLOBIN 13.8 g/dl (12.0-15.5); MEAN CORPUSCULAR HEMOGLOBIN 32.1 pg (27.0-33.0); MEAN CORPUSCULAR HGB CONC 33.9 g/dl (32.0-36.5); MEAN CORPUSCULAR VOLUME 94.7 fl (80.0-96.0); PLATELET COUNT, AUTOMATED 228 10^3/uL (150-450); WHITE BLOOD COUNT 9.1 10^3/uL (4.0-10.0)
[2019-05-26 06:00] VITALS: BP 104/71
[2019-05-26] MEDS ORDERED: POLYETHYLENE GLYCOL (MIRALAX) 238GM BOTTLE PO ONE ×3 (06:00→14:00)
[2019-05-26 06:19] LABS: BLOOD UREA NITROGEN 12 MG/DL (7-18); CALCIUM LEVEL 9.1 MG/DL (8.5-10.1); CARBON DIOXIDE LEVEL 35 MEQ/L (21-32); CHLORIDE LEVEL 105 MEQ/L (98-107); CREATININE FOR GFR 0.74 MG/DL (0.55-1.30); GLOMERULAR FILTRATION RATE > 60.0 (>51); GLUCOSE, FASTING 92 MG/DL (70-100); POTASSIUM SERUM 4.3 MEQ/L (3.5-5.1); SODIUM LEVEL 139 MEQ/L (136-145)
[2019-05-26] MEDS: TIOTROPIUM INHALER/CAPSULE (SPIRIVA) INH SCH (07:57)
[2019-05-26] MEDS: CYANOCOBALAMIN 500 MCG TAB PO SCH (08:28)
[2019-05-26] MEDS: VITAMIN D 1,000 INTERNATIONAL UNITS TABLET PO SCH (08:28)
[2019-05-26] MEDS: buPROPion 100 MG TAB PO SCH ×2 (08:28→21:19)
[2019-05-26] MEDS: MULTIVITAMINS/MINERALS THERAP 1 TAB PO SCH (08:28)
[2019-05-26] MEDS: OMEPRAZOLE 20 MG CAP PO SCH ×2 (08:29→21:21)
[2019-05-26] MEDS: DULoxetine 30 MG CAP (CYMBALTA) PO SCH ×2 (08:30→21:21)
[2019-05-26] MEDS: METOPROLOL TART 25 MG TABLET PO SCH ×2 (08:33→21:21)
[2019-05-26] MEDS: SUCRALFATE 1 GM TAB PO SCH ×2 (08:36→21:22)
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
[2019-05-26 14:00] VITALS: BP 105/70
[2019-05-26] MEDS ORDERED: MIRALAX *UNIT DOSE* 17GM PACKET PO ONE (14:00)
[2019-05-26 22:00] VITALS: BP 107/70
[2019-05-26] MEDS: QUEtiapine FUMARATE 200 MG TAB PO SCH (23:32)
[2019-05-27] MEDS ORDERED: MIRALAX *UNIT DOSE* 17GM PACKET PO ONE (05:00)
[2019-05-27] MEDS ORDERED: POLYETHYLENE GLYCOL (MIRALAX) 238GM BOTTLE PO ONE (05:00)
[2019-05-27] MEDS: oxyCODONE 5MG TAB PO PRN ×3 (05:13→16:30)
[2019-05-27 06:00] VITALS: BP 106/69
[2019-05-27] MEDS: TIOTROPIUM INHALER/CAPSULE (SPIRIVA) INH SCH (07:09)
[2019-05-27] MEDS: MULTIVITAMINS/MINERALS THERAP 1 TAB PO SCH (09:00)
[2019-05-27] MEDS: buPROPion 100 MG TAB PO SCH (09:00)
[2019-05-27] MEDS: VITAMIN D 1,000 INTERNATIONAL UNITS TABLET PO SCH (09:00)
[2019-05-27] MEDS: DULoxetine 30 MG CAP (CYMBALTA) PO SCH (09:00)
[2019-05-27] MEDS: CYANOCOBALAMIN 500 MCG TAB PO SCH (09:00)
[2019-05-27] MEDS: OMEPRAZOLE 20 MG CAP PO SCH (09:00)
[2019-05-27] MEDS: SUCRALFATE 1 GM TAB PO SCH (09:00)
[2019-05-27 09:09] VITALS: BP 101/60
[2019-05-27] MEDS: METOPROLOL TART 25 MG TABLET PO SCH (09:09)
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
[2019-05-27 14:00] VITALS: BP 119/82
[2019-05-27] MEDS ORDERED: propofoL 500 MG/50 ML VIAL As Ordered ONE (14:15)
[2019-05-27] MEDS ORDERED: LIDOCAINE 2% INJ 100 MG/5 ML SDV (FOR ANES.) As Ordered ONE (14:15)
--- NOTE | 2019-05-27 15:34 | ROOR ---
Patient Name: Elisa Trejo Procedure Date: 05/27/2019 2:39 PM Date of : 1970 Age: 49 Room: [facility] Gender: Female Note Status: Finalized Procedure: Upper GI endoscopy Indications: Epigastric abdominal pain Providers: Manolo LEVINE MD Referring MD: 2. Inpatient 2. Inpatient, VANESSA Fritz, MARVIN ALANIZ ([facility])MD Requesting Provider: Medicines: Monitored Anesthesia Care Complications: No immediate complications. Procedure: Pre-Anesthesia Assessment: - The heart rate, respiratory rate, oxygen saturations, blood pressure, adequacy of pulmonary ventilation, and response to care were monitored throughout the procedure. The Endoscope was introduced through the mouth, and advanced to the jejunum. The upper GI endoscopy was accomplished without difficulty. The patient tolerated the procedure well. Findings: The examined esophagus was normal. 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 The gastrojejunal anastomosis was characterized by healthy appearing mucosa. The jejunojejunal anastomosis was characterized by healthy appearing mucosa. The examined jejunum was normal. Impression: - Normal esophagus. - Tavo-en-Y gastrojejunostomy with normal gastrojejunal anastomosis. - Normal examined jejunum with normal jejunojejunal anastomosis. - No specimens collected. Recommendation: - Observe patient's clinical course. - Resume previous diet. Manolo Levine MD Manolo LEVINE MD 05/27/2019 3:18:44 PM Electronically signed by Manolo LEVINE MD Number of Addenda: 0 Note Initiated On: 05/27/2019 2:39 PM Estimated Blood Loss: Estimated blood loss: none.
--- NOTE | 2019-05-27 15:37 | ROOR ---
Patient Name: Elisa Trejo Procedure Date: 05/27/2019 2:40 PM Date of : 1970 Age: 49 Room: [facility] Gender: Female Note Status: Finalized Procedure: Colonoscopy Indications: Generalized abdominal pain, Hematochezia Providers: Manolo LEVINE MD Referring MD: 2. Inpatient 2. Inpatient, VANESSA Fritz, [facility]IN ALANIZ [facility] Requesting Provider: Medicines: Propofol per Anesthesia Complications: No immediate complications. Procedure: Pre-Anesthesia Assessment: - The heart rate, respiratory rate, oxygen saturations, blood pressure, adequacy of pulmonary ventilation, and response to care were monitored throughout the procedure. The Colonoscope was introduced through the anus and advanced to 10 cm into the ileum. The colonoscopy was performed without difficulty. The patient tolerated the procedure well. The quality of the bowel preparation was adequate. (some formed stool present in right colon, but visualisation was good) Findings: A scattered area of granular mucosa was found in the distal rectum. Biopsies were taken with a cold forceps for histology. Internal hemorrhoids were found during retroflexion. The hemorrhoids were medium-sized. Multiple medium-mouthed diverticula were found in the sigmoid colon. Retroflexion in the right colon was performed. The exam was otherwise normal throughout the examined colon. The terminal ileum appeared normal. Impression: - Scattered granularity/nodularity in the distal rectum/anorectal junction (on the mucosa overlying the internal hemorrhoids). Biopsied. - Moderate Internal hemorrhoids. - Mild diverticulosis in the sigmoid colon. - The colon is otherwise normal. - The examined portion of the ileum was normal. Recommendation: - Await pathology results. - Miralax 1 capful (17 grams) in 8 ounces of water PO BID. - I suspect your abdominal pain is related to recurrent fecal impactions/severe constipation. Use Miralax twice a day. - The rectal bleeding is likely related to internal hemorrhoids and/or small tiny granular structures near the hemorrhoids. - further recommendations pending Biopsies. - Return to my office in 2 weeks. Manolo Levine MD Manolo LEVINE MD 05/27/2019 3:36:21 PM Electronically signed by Manolo LEVINE MD Number of Addenda: 0 Note Initiated On: 05/27/2019 2:40 PM Estimated Blood Loss: Estimated blood loss: none.
[2019-05-27 16:10] VITALS: BP 119/82
--- NOTE | 2019-05-28 13:18 | DSES ---
DATE OF ADMISSION: 05/27/2019 DATE OF DISCHARGE: 05/27/2019 REASON FOR ADMISSION: The patient admitted after coming to the emergency department (ED) with complaint of rectal bleeding. She had been in hospital approximately a week earlier with similar complaint. She presented with complaint of rectal bleeding but no vomiting. No black stool and no hematemesis. She has been having right upper quadrant abdominal discomfort. She had been in contact with the bariatric surgeon, Dr. Long, in [place] who had recommended that she proceed with getting upper and lower endoscopy here. This had been scheduled as an outpatient visit with Dr. Levine. However, the patient presented with these findings and was admitted initially observation but then needed to be converted to acute stay because it had seemed clear that she would have trouble organizing followup appointment in order to get the needed studies accomplished. Her hemoglobin remained stable during her hospital stay. The day before discharge, hemoglobin was 13.8, and electrolytes were within normal limits except for a CO2 of 35 on the last day, 26 on day. Lipase was slightly elevated at 45 on 05/25/2019. It was normal on 05/26/2019. CT, however, did not show any evidence for pancreatitis. She underwent upper and lower endoscopy by Dr. Levine, which showed hemorrhoidal vessels on the colonoscopy but some granular mucosa in the distal rectum. Biopsies were done of these, and those results are pending. Upper endoscopy showed the Tavo-en-Y gastric bypass and was otherwise entirely normal. No marginal ulcers. No perforations. No strictures. ASSESSMENT: 1. Lower gastrointestinal (GI) bleed. Definitive source not visualized by colonoscopy. Thought to be consistent with hemorrhoidal bleeding based on the patient's description and lack of other findings by colonoscopy. 2. Psychiatric disorder, chronic, not otherwise specified. 3. Mild intermittent asthma. 4. Vitamin B12 deficiency. On repletion therapy. 5. Allergy to GABAPENTIN. PLAN: She will resume usual diet. She can engage in activity as tolerated. Recommend followup with Dr. Levine in 2 weeks to review the pending pathology results and with the primary care provider in 2 weeks. DISCHARGE DIAGNOSIS: Lower gastrointestinal bleed, probably hemorrhoidal. OTHER DIAGNOSES: As specified above.
== END 2019-05-27 19:15 | disposition home or self-care (01) | DRG 379 ==
LOC: M ED 23:28 → M ED INP 23:29 → ENRESERV 05-24 08:35 → M MS5PR 05-24 10:11 → OBSVTOIN 05-27 18:53
PROVIDERS: ADMIT Internal Medicine; ATTEND Family Medicine
PROC: 0DBP8ZX Excision of Rectum, Via Natural or Artificial Opening Endoscopic, Diagnostic (ICD-10-PCS; 2019-05-27)
PROC: 0DJ08ZZ Inspection of Upper Intestinal Tract, Via Natural or Artificial Opening Endoscopic (ICD-10-PCS; principal; 2019-05-27 09:00)
DX: K92.2 Gastrointestinal hemorrhage, unspecified (principal); F31.9 Bipolar disorder, unspecified; K64.9 Unspecified hemorrhoids; Z88.8 Allergy status to other drugs, medicaments and biological substances; Z79.899 Other long term (current) drug therapy; Z87.820 Personal history of traumatic brain injury; I10 Essential (primary) hypertension; J44.9 Chronic obstructive pulmonary disease, unspecified; Z91.5 Personal history of self-harm; Z86.711 Personal history of pulmonary embolism; Z98.84 Bariatric surgery status; J45.909 Unspecified asthma, uncomplicated; E53.8 Deficiency of other specified B group vitamins

== ENCOUNTER → 2019-10-01 | Outpatient (REF) | payer MEDICARE, MEDICAID ==
[~2019-10-01] MED LIST changes: +ACET1TAB55 PO; -AMLO10TA5 PO; +AMLO1TAB25 PO; +BUPR-69 PO; -BUPR50TA PO; +D31000TA2 PO; -HYDR-2809 PO; +HYDR-4431 PO; +VITA-243 PO; -VITA500T PO
[2019-10-01 14:18] LABS: ALBUMIN 3.5 GM/DL (3.2-5.2); ALT/SGPT 19 U/L (12-78); BILIRUBIN,TOTAL 0.3 MG/DL (0.2-1.0); BLOOD UREA NITROGEN 10 MG/DL (7-18); CARBON DIOXIDE LEVEL 28 MEQ/L (21-32); CHLORIDE LEVEL 110 MEQ/L (98-107); CREATININE FOR GFR 0.66 MG/DL (0.55-1.30); GLOMERULAR FILTRATION RATE > 60.0 (>51); GLUCOSE, FASTING 74 MG/DL (70-100); POTASSIUM SERUM 5.1 MEQ/L (3.5-5.1); SODIUM LEVEL 143 MEQ/L (136-145); TOTAL PROTEIN 6.9 GM/DL (6.4-8.2)
[2019-10-01 14:23] LABS: HEMATOCRIT 44.4 % (36.0-47.0); HEMOGLOBIN 14.3 g/dl (12.0-15.5); MEAN CORPUSCULAR HEMOGLOBIN 32.1 pg (27.0-33.0); MEAN CORPUSCULAR HGB CONC 32.2 g/dl (32.0-36.5); MEAN CORPUSCULAR VOLUME 99.6 fl (80.0-96.0); PLATELET COUNT, AUTOMATED 270 10^3/uL (150-450); RED BLOOD COUNT 4.46 10^6/uL (4.00-5.40); WHITE BLOOD COUNT 7.9 10^3/uL (4.0-10.0)
[2019-10-01 14:24] LABS: VITAMIN B12 LEVEL > 2000 PG/ML
[2019-10-01 14:25] LABS: FOLATE > 24.0 NG/ML
[2019-10-01 14:40] LABS: TOTAL 25(OH) VITAMIN D 36.1 NG/ML (30.0-100.0)
[2019-10-01 14:45] LABS: HEMOGLOBIN A1c 5.4 %
== END ==
LOC: M SFHCADAM 09:07
PROVIDERS: ATTEND Physician Assistant
DX: E11.9 Type 2 diabetes mellitus without complications (principal); Z98.84 Bariatric surgery status; Z79.899 Other long term (current) drug therapy
CPT/HCPCS: 80053; 82306; 82607; 82746; 83036; 85027; G0463

== ENCOUNTER → 2020-01-06 | Outpatient (REF) | payer MEDICARE, MEDICAID ==
[2020-01-06 13:11] LABS: FREE T4 0.78 NG/DL (0.76-1.46); THYROID STIMULATING HORMONE 1.11 uIU/ML (0.358-3.740)
== END ==
LOC: M SFHCADAM 09:38
PROVIDERS: ATTEND Physician Assistant
DX: R23.2 Flushing (principal); Z79.899 Other long term (current) drug therapy; Z23 Encounter for immunization
CPT/HCPCS: 84439; 84443; 90682; G0008; G0463

== ENCOUNTER → 2020-06-30 | Outpatient (REF) | payer MEDICARE, MEDICAID ==
[~2020-06-30] MED LIST changes: +GABA-282 PO; -GABA-843 PO; +METH-1165 PO; -METH750T2 PO
[2020-06-30 13:06] LABS: BASO % 0.4 % (0.0-1.0); EOS # 0.2 10^3/uL (0.0-0.5); EOS % 2.5 % (0.0-3.0); HEMOGLOBIN 14.4 g/dl (12.0-15.5); LYMPH # 2.2 10^3/uL (1.5-5.0); LYMPH % 22.9 % (24.0-44.0); MEAN CORPUSCULAR HEMOGLOBIN 32.5 pg (27.0-33.0); MEAN CORPUSCULAR HGB CONC 32.7 g/dl (32.0-36.5); MEAN CORPUSCULAR VOLUME 99.3 fl (80.0-96.0); MONO # 0.9 10^3/uL (0.0-0.8); MONO % 9.6 % (2.0-8.0); PLATELET COUNT, AUTOMATED 257 10^3/uL (150-450); RED BLOOD COUNT 4.43 10^6/uL (4.00-5.40); WHITE BLOOD COUNT 9.4 10^3/uL (4.0-10.0)
[2020-06-30 13:20] LABS: HEMOGLOBIN A1c 5.2 %
[2020-06-30 13:39] LABS: ALBUMIN 4.3 GM/DL (3.2-5.2); ALT/SGPT 25 U/L (12-78); BILIRUBIN,TOTAL 0.3 MG/DL (0.2-1.0); BLOOD UREA NITROGEN 13 MG/DL (7-18); CALCIUM LEVEL 9.5 MG/DL (8.5-10.1); CARBON DIOXIDE LEVEL 28 MEQ/L (21-32); CHLORIDE LEVEL 109 MEQ/L (98-107); CREATININE FOR GFR 0.64 MG/DL (0.55-1.30); FOLATE > 24.0 NG/ML; FREE T4 0.76 NG/DL (0.76-1.46); GLOMERULAR FILTRATION RATE > 60.0 (>51); GLUCOSE, FASTING 105 MG/DL (70-100); POTASSIUM SERUM 4.4 MEQ/L (3.5-5.1); SODIUM LEVEL 143 MEQ/L (136-145); THYROID STIMULATING HORMONE 0.868 uIU/ML (0.358-3.740); TOTAL 25(OH) VITAMIN D 30.4 NG/ML (30.0-100.0); TOTAL PROTEIN 7.5 GM/DL (6.4-8.2); VITAMIN B12 LEVEL > 2000 PG/ML
== END ==
LOC: M SFHCADAM 08:07
PROVIDERS: ATTEND Physician Assistant
DX: R61 Generalized hyperhidrosis (principal); R63.5 Abnormal weight gain; K21.9 Gastro-esophageal reflux disease without esophagitis; G43.719 Chronic migraine without aura, intractable, without status migrainosus; Z79.899 Other long term (current) drug therapy

== ENCOUNTER → 2020-08-03 | Outpatient (CLI) | payer MEDICARE, MEDICAID ==
[~2020-08-03] MED LIST changes: +CALC600T18 PO; +CARA1TAB6 PO; +GASTROGRAFIN SOLUTION 30ML (Q9963) ONE; +ISOVUE-370 76% 100ML VIAL ONE; +SERO1TAB PO
--- NOTE | 2020-08-03 09:12 | REP ---
INDICATION: RIGHT UPPER QUAD PAIN- CT AFTER. COMPARISON: 05/14/2019 FINDINGS: Multiple ultrasonographic images of the liver show the hepatic parenchymal echo texture to appear unremarkable. There are no focal masses. There is no intrahepatic ductal dilatation. The common bile duct measures approximately 4.3 mm in its greatest transverse dimension. Multiple ultrasonographic images of the gallbladder show no focal or diffuse gallbladder wall thickening. There are no echogenic foci within the gallbladder lumen, which casts acoustic shadows. There is no pericholecystic edema. Images of the pancreatic region show no gross abnormality. The imaged portion of the right kidney is unremarkable. IMPRESSION: Unremarkable right upper quadrant ultrasound. Accredited by the [employer] in General Ultrasound. <Electronically signed by Ariel Knight > 08/03/20 [id number]
--- NOTE | 2020-08-03 09:40 | REP ---
INDICATION: RIGHT UPPER QUAD PAIN- US FIRST. COMPARISON: Comparison CT study May 24, 2019.. TECHNIQUE: Helical scanning is acquired following the intravenous injection of 100 mL of Isovue 370. Oral contrast was also administered. Coronal and sagittal MPR images are generated. . FINDINGS: Preliminary digital metal alloy scientist radiograph demonstrates a normal bowel gas pattern. There are post thoracotomy versus post traumatic changes in the right lower lateral rib cage as noted previously. The lung bases are clear. There is no evidence of pleural effusion or upper abdominal ascites. There is mild linear fibrosis in the lingula. The liver and the spleen are normal in size homogeneous in texture. No abnormality is noted in the gallbladder or pancreas. The patient is status post gastric bypass surgery. Normal adrenal glands are observed bilaterally. The kidneys enhance symmetrically and are morphologically intact. A inferior vena cava filter is noted in place. Normal caliber aorta with some vascular calcification. No retroperitoneal mass or adenopathy is seen. Normal appendix is noted in the right lower quadrant. There is moderate left colonic diverticulosis affecting the sigmoid and descending segments of the colon without CT evidence of diverticulitis. Small and large bowel loops are normal in caliber and distribution. No pelvic mass or adenopathy is seen. The uterus is surgically absent. Urinary bladder is largely empty but appears intact. No abdominal wall defect is apparent. There is no evidence of ascites or abnormal fluid collection. The patient appears to be status post right upper quadrant abdominal wall hernia repair. There is a loop of colon interposed between the abdominal wall and the lower margin of the liver at the repair site but there does not appear to be evidence of recurrent hernia. No acute bony abnormality is seen. IMPRESSION: No acute abdominal or pelvic abnormality. Moderate left colonic diverticulosis without CT evidence of diverticulitis. Right upper quadrant anterior abdominal wall repair. No recurrent hernia is seen. Post hysterectomy and gastric bypass procedures. IVC filter in place. <Electronically signed by Yoni Cintron > 08/03/20 0937
== END ==
LOC: M RAD 06:57
PROVIDERS: ATTEND Physician Assistant
DX: R10.11 Right upper quadrant pain (principal); Z98.84 Bariatric surgery status; Z95.828 Presence of other vascular implants and grafts; K57.30 Diverticulosis of large intestine without perforation or abscess without bleeding; Z90.710 Acquired absence of both cervix and uterus
CPT/HCPCS: 74178; 76705; Q9963; Q9967

== ENCOUNTER → 2020-09-10 | Outpatient (CLI) | payer MEDICARE, MEDICAID ==
[~2020-09-10] MED LIST changes: -GASTROGRAFIN SOLUTION 30ML (Q9963) ONE; -ISOVUE-370 76% 100ML VIAL ONE
== END ==
LOC: M LABSMTC 09:15
PROVIDERS: ATTEND Anesthesiology
DX: Z01.812 Encounter for preprocedural laboratory examination (principal); Z20.822 Contact with and (suspected) exposure to COVID-19

== ENCOUNTER 2020-09-15 10:14 | Day surgery (SDC) | payer MEDICARE, MEDICAID ==
[~2020-09-15] VITALS: Ht 167.6 cm; Wt 93.8 kg
[~2020-09-15 10:14] MED LIST changes: +NS 1,000 ML IV ONE
[2020-09-15] MEDS ORDERED: LIDOCAINE 2% 100MG/5ML SDV (FOR ANES.) As Ordered ONE (12:25)
[2020-09-15] MEDS ORDERED: fentaNYL 100 MCG/2 ML INJECTION (J3010) As Ordered ONE (12:25)
[2020-09-15] MEDS ORDERED: propofoL 200 MG/20 ML VIAL As Ordered ONE ×2 (12:25→13:03)
--- NOTE | 2020-09-15 13:00 | ROOR ---
Patient Name: Elisa Trejo Procedure Date: 09/15/2020 12:35 PM Date of : 1970 Age: 50 Room: [facility] Gender: Female Note Status: Finalized Procedure: Upper GI endoscopy Indications: Abdominal pain Providers: Manolo Levine MD Referring MD: VANESSA Fritz, Jhoan Long ([facility])MD, Jhoan Long Md Requesting Provider: Medicines: Monitored Anesthesia Care Complications: No immediate complications. Procedure: Pre-Anesthesia Assessment: - The heart rate, respiratory rate, oxygen saturations, blood pressure, adequacy of pulmonary ventilation, and response to care were monitored throughout the procedure. The Endoscope was introduced through the mouth, and advanced to the jejunum. The upper GI endoscopy was accomplished without difficulty. The patient tolerated the procedure well. Findings: Evidence of a Tavo-en-Y gastrojejunostomy was found. The gastrojejunal anastomosis was characterized by healthy appearing mucosa. The examined esophagus was normal. The examined jejunum was normal. Biopsies were taken with a cold forceps in the entire examined stomach and in the entire examined portion of jejunum for histology. Impression: - Tavo-en-Y gastrojejunostomy with gastrojejunal anastomosis characterized by healthy appearing mucosa. - Normal esophagus. - Normal examined jejunum. - Biopsies were taken with a cold forceps for histology in the entire examined stomach and in the entire examined portion of jejunum. Recommendation: - Observe patient's clinical course. Procedure Code(s): --- Professional --- 62722, Esophagogastroduodenoscopy, flexible, transoral; with biopsy, single or multiple Diagnosis Code(s): --- Professional --- R10.9, Unspecified abdominal pain Z98.0, Intestinal bypass and anastomosis status CPT copyright 2019 [employer]. All rights reserved. The codes documented in this report are preliminary and upon i o psychologist review may be revised to meet current compliance requirements. Manolo Levine MD Manolo Levine MD 09/15/2020 12:59:32 PM Electronically signed by Manolo Levine MD Number of Addenda: 0 Note Initiated On: 09/15/2020 12:35 PM Estimated Blood Loss: Estimated blood loss: none.
--- NOTE | 2020-09-15 13:17 | ROOR ---
Patient Name: Elisa Trejo Procedure Date: 09/15/2020 12:36 PM Date of : 1970 Age: 50 Room: [facility] Gender: Female Note Status: Finalized Procedure: Colonoscopy Indications: Generalized abdominal pain Providers: Manolo Levine MD Referring MD: VANESSA Fritz Requesting Provider: Medicines: Monitored Anesthesia Care Complications: No immediate complications. Procedure: Pre-Anesthesia Assessment: - The heart rate, respiratory rate, oxygen saturations, blood pressure, adequacy of pulmonary ventilation, and response to care were monitored throughout the procedure. The Colonoscope was introduced through the anus and advanced to 11 cm into the ileum. The colonoscopy was performed with difficulty due to poor bowel prep with stool present. The patient tolerated the procedure well. The quality of the bowel preparation was poor. Findings: The colon is grossly normal without large tumors or obstructing lesions. Unable to perform adequate detail examination. Small lesions may have been missed. Impression: - Preparation of the colon was poor. - The colon is grossly normal without large tumors or obstructing lesions. Unable to perform adequate detail examination. Small lesions may have been missed. - Previous site of known intra anal condyloma could not be properly visualized. - No specimens collected. Recommendation: - Repeat colonoscopy at the next available appointment for retreatment. - (Rec alternate colon preparation for next colonoscopy) - My office will call you in the next few days to set you up for this study/exam. - Await pathology results. - Use Lactulose at 2 tbsp twice a day (or trial on Linzess), for constipation/IBS-C - (the script was sent to your pharmacy on file) Procedure Code(s): --- Professional --- 72690, Colonoscopy, flexible; diagnostic, including collection of specimen(s) by brushing or washing, when performed (separate procedure) Diagnosis Code(s): --- Professional --- R10.84, Generalized abdominal pain CPT copyright 2019 [employer] [employer]. All rights reserved. The codes documented in this report are preliminary and upon caramel candy maker helper review may be revised to meet current compliance requirements. Manolo Levine MD Manolo Levine MD 09/15/2020 1:17:12 PM Electronically signed by Manolo Levine MD Number of Addenda: 0 Note Initiated On: 09/15/2020 12:36 PM Estimated Blood Loss: Estimated blood loss: none.
[2020-09-15 13:35] VITALS: BP 111/63
== END 2020-09-15 13:41 | disposition home or self-care (01) ==
LOC: M OPP 10:14
PROVIDERS: ATTEND Internal Medicine Gastroenterology
DX: R10.84 Generalized abdominal pain (principal); Z98.0 Intestinal bypass and anastomosis status; K31.89 Other diseases of stomach and duodenum; R12 Heartburn; R19.4 Change in bowel habit; K21.9 Gastro-esophageal reflux disease without esophagitis; Z79.891 Long term (current) use of opiate analgesic; Z79.899 Other long term (current) drug therapy; Z88.8 Allergy status to other drugs, medicaments and biological substances; Z80.1 Family history of malignant neoplasm of trachea, bronchus and lung; Z80.41 Family history of malignant neoplasm of ovary; Z80.51 Family history of malignant neoplasm of kidney
CPT/HCPCS: 43239; 45378; 88305; J3010

== ENCOUNTER → 2020-09-26 | Outpatient (CLI) | payer MEDICARE, MEDICAID ==
[~2020-09-26] MED LIST changes: -NS 1,000 ML IV ONE; +OMEP40CA4 PO; -OMEP40CA97 PO; +PROHANCE 279.3MG/ML 15ML VIAL As Ordered ONE; +PROHANCE 279.3MG/ML 5ML VIAL As Ordered ONE
== END ==
LOC: M LAB 07:09 → M RAD 07:09
PROVIDERS: ATTEND Psychiatry & Neurology Epilepsy
DX: R51.9 Headache, unspecified (principal); H53.8 Other visual disturbances
CPT/HCPCS: 36415; 82140; A9576

== ENCOUNTER 2020-10-03 17:05 | Inpatient (IN) | payer MEDICARE, MEDICAID ==
[~2020-10-03] VITALS: Ht 167.6 cm; Wt 95.1 kg
[~2020-10-03 17:05] MED LIST changes: -PROHANCE 279.3MG/ML 15ML VIAL As Ordered ONE; -PROHANCE 279.3MG/ML 5ML VIAL As Ordered ONE
[2020-10-03] MEDS ORDERED: LACT20EL PO (17:20)
[2020-10-03] MEDS ORDERED: POLY510P14 (17:20)
[2020-10-03 19:18] LABS: BASO # 0.1 10^3/uL (0.0-0.2); BASO % 0.5 % (0.0-1.0); EOS # 0.2 10^3/uL (0.0-0.5); EOS % 1.9 % (0.0-3.0); HEMATOCRIT 45.1 % (36.0-47.0); HEMOGLOBIN 15.2 g/dl (12.0-15.5); LYMPH # 2.6 10^3/uL (1.5-5.0); LYMPH % 22.2 % (24.0-44.0); MEAN CORPUSCULAR HEMOGLOBIN 31.5 pg (27.0-33.0); MEAN CORPUSCULAR HGB CONC 33.7 g/dl (32.0-36.5); MEAN CORPUSCULAR VOLUME 93.4 fl (80.0-96.0); MONO # 0.8 10^3/uL (0.0-0.8); MONO % 6.4 % (2.0-8.0); NEUTROPHILS # 8.1 10^3/uL (1.5-8.5); NEUTROPHILS % 68.5 % (36.0-66.0); PLATELET COUNT, AUTOMATED 299 10^3/uL (150-450); RED BLOOD COUNT 4.83 10^6/uL (4.00-5.40); WHITE BLOOD COUNT 11.8 10^3/uL (4.0-10.0)
[2020-10-03 19:49] LABS: ALBUMIN 4.1 GM/DL (3.2-5.2); ALT/SGPT 26 U/L (12-78); AMYLASE 103 U/L (25-115); BILIRUBIN,DIRECT < 0.1 MG/DL (0.0-0.2); BILIRUBIN,TOTAL 0.3 MG/DL (0.2-1.0); LIPASE 832 U/L (73-393); TOTAL PROTEIN 7.9 GM/DL (6.4-8.2)
[2020-10-03] MEDS ORDERED: QUEtiapine FUMARATE 200 MG TAB PO SCH (21:00)
[2020-10-03] MEDS ORDERED: ONDANSETRON 4MG/2ML VIAL IV ONE (21:40)
[2020-10-03] MEDS ORDERED: MORPHINE 2 MG/ML 1ML VIAL (J2270) IV ONE ×2 (21:40→23:30)
[2020-10-03] MEDS ORDERED: ISOVUE-370 76% 100ML VIAL As Ordered ONE (22:00)
--- NOTE | 2020-10-03 23:23 | REPVR ---
PROCEDURE INFORMATION: Exam: CT Abdomen And Pelvis With Contrast Exam date and time: 10/03/2020 10:19 PM Age: 50 years old Clinical indication: Abdominal tenderness; Additional info: Rule out obstruction TECHNIQUE: Imaging protocol: Computed tomography of the abdomen and pelvis with contrast. Radiation optimization: All CT scans at this facility use at least one of these dose optimization techniques: automated exposure control; mA and/or kV adjustment per patient size (includes targeted exams where dose is matched to clinical indication); or iterative reconstruction. Contrast material: ISOVUE 370; Contrast volume: 100 ml; Contrast route: INTRAVENOUS (IV); COMPARISON: CT ABD PELVIS W/O FOL BY WIT 08/03/2020 7:44 AM FINDINGS: Liver: Unremarkable. No mass. Gallbladder and bile ducts: Normal. No calcified stones. No ductal dilation. Pancreas: Normal. No ductal dilation. Spleen: Normal. No splenomegaly. Adrenal glands: Normal. No mass. Kidneys and ureters: Unremarkable. No calculi or hydronephrosis. Stomach and bowel: Prior gastric bypass surgery. No gastric obstruction. No bowel obstruction or inflammatory changes. There is colonic diverticulosis without evidence of diverticulitis. Appendix: No evidence of appendicitis. Intraperitoneal space: No free air. No significant fluid collection. Vasculature: Unremarkable. No abdominal aortic aneurysm. Lymph nodes: Unremarkable. No enlarged lymph nodes. Urinary bladder: Unremarkable as visualized. Reproductive: There has been prior hysterectomy. Bones/joints: Unremarkable. No acute fracture. Soft tissues: Unremarkable. IMPRESSION: 1. Colonic diverticulosis without evidence of diverticulitis. 2. No acute findings. Electronically signed by: Jason Márquez On 10/03/2020 23:22:43 PM
[2020-10-04] MEDS ORDERED: QUET200T2 PO ×2 (01:23)
[2020-10-04] MEDS ORDERED: MIRA1POW3 PO (01:23)
[2020-10-04] MEDS ORDERED: CARA1TAB6 PO (01:23)
[2020-10-04 02:10] LABS: RSV AMPLIFICATION NEGATIVE (NEGATIVE)
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
[2020-10-04] MEDS ORDERED: MAALOX 30 ML SUSP *UDC PO PRN (02:15)
[2020-10-04] MEDS ORDERED: ACETAMINOPHEN TAB 650MG DOSE (2X325MG) PO PRN (02:15)
[2020-10-04] MEDS ORDERED: MOM 30ML SUSPENSION UDC PO PRN (02:15)
--- NOTE | 2020-10-04 02:18 | REPVR ---
PROCEDURE INFORMATION: Exam: US Abdomen Complete Exam date and time: 10/04/2020 2:03 AM Age: 50 years old Clinical indication: Abdominal pain; Generalized; Additional info: Common bile duct, pancreatitis TECHNIQUE: Imaging protocol: Real-time ultrasound of the abdomen with image documentation. COMPARISON: Abdomen, limited US 05/14/2019 7:11 PM FINDINGS: Liver: Normal. No mass. Gallbladder: Normal. No gallstones. There is no gallbladder wall thickening. Common bile duct: Normal. No stones. No dilation. Pancreas: The pancreas is not well visualized due to bowel gas. Right kidney: Normal. No mass. No hydronephrosis. Left kidney: Normal. No mass. No hydronephrosis. Spleen: Normal. No splenomegaly. Aorta: Normal. No aneurysm. IMPRESSION: No acute findings. Electronically signed by: Jason Márquez On 10/04/2020 02:18:13 AM
[2020-10-04] MEDS: MORPHINE 4 MG/ML 1ML VIAL/SYRINGE (J2270) IV PRN ×2 (03:08→12:29)
[2020-10-04] MEDS ORDERED: ALBUTEROL 90 MCG/ACT 8GM HFA INHALER INH PRN (03:20)
[2020-10-04] MEDS ORDERED: QUEtiapine FUMARATE 200 MG TAB PO PRN (03:20)
[2020-10-04 03:24] VITALS: BP 148/92
[2020-10-04] MEDS: oxyCODONE 5MG TAB PO PRN ×2 (03:36→10:38)
[2020-10-04 03:59] LABS: TROPONIN I < 0.02 NG/ML (< 0.10)
[2020-10-04 06:00] VITALS: BP 112/66
[2020-10-04] MEDS ORDERED: HEPARIN SOD (PORCINE) 5000UNITS/ML 1ML VIAL/SYRINGE SC SCH (06:00)
[2020-10-04 06:53] LABS: BASO % 0.5 % (0.0-1.0); EOS # 0.2 10^3/uL (0.0-0.5); EOS % 2.4 % (0.0-3.0); HEMATOCRIT 42.8 % (36.0-47.0); HEMOGLOBIN 13.8 g/dl (12.0-15.5); LYMPH # 2.2 10^3/uL (1.5-5.0); LYMPH % 25.4 % (24.0-44.0); MEAN CORPUSCULAR HEMOGLOBIN 30.8 pg (27.0-33.0); MEAN CORPUSCULAR HGB CONC 32.2 g/dl (32.0-36.5); MEAN CORPUSCULAR VOLUME 95.5 fl (80.0-96.0); MONO # 0.8 10^3/uL (0.0-0.8); MONO % 9.5 % (2.0-8.0); NEUTROPHILS # 5.3 10^3/uL (1.5-8.5); NEUTROPHILS % 61.7 % (36.0-66.0); PLATELET COUNT, AUTOMATED 228 10^3/uL (150-450); RED BLOOD COUNT 4.48 10^6/uL (4.00-5.40); WHITE BLOOD COUNT 8.6 10^3/uL (4.0-10.0)
[2020-10-04 07:30] LABS: ALBUMIN 3.8 GM/DL (3.2-5.2); ALT/SGPT 23 U/L (12-78); BILIRUBIN,TOTAL 0.3 MG/DL (0.2-1.0); BLOOD UREA NITROGEN 10 MG/DL (7-18); CALCIUM LEVEL 9.3 MG/DL (8.5-10.1); CARBON DIOXIDE LEVEL 30 MEQ/L (21-32); CHLORIDE LEVEL 107 MEQ/L (98-107); CREATININE FOR GFR 0.74 MG/DL (0.55-1.30); GLOMERULAR FILTRATION RATE > 60.0 (>51); GLUCOSE, FASTING 140 MG/DL (70-100); MAGNESIUM LEVEL 2.2 MG/DL (1.8-2.4); POTASSIUM SERUM 4.8 MEQ/L (3.5-5.1); SODIUM LEVEL 141 MEQ/L (136-145); TOTAL PROTEIN 7.3 GM/DL (6.4-8.2); TROPONIN I < 0.02 NG/ML (< 0.10)
[2020-10-04] MEDS ORDERED: TIOTROPIUM INHALER/CAPSULE (SPIRIVA) INH SCH (08:00)
[2020-10-04 09:00] VITALS: BP 112/66
[2020-10-04] MEDS ORDERED: OMEPRAZOLE 20 MG CAP PO SCH (09:00)
[2020-10-04] MEDS ORDERED: SUCRALFATE 1 GM TAB PO SCH (09:00)
[2020-10-04] MEDS ORDERED: DOCUSATE SODIUM 100MG CAPSULE PO SCH (09:00)
[2020-10-04] MEDS ORDERED: METOPROLOL TART 25 MG TABLET PO SCH (09:00)
[2020-10-04] MEDS ORDERED: CYANOCOBALAMIN 500 MCG TAB PO SCH (09:00)
[2020-10-04] MEDS ORDERED: DULoxetine 30 MG CAP (CYMBALTA) PO SCH (09:00)
[2020-10-04] MEDS ORDERED: buPROPion 100 MG TAB PO SCH (09:00)
[2020-10-04] MEDS ORDERED: NS 1,000 ML IV SCH (10:15)
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
[2020-10-04] MEDS ORDERED: KETOROLAC 30 MG/ML 1ML VIAL IV ONE (14:00)
== END 2020-10-04 13:45 | disposition home health service (06) | DRG 439 ==
LOC: M ED 17:05 → M ED INP 17:06 → OBSVTOIN 17:06 → ENRESERV 10-04 02:47 → M MS5PR 10-04 03:25
PROVIDERS: ADMIT Family Medicine; ATTEND Internal Medicine
DX: K85.90 Acute pancreatitis without necrosis or infection, unspecified (principal); K62.5 Hemorrhage of anus and rectum; J44.9 Chronic obstructive pulmonary disease, unspecified; I10 Essential (primary) hypertension; F31.9 Bipolar disorder, unspecified; K64.9 Unspecified hemorrhoids; M54.9 Dorsalgia, unspecified; Z86.711 Personal history of pulmonary embolism; Z86.718 Personal history of other venous thrombosis and embolism; D72.829 Elevated white blood cell count, unspecified; Z91.5 Personal history of self-harm; F17.210 Nicotine dependence, cigarettes, uncomplicated; K21.9 Gastro-esophageal reflux disease without esophagitis; Z20.822 Contact with and (suspected) exposure to COVID-19; Z79.899 Other long term (current) drug therapy; Z88.8 Allergy status to other drugs, medicaments and biological substances; R19.7 Diarrhea, unspecified

== ENCOUNTER 2020-12-13 14:34 | Observation (INO) | payer MEDICARE, MEDICAID ==
[~2020-12-13] VITALS: Ht 167.6 cm; Wt 94.7 kg
[~2020-12-13 14:34] MED LIST changes: +LACT20EL PO; +MIRA1POW3 PO; +POLY510P14
--- NOTE | 2020-12-13 19:25 | REP ---
INDICATION: severe epigastric pain, hx of gastric bypass r/o free air/ob. COMPARISON: None. TECHNIQUE: Three views total FINDINGS: Supine and upright views of the abdomen show the intestinal gas pattern to be nonspecific. Gas and stool is seen throughout the colon within the rectosigmoid region. The organ silhouettes insofar as delineated appear unremarkable. No abdominal calcific densities are seen within the abdomen or pelvis. The accompanying single frontal view of the chest shows no free subdiaphragmatic air, cardiomegaly, infiltrates or effusions. The tip of an inferior vena cava filter is seen on the right at the level of L2 pedicle. IMPRESSION: Nonspecific intestinal gas pattern. No obvious free intraperitoneal air. Consider CT. <Electronically signed by Ariel Knight > 12/13/201921
[2020-12-13] MEDS ORDERED: MORPHINE 2 MG/ML 1ML VIAL (J2270) IV ONE (20:00)
[2020-12-13 20:06] LABS: BASO % 0.3 % (0.0-1.0); EOS # 0.3 10^3/uL (0.0-0.5); EOS % 2.3 % (0.0-3.0); HEMATOCRIT 42.6 % (36.0-47.0); HEMOGLOBIN 14.5 g/dl (12.0-15.5); LYMPH # 2.8 10^3/uL (1.5-5.0); LYMPH % 23.8 % (24.0-44.0); MEAN CORPUSCULAR HEMOGLOBIN 31.1 pg (27.0-33.0); MEAN CORPUSCULAR VOLUME 91.4 fl (80.0-96.0); MONO # 0.9 10^3/uL (0.0-0.8); NEUTROPHILS # 7.7 10^3/uL (1.5-8.5); NEUTROPHILS % 65.2 % (36.0-66.0); PLATELET COUNT, AUTOMATED 274 10^3/uL (150-450); RED BLOOD COUNT 4.66 10^6/uL (4.00-5.40); WHITE BLOOD COUNT 11.8 10^3/uL (4.0-10.0)
[2020-12-13] MEDS ORDERED: ISOVUE-370 76% 100ML VIAL As Ordered ONE (20:15)
[2020-12-13 20:25] LABS: ALBUMIN 3.8 GM/DL (3.2-5.2); ALT/SGPT 26 U/L (12-78); BILIRUBIN,DIRECT < 0.1 MG/DL (0.0-0.2); BILIRUBIN,TOTAL 0.4 MG/DL (0.2-1.0); CK-MB VALUE MASS 1.6 NG/ML (<3.6); CPK CREATINE PHOSPHOKINASE 120 U/L (26-192); LIPASE 249 U/L (73-393); MB/CK RELATIVE INDEX 1.33 (< OR =4); TOTAL PROTEIN 7.8 GM/DL (6.4-8.2); TROPONIN I < 0.02 NG/ML (< 0.10)
[2020-12-13] MEDS: buPROPion (WELLBUTRIN SR) 100 MG SR TAB PO SCH (21:00)
[2020-12-13] MEDS ORDERED: METOPROLOL TART 25 MG TABLET PO SCH (21:00)
--- NOTE | 2020-12-13 21:58 | REPVR ---
PROCEDURE INFORMATION: Exam: CT Head Without Contrast Exam date and time: 12/13/2020 8:34 PM Age: 50 years old Clinical indication: Visual disturbance; Additional info: Blurred vision, headache TECHNIQUE: Imaging protocol: Computed tomography of the head without contrast. Radiation optimization: All CT scans at this facility use at least one of these dose optimization techniques: automated exposure control; mA and/or kV adjustment per patient size (includes targeted exams where dose is matched to clinical indication); or iterative reconstruction. COMPARISON: CT Head without contrast 07/26/2018 10:55 AM FINDINGS: Brain: There is no acute cortical infarction, intracranial hemorrhage or mass. Cerebral ventricles: No ventriculomegaly. Paranasal sinuses: There is no significant mucoperiosteal thickening or air-fluid levels in the visualized portion of the paranasal sinuses. Mastoid air cells: The middle ear cavities and mastoid air cells are clear. Bones/joints: Unremarkable. No acute fracture. Soft tissues: Unremarkable. IMPRESSION: No acute intracranial findings. Stable appearance in comparison to the 07/26/2018 CT. Electronically signed by: Shauna Hsu On 12/13/2020 21:58:02 PM
--- NOTE | 2020-12-13 22:05 | REPVR ---
PROCEDURE INFORMATION: Exam: CTA Abdomen and Pelvis With Contrast Exam date and time: 12/13/2020 8:34 PM Age: 50 years old Clinical indication: Abdominal pain; Epigastric; Additional info: Epigastric abd pain, back pain, TECHNIQUE: Imaging protocol: Computed tomographic angiography of the abdomen and pelvis with contrast material. 3D rendering (Not supervised by radiologist): MIP and/or 3D reconstructed images were created by the technologist. Radiation optimization: All CT scans at this facility use at least one of these dose optimization techniques: automated exposure control; mA and/or kV adjustment per patient size (includes targeted exams where dose is matched to clinical indication); or iterative reconstruction. Contrast material: ISOVUE 370; Contrast volume: 100 ml; Contrast route: INTRAVENOUS (IV); COMPARISON: CT ANGIO ABDOMEN 08/22/2017 1:22 PM FINDINGS: Mediastinal space: Small hiatal hernia. Aorta: Mild aortic atherosclerotic disease. No aortic aneurysm or dissection. Celiac trunk and mesenteric arteries: No occlusion or significant stenosis. Renal arteries: No occlusion or significant stenosis. Right iliac arteries: No occlusion or significant stenosis. Left iliac arteries: No occlusion or significant stenosis. Inferior vena cava: An IVC filter is present. Liver: No mass. Gallbladder and bile ducts: Unremarkable. No calcified stones. No ductal dilation. Pancreas: Unremarkable. No mass. No ductal dilation. Spleen: Unremarkable. No splenomegaly. Adrenal glands: Unremarkable. No mass. Kidneys and ureters: Unremarkable. No solid mass. No hydronephrosis. Stomach and bowel: Changes of prior bariatric surgery. No bowel obstruction or inflammatory changes. There is colonic diverticulosis without evidence of diverticulitis. Appendix: No evidence of appendicitis. Intraperitoneal space: Unremarkable. No free air. No significant fluid collection. Lymph nodes: Unremarkable. No enlarged lymph nodes. Urinary bladder: Unremarkable. No mass. Reproductive: There has been prior hysterectomy. Bones/joints: No acute fracture. No dislocation. Soft tissues: Unremarkable. IMPRESSION: 1. Colonic diverticulosis without evidence of diverticulitis. 2. No aortic aneurysm or dissection. No large vessel occlusion 3. No acute findings. 4. Small hiatal hernia. COMMENTS: For patients with an IVC filter, recommend assessment for a management plan for the patient's IVC filter. If there is no established management plan, recommend referral to an interventional clinician on a nonemergent basis for evaluation. Electronically signed by: Jason Márquez On 12/13/2020 22:05:01 PM
--- NOTE | 2020-12-13 22:09 | REPVR ---
PROCEDURE INFORMATION: Exam: CTA Chest With Contrast Exam date and time: 12/13/2020 8:34 PM Age: 50 years old Clinical indication: Pain; Chest pressure; Additional info: Epigastric abd pain, back pain, TECHNIQUE: Imaging protocol: Computed tomographic angiography of the chest with contrast. 3D rendering (Not supervised by radiologist): MIP and/or 3D reconstructed images were created by the technologist. Radiation optimization: All CT scans at this facility use at least one of these dose optimization techniques: automated exposure control; mA and/or kV adjustment per patient size (includes targeted exams where dose is matched to clinical indication); or iterative reconstruction. Contrast material: ISOVUE 370; Contrast volume: 100 ml; Contrast route: INTRAVENOUS (IV); COMPARISON: CT ANGIO CHEST 12/15/2017 4:10 PM FINDINGS: Pulmonary arteries: Normal. No pulmonary emboli. Aorta: Unremarkable. No aortic aneurysm. No aortic dissection. Lungs: Clear. No consolidation. No masses. Pleural spaces: No pneumothorax. No pleural effusion. Heart: Unremarkable. No cardiomegaly. No pericardial effusion. Lymph nodes: Unremarkable. No enlarged lymph nodes. Bones/joints: Unremarkable. No acute fracture. Soft tissues: Postoperative changes in the right chest wall. IMPRESSION: No acute findings. Electronically signed by: Jason Márquez On 12/13/2020 22:09:11 PM
[2020-12-13] MEDS ORDERED: MORPHINE 4 MG/ML 1ML VIAL/SYRINGE (J2270) IV ONE (23:45)
[2020-12-14] MEDS ORDERED: KETOROLAC 30 MG/ML 1ML VIAL IV PRN (01:10)
[2020-12-14] MEDS ORDERED: traMADol 50 MG TAB PO PRN (01:10)
[2020-12-14] MEDS ORDERED: ACETAMINOPHEN TAB 650MG DOSE (2X325MG) PO PRN (01:10)
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
[2020-12-14] MEDS ORDERED: SPIR1CAP INH (01:39)
[2020-12-14] MEDS ORDERED: BUPR100T3 PO (01:41)
[2020-12-14] MEDS ORDERED: HOME MED LIST COMPLETE! XX SCH (01:45)
[2020-12-14 02:08] LABS: RSV AMPLIFICATION NEGATIVE (NEGATIVE)
[2020-12-14] MEDS ORDERED: ALBUTEROL 90 MCG/ACT 8GM HFA INHALER INH PRN (02:20)
[2020-12-14] MEDS: LIDOCAINE 5% (LIDODERM) PATCH TD SCH (02:20)
[2020-12-14] MEDS: SUCRALFATE 1 GM TAB PO SCH ×3 (02:52→21:43)
[2020-12-14] MEDS: OMEPRAZOLE 20 MG CAP PO SCH ×3 (02:52→21:43)
[2020-12-14] MEDS: DULoxetine 30 MG CAP (CYMBALTA) PO SCH ×3 (02:55→21:42)
[2020-12-14] MEDS: CALCIUM/VITAMIN D 500 MG TAB PO SCH ×3 (02:56→21:43)
[2020-12-14] MEDS ORDERED: MORPHINE 2 MG/ML 1ML VIAL (J2270) IV ONE (03:05)
[2020-12-14 03:11] LABS: C REACTIVE PROTEIN QUANTITATIV 0.83 MG/DL (0.00-0.30); MAGNESIUM LEVEL 1.9 MG/DL (1.8-2.4)
[2020-12-14 03:28] LABS: ERYTHROCYTE SEDIMENTATION RATE 41 mm/hr (0-30)
[2020-12-14 03:58] VITALS: BP 136/85
[2020-12-14] MEDS: QUEtiapine FUMARATE 200 MG TAB PO SCH ×3 (04:08→21:42)
[2020-12-14 06:00] VITALS: BP 126/90
[2020-12-14 06:40] LABS: BASO # 0.1 10^3/uL (0.0-0.2); BASO % 0.5 % (0.0-1.0); EOS # 0.2 10^3/uL (0.0-0.5); EOS % 2.4 % (0.0-3.0); HEMATOCRIT 41.8 % (36.0-47.0); LYMPH # 2.2 10^3/uL (1.5-5.0); LYMPH % 22.3 % (24.0-44.0); MEAN CORPUSCULAR HEMOGLOBIN 31.1 pg (27.0-33.0); MEAN CORPUSCULAR HGB CONC 33.5 g/dl (32.0-36.5); MEAN CORPUSCULAR VOLUME 92.9 fl (80.0-96.0); MONO % 10.3 % (2.0-8.0); NEUTROPHILS # 6.3 10^3/uL (1.5-8.5); NEUTROPHILS % 64.1 % (36.0-66.0); PLATELET COUNT, AUTOMATED 241 10^3/uL (150-450); WHITE BLOOD COUNT 9.9 10^3/uL (4.0-10.0)
[2020-12-14 06:50] LABS: HEMOGLOBIN A1c 5.9 %
[2020-12-14 06:59] LABS: ALBUMIN 3.6 GM/DL (3.2-5.2); ALT/SGPT 22 U/L (12-78); BILIRUBIN,TOTAL 0.4 MG/DL (0.2-1.0); BLOOD UREA NITROGEN 10 MG/DL (7-18); CALCIUM LEVEL 9.5 MG/DL (8.5-10.1); CARBON DIOXIDE LEVEL 27 MEQ/L (21-32); CHLORIDE LEVEL 109 MEQ/L (98-107); CREATININE FOR GFR 0.65 MG/DL (0.55-1.30); GLOMERULAR FILTRATION RATE > 60.0 (>51); GLUCOSE, FASTING 121 MG/DL (70-100); LIPASE 169 U/L (73-393); POTASSIUM SERUM 4.1 MEQ/L (3.5-5.1); SODIUM LEVEL 141 MEQ/L (136-145); TOTAL PROTEIN 7.4 GM/DL (6.4-8.2)
[2020-12-14] MEDS: MORPHINE 2 MG/ML 1ML VIAL (J2270) IV PRN ×2 (09:36→18:53)
[2020-12-14] MEDS: buPROPion (WELLBUTRIN SR) 100 MG SR TAB PO SCH ×2 (09:37→21:43)
[2020-12-14] MEDS: CYANOCOBALAMIN 500 MCG TAB PO SCH (09:37)
[2020-12-14] MEDS: MULTIVITAMINS/MINERALS THERAP 1 TAB PO SCH (09:38)
[2020-12-14 11:56] LABS: AMPHETAMINES URINE REFLEX NEGATIVE (NEGATIVE); BARBITURATES URINE REFLEX NEGATIVE (NEGATIVE); BENZODIAZEPINES URINE REFLEX NEGATIVE (NEGATIVE); COCAINE METABOLITE URINE REFLE NEGATIVE (NEGATIVE); METHADONE URINE REFLEX NEGATIVE (NEGATIVE); PHENCYCLIDINE URINE REFLEX NEGATIVE (NEGATIVE)
[2020-12-14 13:06] LABS: CANNABINOIDS URINE REFLEX PENDING CONFIRMATION (NEGATIVE); OPIATES URINE REFLEX PENDING CONFIRMATION (NEGATIVE)
[2020-12-14 14:00] VITALS: BP 125/89
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
--- NOTE | 2020-12-14 16:51 | REP ---
INDICATION: right leg swelling COMPARISON: None. TECHNIQUE: Real time compression and duplex Doppler interrogation of the right lower extremity deep venous system is performed, including the left common femoral vein.Compression of the right peroneal and posterior tibial veins is performed. FINDINGS: The right common femoral, superficial femoral and popliteal veins are fully compressible with transducer pressure and demonstrate normal spontaneous and phasic flow, without evidence of deep venous thrombosis.The left common femoral vein demonstrates no thrombus.The visualized right peroneal and posterior tibial veins demonstrate no thrombus. IMPRESSION: No evidence of deep venous thrombosis of the right lower extremity femoral popliteal venous system.The visualized right peroneal and posterior tibial veins demonstrate no thrombus. <Electronically signed by Brayan Lomeli > 12/14/20 [id number]
[2020-12-14] MEDS ORDERED: **NOTE PATIENT COMMENT** MISC XX SCH (21:00)
[2020-12-14 22:00] VITALS: BP 122/86
[2020-12-15 00:07] VITALS: BP 119/81
[2020-12-15] MEDS: METOPROLOL TART 25 MG TABLET PO SCH ×2 (00:19→10:43)
[2020-12-15 06:00] VITALS: BP 104/71
[2020-12-15 08:21] LABS: BASO % 0.4 % (0.0-1.0); EOS # 0.1 10^3/uL (0.0-0.5); EOS % 1.8 % (0.0-3.0); HEMATOCRIT 43.8 % (36.0-47.0); HEMOGLOBIN 14.5 g/dl (12.0-15.5); LYMPH # 1.3 10^3/uL (1.5-5.0); LYMPH % 17.8 % (24.0-44.0); MEAN CORPUSCULAR HEMOGLOBIN 30.7 pg (27.0-33.0); MEAN CORPUSCULAR HGB CONC 33.1 g/dl (32.0-36.5); MEAN CORPUSCULAR VOLUME 92.6 fl (80.0-96.0); MONO # 0.6 10^3/uL (0.0-0.8); MONO % 8.3 % (2.0-8.0); NEUTROPHILS # 5.2 10^3/uL (1.5-8.5); NEUTROPHILS % 71.3 % (36.0-66.0); PLATELET COUNT, AUTOMATED 255 10^3/uL (150-450); RED BLOOD COUNT 4.73 10^6/uL (4.00-5.40); WHITE BLOOD COUNT 7.2 10^3/uL (4.0-10.0)
[2020-12-15 08:44] LABS: ALBUMIN 3.7 GM/DL (3.2-5.2); ALT/SGPT 24 U/L (12-78); BILIRUBIN,TOTAL 0.5 MG/DL (0.2-1.0); BLOOD UREA NITROGEN 13 MG/DL (7-18); CALCIUM LEVEL 9.4 MG/DL (8.5-10.1); CARBON DIOXIDE LEVEL 24 MEQ/L (21-32); CHLORIDE LEVEL 108 MEQ/L (98-107); CREATININE FOR GFR 0.72 MG/DL (0.55-1.30); GLOMERULAR FILTRATION RATE > 60.0 (>51); GLUCOSE, FASTING 175 MG/DL (70-100); LIPASE 174 U/L (73-393); POTASSIUM SERUM 4.1 MEQ/L (3.5-5.1); SODIUM LEVEL 140 MEQ/L (136-145); TOTAL PROTEIN 7.5 GM/DL (6.4-8.2)
[2020-12-15 09:10] VITALS: BP 120/80
[2020-12-15] MEDS ORDERED: ACET1TAB55 PO (10:28)
[2020-12-15] MEDS ORDERED: TRAM50TA2 PO ×2 (10:28→10:40)
[2020-12-15] MEDS: MORPHINE 2 MG/ML 1ML VIAL (J2270) IV PRN ×2 (10:30)
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
[2020-12-15] MEDS: LIDOCAINE 5% (LIDODERM) PATCH TD SCH (10:36)
[2020-12-15] MEDS: OMEPRAZOLE 20 MG CAP PO SCH (10:40)
[2020-12-15] MEDS: DULoxetine 30 MG CAP (CYMBALTA) PO SCH (10:41)
[2020-12-15] MEDS: MULTIVITAMINS/MINERALS THERAP 1 TAB PO SCH (10:41)
[2020-12-15] MEDS: buPROPion (WELLBUTRIN SR) 100 MG SR TAB PO SCH (10:42)
[2020-12-15] MEDS: CYANOCOBALAMIN 500 MCG TAB PO SCH (10:42)
[2020-12-15] MEDS: CALCIUM/VITAMIN D 500 MG TAB PO SCH (10:42)
[2020-12-15] MEDS: SUCRALFATE 1 GM TAB PO SCH (10:42)
[2020-12-15 10:43] VITALS: BP 120/80
[2020-12-15] MEDS ORDERED: OXYC-517 PO (11:27)
--- NOTE | 2020-12-15 22:17 | ECGEPIP ---
[facility] Test Date: 2020-12-13 Pat Name: PRUDENCIO NOVOA Department: Room: [place] [address] Gender: Female Manager Ccu: ELKE : 1970 Requested By: Cahru Mauricio PA-C Order Number: [id number] Reading MD: Carlitos Granado Measurements Intervals Brady Rate: 95 P: 50 ID: [id number] QRS: 50 QRSD: 90 T: 40 QT: 372 QTc: 467 Interpretive Statements Normal sinus rhythm Artifact in the limb lead(s) Compared to prior tracings (3) in the system. No remarkable changes Electronically Signed on 12-15-2020 22:16:57 EDT by Carlitos Granado
== END 2020-12-15 12:45 | disposition home or self-care (01) ==
LOC: M ED 14:34 → M ED INP 14:35 → EEVIPCON 14:35 → ENRESERV 12-14 02:44 → M MSPAV 12-14 03:42
PROVIDERS: ADMIT Internal Medicine; ATTEND Family Medicine
DX: R10.31 Right lower quadrant pain (principal); M79.604 Pain in right leg; M54.2 Cervicalgia; R51.9 Headache, unspecified; K44.9 Diaphragmatic hernia without obstruction or gangrene; K57.30 Diverticulosis of large intestine without perforation or abscess without bleeding; F31.9 Bipolar disorder, unspecified; F32.9 Major depressive disorder, single episode, unspecified; F17.218 Nicotine dependence, cigarettes, with other nicotine-induced disorders; Z98.84 Bariatric surgery status; Z87.820 Personal history of traumatic brain injury; Z79.899 Other long term (current) drug therapy; Z88.8 Allergy status to other drugs, medicaments and biological substances; J44.9 Chronic obstructive pulmonary disease, unspecified
CPT/HCPCS: 36415; 70450; 71275; 74021; 74174; 80047; 80053; 80076; 80307; 81001; 82140; 82550; 82553; 83036; 83690; 83735; 84443; 84484; 85025; 85652; 86140; 87631; 87641; 93005; 93971; 96374; 96375; 96376; 99284; G0378; G0480; J1885; J2270; Q9967

== ENCOUNTER 2021-04-23 13:32 | Observation (INO) | payer MEDICARE, MEDICAID ==
[~2021-04-23] VITALS: Ht 167.6 cm; Wt 102.0 kg
[~2021-04-23 13:32] MED LIST changes: -CYMB60CA3 PO; +CYMB60CA4 PO; -OMEP-221 PO; +OMEP40CA5 PO; +OXYC-517 PO; +TRAM50TA2 PO
[2021-04-23 14:03] LABS: BASO % 0.4 % (0.0-1.0); EOS # 0.2 10^3/uL (0.0-0.5); EOS % 2.1 % (0.0-3.0); HEMATOCRIT 41.1 % (36.0-47.0); HEMOGLOBIN 13.7 g/dl (12.0-15.5); LYMPH # 2.1 10^3/uL (1.5-5.0); MEAN CORPUSCULAR HEMOGLOBIN 30.9 pg (27.0-33.0); MEAN CORPUSCULAR HGB CONC 33.3 g/dl (32.0-36.5); MEAN CORPUSCULAR VOLUME 92.8 fl (80.0-96.0); MONO # 0.6 10^3/uL (0.0-0.8); MONO % 7.1 % (2.0-8.0); NEUTROPHILS # 5.9 10^3/uL (1.5-8.5); NEUTROPHILS % 65.8 % (36.0-66.0); PLATELET COUNT, AUTOMATED 267 10^3/uL (150-450); RED BLOOD COUNT 4.43 10^6/uL (4.00-5.40); WHITE BLOOD COUNT 8.9 10^3/uL (4.0-10.0)
[2021-04-23 14:37] LABS: ALBUMIN 3.8 GM/DL (3.2-5.2); ALT/SGPT 33 U/L (12-78); BILIRUBIN,DIRECT < 0.1 MG/DL (0.0-0.2); BILIRUBIN,TOTAL 0.3 MG/DL (0.2-1.0); BLOOD UREA NITROGEN 9 MG/DL (7-18); CALCIUM LEVEL 9.3 MG/DL (8.5-10.1); CARBON DIOXIDE LEVEL 25 MEQ/L (21-32); CHLORIDE LEVEL 103 MEQ/L (98-107); GLOMERULAR FILTRATION RATE > 60.0 (>51); GLUCOSE, FASTING 121 MG/DL (70-100); LIPASE 381 U/L (73-393); POTASSIUM SERUM 4.1 MEQ/L (3.5-5.1); SODIUM LEVEL 136 MEQ/L (136-145); TOTAL PROTEIN 7.6 GM/DL (6.4-8.2)
[2021-04-23] MEDS ORDERED: ONDANSETRON 4MG/2ML VIAL IV ONE (15:00)
[2021-04-23] MEDS ORDERED: MORPHINE 4 MG/ML 1ML VIAL/SYRINGE (J2270) IV ONE (15:00)
[2021-04-23] MEDS ORDERED: ISOVUE-370 76% 100ML VIAL As Ordered ONE (15:04)
[2021-04-23] MEDS ORDERED: ACETAMINOPHEN 500 MG TAB PO ONE (16:55)
[2021-04-23] MEDS ORDERED: MORPHINE 2 MG/ML 1ML VIAL (J2270) IV ONE (17:35)
[2021-04-23] MEDS ORDERED: HYDROMORPHONE HCL 0.5 MG/ 0.5 ML SYRINGE (J1170 PER 1) IV PRN ×2 (20:05→21:50)
[2021-04-23] MEDS ORDERED: QUEtiapine FUMARATE 200 MG TAB PO SCH (21:00)
[2021-04-23] MEDS ORDERED: ACETAMINOPHEN TAB 650MG DOSE (2X325MG) PO PRN (21:25)
[2021-04-23] MEDS ORDERED: MORPHINE 2 MG/ML 1ML VIAL (J2270) IV PRN (21:25)
[2021-04-23] MEDS ORDERED: ONDANSETRON 4MG/2ML VIAL IV PRN (21:25)
[2021-04-23] MEDS ORDERED: PERCOCET 5MG/325MG TAB PO PRN (21:25)
[2021-04-23 21:39] LABS: MAGNESIUM LEVEL 2.1 MG/DL (1.8-2.4)
[2021-04-23] MEDS ORDERED: DICYCLOMINE 10 MG CAP PO PRN (21:50)
[2021-04-23] MEDS ORDERED: ACET1TAB55 PO (22:43)
[2021-04-23] MEDS ORDERED: HOME MED LIST COMPLETE! XX SCH (22:45)
[2021-04-23 22:50] LABS: HEMOGLOBIN A1c 6.2 %
[2021-04-24] VITALS: BP 122/78
[2021-04-24 01:07] VITALS: O2SAT 96
[2021-04-24] MEDS ORDERED: ALBUTEROL 90 MCG/ACT 8GM HFA INHALER INH PRN (01:40)
[2021-04-24] MEDS ORDERED: QUEtiapine FUMARATE 200 MG TAB PO PRN (01:40)
[2021-04-24] MEDS ORDERED: KETOROLAC TROMETHAMINE 10 MG TAB PO PRN (01:45)
[2021-04-24] MEDS ORDERED: PERCOCET 5MG/325MG TAB PO PRN ×3 (02:00→09:55)
[2021-04-24] MEDS: DULoxetine 30MG CAPSULE (CYMBALTA) PO SCH ×2 (02:13→07:53)
[2021-04-24] MEDS ORDERED: IPRATROPIUM 0.5MG/ALBUTEROL 2.5MG INH SOL UD 3ML (DUONEB) NEB PRN (02:40)
[2021-04-24 03:25] LABS: GC DNA AMPLIFICATION NEGATIVE (NEGATIVE)
[2021-04-24 03:30] VITALS: BP 126/91
[2021-04-24 03:50] VITALS: BP 121/91
[2021-04-24] MEDS ORDERED: LORazepam 2 MG/ML VIAL IV STA (03:59)
[2021-04-24 04:14] LABS: BASO % 0.4 % (0.0-1.0); EOS # 0.3 10^3/uL (0.0-0.5); EOS % 2.5 % (0.0-3.0); HEMOGLOBIN 13.9 g/dl (12.0-15.5); LYMPH # 2.6 10^3/uL (1.5-5.0); LYMPH % 24.2 % (24.0-44.0); MEAN CORPUSCULAR HEMOGLOBIN 30.7 pg (27.0-33.0); MEAN CORPUSCULAR HGB CONC 33.1 g/dl (32.0-36.5); MEAN CORPUSCULAR VOLUME 92.7 fl (80.0-96.0); MONO # 1.1 10^3/uL (0.0-0.8); MONO % 10.1 % (2.0-8.0); NEUTROPHILS # 6.6 10^3/uL (1.5-8.5); NEUTROPHILS % 62.3 % (36.0-66.0); PLATELET COUNT, AUTOMATED 285 10^3/uL (150-450); RED BLOOD COUNT 4.53 10^6/uL (4.00-5.40); WHITE BLOOD COUNT 10.6 10^3/uL (4.0-10.0)
[2021-04-24 04:25] LABS: PARTIAL THROMBOPLASTIN TIME 30.9 SECONDS (25.9-37.0)
[2021-04-24 04:27] LABS: D-DIMER QUANT 776.84 ng/ml (<500)
[2021-04-24 04:39] LABS: ALBUMIN 3.9 GM/DL (3.2-5.2); ALT/SGPT 31 U/L (12-78); BILIRUBIN,TOTAL 0.4 MG/DL (0.2-1.0); BLOOD UREA NITROGEN 11 MG/DL (7-18); CALCIUM LEVEL 8.8 MG/DL (8.5-10.1); CARBON DIOXIDE LEVEL 24 MEQ/L (21-32); CHLORIDE LEVEL 106 MEQ/L (98-107); CK-MB VALUE MASS 2.3 NG/ML (<3.6); GLOMERULAR FILTRATION RATE > 60.0 (>51); GLUCOSE, FASTING 146 MG/DL (70-100); LIPASE 207 U/L (73-393); MAGNESIUM LEVEL 2.2 MG/DL (1.8-2.4); MB/CK RELATIVE INDEX 1.43 (< OR =4); POTASSIUM SERUM 4.4 MEQ/L (3.5-5.1); SODIUM LEVEL 140 MEQ/L (136-145); TOTAL PROTEIN 7.9 GM/DL (6.4-8.2)
[2021-04-24] MEDS ORDERED: MORPHINE 2 MG/ML 1ML VIAL (J2270) IV ONE (05:00)
[2021-04-24 07:53] VITALS: BP 121/91
[2021-04-24] MEDS ORDERED: CYANOCOBALAMIN 500 MCG TAB PO SCH (09:00)
[2021-04-24] MEDS ORDERED: MULTIVITAMINS/MINERALS THERAP 1 TAB PO SCH (09:00)
[2021-04-24] MEDS ORDERED: METOPROLOL TART 25 MG TABLET PO SCH (09:00)
[2021-04-24] MEDS ORDERED: MIRALAX *UNIT DOSE* 17GM PACKET PO SCH (09:00)
[2021-04-24] MEDS ORDERED: CALCIUM/VITAMIN D 500 MG TAB PO SCH (09:00)
[2021-04-24] MEDS ORDERED: SUCRALFATE 1 GM TAB PO SCH (09:00)
[2021-04-24] MEDS ORDERED: buPROPion (WELLBUTRIN SR) 100 MG SR TAB PO SCH (09:00)
[2021-04-24] MEDS ORDERED: OMEPRAZOLE 20 MG CAP PO SCH (09:00)
[2021-04-24] MEDS ORDERED: PERCOCET PO (12:34)
[2021-04-25] MEDS ORDERED: FLUBLOK(EGG FREE)(QUAD)INFLUENZA VACC 0.5ML SYRINGE 18YRS & OLDER IM ONE (09:00)
== END 2021-04-24 13:45 | disposition home or self-care (01) ==
LOC: EDBD 13:32 → M ED 13:32 → M ED INP 13:33 → ENRESERV 22:20 → M MS5PR 23:57
PROVIDERS: ADMIT Family Medicine; ATTEND Family Medicine
DX: R10.9 Unspecified abdominal pain (principal); R19.7 Diarrhea, unspecified; K21.9 Gastro-esophageal reflux disease without esophagitis; J44.9 Chronic obstructive pulmonary disease, unspecified; Z86.711 Personal history of pulmonary embolism; F31.9 Bipolar disorder, unspecified; Z79.899 Other long term (current) drug therapy; Z88.8 Allergy status to other drugs, medicaments and biological substances; I10 Essential (primary) hypertension; F32.9 Major depressive disorder, single episode, unspecified; G89.29 Other chronic pain; Z87.891 Personal history of nicotine dependence
CPT/HCPCS: 36415; 70450; 71045; 74177; 80048; 80053; 80076; 81001; 82140; 82550; 82553; 83036; 83605; 83615; 83690; 83735; 84145; 84443; 84484; 85025; 85379; 85730; 87426; 87808; 87810; 87850; 93005; 93971; 96374; 96375; 96376; 99284; G0378; J2060; J2270; J2405; Q9967

== ENCOUNTER 2021-05-10 17:38 | Emergency (ER) | payer MEDICARE, MEDICAID ==
[~2021-05-10] VITALS: Ht 167.6 cm; Wt 95.5 kg
[~2021-05-10 17:38] MED LIST changes: +PERCOCET PO
[2021-05-10] MEDS ORDERED: NS 1,000 ML IV SCH (18:00)
[2021-05-10 18:19] LABS: BASO # 0.1 10^3/uL (0.0-0.2); BASO % 0.4 % (0.0-1.0); EOS # 0.3 10^3/uL (0.0-0.5); EOS % 1.9 % (0.0-3.0); HEMATOCRIT 43.5 % (36.0-47.0); HEMOGLOBIN 14.5 g/dl (12.0-15.5); LYMPH # 2.6 10^3/uL (1.5-5.0); LYMPH % 18.5 % (24.0-44.0); MEAN CORPUSCULAR HEMOGLOBIN 30.7 pg (27.0-33.0); MEAN CORPUSCULAR HGB CONC 33.3 g/dl (32.0-36.5); MEAN CORPUSCULAR VOLUME 92.2 fl (80.0-96.0); MONO % 7.5 % (2.0-8.0); NEUTROPHILS # 9.9 10^3/uL (1.5-8.5); NEUTROPHILS % 71.1 % (36.0-66.0); PLATELET COUNT, AUTOMATED 296 10^3/uL (150-450); RED BLOOD COUNT 4.72 10^6/uL (4.00-5.40); WHITE BLOOD COUNT 13.9 10^3/uL (4.0-10.0)
[2021-05-10 18:49] LABS: CK-MB VALUE MASS 1.7 NG/ML (<3.6); MB/CK RELATIVE INDEX 1.55 (< OR =4)
[2021-05-10] MEDS ORDERED: PERCOCET 5MG/325MG TAB PO ONE ×2 (18:55→20:40)
[2021-05-10 18:57] LABS: ALBUMIN 4.3 GM/DL (3.2-5.2); ALT/SGPT 26 U/L (12-78); BILIRUBIN,DIRECT < 0.1 MG/DL (0.0-0.2); BILIRUBIN,TOTAL 0.3 MG/DL (0.2-1.0); BLOOD UREA NITROGEN 14 MG/DL (7-18); CALCIUM LEVEL 9.3 MG/DL (8.5-10.1); CARBON DIOXIDE LEVEL 26 MEQ/L (21-32); CHLORIDE LEVEL 105 MEQ/L (98-107); CREATININE FOR GFR 0.89 MG/DL (0.55-1.30); GLOMERULAR FILTRATION RATE > 60.0 (>51); GLUCOSE, FASTING 117 MG/DL (70-100); LIPASE 268 U/L (73-393); SODIUM LEVEL 138 MEQ/L (136-145); TOTAL PROTEIN 8.3 GM/DL (6.4-8.2)
[2021-05-10] MEDS ORDERED: ISOVUE-370 76% 100ML VIAL As Ordered ONE (19:31)
[2021-05-10] MEDS ORDERED: LORazepam 2 MG/ML VIAL IV STA (21:47)
[2021-05-10 23:15] VITALS: BP 140/83
[2021-05-10] MEDS ORDERED: OXYCODONE/APAP 5MG/325MG(BULK FOR ED) 1 TABLET PO ONE (23:40)
[2021-05-10] MEDS ORDERED: DICYCLOMINE 10 MG CAP PO ONE (23:40)
[2021-05-10] MEDS ORDERED: PERCOCET PO (23:42)
[2021-05-10] MEDS ORDERED: DICY10CA13 PO (23:42)
== END 2021-05-11 00:25 | disposition home or self-care (01) ==
LOC: M ED 17:38 → EDSEX 17:38 → EDBD 17:38 → M ED 05-11 00:25
DX: R10.9 Unspecified abdominal pain (principal); I10 Essential (primary) hypertension; J44.9 Chronic obstructive pulmonary disease, unspecified; Z87.820 Personal history of traumatic brain injury; M54.9 Dorsalgia, unspecified; Z86.711 Personal history of pulmonary embolism; Z86.718 Personal history of other venous thrombosis and embolism; Z95.828 Presence of other vascular implants and grafts; Z90.2 Acquired absence of lung [part of]; Z87.891 Personal history of nicotine dependence; K57.30 Diverticulosis of large intestine without perforation or abscess without bleeding; R16.0 Hepatomegaly, not elsewhere classified; Z79.899 Other long term (current) drug therapy; Z88.8 Allergy status to other drugs, medicaments and biological substances
CPT/HCPCS: 70450; 74177; 80048; 80076; 81001; 82550; 82553; 83690; 84484; 85025; 87086; 93005; 93041; 96361; 96374; 99285; J2060; Q9967

== ENCOUNTER 2021-05-15 10:35 | Emergency (ER) | payer MEDICARE, MEDICAID ==
[~2021-05-15] VITALS: Ht 167.6 cm; Wt 101.1 kg
[~2021-05-15 10:35] MED LIST changes: +DICY10CA13 PO
[2021-05-15 12:17] LABS: BASO # 0.1 10^3/uL (0.0-0.2); BASO % 0.6 % (0.0-1.0); EOS # 0.3 10^3/uL (0.0-0.5); EOS % 2.7 % (0.0-3.0); HEMATOCRIT 41.2 % (36.0-47.0); HEMOGLOBIN 13.6 g/dl (12.0-15.5); LYMPH # 2.1 10^3/uL (1.5-5.0); LYMPH % 22.1 % (24.0-44.0); MEAN CORPUSCULAR HEMOGLOBIN 30.4 pg (27.0-33.0); MONO # 0.7 10^3/uL (0.0-0.8); MONO % 7.6 % (2.0-8.0); NEUTROPHILS # 6.4 10^3/uL (1.5-8.5); NEUTROPHILS % 66.6 % (36.0-66.0); PLATELET COUNT, AUTOMATED 262 10^3/uL (150-450); RED BLOOD COUNT 4.48 10^6/uL (4.00-5.40); WHITE BLOOD COUNT 9.6 10^3/uL (4.0-10.0)
[2021-05-15] MEDS ORDERED: KETOROLAC 30 MG/ML 1ML VIAL IV ONE (12:25)
[2021-05-15 12:29] LABS: INR 0.88; PARTIAL THROMBOPLASTIN TIME 30.1 SECONDS (25.9-37.0); PROTHROMBIN TIME 12.3 SECONDS (12.7-14.5)
[2021-05-15] MEDS ORDERED: ONDANSETRON 4MG/2ML VIAL IV ONE (12:35)
[2021-05-15] MEDS ORDERED: MORPHINE 4 MG/ML 1ML VIAL/SYRINGE (J2270) IV ONE ×2 (12:35→15:30)
[2021-05-15 12:43] LABS: ALBUMIN 3.8 GM/DL (3.2-5.2); ALT/SGPT 26 U/L (12-78); AMYLASE 35 U/L (25-115); BILIRUBIN,DIRECT < 0.1 MG/DL (0.0-0.2); BILIRUBIN,TOTAL 0.3 MG/DL (0.2-1.0); LIPASE 158 U/L (73-393); TOTAL PROTEIN 7.4 GM/DL (6.4-8.2)
[2021-05-15 12:44] LABS: CK-MB VALUE MASS 1.7 NG/ML (<3.6); MB/CK RELATIVE INDEX 1.75 (< OR =4)
[2021-05-15] MEDS: GASTROGRAFIN SOLUTION 30ML PO SCH ×2 (13:05→13:27)
[2021-05-15] MEDS ORDERED: ISOVUE-370 76% 100ML VIAL As Ordered ONE (13:55)
[2021-05-15 16:18] VITALS: BP 141/79
== END 2021-05-15 16:35 | disposition home or self-care (01) ==
LOC: M ED 10:35
DX: R10.9 Unspecified abdominal pain (principal); I10 Essential (primary) hypertension; E78.5 Hyperlipidemia, unspecified; K21.9 Gastro-esophageal reflux disease without esophagitis; K57.92 Diverticulitis of intestine, part unspecified, without perforation or abscess without bleeding; K64.9 Unspecified hemorrhoids; K52.9 Noninfective gastroenteritis and colitis, unspecified; G43.909 Migraine, unspecified, not intractable, without status migrainosus; Z86.711 Personal history of pulmonary embolism; Z86.718 Personal history of other venous thrombosis and embolism; Z98.84 Bariatric surgery status; R16.0 Hepatomegaly, not elsewhere classified; K76.0 Fatty (change of) liver, not elsewhere classified; Z79.899 Other long term (current) drug therapy; Z88.8 Allergy status to other drugs, medicaments and biological substances
CPT/HCPCS: 74177; 80047; 80076; 81001; 82150; 82550; 82553; 83605; 83690; 84484; 85025; 85610; 85730; 87040; 87088; 93005; 96374; 99284; J2270; J2405; Q9963; Q9967

== ENCOUNTER 2021-10-23 15:06 | Emergency (ER) | payer MEDICARE, MEDICAID ==
[~2021-10-23] VITALS: Ht 167.6 cm; Wt 101.6 kg
[~2021-10-23 15:06] MED LIST changes: +BUPR-70 PO; -BUPR100T3 PO; -D31000TA2 PO; +VITA100093 PO
[2021-10-23] MEDS ORDERED: METF-838 (15:24)
[2021-10-23 17:12] LABS: BASO % 0.4 % (0.0-1.0); EOS # 0.3 10^3/uL (0.0-0.5); EOS % 2.7 % (0.0-3.0); HEMATOCRIT 40.4 % (36.0-47.0); HEMOGLOBIN 13.2 g/dl (12.0-15.5); LYMPH # 2.6 10^3/uL (1.5-5.0); LYMPH % 26.4 % (24.0-44.0); MEAN CORPUSCULAR HEMOGLOBIN 30.5 pg (27.0-33.0); MEAN CORPUSCULAR HGB CONC 32.7 g/dl (32.0-36.5); MEAN CORPUSCULAR VOLUME 93.3 fl (80.0-96.0); MONO # 0.8 10^3/uL (0.0-0.8); MONO % 7.6 % (2.0-8.0); NEUTROPHILS # 6.1 10^3/uL (1.5-8.5); NEUTROPHILS % 62.3 % (36.0-66.0); PLATELET COUNT, AUTOMATED 320 10^3/uL (150-450); RED BLOOD COUNT 4.33 10^6/uL (4.00-5.40); WHITE BLOOD COUNT 9.8 10^3/uL (4.0-10.0)
[2021-10-23 17:27] LABS: ALBUMIN 3.9 GM/DL (3.2-5.2); ALT/SGPT 23 U/L (12-78); BILIRUBIN,DIRECT 0.1 MG/DL (0.0-0.2); BILIRUBIN,TOTAL 0.3 MG/DL (0.2-1.0); BLOOD UREA NITROGEN 10 MG/DL (7-18); CALCIUM LEVEL 9.6 MG/DL (8.5-10.1); CARBON DIOXIDE LEVEL 27 MEQ/L (21-32); CHLORIDE LEVEL 107 MEQ/L (98-107); CREATININE FOR GFR 0.82 MG/DL (0.55-1.30); GLOMERULAR FILTRATION RATE > 60.0 (>51); GLUCOSE, FASTING 97 MG/DL (70-100); LIPASE 240 U/L (73-393); SODIUM LEVEL 137 MEQ/L (136-145); TOTAL PROTEIN 7.6 GM/DL (6.4-8.2)
[2021-10-23] MEDS: KETOROLAC 60MG 2ML VIAL IM ONE ×2 (20:45→20:52)
[2021-10-23] MEDS ORDERED: PERCOCET 5MG/325MG TAB PO ONE (21:55)
[2021-10-23 22:52] VITALS: BP 131/79
== END 2021-10-23 22:53 | disposition home or self-care (01) ==
LOC: M ED 15:06
DX: M54.50 Low back pain, unspecified (principal); E11.9 Type 2 diabetes mellitus without complications; I10 Essential (primary) hypertension; J44.9 Chronic obstructive pulmonary disease, unspecified; Z86.718 Personal history of other venous thrombosis and embolism; F17.200 Nicotine dependence, unspecified, uncomplicated; Z98.84 Bariatric surgery status; R16.0 Hepatomegaly, not elsewhere classified; M48.061 Spinal stenosis, lumbar region without neurogenic claudication; Z79.899 Other long term (current) drug therapy; Z88.8 Allergy status to other drugs, medicaments and biological substances

== ENCOUNTER → 2021-11-22 | Outpatient (CLI) | payer MEDICARE, MEDICAID ==
[~2021-11-22] MED LIST changes: +METF-838
[2021-11-22 09:47] LABS: BASO # 0.1 10^3/uL (0.0-0.2); BASO % 0.5 % (0.0-1.0); EOS # 0.2 10^3/uL (0.0-0.5); EOS % 2.3 % (0.0-3.0); HEMATOCRIT 40.7 % (36.0-47.0); HEMOGLOBIN 12.9 g/dl (12.0-15.5); LYMPH # 1.8 10^3/uL (1.5-5.0); LYMPH % 19.6 % (24.0-44.0); MEAN CORPUSCULAR HEMOGLOBIN 29.5 pg (27.0-33.0); MEAN CORPUSCULAR HGB CONC 31.7 g/dl (32.0-36.5); MEAN CORPUSCULAR VOLUME 92.9 fl (80.0-96.0); MONO # 0.8 10^3/uL (0.0-0.8); MONO % 8.5 % (2.0-8.0); NEUTROPHILS # 6.5 10^3/uL (1.5-8.5); NEUTROPHILS % 68.8 % (36.0-66.0); PLATELET COUNT, AUTOMATED 285 10^3/uL (150-450); RED BLOOD COUNT 4.38 10^6/uL (4.00-5.40); WHITE BLOOD COUNT 9.4 10^3/uL (4.0-10.0)
[2021-11-22 10:42] LABS: C REACTIVE PROTEIN QUANTITATIV 0.95 MG/DL (0.00-0.30); RHEUMATOID FACTOR QUANT < 10.0 IU/ML (<15.0)
== END ==
LOC: M LAB 08:29
PROVIDERS: ATTEND Physician Assistant
DX: M47.892 Other spondylosis, cervical region (principal); M50.30 Other cervical disc degeneration, unspecified cervical region

== ENCOUNTER → 2021-11-29 | Outpatient (CLI) | payer MEDICARE, MEDICAID | LOC: M LABSMTC 09:01 | PROVIDERS: ATTEND Anesthesiology | DX: Z01.812 Encounter for preprocedural laboratory examination (principal); Z20.822 Contact with and (suspected) exposure to COVID-19 ==

== ENCOUNTER 2021-12-04 09:07 | Day surgery (SDC) | payer MEDICARE, MEDICAID ==
[~2021-12-04] VITALS: Ht 167.6 cm; Wt 101.8 kg
[~2021-12-04 09:07] MED LIST changes: +CEFUROXIME 1MG/0.1ML INTRACAMERAL INJ As Ordered ONE; +LIDOCAINE 1% SDV 5ML VIAL As Ordered ONE; +PHENYLEPHRINE HCL 10 % OPHTH. SOL 5ML OD PRN
[2021-12-04] MEDS ORDERED: PROPARACAINE 0.5% OPHTH SOL 15ML OU ONE (09:55)
[2021-12-04] MEDS ORDERED: BSS with VANC/TOB/EPI for EYE CASES IR ONE (09:55)
[2021-12-04] MEDS ORDERED: OFLOXACIN 0.3 % (OCUFLOX) OPTH SOL 5ML OD ONE (09:55)
[2021-12-04] MEDS ORDERED: SPIR1CAP (10:21)
[2021-12-04] MEDS ORDERED: LOPI600T (10:21)
[2021-12-04] MEDS ORDERED: PREG25CA2 (10:21)
[2021-12-04] MEDS: TROPICAMIDE 1% OPHTH SOLN 2ML OD SCH ×3 (10:34→10:44)
[2021-12-04] MEDS: PHENYLEPHRINE 2.5% OPHTH SOL 2ML OD SCH ×3 (10:34→10:44)
[2021-12-04] MEDS: CYCLOPENTOLATE 1% OPHTH SOLN 2 ML BTL OD SCH ×3 (10:34→10:44)
[2021-12-04] MEDS ORDERED: fentaNYL 100 MCG/2 ML INJECTION As Ordered ONE (11:29)
[2021-12-04] MEDS ORDERED: MIDAZOLAM INJ 2MG/2ML VIAL (J2250 PER 1MG) As Ordered ONE (11:29)
[2021-12-04 11:58] VITALS: BP 112/64
== END 2021-12-04 12:10 | disposition home or self-care (01) ==
LOC: M SDC 09:07
PROVIDERS: ATTEND Ophthalmology
DX: H25.11 Age-related nuclear cataract, right eye (principal); I10 Essential (primary) hypertension; E78.5 Hyperlipidemia, unspecified; J44.9 Chronic obstructive pulmonary disease, unspecified; E66.9 Obesity, unspecified; F31.9 Bipolar disorder, unspecified; Z79.899 Other long term (current) drug therapy; Z98.84 Bariatric surgery status; Z86.711 Personal history of pulmonary embolism; Z86.718 Personal history of other venous thrombosis and embolism; Z79.51 Long term (current) use of inhaled steroids; Z88.8 Allergy status to other drugs, medicaments and biological substances
CPT/HCPCS: 66984; J0697; J2250; J3010; V2632

== ENCOUNTER 2022-04-17 12:05 | Emergency (ER) | payer MEDICARE, MEDICAID ==
[~2022-04-17] VITALS: Ht 167.6 cm; Wt 102.5 kg
[~2022-04-17 12:05] MED LIST changes: -CEFUROXIME 1MG/0.1ML INTRACAMERAL INJ As Ordered ONE; -LIDOCAINE 1% SDV 5ML VIAL As Ordered ONE; +LOPI600T; -PHENYLEPHRINE HCL 10 % OPHTH. SOL 5ML OD PRN; +PREG25CA2; +SPIR1CAP
[2022-04-17 13:03] LABS: BASO % 0.4 % (0.0-1.0); EOS # 0.3 10^3/uL (0.0-0.5); EOS % 2.9 % (0.0-3.0); HEMATOCRIT 41.8 % (36.0-47.0); HEMOGLOBIN 13.3 g/dl (12.0-15.5); LYMPH # 2.4 10^3/uL (1.5-5.0); LYMPH % 23.9 % (24.0-44.0); MEAN CORPUSCULAR HEMOGLOBIN 28.9 pg (27.0-33.0); MEAN CORPUSCULAR HGB CONC 31.8 g/dl (32.0-36.5); MEAN CORPUSCULAR VOLUME 90.7 fl (80.0-96.0); MONO # 0.8 10^3/uL (0.0-0.8); MONO % 7.7 % (2.0-8.0); NEUTROPHILS # 6.4 10^3/uL (1.5-8.5); NEUTROPHILS % 64.5 % (36.0-66.0); PLATELET COUNT, AUTOMATED 342 10^3/uL (150-450); RED BLOOD COUNT 4.61 10^6/uL (4.00-5.40)
[2022-04-17 14:19] LABS: BILIRUBIN,DIRECT 0.1 MG/DL (<0.4)
[2022-04-17 14:24] LABS: ALBUMIN 4.5 G/DL (3.2-5.2); ALKALINE PHOSPHATASE 136 U/L (46-116); ALT/SGPT 23 U/L (7.0-40); AST/SGOT 50 U/L (<34); BILIRUBIN,TOTAL 0.3 MG/DL (0.3-1.2); BLOOD UREA NITROGEN 9 MG/DL (9-23); CALCIUM LEVEL 9.6 MG/DL (8.5-10.1); CARBON DIOXIDE LEVEL 24 MMOL/L (20-31); CHLORIDE LEVEL 104 MMOL/L (98-107); CREATININE FOR GFR 0.73 MG/DL (0.55-1.30); GLOMERULAR FILTRATION RATE > 60.0 (>51); GLUCOSE, FASTING 92 MG/DL (60-100); LIPASE 55 U/L (12-53); POTASSIUM SERUM 4.8 MMOL/L (3.5-5.1); SODIUM LEVEL 138 MMOL/L (136-145); TOTAL PROTEIN 8.3 G/DL (5.7-8.2)
[2022-04-17] MEDS ORDERED: MORPHINE 4 MG/ML 1ML VIAL IV ONE (16:35)
[2022-04-17] MEDS ORDERED: ISOVUE-370 76% 100ML VIAL As Ordered ONE (17:13)
[2022-04-17] MEDS ORDERED: HYDROMORPHONE HCL 0.5 MG/ 0.5 ML SYRINGE IV ONE (17:50)
[2022-04-17] MEDS ORDERED: ceFAZolin SOD 2 GM in IV 1 EA IV ONE (18:25)
[2022-04-17] MEDS ORDERED: DOXY-443 PO (18:29)
[2022-04-17] MEDS ORDERED: HYDR-3713 PO (18:29)
[2022-04-17 19:21] VITALS: BP 117/83
[2022-04-17] MEDS ORDERED: NORCO, ANEXSIA 5/325MG TABLET (HYDROcodone/ACETAMINOPHEN) PO ONE (19:30)
== END 2022-04-17 19:43 | disposition home or self-care (01) ==
LOC: M ED 12:05
DX: L03.311 Cellulitis of abdominal wall (principal); E66.01 Morbid (severe) obesity due to excess calories; E11.9 Type 2 diabetes mellitus without complications; I10 Essential (primary) hypertension; K21.9 Gastro-esophageal reflux disease without esophagitis; K57.92 Diverticulitis of intestine, part unspecified, without perforation or abscess without bleeding; E78.5 Hyperlipidemia, unspecified; J44.9 Chronic obstructive pulmonary disease, unspecified; F31.9 Bipolar disorder, unspecified; F43.10 Post-traumatic stress disorder, unspecified; F41.9 Anxiety disorder, unspecified; F32.9 Major depressive disorder, single episode, unspecified; F42.9 Obsessive-compulsive disorder, unspecified; K29.70 Gastritis, unspecified, without bleeding; Z98.84 Bariatric surgery status; F17.200 Nicotine dependence, unspecified, uncomplicated; F12.10 Cannabis abuse, uncomplicated; Z79.899 Other long term (current) drug therapy; Z88.8 Allergy status to other drugs, medicaments and biological substances
CPT/HCPCS: 74177; 80048; 80076; 83690; 85025; 96365; 96375; 99284; Q9967

== ENCOUNTER → 2022-05-23 | Outpatient (REF) | payer MEDICARE, MEDICAID ==
[~2022-05-23] MED LIST changes: +DOXY-443 PO
== END ==
LOC: M LAB REF 16:16
PROVIDERS: ATTEND Physician Assistant
DX: Z12.4 Encounter for screening for malignant neoplasm of cervix (principal); Z11.3 Encounter for screening for infections with a predominantly sexual mode of transmission
CPT/HCPCS: 87624; G0123

== ENCOUNTER → 2022-06-18 | Outpatient (CLI) | payer MEDICARE, MEDICAID | LOC: M RAD 06:52 | PROVIDERS: ATTEND Nurse Practitioner | DX: R10.84 Generalized abdominal pain (principal); K21.9 Gastro-esophageal reflux disease without esophagitis; K85.90 Acute pancreatitis without necrosis or infection, unspecified; R14.0 Abdominal distension (gaseous) ==

== ENCOUNTER → 2022-08-23 | Outpatient (CLI) | payer MEDICARE, MEDICAID | LOC: M PLARAD 12:45 | PROVIDERS: ATTEND Physician Assistant | DX: M50.33 Other cervical disc degeneration, cervicothoracic region (principal); M47.812 Spondylosis without myelopathy or radiculopathy, cervical region ==

== ENCOUNTER → 2022-08-24 | Outpatient (CLI) | payer MEDICARE, MEDICAID | LOC: M PLARAD 11:54 | PROVIDERS: ATTEND Student in an Organized Health Care Education/Training Program | DX: R51.9 Headache, unspecified (principal); I67.1 Cerebral aneurysm, nonruptured ==

== ENCOUNTER → 2022-08-27 | Outpatient (CLI) | payer MEDICARE, MEDICAID | LOC: M PLALAB 10:38 | PROVIDERS: ATTEND Student in an Organized Health Care Education/Training Program | DX: R51.9 Headache, unspecified (principal); H53.8 Other visual disturbances ==

== ENCOUNTER 2022-09-07 15:08 | Emergency (ER) | payer MEDICARE, MEDICAID ==
[~2022-09-07] VITALS: Ht 167.6 cm; Wt 99.6 kg
[2022-09-07 16:14] LABS: BASO % 0.4 % (0.0-1.0); EOS # 0.3 10^3/uL (0.0-0.5); EOS % 3.3 % (0.0-3.0); HEMATOCRIT 39.3 % (36.0-47.0); HEMOGLOBIN 12.6 g/dl (12.0-15.5); LYMPH # 2.1 10^3/uL (1.5-5.0); LYMPH % 22.5 % (24.0-44.0); MEAN CORPUSCULAR HEMOGLOBIN 28.6 pg (27.0-33.0); MEAN CORPUSCULAR HGB CONC 32.1 g/dl (32.0-36.5); MEAN CORPUSCULAR VOLUME 89.3 fl (80.0-96.0); MONO # 0.8 10^3/uL (0.0-0.8); MONO % 8.3 % (2.0-8.0); NEUTROPHILS # 6.1 10^3/uL (1.5-8.5); NEUTROPHILS % 65.3 % (36.0-66.0); PLATELET COUNT, AUTOMATED 334 10^3/uL (150-450); WHITE BLOOD COUNT 9.3 10^3/uL (4.0-10.0)
[2022-09-07 16:32] LABS: LIPASE 63 U/L (12-53)
[2022-09-07 16:34] LABS: ALBUMIN 4.2 G/DL (3.2-5.2); ALKALINE PHOSPHATASE 171 U/L (46-116); ALT/SGPT 20 U/L (7.0-40); AST/SGOT 19 U/L (<34); BILIRUBIN,DIRECT < 0.1 MG/DL (<0.4); BILIRUBIN,TOTAL 0.3 MG/DL (0.3-1.2); BLOOD UREA NITROGEN 13 MG/DL (9-23); CALCIUM LEVEL 9.5 MG/DL (8.5-10.1); CARBON DIOXIDE LEVEL 22 MMOL/L (20-31); CHLORIDE LEVEL 108 MMOL/L (98-107); CREATININE FOR GFR 0.79 MG/DL (0.55-1.30); GLOMERULAR FILTRATION RATE > 60.0 (>51); GLUCOSE, FASTING 115 MG/DL (60-100); POTASSIUM SERUM 4.1 MMOL/L (3.5-5.1); SODIUM LEVEL 139 MMOL/L (136-145); TOTAL PROTEIN 7.6 G/DL (5.7-8.2)
[2022-09-07] MEDS ORDERED: fentaNYL 100 MCG/2 ML INJECTION IV ONE (18:05)
[2022-09-07] MEDS ORDERED: KETOROLAC 30 MG/ML 1ML VIAL IV ONE (18:05)
[2022-09-07] MEDS ORDERED: ONDANSETRON 4MG 2ML VIAL IV ONE (18:05)
[2022-09-07] MEDS ORDERED: NS 1,000 ML IV ONE (18:05)
[2022-09-07] MEDS ORDERED: ISOVUE-370 76% 100ML VIAL As Ordered ONE (18:08)
[2022-09-07] MEDS ORDERED: MORPHINE 4 MG/ML 1ML VIAL IV ONE (19:15)
[2022-09-07 21:00] VITALS: BP 156/84; TEMP 97; O2SAT 99
[2022-09-07] MEDS ORDERED: ONDA4TAB6 PO (21:02)
[2022-09-07] MEDS ORDERED: HYDR-4429 PO (21:02)
[2022-09-07] MEDS ORDERED: HYDR-3713 PO (21:24)
== END 2022-09-07 21:34 | disposition home or self-care (01) ==
LOC: M ED 15:08
DX: R10.9 Unspecified abdominal pain (principal); F41.9 Anxiety disorder, unspecified; F31.89 Other bipolar disorder; F43.10 Post-traumatic stress disorder, unspecified; F42.9 Obsessive-compulsive disorder, unspecified; Z86.73 Personal history of transient ischemic attack (TIA), and cerebral infarction without residual deficits; G43.909 Migraine, unspecified, not intractable, without status migrainosus; F17.200 Nicotine dependence, unspecified, uncomplicated; Z98.84 Bariatric surgery status; K57.30 Diverticulosis of large intestine without perforation or abscess without bleeding; Z79.899 Other long term (current) drug therapy; Z88.8 Allergy status to other drugs, medicaments and biological substances
CPT/HCPCS: 74177; 80048; 80076; 81001; 83690; 85025; 87088; 87486; 87581; 87633; 87798; 96361; 96374; 96375; 99284; J1885; J2405; J3010; Q9967

== ENCOUNTER 2023-03-25 13:09 | Emergency (ER) | payer MEDICARE, MEDICAID ==
[~2023-03-25] VITALS: Ht 167.6 cm; Wt 100.7 kg
[~2023-03-25 13:09] MED LIST changes: +CLON-952 PO; +DIAZ-654 PO; +DICY-61 PO; -DICY10CA13 PO; +HYDR-4429 PO; -KLON2TAB PO; +ONDA4TAB6 PO; -PREG25CA2; +PREG25CA3; -VALI10TA PO
[2023-03-25] MEDS ORDERED: KETOROLAC 30 MG/ML 1ML VIAL IV ONE (16:45)
[2023-03-25 17:01] LABS: BASO % 0.4 % (0.0-1.0); EOS # 0.3 10^3/uL (0.0-0.5); HEMATOCRIT 37.7 % (36.0-47.0); HEMOGLOBIN 11.7 g/dl (12.0-15.5); LYMPH # 2.8 10^3/uL (1.5-5.0); LYMPH % 29.8 % (24.0-44.0); MEAN CORPUSCULAR HEMOGLOBIN 24.7 pg (27.0-33.0); MEAN CORPUSCULAR VOLUME 79.5 fl (80.0-96.0); MONO # 0.9 10^3/uL (0.0-0.8); NEUTROPHILS # 5.4 10^3/uL (1.5-8.5); NEUTROPHILS % 57.3 % (36.0-66.0); PLATELET COUNT, AUTOMATED 380 10^3/uL (150-450); RED BLOOD COUNT 4.74 10^6/uL (4.00-5.40); WHITE BLOOD COUNT 9.4 10^3/uL (4.0-10.0)
[2023-03-25 17:27] LABS: BLOOD UREA NITROGEN 14 MG/DL (9-23); CALCIUM LEVEL 9.1 MG/DL (8.5-10.1); CARBON DIOXIDE LEVEL 24 MMOL/L (20-31); CHLORIDE LEVEL 107 MMOL/L (98-107); CREATININE FOR GFR 0.65 MG/DL (0.55-1.30); GLOMERULAR FILTRATION RATE > 60.0 (>51); GLUCOSE, FASTING 113 MG/DL (60-100); SODIUM LEVEL 139 MMOL/L (136-145)
[2023-03-25] MEDS ORDERED: HALOPERIDOL 5MG/ML 1ML VIAL IV ONE (17:55)
[2023-03-25 18:06] VITALS: BP 118/79; TEMP 97.8; O2SAT 97
== END 2023-03-25 18:36 | disposition home or self-care (01) ==
LOC: EDBD 13:09 → M ED 13:09
DX: G89.4 Chronic pain syndrome (principal); E11.9 Type 2 diabetes mellitus without complications; I10 Essential (primary) hypertension; G43.909 Migraine, unspecified, not intractable, without status migrainosus; J44.9 Chronic obstructive pulmonary disease, unspecified; Z86.711 Personal history of pulmonary embolism; Z98.84 Bariatric surgery status; Z88.8 Allergy status to other drugs, medicaments and biological substances; Z79.810 Long term (current) use of selective estrogen receptor modulators (SERMs); Z79.83 Long term (current) use of bisphosphonates; Z79.4 Long term (current) use of insulin; Z79.899 Other long term (current) drug therapy
CPT/HCPCS: 80048; 81001; 85025; 96374; 96375; 99284; J1630; J1885

== ENCOUNTER → 2023-05-15 | Outpatient (CLI) | payer MEDICARE, MEDICAID | LOC: M SLEEP 07:36 | PROVIDERS: ATTEND Student in an Organized Health Care Education/Training Program | DX: R25.1 Tremor, unspecified (principal) ==

== ENCOUNTER → 2023-06-17 | Outpatient (CLI) | payer MEDICARE, MEDICAID ==
[~2023-06-17] MED LIST changes: -KLON0.5T PO; +KLON0.5T8 PO; -KLON1TAB PO; +KLON1TAB13 PO; -MIRA1POW3 PO; +MIRA33506 PO
[2023-06-17 13:14] LABS: HEMATOCRIT 37.4 % (36.0-47.0); HEMOGLOBIN 11.2 g/dl (12.0-15.5); MEAN CORPUSCULAR HEMOGLOBIN 24.6 pg (27.0-33.0); MEAN CORPUSCULAR HGB CONC 29.9 g/dl (32.0-36.5); MEAN CORPUSCULAR VOLUME 82.2 fl (80.0-96.0); PLATELET COUNT, AUTOMATED 399 10^3/uL (150-450); RED BLOOD COUNT 4.55 10^6/uL (4.00-5.40); WHITE BLOOD COUNT 9.8 10^3/uL (4.0-10.0)
[2023-06-17 13:35] LABS: HEMOGLOBIN A1c 6.5 % (4.0-6.0)
[2023-06-17 13:47] LABS: ALKALINE PHOSPHATASE 151 U/L (46-116); ALT/SGPT 19 U/L (7.0-40); AST/SGOT 30 U/L (<34); BILIRUBIN,TOTAL 0.2 MG/DL (0.3-1.2); BLOOD UREA NITROGEN 18 MG/DL (9-23); CARBON DIOXIDE LEVEL 21 MMOL/L (20-31); CHLORIDE LEVEL 107 MMOL/L (98-107); CHOLESTEROL LEVEL 199 MG/DL (<200); CHOLESTEROL RISK RATIO 4.49 (<5); CREATININE FOR GFR 0.95 MG/DL (0.55-1.30); GLOMERULAR FILTRATION RATE > 60.0 (>51); GLUCOSE, FASTING 117 MG/DL (60-100); HDL CHOLESTEROL 44.3 MG/DL (>40); LDL CHOLESTEROL 125.3 MG/DL (<100); NON-HDL-C 154.7 MG/DL; POTASSIUM SERUM 4.9 MMOL/L (3.5-5.1); SODIUM LEVEL 137 MMOL/L (136-145); TOTAL PROTEIN 7.8 G/DL (5.7-8.2); TRIGLYCERIDES LEVEL 147 MG/DL (<150)
== END ==
LOC: M WUC 08:15
PROVIDERS: ATTEND Physician Assistant
DX: I10 Essential (primary) hypertension (principal); R73.03 Prediabetes; E78.2 Mixed hyperlipidemia

== ENCOUNTER 2023-07-13 17:54 | Emergency (ER) | payer MEDICARE, MEDICAID ==
[~2023-07-13] VITALS: Ht 167.6 cm; Wt 95.5 kg
[2023-07-13 18:32] LABS: BASO % 0.1 % (0.0-1.0); HEMATOCRIT 30.9 % (36.0-47.0); HEMOGLOBIN 9.9 g/dl (12.0-15.5); LYMPH # 0.9 10^3/uL (1.5-5.0); LYMPH % 3.5 % (24.0-44.0); MEAN CORPUSCULAR HEMOGLOBIN 24.6 pg (27.0-33.0); MEAN CORPUSCULAR VOLUME 76.9 fl (80.0-96.0); MONO # 1.7 10^3/uL (0.0-0.8); NEUTROPHILS # 21.5 10^3/uL (1.5-8.5); NEUTROPHILS % 88.7 % (36.0-66.0); PLATELET COUNT, AUTOMATED 208 10^3/uL (150-450); RED BLOOD COUNT 4.02 10^6/uL (4.00-5.40); WHITE BLOOD COUNT 24.2 10^3/uL (4.0-10.0)
[2023-07-13 19:00] LABS: CK-MB VALUE MASS 2.1 NG/ML (<3.6); LIPASE 154 U/L (12-53)
[2023-07-13 19:02] LABS: ALBUMIN 2.6 G/DL (3.2-5.2); ALKALINE PHOSPHATASE 438 U/L (46-116); ALT/SGPT 167 U/L (7.0-40); AST/SGOT 170 U/L (<34); BILIRUBIN,DIRECT 4.7 MG/DL (<0.4); BILIRUBIN,TOTAL 5.9 MG/DL (0.3-1.2); BLOOD UREA NITROGEN 23 MG/DL (9-23); CARBON DIOXIDE LEVEL 24 MMOL/L (20-31); CHLORIDE LEVEL 103 MMOL/L (98-107); CPK CREATINE PHOSPHOKINASE 174 U/L (34-145); CREATININE FOR GFR 0.91 MG/DL (0.55-1.30); GLOMERULAR FILTRATION RATE > 60.0 (>51); GLUCOSE, FASTING 173 MG/DL (60-100); POTASSIUM SERUM 3.5 MMOL/L (3.5-5.1); SODIUM LEVEL 138 MMOL/L (136-145); TOTAL PROTEIN 5.6 G/DL (5.7-8.2)
[2023-07-13 19:09] LABS: PROCALCITONIN 1.12 ng/ml
[2023-07-13] MEDS ORDERED: ISOVUE-370 76% 100ML VIAL As Ordered ONE (19:18)
[2023-07-13] MEDS: POTASSIUM CHLORIDE 10MEQ SR TABLET PO ONE (19:26)
[2023-07-13] MEDS: NS 1,000 ML IV ONE (19:26)
[2023-07-13] MEDS: PIPERACILLIN/TAZOBACTAM SOD 4.5 GM in D5W MINI-BAG PLUS 50 ML IV ONE (19:26)
[2023-07-13 20:20] LABS: CK-MB VALUE MASS 2.3 NG/ML (<3.6)
[2023-07-13 20:22] LABS: CPK CREATINE PHOSPHOKINASE 173 U/L (34-145); MB/CK RELATIVE INDEX 1.32 (< OR =4)
[2023-07-13] MEDS: MORPHINE 4 MG/ML 1ML VIAL IV ONE ×2 (20:53→23:41)
[2023-07-13 21:28] LABS: INR 1.07; PROTHROMBIN TIME 13.6 SECONDS (12.5-14.5)
[2023-07-13 21:54] LABS: HEPATITIS B CORE ANTIBODY IGM NEGATIVE (NEGATIVE)
[2023-07-13 21:59] LABS: HEPATITIS C VIRUS ABY INDEX 4.75 INDEX (<0.8)
[2023-07-14] MEDS: ALPRAZolam 0.5 MG TAB PO ONE (05:04)
[2023-07-14] MEDS: PIPERACILLIN/TAZOBACTAM SOD 3.375 GM in D5W MINI-BAG PLUS 50 ML IV ONE (05:04)
[2023-07-14] MEDS: MORPHINE 4 MG/ML 1ML VIAL IV ONE (05:04)
[2023-07-14 07:00] VITALS: BP 135/82; TEMP 98; O2SAT 96
== END 2023-07-14 07:30 | disposition left against medical advice (07) ==
LOC: M ED 17:54
DX: K83.09 Other cholangitis (principal); R59.0 Localized enlarged lymph nodes; R16.0 Hepatomegaly, not elsewhere classified; Z53.9 Procedure and treatment not carried out, unspecified reason; Z86.718 Personal history of other venous thrombosis and embolism; Z87.820 Personal history of traumatic brain injury; F17.200 Nicotine dependence, unspecified, uncomplicated; Z79.84 Long term (current) use of oral hypoglycemic drugs; Z79.899 Other long term (current) drug therapy; Z88.8 Allergy status to other drugs, medicaments and biological substances
CPT/HCPCS: 71045; 71260; 74177; 76705; 80048; 80074; 80076; 80143; 82550; 82553; 83690; 84145; 84484; 85025; 85610; 86140; 87040; 87486; 87522; 87581; 87633; 87798; 93005; 93041; 94760; 96365; 96366; 96367; 96375; 96376; 99285; J2543; Q9967

== ENCOUNTER 2023-07-14 07:47 | Emergency (ER) | payer MEDICARE, MEDICAID ==
[2023-07-14 07:55] VITALS: BP 133/84; TEMP 98.3; O2SAT 94
== END 2023-07-14 08:02 | disposition short-term general hospital (02) ==
LOC: M ED 07:47
DX: K83.09 Other cholangitis (principal); F17.200 Nicotine dependence, unspecified, uncomplicated; Z79.899 Other long term (current) drug therapy; Z88.8 Allergy status to other drugs, medicaments and biological substances